=== PATIENT | male | born 1945 | race Caucasian/White ===

== ENCOUNTER 2022-06-22 11:44 | Emergency (ER) | payer OTHER ==
--- OUTSIDE RECORDS SUMMARY | 2022-06-22 11:48 | XMS REPORT | Continuity of Care Document ---
:1945 Author Organization [facility] t Address [facility] [place] [address] Care Team Providers Name Role Phone Arnav Tello Attending Clinician Unavailable Omer_Eliecer Attending Clinician Unavailable Omer_Eliecer Admitting Clinician Unavailable Payers Payer Name Policy Type Policy Number Effective Date Expiration Date S dorian MEDICARE [place]: [id number] 2012 [employer] 00:00:00 [facility] [id number] (MEDICARE SUPPLEMENT) Problems Condition Condition Condition Status Onset Resolution Last Treating Co mments Source Name Details Category Date Date Treatment Clinician Date Diabetes Diabetes Problem Active 2020-05 Dias ge mellitus Mellitus 2-15 Family 00:00: Practic 00 e Allergies, Adverse Reactions, Alerts Allergy Allergy Status Severity Reaction(s) Onset Inactive Treating Comm ents Source Name Type Date Date Clinician Flagyl Allergy Active [facility] Practic e e Social History Smoking Status Start Date Stop Date Source Former Smoker [facility] Medications Ordered Filled Start Stop Current Ordering Indication Dosage Frequency Signature Comments Components Source Medication Medication Date Date Medication? Clinician (SIG) Name Name allopurinol allopurinol No allopurino [place] 100 mg 100 mg l 100 mg Family tablet TAKE tablet TAKE tablet Practic 1 TABLET BY 1 TABLET BY TAKE 1 e MOUTH ONCE MOUTH ONCE TABLET BY DAILY FOR DAILY FOR MOUTH ONCE 30 DAYS 30 DAYS DAILY FOR 30 DAYS atorvastati atorvastati No atorvastat [place] n 40 mg n 40 mg in 40 mg Famil y tablet tablet tablet Practic e betamethaso betamethaso No betamethas [place] ne valerate ne valerate one F amily 0.1 % 0.1 % valerate Practic topical topical 0.1 % e cream cream topical cream clopidogrel clopidogrel No clopidogre [place] 75 mg 75 mg l 75 mg Family tablet TAKE tablet TAKE tablet Practic 1 TABLET BY 1 TABLET BY TAKE 1 e MOUTH ONCE MOUTH ONCE TABLET BY DAILY FOR DAILY FOR MOUTH ONCE 90 DAYS 90 DAYS DAILY FOR 90 DAYS dexamethaso dexamethaso No dexamethas [facility] ne sodium ne sodium one sodium Family phosphate 4 phosphate 4 phosphate Practic mg/mL mg/mL 4 mg/mL e injection injection injection solution 1 solution 1 solution 1 cc cc cc furosemide furosemide No furosemide [facility] 40 mg 40 mg 40 mg Family tablet tablet tablet Practic e glimepiride glimepiride No glimepirid [facility] 1 mg tablet 1 mg tablet e 1 mg Family tablet Practic e levothyroxi levothyroxi No levothyrox [facility] ne 25 mcg ne 25 mcg ine 25 mcg Family tablet tablet tablet Practic e tramadol 50 tramadol 50 No tramadol [place] mg tablet mg tablet 50 mg Fami ly Take 1 Take 1 tablet Practic tablet tablet Take 1 e every 12 every 12 tablet hours by hours by every 12 oral route oral route hours by as needed as needed oral route for 10 for 10 as needed days. days. for 10 days. Immunizations Ordered Immunization Filled Immunization Date Status Commen ts Source Name Name influenza, influenza, 2021-05-26 Completed [facility] high-dose, high-dose, 16:34:19 Practice quadrivalent quadrivalent COVID-19, mRNA, COVID-19, mRNA, 2021-04-06 Completed [facility] LNP-S, PF, 100 LNP-S, PF, 100 00:00:00 Practi ce mcg/0.5 mL dose mcg/0.5 mL dose (Moderna) (Moderna) COVID-19, mRNA, COVID-19, mRNA, 2020-06-27 Completed [facility] LNP-S, PF, 100 LNP-S, PF, 100 00:00:00 Practi ce mcg/0.5 mL dose mcg/0.5 mL dose (Moderna) (Moderna) COVID-19, mRNA, COVID-19, mRNA, 2020-05-29 Completed [facility] LNP-S, PF, 100 LNP-S, PF, 100 00:00:00 Practi ce mcg/0.5 mL dose mcg/0.5 mL dose (Moderna) (Moderna) Vital Signs Vital Name Observation Time Observation Value Comments Source BP Diastolic 2021-05-26 00:00:00 52 mm[Hg] [facility] Practice Height 2021-05-26 00:00:00 76 [in_i] [facility] BMI (Body Mass 2021-05-26 00:00:00 29.1 kg/m2 [facility] Family Index) Practice BP Systolic 2021-05-26 00:00:00 102 mm[Hg] [facility] Body Weight 2021-05-26 00:00:00 239 [lb_av] [facility] BP Diastolic 2021-04-29 00:00:00 65 mm[Hg] [facility] Height 2021-04-29 00:00:00 76 [in_i] [facility] BMI (Body Mass 2021-04-29 00:00:00 29.5 kg/m2 [facility] Family Index) Practice BP Systolic 2021-04-29 00:00:00 113 mm[Hg] [facility] Body Weight 2021-04-29 00:00:00 242.2 [lb_av] [facility] Procedures Procedure Date / Time Performed Performing Clinician Sour e X-RAY OF KNEE 3 VIEW 2021-04-29 00:00:00 [facility] Plan of Care Planned Activity Planned Date Details Comments Source Diagnostic Test 2021-05-26 HbA1c (hemoglobin [facility] Pending 00:00:00 A1c), blood [code Practice = HbA1c (hemoglobin A1c), blood] Diagnostic Test 2021-05-26 CBC w/ auto diff [facility] Pending 00:00:00 [code = CBC w/ Practice auto diff] Diagnostic Test 2021-05-26 iron + TIBC + [facility] Pending 00:00:00 ferritin, serum Practice [code = iron + TIBC + ferritin, serum] Diagnostic Test 2021-05-26 vitamin B12 + [facility] Pending 00:00:00 folate, serum or Practice blood [code = vitamin B12 + folate, serum or blood] Diagnostic Test 2021-05-26 lipid panel, serum [facility] Pending 00:00:00 [code = lipid Practice panel, serum] Diagnostic Test 2021-05-26 PSA, total + free, [facility] Pending 00:00:00 serum or plasma Practice [code = PSA, total + free, serum or plasma] Encounters Start End Encounter Admission Attending Care Care Encounter Source Date/Time Date/Time Type Type Clinicians Facility Department ID 2022-04-27 Outpatient Omer [facility] [id number] Common 08:13:03 [facility] [id number] [facility] 2022-02-11 2022-02-11 Outpatient Patel_J VFP VFP [id number] [facility] 00:00:00 00:00:00 [id number] Family Practic e 2021-08-25 2021-08-25 Outpatient Patel_J VFP VFP [id number] -[id number] [facility] 02:54:00 02:54:00 [id number] Family Practic e 2021-08-21 2021-08-21 Outpatient Patel_J VFP VFP [id number] -[id number] [facility] 09:15:00 09:15:00 [id number] Family Practic e 2021-08-04 2021-08-04 Outpatient Patel_J VFP VFP [id number] -[id number] [facility] 05:18:00 05:18:00 [id number] Family Practic e 2021-07-10 2021-07-10 Outpatient Patel_J VFP VFP [id number] -[address] [facility] 11:18:00 11:18:00 [id number] Family Practic e 2021-06-30 2021-06-30 Outpatient Patel_J VFP VFP [id number] -[address] [facility] 02:59:00 02:59:00 [id number] Family Practic e 2021-06-17 2021-06-17 Outpatient Patel_J VFP VFP [id number] -[id number] [facility] 03:12:00 03:12:00 [id number] Family Practic e 2021-06-13 2021-06-13 Outpatient Patel_J VFP VFP [id number] -[id number] [facility] 04:13:00 04:13:00 [id number] Family Practic e 2021-06-02 2021-06-02 Outpatient Patel_J VFP VFP [id number] -[id number] [facility] 08:39:00 08:39:00 [id number] Family Practic e 2021-06-01 2021-06-01 Outpatient Patel_J VFP VFP [id number] -[address] [facility] 06:35:00 06:35:00 [id number] Family Practic e 2021-05-31 2021-05-31 Outpatient Patel_J VFP VFP [id number] -[address] [facility] 10:55:00 10:55:00 [id number] Family Practic e 2021-05-26 2021-05-26 Outpatient Patel_J VFP VFP [id number] [facility] 12:10:00 12:10:00 [id number] Family Practic e 2021-05-26 2021-05-26 Adelia N VFP [place] - [id number] [facility] illage 00:00:00 00:00:00 ALYSA Tello: [place] [id number] Medical - Practi c Shadow VM_HOU_Shad e Ambler [facility], [facility] [address] [address] , Ph. 2021-05-20 2021-05-20 Outpatient Patel_J VFP VFP [id number] [facility] 07:01:00 07:01:00 [id number] Family Practic e 2021-05-20 2021-05-20 Outpatient Patel_J VFP VFP [id number] -[address] [facility] 07:01:00 07:01:00 [id number] Family Practic e 2021-05-04 2021-05-04 Outpatient Patel_J VFP VFP [id number] -[address] [facility] 11:13:00 11:13:00 [id number] Family Practic e 2021-04-30 2021-04-30 Outpatient Patel_J VFP VFP [id number] -[id number] [facility] 04:37:00 04:37:00 [id number] Family Practic e 2021-04-29 2021-04-29 Outpatient Patel_J VFP VFP [id number] [facility] 01:30:00 01:30:00 [id number] Family Practic e 2021-04-29 2021-04-29 Adelia N VFP [place] - [id number] [facility] 00:00:00 00:00:00 Omer [place]: [place] [facility] [id number] Medical - Practi c Shadow VM_HOU_Shad e Ambler [facility], [address], [place] [address] , Ph. 2021-04-28 2021-04-28 Outpatient Patel_J VFP VFP [id number] [facility] 05:29:00 05:29:00 [id number] Family Practic e Results Test Description Test Time Test Comments Results Result Comments Source Prostate specific Ag panel - Serum or Plasma 2021-06-03 00:0 0:00 Test Item Value Reference Range Interpretation Comme nts PSA, total (test code = 1.3 NG/mL See_Comment [Au tomated message] The system PSA, total) which generated this result transmitted ref erence range: < or = 4.0. The refe rence range was not used to interpr et this result as normal/abnormal . PSA, free (test code = 0.5 NG/mL PSA, free) PSA, % free (test code = 38 % (calc) >25 PSA, % free) [facility]Cyanocobalamin [Interpretation] in Serum or Blood 2021-06-03 00:00:00 Test Item Value Reference Range Interpretation Comments vitamin B12 (test code = vitamin 301 pg/mL 200-1100 B12) folate, serum (test code = folate, 8.8 NG/mL serum) [facility] + TIBC + ferritin, [id number] 00:00:00 Test Item Value Reference Range Interpretation Comments ferritin (test code = ferritin) 397.37 NG/mL 21.81-274.66 H iron, total (test code = iron, 114 mcg/dL 50-180 total) transferrin (test code = 220 mg/dL 163-344 transferrin) total iron binding capacity 315 mcg/dL 250-425 (calculated) (test code = total iron binding capacity (calculated)) % saturation (test code = % 36.2 % 15.0-60.0 saturation) [facility] Auto Differential panel - [id number] 00:00:00 Test Item Value Reference Range Interpretation Comments WBC (test code = WBC) 6.66 x10*3/?L 4.00-11.00 RBC (test code = RBC) 4.44 10*12/L 4.63-6.08 L hemoglobin (test code = 14.20 g/dL 13.70-17.50 hemoglobin) hematocrit (test code = 43.7 % 40.1-51.0 hematocrit) MCV (test code = MCV) 98.4 fL 80.0-100.0 MCH (test code = MCH) 32.0 pg 25.7-32.2 MCHC (test code = MCHC) 32.5 g/dL 32.3-36.5 RDW-SD (test code = RDW-SD) 44.4 fL 35.1-43.9 H platelet count (test code = 238.0 k/uL 150.0-400.0 platelet count) MPV (test code = MPV) 11.1 fL 7.5-11.5 neut% (test code = neut%) 51.4 % 34.0-67.9 lymph% (test code = lymph%) 32.7 % 21.8-53.1 mon% (test code = mon%) 9.5 % 5.3-12.2 eos% (test code = eos%) 5.3 % 0.8-7.0 baso% (test code = baso%) 0.8 % 0.2-1.2 neut# (test code = neut#) 3.4 x10*3/?L 1.8-5.4 lymph# (test code = lymph#) 2.2 x10*3/?L 1.3-3.6 mon# (test code = mon#) 0.6 x10*3/?L 0.3-0.8 eos# (test code = eos#) 0.35 x10*3/?L 0.04-0.54 baso# (test code = baso#) 0.05 x10*3/?L 0.01-0.08 [facility] 1996 panel - Serum or [id number] 00:00:00 Test Item Value Reference Range Interpretation Comments HDL (test code = HDL) 38 mg/dL L triglyceride (test code = 137 mg/dL <150 triglyceride) VLDL (calculated) (test code = VLDL 27 mg/dL (calculated)) cholesterol/HDL ratio (test code = 4.3 mg/dL cholesterol/HDL ratio) non-HDL cholesterol (calculated) 125 mg/dL <160 (test code = non-HDL cholesterol (calculated)) cholesterol (test code = 163 mg/dL <200 cholesterol) Cholesterol in LDL [Mass/volume] in 98 mg/dL <130 Serum or Plasma (test code = 2089-1) [facility] CenterHemoglobin A1c/Hemoglobin.total in [id number] 00:00:00 Test Item Value Reference Range Interpretation Comments Hemoglobin A1c/Hemoglobin.total in 6.4 % 1.0-5.7 H Blood (test code = 4548-4) average blood glucose (calculation) 137 mg/dL (test code = average blood glucose (calculation)) [facility] CenterNeuronal nuclear IgG Ab [Units/volume] in Serum by [id number] 00:00:00 Test Item Value Reference Range Interpretation Comments KAREN screen, ifa (test code = KAREN positive negative A screen, ifa) [facility] Ab [Titer] in Serum by Immunofluorescence 2021-05-04 00:00:00 Test Item Value Reference Range Interpretation Comments KAREN titer (test code = KAREN 1:160 H titer) KAREN pattern (test code = nuclear, speckled A KAREN pattern) [facility] 00:00:00 Test Item Value Reference Range Interpretation Comments DNA (ds) antibody 2 IU/mL (test code = DNA (ds) antibody) sm antibody (test code <1.0 neg See_Comment [Aut omated message] = sm antibody) The system wh ich generated this result transmitted ref erence range: <1.0 neg . The reference range was not used to interpr et this result as normal/abnormal . sm/director of optimization antibody (test <1.0 neg See_Comment [Auto mated message] code = sm/director of optimization The system whi ch antibody) generated this result transmitted ref erence range: <1.0 neg . The reference range was not used to interpr et this result as normal/abnormal . director of optimization antibody (test <1.0 neg See_Comment [Automat ed message] code = director of optimization antibody) The s tem which generated this result transmitted ref erence range: <1.0 neg . The reference range was not used to interpr et this result as normal/abnormal . chromatin <1.0 neg See_Comment [Automated mes milton] (nucleosomal) antibody The s ystem which (test code = chromatin gener ated this result (nucleosomal) transmitted re ference antibody) range: <1.0 neg . The reference range was not used to interpr et this result as normal/abnormal . [facility] Test Item Value Reference Range Interpretation Comments sjogren's antibody <1.0 neg See_Comment [Automat ed message] The (ss-A) (test code = system w hich generated sjogren's antibody this resu lt transmitted (ss-A)) reference range : <1.0 neg. The refere nce range was not used to interpret this result as normal/abnormal . sjogren's antibody <1.0 neg See_Comment [Automat ed message] The (ss-B) (test code = system w hich generated sjogren's antibody this resu lt transmitted (ss-B)) reference range : <1.0 neg. The refere nce range was not used to interpret this result as normal/abnormal . scl-70 antibody (test <1.0 neg See_Comment [Auto mated message] The code = scl-70 system which g enerated antibody) this result tra nsmitted reference range : <1.0 neg. The refere nce range was not used to interpret this result as normal/abnormal . kristen-1 antibody (test <1.0 neg See_Comment [Automa mir message] The code = kristen-1 antibody) system which generated this result tra nsmitted reference range : <1.0 neg. The refere nce range was not used to interpret this result as normal/abnormal . [facility] Test Item Value Reference Range Interpretation Comments centromere B antibody <1.0 neg See_Comment [Auto mated message] (test code = The system whic h centromere B antibody) gener ated this result transmitted ref erence range: <1.0 neg . The reference range was not used to interpr et this result as normal/abnormal . ribosomal P antibody <1.0 neg See_Comment [Autom ated message] (test code = ribosomal The s ystem which P antibody) generated this result transmitted ref erence range: <1.0 neg . The reference range was not used to interpr et this result as normal/abnormal . [facility] Cent[id number] 00:00:00InterpretationVillSpencer HospitalNeuronal nuclear IgG Ab [Units/volume] in Serum by [id number] 00:00:00 Test Item Value Reference Range Interpretation Comments KAREN screen, ifa (test code = KAREN positive negative A screen, ifa) [facility]Nuclear Ab [Titer] in Serum by Immunofluorescence 2021-05-04 00:00:00 Test Item Value Reference Range Interpretation Comments KAREN titer (test code = KAREN 1:160 H titer) KAREN pattern (test code = nuclear, speckled A KAREN pattern) [facility] [id number] 00:00:00 Test Item Value Reference Range Interpretation Comments DNA (ds) antibody 2 IU/mL (test code = DNA (ds) antibody) sm antibody (test code <1.0 neg See_Comment [Aut omated message] = sm antibody) The system wh ich generated this result transmitted ref erence range: <1.0 neg . The reference range was not used to interpr et this result as normal/abnormal . sm/director of optimization antibody (test <1.0 neg See_Comment [Auto mated message] code = sm/director of optimization The system whi ch antibody) generated this result transmitted ref erence range: <1.0 neg . The reference range was not used to interpr et this result as normal/abnormal . director of optimization antibody (test <1.0 neg See_Comment [Automat ed message] code = director of optimization antibody) The sys tem which generated this result transmitted ref erence range: <1.0 neg . The reference range was not used to interpr et this result as normal/abnormal . chromatin <1.0 neg See_Comment [Automated mes milton] (nucleosomal) antibody The s ystem which (test code = chromatin gener ated this result (nucleosomal) transmitted re ference antibody) range: <1.0 neg . The reference range was not used to interpr et this result as normal/abnormal . [facility] [id number] 00:00:00 Test Item Value Reference Range Interpretation Comments sjogren's antibody <1.0 neg See_Comment [Automat ed message] The (ss-A) (test code = system w hich generated sjogren's antibody this resu lt transmitted (ss-A)) reference range : <1.0 neg. The refere nce range was not used to interpret this result as normal/abnormal . sjogren's antibody <1.0 neg See_Comment [Automat ed message] The (ss-B) (test code = system w hich generated sjogren's antibody this resu lt transmitted (ss-B)) reference range : <1.0 neg. The refere nce range was not used to interpret this result as normal/abnormal . scl-70 antibody (test <1.0 neg See_Comment [Auto mated message] The code = scl-70 system which g enerated antibody) this result tra nsmitted reference range : <1.0 neg. The refere nce range was not used to interpret this result as normal/abnormal . kristen-1 antibody (test <1.0 neg See_Comment [Automa mir message] The code = kristen-1 antibody) system which generated this result tra nsmitted reference range : <1.0 neg. The refere nce range was not used to interpret this result as normal/abnormal . [facility] Test Item Value Reference Range Interpretation Comments centromere B antibody <1.0 neg See_Comment [Auto mated message] (test code = The system whic h centromere B antibody) gener ated this result transmitted ref erence range: <1.0 neg . The reference range was not used to interpr et this result as normal/abnormal . ribosomal P antibody <1.0 neg See_Comment [Autom ated message] (test code = ribosomal The s ystem which P antibody) generated this result transmitted ref erence range: <1.0 neg . The reference range was not used to interpr et this result as normal/abnormal . [facility] Cent[id number] 00:00:00InterpretationVillSpencer HospitalTriiodothyronine resin uptake (T3RU) in Serum or [id number] 00:00:00 Test Item Value Reference Range Interpretation Comments T3 uptake (test code = T3 uptake) 31 % 22-35 [facility]-reactive protein, [id number] 00:00:00 Test Item Value Reference Range Interpretation Comments C-reactive protein (test code = 6.1 mg/L <8.0 C-reactive protein) [facility] CenterRheumatoid factor [Units/volume] in Serum or Plasma 2021-04-30 00:00:00 Test Item Value Reference Range Interpretation Comments rheumatoid factor (test code = <14 <14 rheumatoid factor) [facility] CenterErythrocyte sedimentation rate by Westergren method 2021-04-30 00:00:00 Test Item Value Reference Range Interpretation Comments sed rate by modified 14 mm/h See_Comment [Autom ated message] westergren (test code = The system which sed rate by modified generat ed this result westergren) transmitted ref erence range: < or = 2 0. The reference range was not used to interpr et this result as normal/abnormal . [facility] Auto Differential panel - [id number] 00:00:00 Test Item Value Reference Range Interpretation Comments WBC (test code = WBC) 7.30 x10*3/?L 4.00-11.00 RBC (test code = RBC) 4.35 10*12/L 4.63-6.08 L hemoglobin (test code = 13.90 g/dL 13.70-17.50 hemoglobin) hematocrit (test code = 43.5 % 40.1-51.0 hematocrit) MCV (test code = MCV) 100.0 fL 80.0-100.0 MCH (test code = MCH) 32.0 pg 25.7-32.2 MCHC (test code = MCHC) 32.0 g/dL 32.3-36.5 L RDW-SD (test code = RDW-SD) 45.1 fL 35.1-43.9 H platelet count (test code = 213.0 k/uL 150.0-400.0 platelet count) MPV (test code = MPV) 12.0 fL 7.5-11.5 H neut% (test code = neut%) 60.2 % 34.0-67.9 lymph% (test code = lymph%) 26.8 % 21.8-53.1 mon% (test code = mon%) 8.1 % 5.3-12.2 eos% (test code = eos%) 3.8 % 0.8-7.0 baso% (test code = baso%) 0.8 % 0.2-1.2 neut# (test code = neut#) 4.4 x10*3/?L 1.8-5.4 lymph# (test code = lymph#) 2.0 x10*3/?L 1.3-3.6 mon# (test code = mon#) 0.6 x10*3/?L 0.3-0.8 eos# (test code = eos#) 0.28 x10*3/?L 0.04-0.54 baso# (test code = baso#) 0.06 x10*3/?L 0.01-0.08 [facility] CenterComprehensive metabolic 2000 panel - Serum or Plasma 2021-04-30 00:00:00 Test Item Value Reference Range Interpretation Comments ALT (test code = ALT) 21 U/L 0-55 AST (test code = AST) 14 U/L 5-34 BUN (test code = BUN) 24.1 mg/dL 8.4-25.0 alk phos (test code = alk 84 unit/L 40-150 phos) glucose (test code = 82 mg/dL 70-99 glucose) albumin (test code = 3.8 g/dL 3.4-5.1 albumin) creatinine (test code = 1.31 mg/dL 0.72-1.25 H creatinine) eGFR non- 54 mL/min/1.73m2 A (test code = eGFR non-) total bilirubin (test code = 0.6 mg/dL 0.2-1.2 total bilirubin) eGFR - >60 (test code = eGFR - ) sodium (test code = sodium) 142 mEq/L 135-145 potassium (test code = 4.5 mEq/L 3.5-5.3 potassium) chloride (test code = 106 mmol/L 98-110 chloride) total protein (test code = 6.7 g/dL 6.1-8.2 total protein) calcium (test code = 9.3 mg/dL 8.8-10.2 calcium) CO2 (test code = CO2) 25.6 mmol/L 20.0-32.0 anion gap (test code = anion 10 calc gap) [facility] CenterThyroxine (T4) free [Mass/volume] in Serum or Plasma 2021-04-30 00:00:00 Test Item Value Reference Range Interpretation Comments T4 free (test code = T4 free) 0.98 NG/dL 0.70-1.48 [facility] CenterThyrotropin [Units/volume] in Serum or [id number] 00:00:00 Test Item Value Reference Range Interpretation Comments TSH (test code = TSH) 1.501 uIU/mL 0.350-4.940 [facility] CenterUrate [Mass/volume] in Serum or [id number] 00:00:00 Test Item Value Reference Range Interpretation Comments uric acid (test code = uric acid) 8.4 mg/dL 3.5-7.2 H [facility] CenterTriiodothyronine resin uptake (T3RU) in Serum or Plasma 2021-04-30 00:00:00 Test Item Value Reference Range Interpretation Comments T3 uptake (test code = T3 uptake) 31 % 22-35 [facility] CenterTriiodothyronine resin uptake (T3RU) in Serum or Plasma 2021-04-30 00:00:00 Test Item Value Reference Range Interpretation Comments T3 uptake (test code = T3 uptake) 31 % 22-35 [facility] CenterC-reactive protein, [id number] 00:00:00 Test Item Value Reference Range Interpretation Comments C-reactive protein (test code = 6.1 mg/L <8.0 C-reactive protein) [facility] CenterRheumatoid factor [Units/volume] in Serum or Plasma 2021-04-30 00:00:00 Test Item Value Reference Range Interpretation Comments rheumatoid factor (test code = <14 <14 rheumatoid factor) [facility] CenterErythrocyte sedimentation rate by Westergren method 2021-04-30 00:00:00 Test Item Value Reference Range Interpretation Comments sed rate by modified 14 mm/h See_Comment [Autom ated message] sergo (test code = The system which sed rate by modified generat ed this result sergo) transmitted ref erence range: < or = 2 0. The reference range was not used to interpr et this result as normal/abnormal . [facility] Differential panel - [id number] 00:00:00 Test Item Value Reference Range Interpretation Comments WBC (test code = WBC) 7.30 x10*3/?L 4.00-11.00 RBC (test code = RBC) 4.35 10*12/L 4.63-6.08 L hemoglobin (test code = 13.90 g/dL 13.70-17.50 hemoglobin) hematocrit (test code = 43.5 % 40.1-51.0 hematocrit) MCV (test code = MCV) 100.0 fL 80.0-100.0 MCH (test code = MCH) 32.0 pg 25.7-32.2 MCHC (test code = MCHC) 32.0 g/dL 32.3-36.5 L RDW-SD (test code = RDW-SD) 45.1 fL 35.1-43.9 H platelet count (test code = 213.0 k/uL 150.0-400.0 platelet count) MPV (test code = MPV) 12.0 fL 7.5-11.5 H neut% (test code = neut%) 60.2 % 34.0-67.9 lymph% (test code = lymph%) 26.8 % 21.8-53.1 mon% (test code = mon%) 8.1 % 5.3-12.2 eos% (test code = eos%) 3.8 % 0.8-7.0 baso% (test code = baso%) 0.8 % 0.2-1.2 neut# (test code = neut#) 4.4 x10*3/?L 1.8-5.4 lymph# (test code = lymph#) 2.0 x10*3/?L 1.3-3.6 mon# (test code = mon#) 0.6 x10*3/?L 0.3-0.8 eos# (test code = eos#) 0.28 x10*3/?L 0.04-0.54 baso# (test code = baso#) 0.06 x10*3/?L 0.01-0.08 [facility] 2000 panel - Serum or Plasma 2021-04-30 00:00:00 Test Item Value Reference Range Interpretation Comments ALT (test code = ALT) 21 U/L 0-55 AST (test code = AST) 14 U/L 5-34 BUN (test code = BUN) 24.1 mg/dL 8.4-25.0 alk phos (test code = alk 84 unit/L 40-150 phos) glucose (test code = 82 mg/dL 70-99 glucose) albumin (test code = 3.8 g/dL 3.4-5.1 albumin) creatinine (test code = 1.31 mg/dL 0.72-1.25 H creatinine) eGFR non- 54 mL/min/1.73m2 A (test code = eGFR non-) total bilirubin (test code = 0.6 mg/dL 0.2-1.2 total bilirubin) eGFR - >60 (test code = eGFR - ) sodium (test code = sodium) 142 mEq/L 135-145 potassium (test code = 4.5 mEq/L 3.5-5.3 potassium) chloride (test code = 106 mmol/L 98-110 chloride) total protein (test code = 6.7 g/dL 6.1-8.2 total protein) calcium (test code = 9.3 mg/dL 8.8-10.2 calcium) CO2 (test code = CO2) 25.6 mmol/L 20.0-32.0 anion gap (test code = anion 10 calc gap) [facility]yroxine (T4) free [Mass/volume] in Serum or Plasma 2021-04-30 00:00:00 Test Item Value Reference Range Interpretation Comments T4 free (test code = T4 free) 0.98 NG/dL 0.70-1.48 [facility]Thyrotropin [Units/volume] in Serum or [id number] 00:00:00 Test Item Value Reference Range Interpretation Comments TSH (test code = TSH) 1.501 uIU/mL 0.350-4.940 [facility] CenterUrate [Mass/volume] in Serum or [id number] 00:00:00 Test Item Value Reference Range Interpretation Comments uric acid (test code = uric acid) 8.4 mg/dL 3.5-7.2 H [facility] CenterHemoglobin A1c measurement device [id number] 14:52:00 Test Item Value Reference Range Interpretation Comments Hemoglobin A1C Fingerstick: (test code 6.5 = Hemoglobin A1C Fingerstick:) [facility] CenterHemoglobin A1c measurement device [id number] 14:52:00 Test Item Value Reference Range Interpretation Comments Hemoglobin A1C Fingerstick: (test code 6.5 = Hemoglobin A1C Fingerstick:) [facility] CenterHemoglobin A1c measurement device [id number] 14:52:00 Test Item Value Reference Range Interpretation Comments Hemoglobin A1C Fingerstick: (test code 6.5 = Hemoglobin A1C Fingerstick:) [facility]
[2022-06-22 13:09] LABS: SARS-COV-2 RT PCR POSITIVE (NEGATIVE)
--- NOTE | 2022-06-22 13:32 | RAD REPORT ---
EXAM DESCRIPTION: RAD - Chest Single View - 06/22/2022 1:23 pm CLINICAL HISTORY: cough, weakness Chest pain. COMPARISON: No comparisons FINDINGS: Portable technique limits examination quality. The lungs are mildly emphysematous but grossly clear. The heart is normal in size. No displaced fract ures.Sternotomy wires present. IMPRESSION: No acute intrathoracic process suspected.
--- NOTE | 2022-06-22 13:53 | ER ---
Nurse's Notes [facility] Name: Remington Huff Age: 76 yrs Sex: Male : 1945 Arrival Date: 06/22/2022 Time: 11:48 Bed 24 Private MD: Diagnosis: Coronavirus infection, unspecified Presentation: 06/22 11:59 Chief complaint: Patient states: SOB, weakness, fever, headache X 2 days. Coronavirus ld1 screen: Client presents with at least one sign or symptom that may indicate coronavirus-19. Standard/surgical mask placed on the client. Ebola Screen: No symptoms or risks identified at this time. Initial Sepsis Screen: Does the patient meet any 2 criteria? No. Patient's initial sepsis screen is negative. Does the patient have a suspected source of infection? No. Patient's initial sepsis screen is negative. Risk Assessment: Do you want to hurt yourself or someone else? Patient reports no desire to harm self or others. Onset of symptoms was June 22, 2022. 11:59 Method Of Arrival: Ambulatory ld1 11:59 Acuity: JOHNY 3 ld1 Triage Assessment: 11:56 General: Appears in no apparent distress. comfortable, Behavior is calm, cooperative, ld1 appropriate for age. Pain: Complains of pain in face Pain does not radiate. Pain currently is 9 out of 10 on a pain scale. EENT: No signs and/or symptoms were reported regarding the EENT system. Neuro: Level of Consciousness is awake, alert, obeys commands, Oriented to person, place, time, situation. Cardiovascular: Capillary refill < 3 seconds Patient's skin is warm and dry. Respiratory: Reports shortness of breath cough that is Airway is patent Respiratory effort is even, unlabored, Onset: The symptoms/episode began/occurred suddenly, the patient has moderate shortness of breath. GI: Abdomen is round non-distended. : No signs and/or symptoms were reported regarding the genitourinary system. Derm: No signs and/or symptoms reported regarding the dermatologic system. Musculoskeletal: No signs and/or symptoms reported regarding the musculoskeletal system. Historical: - Allergies: 11:56 Flagyl; ld1 - PMHx: 11:56 Diabetes mellitus; ld1 - PSHx: 11:56 Heart bypass surgery; ld1 - Immunization history:: Adult Immunizations up to date, Client reports receiving the 2nd dose of the Covid vaccine. - Social history:: Smoking status: Patient denies any tobacco usage or history of. Patient uses alcohol, occasionally. Vital Signs: 11:56 BP 118 / 72; Pulse 84; Resp 20; Temp 99(O); Pulse Ox 95% on R/A; Weight 106.59 kg; ld1 Height 6 ft. 4 in. (193.04 cm); Pain 9/10; 13:10 BP 148 / 70; Pulse 70; Resp 18; Pulse Ox 96% on R/A; eh3 14:00 BP 115 / 61; Pulse 68; Resp 18; Pulse Ox 94% on R/A; eh3 11:56 Body Mass Index 28.60 (106.59 kg, 193.04 cm) ld1 ED Course: 11:48 Patient arrived in ED. rg4 11:54 Fernando Madden PA is PHCP. [facility] 11:54 Ta Vargas DO is Attending Physician. m 11:56 Arm band placed on right wrist. ld1 11:59 Triage completed. ld1 12:12 Janine Thorne, RN is Primary Nurse. 3 13:25 Chest Single View XRAY In Process Unspecified. EDMS Administered Medications: No medications were administered Outcome: 13:53 Discharge ordered by . [facility] 14:11 Patient left the ED. 3 Signatures: Dispatcher [employer] EDMS Fernando Madden PA PA jmm Garcia, Rubi rg4 Melody Colin RN RN ld1 Janine Thorne, RN RN 3 Corrections: (The following items were deleted from the chart) 11:57 11:56 Allergies: No Known Allergies; ld1 ld1
--- NOTE | 2022-06-22 13:53 | EDPHYS ---
Physician Documentation [facility] Name: Remington Hfuf Age: 76 yrs Sex: Male : 1945 Arrival Date: 06/22/2022 Time: 11:48 Bed 24 Private MD: ED Physician Ta Vargas HPI: 06/22 12:04 This 76 yrs old Male presents to ER via Ambulatory with complaints of Shortness Of m Breath, Weakness, Headache. 12:04 The patient has shortness of breath at rest. jmm 13:52 This is a 76-year-old male with history of diabetes mellitus the presents emerged from [facility] with complaints of cough, congestion, shortness of breath, headache beginning this past Tuesday. Denies vomiting or diarrhea. has similar symptoms.. Historical: - Allergies: 11:56 Flagyl; ld1 - PMHx: 11:56 Diabetes mellitus; ld1 - PSHx: 11:56 Heart bypass surgery; ld1 - Immunization history:: Adult Immunizations up to date, Client reports receiving the 2nd dose of the Covid vaccine. - Social history:: Smoking status: Patient denies any tobacco usage or history of. Patient uses alcohol, occasionally. ROS: 13:52 Constitutional: Positive for body aches. jmm 13:52 Respiratory: Positive for cough. 13:52 Neuro: Positive for headache. 13:52 All other systems are negative. Exam: 13:52 Constitutional: This is a well developed, well nourished patient who is awake, alert, [facility] and in no acute distress. Head/Face: atraumatic. Eyes: EOMI, no conjunctival erythema appreciated ENT: Moist Mucus Membranes Neck: Trachea midline, Supple Chest/axilla: Normal chest wall appearance and motion. Cardiovascular: Regular rate and rhythm. No edema appreciated Respiratory: Normal respirations, no respiratory distress appreciated Abdomen/GI: Non distended Back: Normal ROM Skin: General appearance color normal MS/ Extremity: Moves all extremities, no obvious deformities appreciated, no edema noted to the lower extremities Neuro: Awake and alert Psych: Behavior is normal, Mood is normal, Patient is cooperative and pleasant Vital Signs: 11:56 BP 118 / 72; Pulse 84; Resp 20; Temp 99(O); Pulse Ox 95% on R/A; Weight 106.59 kg; ld1 Height 6 ft. 4 in. (193.04 cm); Pain 9/10; 13:10 BP 148 / 70; Pulse 70; Resp 18; Pulse Ox 96% on R/A; eh3 14:00 BP 115 / 61; Pulse 68; Resp 18; Pulse Ox 94% on R/A; eh3 11:56 Body Mass Index 28.60 (106.59 kg, 193.04 cm) ld1 MDM: 12:04 Patient medically screened. [facility] 13:52 Data reviewed: vital signs, nurses notes, lab test result(s), radiologic studies. [facility] Historians other than the Patient: Spouse/Significant Other: . Counseling: I had a detailed discussion with the patient and/or guardian regarding: the historical points, exam findings, and any diagnostic results supporting the discharge/admit diagnosis, lab results, radiology results, the need for outpatient follow up, to return to the emergency department if symptoms worsen or persist or if there are any questions or concerns that arise at home. ED course: Patient is alert nontoxic in appearance in the ED. Given strict return precautions. Patient understood and agrees plan of care.. 06/22 12:05 Order name: COVID-19/FLU A+B/RSV; Complete Time: 13:22 [facility] 06/22 12:05 Order name: Chest Single View XRAY; Complete Time: 13:36 [facility] Administered Medications: No medications were administered Disposition: 18:14 Co-signature as Attending Physician, Ta GROVER was immediately available on-site ms3 in the Emergency Department for consultation in the care of the patient. Disposition Summary: 06/22/22 13:53 Discharge Ordered Location: Home [facility] Condition: Stable [facility] Diagnosis - Coronavirus infection, unspecified [facility] Followup: [facility] - With: Private Physician - When: 2 - 3 days - Reason: Recheck today's complaints, Continuance of care, Re-evaluation by your physician Discharge Instructions: - Discharge Summary Sheet [facility] - COVID-19 [facility] Forms: - Medication Reconciliation Form [facility] - Thank You Letter [facility] - Antibiotic Education [facility] - Prescription Opioid Use [facility] Prescriptions: - albuterol sulfate 90 mcg/actuation Inhalation HFA aerosol inhaler - inhale 2 puff by INHALATION route every 4 hours; 1 Pump; Refills: 0, Product [facility] Selection Permitted - Zithromax Z-Berny 250 mg Oral Tablet - take 1 tablet by ORAL route as directed for 5 days Day 1 - take two (2) tablets jm one time. Day 2, 3, 4 , 5 take one (1) tablet once daily.; 6 tablet; Refills: 0, Product Selection Permitted Signatures: Dispatcher [employer] EDFernando Avelar PA PA jmm Sims, Marcus, DO DO ms3 Melody Colin RN RN ld1 Corrections: (The following items were deleted from the chart) 11:57 11:56 Allergies: No Known Allergies; ld1 ld1
[2022-06-22 14:26] VITALS: TEMP 99
[2022-06-22 14:28] VITALS: BP 115/61; O2SAT 94
== END 2022-06-22 14:11 | disposition home or self-care (01) ==
LOC: ER 11:44
DX: U07.1 COVID-19 (principal); E11.9 Type 2 diabetes mellitus without complications; Z95.1 Presence of aortocoronary bypass graft; Z88.1 Allergy status to other antibiotic agents
CPT/HCPCS: 0241U; 71045

== ENCOUNTER 2022-11-23 12:34 | Emergency (ER) | payer OTHER ==
--- OUTSIDE RECORDS SUMMARY | 2022-11-23 12:39 | XMS REPORT | Continuity of Care Document ---
:1945 Author Organization [facility] t Address [address] [place] [address] Care Team Providers Name Role Phone Arnav Tello Attending Clinician Unavailable Omer_Eliecer Attending Clinician Unavailable Deyanira Admitting Clinician Unavailable Payers Payer Name Policy Type Policy Number Effective Date Expiration Date S dorian MEDICARE B-[place]: [id number] 2012 iCopyright 00:00:00 [facility] [id number] (MEDICARE SUPPLEMENT) Problems Condition Condition Condition Status Onset Resolution Last Treating Co mments Source Name Details Category Date Date Treatment Clinician Date Diabetes Diabetes Problem Active 2020-05 Idas ge mellitus Mellitus 2-15 Family 00:00: Practic [...] FOR 90 DAYS dexamethaso dexamethaso No dexamethas [facility] ne sodium ne sodium one sodium [facility] phosphate 4 phosphate 4 phosphate Practic mg/mL mg/mL 4 mg/mL e injection injection injection solution 1 solution 1 solution 1 cc cc cc furosemide furosemide No furosemide [facility] 40 mg 40 mg 40 mg Family tablet tablet tablet Practic e glimepiride glimepiride No glimepirid [facility] 1 mg tablet 1 mg tablet e 1 mg Family tablet Practic e levothyroxi levothyroxi No levothyrox [facility] ne 25 mcg ne 25 mcg ine [...] Source Name Name influenza, influenza, 2021-05-26 Completed [facility] high-dose, high-dose, 16:34:19 Practice quadrivalent quadrivalent COVID-19, [...] Source BP Diastolic 2021-05-26 00:00:00 52 mm[Hg] [facility] Practice Height 2021-05-26 00:00:00 76 [in_i] [facility] BMI (Body Mass 2021-05-26 00:00:00 29.1 kg/m2 [facility] Family Index) Practice BP Systolic 2021-05-26 00:00:00 102 mm[Hg] [facility] Body Weight 2021-05-26 00:00:00 239 [lb_av] [facility] BP Diastolic 2021-04-29 00:00:00 65 mm[Hg] [facility] Height 2021-04-29 00:00:00 76 [in_i] [facility] BMI (Body Mass 2021-04-29 00:00:00 29.5 kg/m2 [facility] e Family Index) Practice BP Systolic 2021-04-29 00:00:00 113 mm[Hg] [facility] Body Weight 2021-04-29 00:00:00 242.2 [lb_av] [facility] Procedures Procedure Date / Time Performed Performing Clinician Sour e X-RAY OF KNEE 3 VIEW 2021-04-29 00:00:00 [facility] Plan of Care Planned Activity Planned Date Details Comments Source Diagnostic Test 2021-05-26 HbA1c (hemoglobin [facility] Pending 00:00:00 A1c), blood [code Practice = HbA1c (hemoglobin A1c), blood] Diagnostic Test 2021-05-26 CBC w/ auto diff [facility] Pending 00:00:00 [code = CBC w/ Practice auto diff] Diagnostic Test 2021-05-26 iron + TIBC + [facility] Pending 00:00:00 ferritin, serum Practice [code = iron + TIBC + ferritin, serum] Diagnostic Test 2021-05-26 vitamin B12 + [facility] Pending 00:00:00 folate, serum or Practice blood [code = vitamin B12 + folate, serum or blood] Diagnostic Test 2021-05-26 lipid panel, serum [facility] Pending 00:00:00 [code = lipid Practice panel, serum] Diagnostic Test 2021-05-26 [facility], total + [facility], [facility] Pending 00:00:00 serum or plasma Practice [code = PSA, total + free, serum or plasma] Encounters Start End Encounter Admission Attending Care Care Encounter Source Date/Time Date/Time Type Type Clinicians Facility Department ID 2022-10-12 Outpatient Omer [facility] [id number] Common 14:03:00 Arnav [id number] [facility] 2022-09-02 [facility] [id number] Common 15:13:01 Arnav [id number] [facility] 2022-08-13 [facility] [id number] Common 15:56:00 Arnav [id number] [facility] 2022-08-06 [facility] [id number] Common 08:19:03 Arnav [id number] [facility] 2022-04-27 Outpatient Tello, [facility] [id number] Common 08:13:03 Arnav [id number] [facility] 2022-02-11 2022-02-11 Outpatient Patel_J VFP VFP [id number] [facility] 00:00:00 00:00:00 [id number] Family Practic e 2021-08-25 2021-08-25 Outpatient Patel_J VFP VFP [id number] [facility] 02:54:00 02:54:00 [id number] Family Practic e 2021-08-21 2021-08-21 Outpatient Patel_J VFP VFP [id number] [facility] 09:15:00 09:15:00 [id number] Family Practic e 2021-08-04 2021-08-04 Outpatient Patel_J VFP VFP [id number] [facility] 05:18:00 05:18:00 [id number] Family Practic e 2021-07-10 2021-07-10 Outpatient Patel_J VFP VFP [id number] [facility] 11:18:00 11:18:00 [id number] Family Practic e 2021-06-30 2021-06-30 Outpatient Patel_J VFP VFP [id number] -[id number] [facility] 02:59:00 02:59:00 [id number] Family Practic e 2021-06-17 2021-06-17 Outpatient Patel_J VFP VFP [id number] -[id number] [facility] 03:12:00 03:12:00 [id number] Family Practic e 2021-06-13 2021-06-13 Outpatient Patel_J VFP VFP [id number] [facility] 04:13:00 04:13:00 [id number] Family Practic e 2021-06-02 2021-06-02 Outpatient Patel_J VFP VFP [id number] [facility] 08:39:00 08:39:00 [id number] Family Practic e 2021-06-01 2021-06-01 Outpatient Patel_J VFP VFP [id number] [facility] 06:35:00 06:35:00 [id number] Family Practic e 2021-05-31 2021-05-31 Outpatient Patel_J VFP VFP [id number] [facility] 10:55:00 10:55:00 [id number] Family Practic e 2021-05-26 2021-05-26 Outpatient Patel_J VFP VFP [id number] [facility] 12:10:00 12:10:00 [id number] Family Practic e 2021-05-26 2021-05-26 Adelia N VFP [place] - [id number] V illage 00:00:00 00:00:00 ALYSA Tello: [place] [facility] [id number] Medical - Practi c Shadow VM_HOU_Shad [place] [address] [facility], [address], [place] [address] , Ph. 2021-05-20 2021-05-20 Outpatient Patel_J VFP VFP [id number] [facility] 07:01:00 07:01:00 [id number] Family Practic e 2021-05-20 2021-05-20 Outpatient Patel_J VFP VFP [id number] [facility] 07:01:00 07:01:00 [id number] Family Practic e 2021-05-04 2021-05-04 Outpatient Patel_J VFP VFP [id number] [facility] 11:13:00 11:13:00 [id number] Family Practic e 2021-04-30 2021-04-30 Outpatient Patel_J VFP VFP [id number] [facility] 04:37:00 04:37:00 [id number] Family Practic e 2021-04-29 2021-04-29 Outpatient Patel_J VFP VFP [id number] [facility] 01:30:00 01:30:00 [id number] Family Practic e 2021-04-29 2021-04-29 Adelia Rosales [facility] [place] - [id number] V illage 00:00:00 00:00:00 ALYSA Tello: [facility] [id number] Medical - Practi c Shadow VM[address]HOU_[address]enn[address], [place] [address] , Ph. 2021-04-28 2021-04-28 Outpatient Omer_Eliecer [facility] [id number] [facility] 05:29:00 05:29:00 [id number] Family Practic e Results Test Description Test [...] 38 % (calc) >25 PSA, % free) [facility]yan[facility]obal[facility] [Interpretation] in Serum or Blood 2021-06-03 00:00:00 Test Item Value Reference Range Interpretation Comments vitamin B12 (test code = vitamin 301 pg/mL 200-1100 B12) folate, serum (test code = folate, 8.8 NG/mL serum) [facility] TIBC + ferritin, [id number] 00:00:00 Test Item Value Reference Range Interpretation Comments ferritin (test code = ferritin) 397.37 NG/mL 21.81-274.66 H iron, total (test code = iron, 114 mcg/dL 50-180 total) transferrin (test code = 220 mg/dL 163-344 transferrin) total iron binding capacity 315 mcg/dL 250-425 (calculated) (test code = total iron binding capacity (calculated)) % saturation (test code = % 36.2 % 15.0-60.0 saturation) [facility] Auto Differential panel - [id number] 00:00:00 Test Item Value Reference Range Interpretation [...] (test code = baso#) 0.05 x10*3/?L 0.01-0.08 [facility] PracticeLipid 1996 panel - Serum or [id number] 00:00:00 Test Item Value Reference Range Interpretation [...] Serum or Plasma (test code = 2089-1) [facility] A1c/Hemoglobin.total in [id number] 00:00:00 Test Item Value Reference Range Interpretation Comments Hemoglobin A1c/Hemoglobin.total in 6.4 % 1.0-5.7 H Blood (test code = 4548-4) average blood glucose (calculation) 137 mg/dL (test code = average blood glucose (calculation)) [facility] HospitalNeuronal nuclear IgG Ab [Units/volume] in Serum by [id number] 00:00:00 Test Item Value Reference Range Interpretation Comments KAREN screen, ifa (test code = KAREN positive negative A screen, ifa) [facility] HospitalN[facility] Ab [Titer] in Serum by Immunofluorescence 2021-05-04 00:00:00 Test Item Value Reference Range Interpretation Comments KAREN titer (test code = KAREN 1:160 H titer) KAREN pattern (test code = nuclear, speckled A [facility]EN pattern) [facility] Test Item Value Reference Range Interpretation Comments DNA (ds) antibody 2 IU/mL (test code = DNA (ds) antibody) sm antibody (test code <1.0 neg See_Comment [Aut omated message] = sm antibody) The system wh ich generated this result transmitted ref erence range: <1.0 neg . The reference range was not used to interpr et this result as normal/abnormal . sm/csr antibody (test <1.0 neg See_Comment [Auto mated message] code = sm/csr The system whi ch antibody) generated this result transmitted ref erence range: <1.0 neg . The reference range was not used to interpr et this result as normal/abnormal . csr antibody (test <1.0 neg See_Comment [Automat ed message] code = csr antibody) The [facility] tem which generated this result transmitted ref [...] interpr et this result as normal/abnormal . [facility] [id number] 00:00:00 Test Item Value Reference Range Interpretation [...] to interpret this result as normal/abnormal . [facility] [id number] 00:00:00 Test Item Value Reference Range Interpretation [...] interpr et this result as normal/abnormal . [facility] Hospit[id number] 00:00:00[facility]pretationVillP[facility] CenterNeuronal nuclear IgG Ab [Units/volume] in Serum by [id number] 00:00:00 Test Item Value Reference Range Interpretation Comments KAREN screen, ifa (test code = KAREN positive negative A screen, ifa) [facility] Ab [Titer] in Serum by Immunofluorescence 2021-05-04 00:00:00 Test Item Value Reference Range Interpretation Comments KAREN titer (test code = KAREN 1:160 H titer) KAREN pattern (test code = nuclear, speckled A KAREN pattern) [facility] Test Item Value Reference Range Interpretation Comments DNA (ds) antibody 2 IU/mL (test code = DNA (ds) antibody) sm antibody (test code <1.0 neg See_Comment [Aut omated message] = sm antibody) The system wh ich generated this result transmitted ref erence range: <1.0 neg . The reference range was not used to interpr et this result as normal/abnormal . sm/csr antibody (test <1.0 neg See_Comment [Auto mated message] code = sm/csr The system whi ch antibody) generated this result transmitted ref erence range: <1.0 neg . The reference range was not used to interpr et this result as normal/abnormal . csr antibody (test <1.0 neg See_Comment [Automat ed message] code = csr antibody) The sys tem which generated this [...] interpr et this result as normal/abnormal . [facility] Test Item Value Reference Range Interpretation [...] to interpret this result as normal/abnormal . [facility] Practicestage 00:00:00 Test Item Value Reference Range Interpretation [...] interpr et this result as normal/abnormal . [facility] Hospit[id number] 00:00:00InterpretationVillUnityPoint [facility] PracticeComprehensive metabolic 2000 panel - Serum or [id number] 00:00:00 Test Item Value Reference Range Interpretation [...] (test code = anion 10 calc gap) [facility] HospitalThyroxine (T4) free [Mass/volume] in Serum or Plasma 2021-04-30 00:00:00 Test Item Value Reference Range Interpretation Comments T4 free (test code = T4 free) 0.98 NG/dL 0.70-1.48 [facility] HospitalThyrotropin [Units/volume] in Serum or [id number] 00:00:00 Test Item Value Reference Range Interpretation Comments TSH (test code = TSH) 1.501 uIU/mL 0.350-4.940 [facility] HospitalUrate [Mass/volume] in Serum or [id number] 00:00:00 Test Item Value Reference Range Interpretation Comments uric acid (test code = uric acid) 8.4 mg/dL 3.5-7.2 H [facility] HospitalTriiodothyronine resin uptake (T3RU) in Serum or Plasma 2021-04-30 00:00:00 Test Item Value Reference Range Interpretation Comments T3 uptake (test code = T3 uptake) 31 % 22-35 [facility] HospitalC-reactive protein, [id number] 00:00:00 Test Item Value Reference Range Interpretation Comments C-reactive protein (test code = 6.1 mg/L <8.0 C-reactive protein) [facility] HospitalRheumatoid factor [Units/volume] in Serum or Plasma 2021-04-30 00:00:00 Test Item Value Reference Range Interpretation Comments rheumatoid factor (test code = <14 <14 rheumatoid factor) [facility] HospitalErythrocyte sedimentation rate by Westergren method 2021-04-30 00:00:00 Test Item Value Reference Range Interpretation Comments sed rate by modified 14 mm/h See_Comment [Autom ated message] sergo (test code = The system which sed rate by modified generat ed this result westergren) transmitted ref erence range: < or = 2 0. The reference range was not used to interpr et this result as normal/abnormal . [facility] HospitalCBC W Auto Differential panel - [id number] 00:00:00 Test Item Value Reference Range Interpretation [...] (test code = baso#) 0.06 x10*3/?L 0.01-0.08 [facility] HospitalComprehensive metabolic 2000 panel - Serum or Plasma [...] (test code = anion 10 calc gap) [facility] HospitalThyroxine (T4) free [Mass/volume] in Serum or Plasma 2021-04-30 00:00:00 Test Item Value Reference Range Interpretation Comments T4 free (test code = T4 free) 0.98 NG/dL 0.70-1.48 [facility] HospitalThyrotropin [Units/volume] in Serum or [id number] 00:00:00 Test Item Value Reference Range Interpretation Comments TSH (test code = TSH) 1.501 uIU/mL 0.350-4.940 [facility] HospitalUrate [Mass/volume] in Serum or [id number] 00:00:00 Test Item Value Reference Range Interpretation Comments uric acid (test code = uric acid) 8.4 mg/dL 3.5-7.2 H [facility] HospitalTriiodothyronine resin uptake (T3RU) in Serum or Plasma 2021-04-30 00:00:00 Test Item Value Reference Range Interpretation Comments T3 uptake (test code = T3 uptake) 31 % 22-35 [facility] HospitalTriiodothyronine resin uptake (T3RU) in Serum or Plasma 2021-04-30 00:00:00 Test Item Value Reference Range Interpretation Comments T3 uptake (test code = T3 uptake) 31 % 22-35 [facility] HospitalC-reactive protein, [id number] 00:00:00 Test Item Value Reference Range Interpretation Comments C-reactive protein (test code = 6.1 mg/L <8.0 C-reactive protein) [facility] HospitalRheumatoid factor [Units/volume] in Serum or Plasma 2021-04-30 00:00:00 Test Item Value Reference Range Interpretation Comments rheumatoid factor (test code = <14 <14 rheumatoid factor) [facility] HospitalErythrocyte sedimentation rate by Westergren method 2021-04-30 00:00:00 Test Item Value Reference Range Interpretation Comments sed rate by modified 14 mm/h See_Comment [Autom ated message] sergo (test code = The system which sed rate by modified generat ed this result sergo) transmitted ref erence range: < or = 2 0. The reference range was not used to interpr et this result as normal/abnormal . [facility] HospitalCB W Auto Differential panel - [id number] 00:00:00 Test Item Value Reference Range Interpretation [...] (test code = baso#) 0.06 x10*3/?L 0.01-0.08 [facility] HospitalHemoglobin A1c measurement device [id number] 14:52:00 Test Item Value Reference Range Interpretation Comments Hemoglobin A1C Fingerstick: (test code 6.5 = Hemoglobin A1C Fingerstick:) [facility] HospitalHemoglobin A1c measurement device [id number] 14:52:00 Test Item Value Reference Range Interpretation Comments Hemoglobin A1C Fingerstick: (test code 6.5 = Hemoglobin A1C Fingerstick:) [facility] HospitalHemoglobin A1c measurement device [id number] 14:52:00 Test Item Value Reference Range Interpretation Comments Hemoglobin A1C Fingerstick: (test code 6.5 = Hemoglobin A1C Fingerstick:) [facility]
[2022-11-23] MEDS ORDERED: ACETAMINOPHEN 500 MG TAB ONE (13:45)
[2022-11-23] MEDS ORDERED: LIDOCAINE 4% PATCH ONE (13:45)
[2022-11-23] MEDS ORDERED: IBUPROFEN 400 MG TAB ONE (13:45)
--- NOTE | 2022-11-23 14:30 | RAD REPORT ---
EXAM DESCRIPTION: RAD - Ribs Left - 11/23/2022 1:56 pm CLINICAL HISTORY: fall COMPARISON: Chest Single View dated 06/22/2022 TECHNIQUE: Left ribs, 3 views. FINDINGS: No displaced rib fracture is evident. No aggressive rib lesion. No underlying pneumothorax, effusion, infiltrate or pulmonary contusion. 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 IMPRESSION: Negative left rib series. No acute findings in the included aspects of the chest.
--- NOTE | 2022-11-23 14:37 | ER ---
Nurse's Notes [facility] Name: Remington Huff Age: 77 yrs Sex: Male : 1945 Arrival Date: 11/23/2022 Time: 12:34 Bed Treatment Private MD: Diagnosis: left chest wall contusion ;fall Presentation: 11/23 13:08 Chief complaint: Patient states: he fell getting up from a sitting position on the ap3 ground, falling onto a pile of dirt. patient is complaining of left sided rib pain from that fall which occurred on 11/20/2022. Coronavirus screen: At this time, the client does not indicate any symptoms associated with coronavirus-19. Ebola Screen: No symptoms or risks identified at this time. Initial Sepsis Screen: Does the patient meet any 2 criteria? No. Patient's initial sepsis screen is negative. Does the patient have a suspected source of infection? No. Patient's initial sepsis screen is negative. Risk Assessment: Do you want to hurt yourself or someone else? Patient reports no desire to harm self or others. Onset of symptoms was November 20, 2022. 13:08 Method Of Arrival: Ambulatory ap3 13:08 Acuity: JOHNY 4 ap3 Triage Assessment: 13:11 General: Appears uncomfortable, Behavior is calm, cooperative. Pain: Complains of pain ap3 in left rib Pain began 2-3 days ago. Neuro: Level of Consciousness is awake, alert, obeys commands, Oriented to person, place. Cardiovascular: Patient's skin is warm and dry. Respiratory: Reports pain with respiration Airway is patent Respiratory effort is even, unlabored, Respiratory pattern is regular, symmetrical. Historical: - Allergies: 13:10 Flagyl; ap3 - PMHx: 13:10 diabetes mellitus; Chronic obstructive lung disease; ap3 - PSHx: 13:10 Heart bypass surgery; ap3 - Immunization history:: Client reports receiving the 2nd dose of the Covid vaccine. - Social history:: Smoking status: Patient denies any tobacco usage or history of. Screenin:11 [facility] ED Fall Risk Assessment (Adult) History of falling in the last 3 months, ap3 including since admission Yes- single mechanical fall (1 pt). Abuse screen: Denies threats or abuse. Nutritional screening: No deficits noted. Tuberculosis screening: No symptoms or risk factors identified. Assessment: 14:51 Reassessment: Patient is alert, oriented x 3, equal unlabored respirations, skin cm10 warm/dry/pink. Patient denies pain at this time. Patient states feeling better. Patient states symptoms have improved. Vital Signs: 13:08 BP 130 / 76; Pulse 66; Resp 19; Temp 98.6; Pulse Ox 98% ; Weight 103.87 kg; Pain 10/10; ap3 14:51 BP 120 / 70; Pulse 61; Resp 16 S; Pulse Ox 94% on R/A; Pain 0/10; cm10 13:08 Pain Scale: Adult ap3 14:51 Pain Scale: Adult cm10 ED Course: 12:38 Patient arrived in ED. mr 12:51 Damian Rosenberg MD is Attending Physician. jr11 13:10 Triage completed. ap3 13:12 Arm band placed on right wrist. ap3 13:23 Shaila Gutierrez, RN is Primary Nurse. cm10 13:46 Patient moved to radiology via wheelchair. cm10 13:57 Ribs Left XRAY In Process Unspecified. EDMS 14:34 ED physician to see patient. cm10 14:51 Patient has correct armband on for positive identification. Bed in low position. Call cm10 light in reach. Provided Education on: N/A. 14:52 No provider procedures requiring assistance completed. Patient did not have IV access cm10 during this emergency room visit. 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 ): Ibuprofen PO 400 cm10 mg PO once 13:46 Drug: Lidoderm Topical Patch 5 % (700 mg/patch) 1 patches Route: Topical; Site: cm10 affected area; 14:50 Follow up: Response: No adverse reaction; Pain is decreased cm10 13:46 Drug: Acetaminophen PO 1000 mg Route: PO; cm10 14:50 Follow up: Response: No adverse reaction; Pain is decreased cm10 Medication: 14:52 VIS not applicable for this client. cm10 Outcome: 14:36 Discharge ordered by . jr11 14:52 Discharged to home ambulatory, with family. cm10 14:52 Condition: good 14:52 Discharge instructions given to patient, significant other, Instructed on discharge instructions, follow up and referral plans. medication usage, Demonstrated understanding of instructions, follow-up care, medications, Prescriptions given X 1. 14:52 Patient left the ED. cm10 Signatures: Dispatcher [employer] KYLEIGH Timothy Radha Sho Garcia RN RN ap3 Damian Rosenberg MD MD [email or web address] Shaila Gutierrez RN RN cm10
--- NOTE | 2022-11-23 14:37 | EDPHYS ---
Physician Documentation [facility] Name: Remington Huff Age: 77 yrs Sex: Male : 1945 Arrival Date: 11/23/2022 Time: 12:34 Bed Treatment Private MD: ED Physician Damian Rosenberg HPI: 11/23 13:17 Patient is a 77-year-old male that fell onto his left side, complaining of left lateral jr11 rib pain, he said this was a mechanical fall, he tripped and hit amount of dirt over his left lateral chest wall. Patient with moderate pain, worse with inspiration. Denies any other injuries, no loss of consciousness not on any blood thinners. Denies exertional pain, no tearing pain, does not radiate to the back, does not cross the diaphragm. No diaphoresis, no vomiting. No syncope or near-syncope. . Historical: - Allergies: 13:10 Flagyl; ap3 - PMHx: 13:10 diabetes mellitus; Chronic obstructive lung disease; ap3 - PSHx: 13:10 Heart bypass surgery; ap3 - Immunization history:: Client reports receiving the 2nd dose of the Covid vaccine. - Social history:: Smoking status: Patient denies any tobacco usage or history of. ROS: 13:17 Constitutional: Negative for fever, chills Eyes: Negative for injury, pain, redness, jr11 and discharge. 13:17 All other systems are negative. Exam: 13:17 Constitutional: This is a well developed, well nourished patient who is awake, alert, jr11 and in no acute distress. Head/Face: Normocephalic, atraumatic. Eyes: Extra-ocular motions intact. Lids and lashes normal. Conjunctiva and sclera are non-icteric and not injected. Cornea within normal limits. Periorbital areas with no swelling, redness, or edema. ENT: Nares patent. No nasal discharge, no septal abnormalities noted. Oropharynx with no redness, swelling, or masses, exudates, or evidence of obstruction, uvula midline. Mucous membranes moist. Chest/axilla: Normal chest wall appearance and motion. Nontender with no deformity. No lesions are appreciated except tenderness to palpation lateral, distal portion of his left chest wall. Cardiovascular: Regular rate and rhythm with a normal S1 and S2. No gallops, murmurs, or rubs. Normal PMI, no JVD. No pulse deficits. Respiratory: Lungs have equal breath sounds bilaterally, clear to auscultation and percussion. No rales, rhonchi or wheezes noted. No increased work of breathing, no retractions or nasal flaring. Back: No spinal tenderness. No costovertebral tenderness. Full range of motion. Vital Signs: 13:08 BP 130 / 76; Pulse 66; Resp 19; Temp 98.6; Pulse Ox 98% ; Weight 103.87 kg; Pain 10/10; ap3 14:51 BP 120 / 70; Pulse 61; Resp 16 S; Pulse Ox 94% on R/A; Pain 0/10; cm10 13:08 Pain Scale: Adult ap3 14:51 Pain Scale: Adult cm10 MDM: 13:14 Patient medically screened. [facility] 13:17 Differential diagnosis: abrasion, closed head injury, contusion, fracture, sprain, jr11 strain. Data reviewed: vital signs, nurses notes. 14:35 ED course: Pain under control, x-ray image viewed by me, no fracture. Patient to [facility] follow-up as needed.. 11/23 13:11 Order name: Ribs Left XRAY; Complete Time: 14:31 [facility] Administered Medications: 13:45 Not Given (Pt states can't take due to having a quadruple bypass. ): Ibuprofen PO 400 cm10 mg PO once 13:46 Drug: Lidoderm Topical Patch 5 % (700 mg/patch) 1 patches Route: Topical; Site: cm10 affected area; 14:50 Follow up: Response: No adverse reaction; Pain is decreased cm10 13:46 Drug: Acetaminophen PO 1000 mg Route: PO; cm10 14:50 Follow up: Response: No adverse reaction; Pain is decreased cm10 Disposition Summary: 11/23/22 14:36 Discharge Ordered Location: Home [facility] Condition: Stable [facility] Diagnosis - left chest wall contusion jr11 - fall jr11 Discharge Instructions: - Discharge Summary Sheet [facility] Forms: - Medication Reconciliation Form jr11 - Thank You Letter jr11 - Antibiotic Education jr11 - Prescription Opioid Use jr11 - Patient Portal [email or web address] [facility] Prescriptions: - Lidoderm 5 % Topical adhesive patch, medicated - apply 1 patch by TOPICAL route daily leave on most painful area for up to 12 jr11 hrs; 20 patch; Refills: 0, Product Selection Permitted Signatures: Dispatcher [employer] Sho [place], RN RN ap3 Damian Rosenberg MD MD jr11 Shaila Gutierrez RN RN cm10
[2022-11-23 16:12] VITALS: TEMP 98.6
[2022-11-23 16:13] VITALS: BP 120/70; O2SAT 94
== END 2022-11-23 14:52 | disposition home or self-care (01) ==
LOC: ER 12:34
DX: S20.212A Contusion of left front wall of thorax, initial encounter (principal); W01.0XXA Fall on same level from slipping, tripping and stumbling without subsequent striking against object, initial encounter; Z95.1 Presence of aortocoronary bypass graft; Z88.1 Allergy status to other antibiotic agents
CPT/HCPCS: 71100; 99283; J2001

== ENCOUNTER 2023-09-05 11:32 | Emergency (ER) | payer BC ==
--- OUTSIDE RECORDS SUMMARY | 2023-09-05 11:36 | XMS REPORT | Continuity of Care Document ---
Author Name Unknown Address [address] [place] [address] [facility] thconnect Address [address] [place] [address] Care Team Providers Care Services Executive Name Role Phone Arnav Tello Attending Clinician Unavailable Edmond Attending Clinician Unavailable Edmond Admitting Clinician Unavailable Payers Payer Name Policy Type Policy Number Effective Date Expirati on Date Source [facility] [id number] [facility] [employer] [id number] [facility] MEDICARE [place]: Cream.[id number] 2012 00:00:00 [facility] (MEDICARE SUPPLEMENT) [id number] Problems Condition Name Condition Details Condition Category Status Onset Date Resolution Date Last Treatment Date Treating Clinician Comments Source Diabetes mellitus Diabetes Mellitus Problem Active 2020-05 00:00: 00 [facility] [id number] Mixed hyperlipid emia Problem [facility] [id number] RENEE (generaliz ed anxiety disorder) Problem [facility] [id number] Hypothyroi dism (acquired) Problem [facility] [id number] Essential (primary) hypertensi on Problem [facility] [id number] Hearing loss, unspecifie d hearing loss type, unspecifie d laterality Problem [facility] [id number] Coronary artery disease of bypass graft of [place] heart with stable angina pectoris Problem [facility] [id number] Type 2 diabetes mellitus with hyperglyce milagros, without long-term current use of insulin Problem [facility] [id number] Primary osteoarthr itis of left knee Problem [facility] [id number] Coronary artery disease of [place] artery of [place] heart with stable angina pectoris Problem [facility] [id number] Pseudophak ia Problem [facility] [id number] Psoriasis Problem [facility] [id number] Moderate major depression , single episode Problem [facility] [id number] Body mass index [BMI] 30.0-30.9, adult Problem [facility] [id number] Other obesity due to excess calories Problem [facility] [id number] Chronic obstructiv e pulmonary disease, unspecifie d COPD type Problem [facility] [id number] GERD without esophagiti s Problem [facility] [id number] Type 2 diabetes mellitus with other diabetic kidney complicati on Problem [facility] Allergies, Adverse Reactions, Alerts Allergy Name Allergy Type Status Severity Reaction(s) Onset Date Inactive Date Treating Clinician Comments Source metronid azole metronid azole Active Unknown [facility] Flagyl Allergy to substanc e Active [facility] Social History Social Habit Start Date Stop Date Quantity Comments Source Sex Assigned At [facility] History of Tobacco Use [facility] Smoking Status Start Date Stop Date Source Former Smoker 2023-08-12 00:00:00 2023-08-12 00:00:00 [facility] Medications Ordered Medication Name Filled Medication Name Start Date Stop Date Current Medication? Ordering Clinician Indication Dosage Frequency Signature (SIG) Comments Components Source PreserVisio n AREDS 2 - PreserVisio n AREDS 2 - 2023-0 08-11 00:00: 00 No PreserVisi on AREDS 2 - PreserVisio n AREDS 2 - PreserVisio n AREDS 2 - 2023-0 3-29 00:00: 00 No PreserVisi on AREDS 2 - Bupivicaine Fletcher Bupivicaine Fletcher 11-18 00:00: 00 No 4mL [facility] Kenalog (Triamcinol one) Kenalog (Triamcinol one) 11-18 00:00: 00 No 1mL [facility] Bupivicaine Fletcher Bupivicaine Fletcher 11-18 00:00: 00 No 4mL [facility] Kenalog (Triamcinol one) Kenalog (Triamcinol one) 11-18 00:00: 00 No 1mL [facility] Bupivicaine Fletcher Bupivicaine Fletcher 11-18 00:00: 00 No 4mL [facility] Kenalog (Triamcinol one) Kenalog (Triamcinol one) 11-18 00:00: 00 No 1mL [facility] Bupivicaine Fletcher Bupivicaine Fletcher 11-18 00:00: 00 No 4mL [facility] Kenalog (Triamcinol one) Kenalog (Triamcinol one) 11-18 00:00: 00 No 1mL [facility] Bupivicaine Fletcher Bupivicaine Fletcher 11-18 00:00: 00 No 4mL [facility] Kenalog (Triamcinol one) Kenalog (Triamcinol one) 11-18 00:00: 00 No 1mL [facility] Bupivicaine Fletcher Bupivicaine Fletcher 11-18 00:00: 00 No 4mL [facility] Kenalog (Triamcinol one) Kenalog (Triamcinol one) 11-18 00:00: 00 No 1mL [facility] Bupivicaine Fletcher Bupivicaine Fletcher 11-18 00:00: 00 No 4mL [facility] Kenalog (Triamcinol one) Kenalog (Triamcinol one) 0 - 00:00: 00 No 1mL [facility] Bupivicaine Fletcher Bupivicaine Fletcher 0 - 00:00: 00 No 4mL [facility] Kenalog (Triamcinol one) Kenalog (Triamcinol one) - 00:00: 00 No 1mL [facility] Bupivicaine Fletcher Bupivicaine Fletcher 0 11-18 00:00: 00 No 4mL [facility] Kenalog (Triamcinol one) Kenalog (Triamcinol one) 0 11-18 00:00: 00 No 1mL [facility] Bupivicaine Fletcher Bupivicaine Fletcher 0 - 00:00: 00 No 4mL [facility] Kenalog (Triamcinol one) Kenalog (Triamcinol one) 0 11-18 00:00: 00 No 1mL [facility] Bupivicaine Fletcher Bupivicaine Fletcher 0 11-18 00:00: 00 No 4mL [facility] Kenalog (Triamcinol one) Kenalog (Triamcinol one) 0 11-18 00:00: 00 No 1mL [facility] Farxiga 5 MG Farxiga 5 MG 2022-0 09-24 00:00: 00 No 1{table t} QD Farxiga 5 MG Farxiga 5 MG Farxiga 5 MG 2022-0 -12 00:00: 00 No 1{table t} QD Farxiga 5 MG Farxiga 5 MG Farxiga 5 MG 2022-0 -12 00:00: 00 No 1{table t} QD Farxiga 5 MG Farxiga 5 MG Farxiga 5 MG 2022-0 -12 00:00: 00 No 1{table t} QD Farxiga 5 MG Farxiga 5 MG Farxiga 5 MG 3-0 12 00:00: 00 No 1{table t} QD Farxiga 5 MG Farxiga 5 MG Farxiga 5 MG 3-0 12 00:00: 00 No 1{table t} QD Farxiga 5 MG Farxiga 5 MG Farxiga 5 MG 3-0 12 00:00: 00 No 1{table t} QD Farxiga 5 MG Farxiga 5 MG Farxiga 5 MG 3-0 12 00:00: 00 No 1{table t} QD Farxiga 5 MG Farxiga 5 MG Farxiga 5 MG 3-0 12 00:00: 00 No 1{table t} QD Farxiga 5 MG Bupivicaine Fletcher Bupivicaine Fletcher 0 08-12 00:00: 00 No 4mL [facility] Kenalog (Triamcinol one) Kenalog (Triamcinol one) 2022-0 3 00:00: 00 No 1mL [facility] Bupivicaine Fletcher Bupivicaine Fletcher 2022-0 08-12 00:00: 00 No 4mL [facility] Kenalog (Triamcinol one) Kenalog (Triamcinol one) 0 08-12 00:00: 00 No 1mL [facility] Bupivicaine Fletcher Bupivicaine Fletcher 2022-0 08-12 00:00: 00 No 4mL [facility] Kenalog (Triamcinol one) Kenalog (Triamcinol one) 2022-0 08-12 00:00: 00 No 1mL [facility] Bupivicaine Fletcher Bupivicaine Fletcher 2022-0 08-12 00:00: 00 No 4mL [facility] Kenalog (Triamcinol one) Kenalog (Triamcinol one) 2022-0 08-12 00:00: 00 No 1mL [facility] Bupivicaine Fletcher Bupivicaine Fletcher 2022-0 3 00:00: 00 No 4mL [facility] Kenalog (Triamcinol one) Kenalog (Triamcinol one) 0 3 00:00: 00 No 1mL [facility] Bupivicaine Fletcher Bupivicaine Fletcher 0 3 00:00: 00 No 4mL [facility] Kenalog (Triamcinol one) Kenalog (Triamcinol one) 0 3 00:00: 00 No 1mL [facility] Bupivicaine Fletcher Bupivicaine Fletcher 0 3 00:00: 00 No 4mL [facility] Kenalog (Triamcinol one) Kenalog (Triamcinol one) 0 3 00:00: 00 No 1mL [facility] Bupivicaine Fletcher Bupivicaine Fletcher 0 3 00:00: 00 No 4mL [facility] Kenalog (Triamcinol one) Kenalog (Triamcinol one) 0 3 00:00: 00 No 1mL [facility] Bupivicaine Fletcher Bupivicaine Fletcher 0 08-12 00:00: 00 No 4mL [facility] Kenalog (Triamcinol one) Kenalog (Triamcinol one) 0 3 00:00: 00 No 1mL [facility] Bupivicaine Fletcher Bupivicaine Fletcher 0 3 00:00: 00 No 4mL [facility] Kenalog (Triamcinol one) Kenalog (Triamcinol one) 0 3 00:00: 00 No 1mL [facility] Bupivicaine Fletcher Bupivicaine Fletcher 2022-0 3 00:00: 00 No 4mL [facility] Kenalog (Triamcinol one) Kenalog (Triamcinol one) 0 3 00:00: 00 No 1mL [facility] allopurinol 100 mg tablet TAKE 1 TABLET BY MOUTH ONCE DAILY FOR 30 DAYS allopurinol 100 mg tablet TAKE 1 TABLET BY MOUTH ONCE DAILY FOR 30 DAYS No allopurino l 100 mg tablet TAKE 1 TABLET BY MOUTH ONCE DAILY FOR 30 DAYS [facility] atorvastati n 40 mg tablet atorvastati n 40 mg tablet No atorvastat in 40 mg tablet [facility] betamethaso ne valerate 0.1 % topical cream betamethaso ne valerate 0.1 % topical cream No betamethas one valerate 0.1 % topical cream [facility] clopidogrel 75 mg tablet TAKE 1 TABLET BY MOUTH ONCE DAILY FOR 90 DAYS clopidogrel 75 mg tablet TAKE 1 TABLET BY MOUTH ONCE DAILY FOR 90 DAYS No clopidogre l 75 mg tablet TAKE 1 TABLET BY MOUTH ONCE DAILY FOR 90 DAYS [facility] dexamethaso ne sodium phosphate 4 mg/mL injection solution 1 cc dexamethaso ne sodium phosphate 4 mg/mL injection solution 1 cc No dexamethas one sodium phosphate 4 mg/mL injection solution 1 cc [facility] furosemide 40 mg tablet furosemide 40 mg tablet No furosemide 40 mg tablet [facility] glimepiride 1 mg tablet glimepiride 1 mg tablet No glimepirid e 1 mg tablet [facility] levothyroxi ne 25 mcg tablet levothyroxi ne 25 mcg tablet No levothyrox ine 25 mcg tablet [facility] tramadol 50 mg tablet Take 1 tablet every 12 hours by oral route as needed for 10 days. tramadol 50 mg tablet Take 1 tablet every 12 hours by oral route as needed for 10 days. No tramadol 50 mg tablet Take 1 tablet every 12 hours by oral route as needed for 10 days. [facility] Atorvastati n Calcium 40 MG Atorvastati n Calcium 40 MG No 1{table t} QD Atorvastat in Calcium 40 MG Levothyroxi ne Sodium 50 MCG Levothyroxi ne Sodium 50 MCG No QD Levothyrox ine Sodium 50 MCG Benzonatate 200 MG Benzonatate 200 MG No 1{capsu le} TID Benzonatat e 200 MG Escitalopra m Oxalate 10 MG Escitalopra m Oxalate 10 MG No 1{table t} QD Escitalopr am Oxalate 10 MG Clopidogrel Bisulfate 75 MG Clopidogrel Bisulfate 75 MG No 1{table t} QD Clopidogre l Bisulfate 75 MG Calcium + D3 Calcium + D3 No Calcium + D3 Furosemide 40 MG Furosemide 40 MG No 1{table t} QD Furosemide 40 MG Atorvastati n Calcium 40 MG Atorvastati n Calcium 40 MG No 1{table t} QD Atorvastat in Calcium 40 MG Levothyroxi ne Sodium 50 MCG Levothyroxi ne Sodium 50 MCG No QD Levothyrox ine Sodium 50 MCG Benzonatate 200 MG Benzonatate 200 MG No 1{capsu le} TID Benzonatat e 200 MG Escitalopra m Oxalate 10 MG Escitalopra m Oxalate 10 MG No 1{table t} QD Escitalopr am Oxalate 10 MG Clopidogrel Bisulfate 75 MG Clopidogrel Bisulfate 75 MG No 1{table t} QD Clopidogre l Bisulfate 75 MG Calcium + D3 Calcium + D3 No Calcium + D3 Furosemide 40 MG Furosemide 40 MG No 1{table t} QD Furosemide 40 MG Atorvastati n Calcium 40 MG Atorvastati n Calcium 40 MG No 1{table t} QD Atorvastat in Calcium 40 MG Levothyroxi ne Sodium 50 MCG Levothyroxi ne Sodium 50 MCG No QD Levothyrox ine Sodium 50 MCG Benzonatate 200 MG Benzonatate 200 MG No 1{capsu le} TID Benzonatat e 200 MG Escitalopra m Oxalate 10 MG Escitalopra m Oxalate 10 MG No 1{table t} QD Escitalopr am Oxalate 10 MG Clopidogrel Bisulfate 75 MG Clopidogrel Bisulfate 75 MG No 1{table t} QD Clopidogre l Bisulfate 75 MG Calcium + D3 Calcium + D3 No Calcium + D3 Furosemide 40 MG Furosemide 40 MG No 1{table t} QD Furosemide 40 MG Atorvastati n Calcium 40 MG Atorvastati n Calcium 40 MG No 1{table t} QD Atorvastat in Calcium 40 MG Levothyroxi ne Sodium 50 MCG Levothyroxi ne Sodium 50 MCG No QD Levothyrox ine Sodium 50 MCG Benzonatate 200 MG Benzonatate 200 MG No 1{capsu le} TID Benzonatat e 200 MG Escitalopra m Oxalate 10 MG Escitalopra m Oxalate 10 MG No 1{table t} QD Escitalopr am Oxalate 10 MG Clopidogrel Bisulfate 75 MG Clopidogrel Bisulfate 75 MG No 1{table t} QD Clopidogre l Bisulfate 75 MG Calcium + D3 Calcium + D3 No Calcium + D3 Furosemide 40 MG Furosemide 40 MG No 1{table t} QD Furosemide 40 MG Atorvastati n Calcium 40 MG Atorvastati n Calcium 40 MG No 1{table t} QD Atorvastat in Calcium 40 MG Levothyroxi ne Sodium 50 MCG Levothyroxi ne Sodium 50 MCG No QD Levothyrox ine Sodium 50 MCG Benzonatate 200 MG Benzonatate 200 MG No 1{capsu le} TID Benzonatat e 200 MG Escitalopra m Oxalate 10 MG Escitalopra m Oxalate 10 MG No 1{table t} QD Escitalopr am Oxalate 10 MG Clopidogrel Bisulfate 75 MG Clopidogrel Bisulfate 75 MG No 1{table t} QD Clopidogre l Bisulfate 75 MG Calcium + D3 Calcium + D3 No Calcium + D3 Furosemide 40 MG Furosemide 40 MG No 1{table t} QD Furosemide 40 MG Atorvastati n Calcium 40 MG Atorvastati n Calcium 40 MG No 1{table t} QD Atorvastat in Calcium 40 MG Levothyroxi ne Sodium 50 MCG Levothyroxi ne Sodium 50 MCG No QD Levothyrox ine Sodium 50 MCG Benzonatate 200 MG Benzonatate 200 MG No 1{capsu le} TID Benzonatat e 200 MG Escitalopra m Oxalate 10 MG Escitalopra m Oxalate 10 MG No 1{table t} QD Escitalopr am Oxalate 10 MG Clopidogrel Bisulfate 75 MG Clopidogrel Bisulfate 75 MG No 1{table t} QD Clopidogre l Bisulfate 75 MG Calcium + D3 Calcium + D3 No Calcium + D3 Furosemide 40 MG Furosemide 40 MG No 1{table t} QD Furosemide 40 MG Levothyroxi ne Sodium 50 MCG Levothyroxi ne Sodium 50 MCG No QD Levothyrox ine Sodium 50 MCG Furosemide 40 MG Furosemide 40 MG No 1{table t} QD Furosemide 40 MG Atorvastati n Calcium 40 MG Atorvastati n Calcium 40 MG No 1{table t} QD Atorvastat in Calcium 40 MG Escitalopra m Oxalate 20 MG Escitalopra m Oxalate 20 MG No 1{table t} QD Escitalopr am Oxalate 20 MG Protonix 20 MG Protonix 20 MG No 1{table t} QD Protonix 20 MG Benzonatate 200 MG Benzonatate 200 MG No 1{capsu le} TID Benzonatat e 200 MG Vitamin D 25 MCG (1000 UT) Vitamin D 25 MCG (1000 UT) No 1{table t} QD Vitamin D 25 MCG (1000 UT) Multivitami n & Mineral Multivitami n & Mineral No Multivitam in & Mineral Glimepiride 2 MG Glimepiride 2 MG No 1{table t_with_ breakfa st_or_t he_firs t_main_ meal_of _the_da y} QD Glimepirid e 2 MG Clopidogrel Bisulfate 75 MG Clopidogrel Bisulfate 75 MG No 1{table t} QD Clopidogre l Bisulfate 75 MG Calcium 500 MG Calcium 500 MG No 1{table t_with_ meals} BID Calcium 500 MG Levothyroxi ne Sodium 50 MCG Levothyroxi ne Sodium 50 MCG No QD Levothyrox ine Sodium 50 MCG Furosemide 40 MG Furosemide 40 MG No 1{table t} QD Furosemide 40 MG Atorvastati n Calcium 40 MG Atorvastati n Calcium 40 MG No 1{table t} QD Atorvastat in Calcium 40 MG Escitalopra m Oxalate 20 MG Escitalopra m Oxalate 20 MG No 1{table t} QD Escitalopr am Oxalate 20 MG Protonix 20 MG Protonix 20 MG No 1{table t} QD Protonix 20 MG Benzonatate 200 MG Benzonatate 200 MG No 1{capsu le} TID Benzonatat e 200 MG Vitamin D 25 MCG (1000 UT) Vitamin D 25 MCG (1000 UT) No 1{table t} QD Vitamin D 25 MCG (1000 UT) Multivitami n & Mineral Multivitami n & Mineral No Multivitam in & Mineral Glimepiride 2 MG Glimepiride 2 MG No 1{table t_with_ breakfa st_or_t he_firs t_main_ meal_of _the_da y} QD Glimepirid e 2 MG Clopidogrel Bisulfate 75 MG Clopidogrel Bisulfate 75 MG No 1{table t} QD Clopidogre l Bisulfate 75 MG Calcium 500 MG Calcium 500 MG No 1{table t_with_ meals} BID Calcium 500 MG Atorvastati n Calcium 40 MG Atorvastati n Calcium 40 MG No 1{table t} QD Atorvastat in Calcium 40 MG Levothyroxi ne Sodium 50 MCG Levothyroxi ne Sodium 50 MCG No QD Levothyrox ine Sodium 50 MCG Benzonatate 200 MG Benzonatate 200 MG No 1{capsu le} TID Benzonatat e 200 MG Escitalopra m Oxalate 10 MG Escitalopra m Oxalate 10 MG No 1{table t} QD Escitalopr am Oxalate 10 MG Clopidogrel Bisulfate 75 MG Clopidogrel Bisulfate 75 MG No 1{table t} QD Clopidogre l Bisulfate 75 MG Calcium + D3 Calcium + D3 No Calcium + D3 Furosemide 40 MG Furosemide 40 MG No 1{table t} QD Furosemide 40 MG Atorvastati n Calcium 40 MG Atorvastati n Calcium 40 MG No 1{table t} QD Atorvastat in Calcium 40 MG Levothyroxi ne Sodium 50 MCG Levothyroxi ne Sodium 50 MCG No QD Levothyrox ine Sodium 50 MCG Benzonatate 200 MG Benzonatate 200 MG No 1{capsu le} TID Benzonatat e 200 MG Escitalopra m Oxalate 10 MG Escitalopra m Oxalate 10 MG No 1{table t} QD Escitalopr am Oxalate 10 MG Clopidogrel Bisulfate 75 MG Clopidogrel Bisulfate 75 MG No 1{table t} QD Clopidogre l Bisulfate 75 MG Calcium + D3 Calcium + D3 No Calcium + D3 Furosemide 40 MG Furosemide 40 MG No 1{table t} QD Furosemide 40 MG Atorvastati n Calcium 40 MG Atorvastati n Calcium 40 MG No 1{table t} QD Atorvastat in Calcium 40 MG Levothyroxi ne Sodium 50 MCG Levothyroxi ne Sodium 50 MCG No QD Levothyrox ine Sodium 50 MCG Benzonatate 200 MG Benzonatate 200 MG No 1{capsu le} TID Benzonatat e 200 MG Escitalopra m Oxalate 10 MG Escitalopra m Oxalate 10 MG No 1{table t} QD Escitalopr am Oxalate 10 MG Clopidogrel Bisulfate 75 MG Clopidogrel Bisulfate 75 MG No 1{table t} QD Clopidogre l Bisulfate 75 MG Calcium + D3 Calcium + D3 No Calcium + D3 Furosemide 40 MG Furosemide 40 MG No 1{table t} QD Furosemide 40 MG Vital Signs Vital Name Observation Time Observation Value Comments S dorian height 2023-08-12 09:50:00 75 [in_i] Commo n [facility] weight 2023-08-12 09:50:00 240.8 [lb_av] Co mmon [facility] temperature 2023-08-12 09:50:00 97.8 [degF] Com mon [facility] bmi 2023-08-12 09:50:00 30.09 kg/m2 Comm on [facility] oximetry 2023-08-12 09:50:00 95 % Commo n [facility] blood pressure systolic 2023-08-12 09:50:00 112 mm[Hg] [facility] blood pressure diastolic 2023-08-12 09:50:00 64 mm[Hg] [facility] height 2022-11-18 08:00:00 75 [in_i] Commo n [facility] weight 2022-11-18 08:00:00 229.2 [lb_av] Co mmon [facility] bmi 2022-11-18 08:00:00 28.64 kg/m2 Comm on [facility] blood pressure systolic 2022-11-18 08:00:00 132 mm[Hg] [facility] blood pressure diastolic 2022-11-18 08:00:00 74 mm[Hg] [facility] height 2022-10-12 10:00:00 75 [in_i] Commo n [facility] weight 2022-10-12 10:00:00 231 [lb_av] Comm on [facility] temperature 2022-10-12 10:00:00 98.5 [degF] Com mon [facility] bmi 2022-10-12 10:00:00 28.87 kg/m2 Comm on [facility] blood pressure systolic 2022-10-12 10:00:00 134 mm[Hg] [facility] blood pressure diastolic 2022-10-12 10:00:00 78 mm[Hg] [facility] height 2022-09-24 08:40:00 75 [in_i] Commo n [facility] weight 2022-09-24 08:40:00 226 [lb_av] Comm on [facility] temperature 2022-09-24 08:40:00 96.3 [degF] Com mon [facility] bmi 2022-09-24 08:40:00 28.24 kg/m2 Comm on [facility] oximetry 2022-09-24 08:40:00 92 % Commo n [facility] respiratory rate 2022-09-24 08:40:00 16 /min Common [facility] blood pressure systolic 2022-09-24 08:40:00 125 mm[Hg] [facility] blood pressure diastolic 2022-09-24 08:40:00 67 mm[Hg] Common [facility] height 2022-08-12 14:30:00 75 [in_i] Commo n [facility] weight 2022-08-12 14:30:00 231.4 [lb_av] Co mmon [facility] temperature 2022-08-12 14:30:00 97.6 [degF] Com mon [facility] bmi 2022-08-12 14:30:00 28.92 kg/m2 Comm on [facility] blood pressure systolic 2022-08-12 14:30:00 126 mm[Hg] [facility] blood pressure diastolic 2022-08-12 14:30:00 72 mm[Hg] Common [facility] height 2022-06-28 15:30:00 75 [in_i] Commo n [facility] weight 2022-06-28 15:30:00 225 [lb_av] Comm on [facility] temperature 2022-06-28 15:30:00 98 [degF] Comm on [facility] bmi 2022-06-28 15:30:00 28.12 kg/m2 Comm on [facility] blood pressure systolic 2022-06-28 15:30:00 125 mm[Hg] [facility] blood pressure diastolic 2022-06-28 15:30:00 72 mm[Hg] Common [facility] BP Diastolic 2021-05-26 00:00:00 52 mm[Hg] [facility] Height 2021-05-26 00:00:00 76 [in_i] [facility] BMI (Body Mass Index) 2021-05-26 00:00:00 29.1 kg/m2 [facility] BP Systolic 2021-05-26 00:00:00 102 mm[Hg] [facility] Body Weight 2021-05-26 00:00:00 239 [lb_av] [facility] BP Diastolic 2021-04-29 00:00:00 65 mm[Hg] [facility] Height 2021-04-29 00:00:00 76 [in_i] [facility] BMI (Body Mass Index) 2021-04-29 00:00:00 29.5 kg/m2 [facility] BP Systolic 2021-04-29 00:00:00 113 mm[Hg] [facility] Body Weight 2021-04-29 00:00:00 242.2 [lb_av] [facility] Procedures Procedure Date / Time Performed Performing Clinicia n Source X-RAY OF KNEE 3 VIEW 2021-04-29 00:00:00 [facility] Plan of Care Planned Activity Planned Date Details Comments Source Diagnostic Test Pending 2021-05-26 00:00:00 HbA1c (hemoglobin A1c), blood [code = HbA1c (hemoglobin A1c), blood] [facility] Diagnostic Test Pending 2021-05-26 00:00:00 CBC w/ auto diff [code = CBC w/ auto diff] [facility] Diagnostic Test Pending 2021-05-26 00:00:00 iron + TIBC + ferritin, serum [code = iron + TIBC + ferritin, serum] [facility] Diagnostic Test Pending 2021-05-26 00:00:00 vitamin B12 + folate, serum or blood [code = vitamin B12 + folate, serum or blood] [facility] Diagnostic Test Pending 2021-05-26 00:00:00 lipid panel, serum [code = lipid panel, serum] [facility] Diagnostic Test Pending 2021-05-26 00:00:00 PSA, total + free, serum or plasma [code = PSA, total + free, serum or plasma] [facility] Encounters Start Date/Time End Date/Time Encounter Type Admission Type Attending Clinicians Care Facility Care Department Encounter ID Source 2023-08-05 08:45:00 [facility] [address] [facility] [id number] [facility] 2022-10-12 14:03:00 [facility] [address] [facility] [id number] [facility] 2022-09-02 15:13:01 [facility] [address] [facility] [id number] [facility] 2022-08-13 15:56:00 [facility] [id number] [facility] 2022-08-06 08:19:03 [facility] [address] [facility] [id number] [facility] 2022-04-27 08:13:03 [facility] [address] [facility] [id number] [facility] 2023-08-12 00:00:00 2023-08-12 00:00:00 OFFICE VISIT ESTAB PT LEVEL 4 [facility] STLC [id number] [facility] 2023-08-12 00:00:00 2023-08-12 00:00:00 (TEL) STLC STLC [id number] [facility] 2023-07-12 00:00:00 2023-07-12 00:00:00 (TEL) STLC STLC [id number] [facility] 2023-02-07 00:00:00 2023-02-07 00:00:00 (TEL) STLC STLC [id number] [facility] 2022-11-18 00:00:00 2022-11-18 00:00:00 (IN/ASP) INJ ASP STLC STLC [id number] [facility] 2022-10-12 00:00:00 2022-10-12 00:00:00 OFFICE VISIT ESTAB PT LEVEL 4 STLMLC STLMLC [id number] [facility] 2022-09-24 00:00:00 2022-09-24 00:00:00 OFFICE VISIT ESTAB PT LEVEL 4 STLMLC STLMLC [id number] [facility] 2022-08-12 00:00:00 2022-08-12 00:00:00 OFFICE VISIT NEW PT LEVEL 4 STLMLC STLMLC [id number] [facility] 2022-07-15 00:00:00 2022-07-15 00:00:00 (TEL) STLMLC STLMLC [id number] [facility] 2022-07-13 00:00:00 2022-07-13 00:00:00 (TEL) STLMLC STLMLC [id number] [facility] 2022-06-28 00:00:00 2022-06-28 00:00:00 OFFICE VISIT ESTAB PT LEVEL 4 STLMLC STLMLC [id number] [facility] 2022-05-11 00:00:00 2022-05-11 00:00:00 Outpatient Patel_J_HOU _PA VFP VFP [id number] [facility] e 2022-02-11 00:00:00 2022-02-11 00:00:00 Outpatient Patel_J VFP VFP [id number] [facility] 2021-08-25 02:54:00 2021-08-25 02:54:00 Outpatient Patel_J VFP VFP [id number] [facility] 2021-08-21 09:15:00 2021-08-21 09:15:00 Outpatient Patel_J VFP VFP [id number] [facility] 2021-08-04 05:18:00 2021-08-04 05:18:00 Outpatient Patel_J VFP VFP [id number] [facility] 2021-07-10 11:18:00 2021-07-10 11:18:00 Outpatient Patel_J VFP VFP [id number] [facility] 2021-06-30 02:59:00 2021-06-30 02:59:00 Outpatient Patel_J VFP VFP [id number] [facility] 2021-06-17 03:12:00 2021-06-17 03:12:00 Outpatient Patel_J VFP VFP [id number] [facility] 2021-06-13 04:13:00 2021-06-13 04:13:00 Outpatient Patel_J VFP VFP [id number] [facility] 2021-06-02 08:39:00 2021-06-02 08:39:00 Outpatient Patel_J VFP VFP [id number] [facility] 2021-06-01 06:35:00 2021-06-01 06:35:00 Outpatient Patel_J VFP VFP [id number] [facility] 2021-05-31 10:55:00 2021-05-31 10:55:00 Outpatient Patel_J VFP VFP [id number] [facility] 2021-05-26 12:10:00 2021-05-26 12:10:00 Outpatient Patel_J VFP VFP [id number] [facility] 2021-05-26 00:00:00 2021-05-26 00:00:00 ALYSA Patricia: [id number], [address], [place] [address] , Ph. VFP [place] - [facility] - VM_HOU_Shageovany [place] [id number] [facility] 2021-05-20 07:01:00 2021-05-20 07:01:00 Outpatient Patel_J VFP VFP [id number] [facility] 2021-05-20 07:01:00 2021-05-20 07:01:00 Outpatient Patel_J VFP VFP [id number] [facility] 2021-05-04 11:13:00 2021-05-04 11:13:00 Outpatient Patel_J VFP VFP [id number] [facility] 2021-04-30 04:37:00 2021-04-30 04:37:00 Outpatient Patel_J VFP VFP [id number] [facility] 2021-04-29 01:30:00 2021-04-29 01:30:00 Outpatient Patel_J VFP VFP [id number] [facility] 2021-04-29 00:00:00 2021-04-29 00:00:00 [place]: [id number] [facility], [address], [place] [address] , Ph. [facility] [place] [facility] - _HOU_Shad [place] [id number] [facility] e 2021-04-28 05:29:00 2021-04-28 05:29:00 Outpatient Patel_J VFP VFP [id number] [facility] Results Test Description Test Time Test Comments Results Result Co mments Source TSH REFLEX TO FREE [id number] 00:00:00* Test Item Value Reference Range Interpretation Comme nts TSH REFLEX TO FREE T4 (test code = 30367-7) 1.060 UIU/ML See_Comment [Automated messa ge] The system which generated this result transmitted reference range: 0.400-4.100 UIU/ML. The reference range was not used to interpret this result as normal/abnormal. LIPID PANEL WITH REFLEX DIRECT [id number] 00:00:00* Test Item Value Reference Range Interpretation Comme nts CALC LDL CHOL (test code = 55697-1) 82 MG/DL See_Comment [Automated messa ge] The system which generated this result transmitted reference range: <100 MG/DL. The reference range was not used to interpret this result as normal/abnormal. CHOLESTEROL (test code = 2093-3) 143 MG/DL See_Comment [Automated messa ge] The system which generated this result transmitted reference range: <200 MG/DL. The reference range was not used to interpret this result as normal/abnormal. HDL CHOLESTEROL (test code = 2085-9) 43 MG/DL See_Comment [Automated [employer] ge] The system which generated this result transmitted reference range: >39 MG/DL. The reference range was not used to interpret this result as normal/abnormal. RISK RATIO LDL/HDL (test code = 56963-5) 1.91 RATIO See_Comment [Automated message] The system which generated this result transmitted reference range: <3.55 RATIO. The reference range was not used to interpret this result as normal/abnormal. TRIGLYCERIDES (test code = 2571-8) 90 MG/DL See_Comment [Automated [employer] Superfeedr] The system which generated this result transmitted reference range: <150 MG/DL. The reference range was not used to interpret this result as normal/abnormal. ALBUMIN/CREATININE RATIO, RANDOM [id number] 00:00:00* Test Item Value Reference Range Interpretation Comme nts ALBUMIN, URINE, RANDOM (test code = 99203-0) 0.9 MG/DL NOT ESTAB MG/DL CALC ALBUMIN/CREAT, RND (test code = 82277-0) 7 MG/G See_Comment [Automated [employer]] The system which generated this result transmitted reference range: <30 MG/G. The reference range was not used to interpret this result as normal/abnormal. CREATININE, URINE, CONC. (test code = 2161-8) 123.3 MG/DL NOT ESTAB MG/DL COMPREHENSIVE METABOLIC [id number] 00:00:00* Test Item Value Reference Range Interpretation Comme nts ALBUMIN (test code = 1751-7) 4.3 G/DL See_Comment [Automated [employer] ge] The system which generated this result transmitted reference range: 3.5-5.2 G/DL. The reference range was not used to interpret this result as normal/abnormal. ALKALINE PHOSPHATASE (test code = 6768-6) 78 U/L See_Comment [Automated message] The system which generated this result transmitted reference range: 40-125 U/L. The reference range was not used to interpret this result as normal/abnormal. BILIRUBIN, TOTAL (test code = 1975-2) 0.5 MG/DL See_Comment [Automated message] The system which generated this result transmitted reference range: <=1.2 MG/DL. The reference range was not used to interpret this result as normal/abnormal. BUN (test code = 3094-0) 15 MG/DL See_Comment [Automated messa ge] The system which generated this result transmitted reference range: 8-23 MG/DL. The reference range was not used to interpret this result as normal/abnormal. CALCIUM (test code = 41084-2) 9.6 MG/DL See_Comment [Automated messa ge] The system which generated this result transmitted reference range: 8.5-10.5 MG/DL. The reference range was not used to interpret this result as normal/abnormal. CALC A/G RATIO (test code = 1759-0) 1.8 RATIO See_Comment [Automated messa ge] The system which generated this result transmitted reference range: 1.0-2.6 RATIO. The reference range was not used to interpret this result as normal/abnormal. CALC BUN/CREAT (test code = 3097-3) 14 RATIO See_Comment [Automated messa ge] The system which generated this result transmitted reference range: 6-28 RATIO. The reference range was not used to interpret this result as normal/abnormal. CALC GLOBULIN (test code = 20611-5) 2.4 G/DL See_Comment [Automated messa ge] The system which generated this result transmitted reference range: 1.9-3.7 G/DL. The reference range was not used to interpret this result as normal/abnormal. CARBON DIOXIDE (test code = 1963-8) 24 MEQ/L See_Comment [Automated messa ge] The system which generated this result transmitted reference range: 19-31 MEQ/L. The reference range was not used to interpret this result as normal/abnormal. CHLORIDE (test code = 2075-0) 105 MEQ/L See_Comment [Automated messa ge] The system which generated this result transmitted reference range: 95-107 MEQ/L. The reference range was not used to interpret this result as normal/abnormal. CREATININE (test code = 2160-0) 1.06 MG/DL See_Comment [Automated messa ge] The system which generated this result transmitted reference range: 0.80-1.40 MG/DL. The reference range was not used to interpret this result as normal/abnormal. eGFR (2020 CKD-EPI) (test code = 43260-3) 73 ML/MIN/1.73 See_Comment [Automated messa ge] The system which generated this result transmitted reference range: >60 ML/MIN/1.73. The reference range was not used to interpret this result as normal/abnormal. GLUCOSE (test code = 1558-6) 110 MG/DL See_Comment H [Automated messa ge] The system which generated this result transmitted reference range: 70-99 MG/DL. The reference range was not used to interpret this result as normal/abnormal. POTASSIUM (test code = 2823-3) 4.9 MEQ/L See_Comment [Automated Passboxa ge] The system which generated this result transmitted reference range: 3.5-5.4 MEQ/L. The reference range was not used to interpret this result as normal/abnormal. PROTEIN, TOTAL (test code = 2885-2) 6.7 G/DL See_Comment [Automated [employer]box[employer] ge] The system which generated this result transmitted reference range: 6.1-8.3 G/DL. The reference range was not used to interpret this result as normal/abnormal. AST (test code = 1920-8) 14 U/L See_Comment [Automated Passbox[employer] ge] The system which generated this result transmitted reference range: 9-50 U/L. The reference range was not used to interpret this result as normal/abnormal. ALT (test code = 1742-6) 21 U/L See_Comment [Automated [employer]box[employer] ge] The system which generated this result transmitted reference range: 5-50 U/L. The reference range was not used to interpret this result as normal/abnormal. SODIUM (test code = 2951-2) 141 MEQ/L See_Comment [Automated Passboxa ge] The system which generated this result transmitted reference range: 133-146 MEQ/L. The reference range was not used to interpret this result as normal/abnormal. Prostate specific Ag panel - Serum or [id number] 00:00:00* Test Item Value Reference Range Interpretation Comme nts PSA, total (test code = PSA, total) 1.3 NG/mL See_Comment [Automated [employer] ssage] The system which generated this result transmitted reference range: < or = 4.0. The reference range was not used to interpret this result as normal/abnormal. PSA, free (test code = PSA, free) 0.5 NG/mL PSA, % free (test code = PSA, % free) 38 % (calc) >25 [facility]yan[facility]obal[facility] [Interpretation] in Serum or Blood 2021-06-03 00:00:00* Test Item Value Reference Range Interpretation Comme [facility] vitamin B12 (test code = vit ornelas B12) 301 pg/mL 200-1100 folate, serum (test code = f olate, serum) 8.8 NG/mL [facility] + TIBC + ferritin, [id number] 00:00:00* Test Item Value Reference Range Interpretation Comme nts ferritin (test code = ferritin) 397.37 NG/mL 21.81-274.66 H iron, total (test code = iro n, total) 114 mcg/dL 50-180 transferrin (test code = transferrin) 220 mg/dL 163-344 total iron binding capacity (calculated) (test code = total iron binding capacity (calculated)) 315 mcg/dL 250-425 % saturation (test code = % saturation) 36.2 % 15.0-60.0 [facility] W Auto Differential panel - [id number] 00:00:00 * Test Item Value Reference Range Interpretation Comme [facility] WBC (test code = WBC) 6.66 x10*3/?L 4.00-11.00 RBC (test code = RBC) 4.44 10*12/L 4.63-6.08 L hemoglobin (test code = hemoglobin) 14.20 g/dL 13.70-17.50 hematocrit (test code = hematocrit) 43.7 % 40.1-51.0 MCV (test code = MCV) 98.4 fL 80.0-100.0 MCH (test code = MCH) 32.0 pg 25.7-32.2 MCHC (test code = MCHC) 32.5 g/dL 32.3-36.5 RDW-SD (test code = RDW-SD) 44.4 fL 35.1-43.9 H platelet count (test code = platelet count) 238.0 k/uL 150.0-400.0 MPV (test code = MPV) 11.1 fL [...] (test code = baso#) 0.05 x10*3/?L 0.01-0.08 [facility] 1996 panel - Serum or [id number] 00:00:00* Test Item Value Reference Range Interpretation Comme nts HDL (test code = HDL) 38 mg/dL L triglyceride (test code = triglyceride) 137 mg/dL <150 VLDL (calculated) (test code = VLDL (calculated)) 27 mg/dL cholesterol/HDL ratio (test code = cholesterol/HDL ratio) 4.3 mg/dL non-HDL cholesterol (calcula mir) (test code = non-HDL cholesterol (calculated)) 125 mg/dL <160 cholesterol (test code = cholesterol) 163 mg/dL <200 Cholesterol in LDL [Mass/vol ume] in Serum or Plasma (test code = 2089-1) 98 mg/dL <130 [facility]Hemoglobin A1c/Hemoglobin.total in [id number] 00:00:00* Test Item Value Reference Range Interpretation Comme nts Hemoglobin A1c/Hemoglobin.to dann in Blood (test code = 4548-4) 6.4 % 1.0-5.7 H average blood glucose (calcu lation) (test code = average blood glucose (calculation)) 137 mg/dL [facility]Neuronal nuclear IgG Ab [Units/volume] in Serum by [id number] 00:00:00* Test Item Value Reference Range Interpretation Comme nts KAREN screen, ifa (test code = KAREN screen, ifa) positive negative A [facility]Nuclear Ab [Titer] in Serum by Immunofluorescence 2021-05-04 00:00:00* Test Item Value Reference Range Interpretation Comme nts KAREN titer (test code = KAREN titer) 1:160 H KAREN pattern (test code = KAREN pattern) nuclear, speckled [facility] Test Item Value Reference Range Interpretation Comme nts DNA (ds) antibody (test code = DNA (ds) antibody) 2 IU/mL sm antibody (test code = sm antibody) <1.0 neg See_Comment [Automated messa ge] The system which generated this result transmitted reference range: <1.0 neg. The reference range was not used to interpret this result as normal/abnormal. sm/rivet flunky antibody (test code = sm/rivet flunky antibody) <1.0 neg See_Comment [Automated Passbox[employer] ge] The system which generated this result transmitted reference range: <1.0 neg. The reference range was not used to interpret this result as normal/abnormal. rivet flunky antibody (test code = rivet flunky antibody) <1.0 neg See_Comment [Automated message] The system which generated this result transmitted reference range: <1.0 neg. The reference range was not used to interpret this result as normal/abnormal. chromatin (nucleosomal) antibody (test code = chromatin (nucleosomal) antibody) <1.0 neg See_Comment [Automated Passboxa ge] The system which generated this result transmitted reference range: <1.0 neg. The reference range was not used to interpret this result as normal/abnormal. [facility] 00:00:00* Test Item Value Reference Range Interpretation Comme nts sjogren's antibody (ss-A) (test code = sjogren's antibody (ss-A)) <1.0 neg See_Comment [Automated Passboxa ge] The system which generated this result transmitted reference range: <1.0 neg. The reference range was not used to interpret this result as normal/abnormal. sjogren's antibody (ss-B) (test code = sjogren's antibody (ss-B)) <1.0 neg See_Comment [Automated Passboxa ge] The system which generated this result transmitted reference range: <1.0 neg. The reference range was not used to interpret this result as normal/abnormal. scl-70 antibody (test code = scl-70 antibody) <1.0 neg See_Comment [Automated messa ge] The system which generated this result transmitted reference range: <1.0 neg. The reference range was not used to interpret this result as normal/abnormal. kristen-1 antibody (test code = kristen-1 antibody) <1.0 neg See_Comment [Automated message] The system which generated this result transmitted reference range: <1.0 neg. The reference range was not used to interpret this result as normal/abnormal. [facility] 00:00:00* Test Item Value Reference Range Interpretation Comme [facility] centromere B antibody (test code = centromere B antibody) <1.0 neg See_Comment [Automate d message] The system which generated this result transmitted reference range: <1.0 neg. The reference range was not used to interpret this result as normal/abnormal. ribosomal P antibody (test code = ribosomal P antibody) <1.0 neg See_Comment [Automated Passboxa ge] The system which generated this result transmitted reference range: <1.0 neg. The reference range was not used to interpret this result as normal/abnormal. [facility] SouthwestTcm[id number] 00:00:00InterpretationVillMercyOne [facility]ouxland Medical CenterNeuronal nuclear IgG Ab [Units/volume] in Serum by [id number] 00:00:00* Test Item Value Reference Range Interpretation Comme nts KAREN screen, ifa (test code = KAREN screen, ifa) positive negative A [facility] Ab [Titer] in Serum by Immunofluorescence 2021-05-04 00:00:00* Test Item Value Reference Range Interpretation Comme nts KAREN titer (test code = KAREN titer) 1:160 H KAREN pattern (test code = KAREN pattern) nuclear, speckled A [facility] 00:00:00* Test Item Value Reference Range Interpretation Comme nts DNA (ds) antibody (test code = DNA (ds) antibody) 2 IU/mL sm antibody (test code = sm antibody) <1.0 neg See_Comment [Automated messa ge] The system which generated this result transmitted reference range: <1.0 neg. The reference range was not used to interpret this result as normal/abnormal. sm/rivet flunky antibody (test code = sm/rivet flunky antibody) <1.0 neg See_Comment [Automated messa ge] The system which generated this result transmitted reference range: <1.0 neg. The reference range was not used to interpret this result as normal/abnormal. rivet flunky antibody (test code = rivet flunky antibody) <1.0 neg See_Comment [Automated message] The system which generated this result transmitted reference range: <1.0 neg. The reference range was not used to interpret this result as normal/abnormal. chromatin (nucleosomal) antibody (test code = chromatin (nucleosomal) antibody) <1.0 neg See_Comment [Automated messa ge] The system which generated this result transmitted reference range: <1.0 neg. The reference range was not used to interpret this result as normal/abnormal. [facility] [id number] 00:00:00* Test Item Value Reference Range Interpretation Comme nts sjogren's antibody (ss-A) (test code = sjogren's antibody (ss-A)) <1.0 neg See_Comment [Automated messa ge] The system which generated this result transmitted reference range: <1.0 neg. The reference range was not used to interpret this result as normal/abnormal. sjogren's antibody (ss-B) (test code = sjogren's antibody (ss-B)) <1.0 neg See_Comment [Automated messa ge] The system which generated this result transmitted reference range: <1.0 neg. The reference range was not used to interpret this result as normal/abnormal. scl-70 antibody (test code = scl-70 antibody) <1.0 neg See_Comment [Automated messa ge] The system which generated this result transmitted reference range: <1.0 neg. The reference range was not used to interpret this result as normal/abnormal. kristen-1 antibody (test code = kristen-1 antibody) <1.0 neg See_Comment [Automated message] The system which generated this result transmitted reference range: <1.0 neg. The reference range was not used to interpret this result as normal/abnormal. [facility] [id number] 00:00:00* Test Item Value Reference Range Interpretation Comme nts centromere B antibody (test code = centromere B antibody) <1.0 neg See_Comment [Automate d message] The system which generated this result transmitted reference range: <1.0 neg. The reference range was not used to interpret this result as normal/abnormal. ribosomal P antibody (test code = ribosomal P antibody) <1.0 neg See_Comment [Automated [employer]] The system which generated this result transmitted reference range: <1.0 neg. The reference range was not used to interpret this result as normal/abnormal. [facility] Southwe[id number] 00:00:00InterpretationVillMercyOne Siouxland Medical CenterUrate [Mass/volume] in Serum or [id number] 00:00:00* Test Item Value Reference Range Interpretation Comme nts uric acid (test code = uric acid) 8.4 mg/dL 3.5-7.2 H [facility] SouthwestTriiodothyronine resin uptake (T3RU) in Serum or Plasma 2021-04-30 00:00:00* Test Item Value Reference Range Interpretation Comme nts T3 uptake (test code = T3 uptake) 31 % 22-35 [facility]-reactive protein, [id number] 00:00:00* Test Item Value Reference Range Interpretation Comme nts C-reactive protein (test cod e = C-reactive protein) 6.1 mg/L <8.0 [facility]Rheumatoid factor [Units/volume] in Serum or Plasma 2021-04-30 00:00:00* Test Item Value Reference Range Interpretation Comme nts rheumatoid factor (test code = rheumatoid factor) <14 <14 [facility] SouthwestErythrocyte sedimentation rate by Westergren method 2021-04-30 00:00:00* Test Item Value Reference Range Interpretation Comme nts sed rate by modified westergren (test code = sed rate by modified westergren) 14 mm/h See_Comment [Automated [employer]] The system which generated this result transmitted reference range: < or = 20. The reference range was not used to interpret this result as normal/abnormal. [facility]CBC W Auto Differential panel - [id number] 00:00:00 * Test Item Value Reference Range Interpretation Comme nts WBC (test code = WBC) 7.30 x10*3/?L 4.00-11.00 RBC (test code = RBC) 4.35 10*12/L 4.63-6.08 L hemoglobin (test code = hemoglobin) 13.90 g/dL 13.70-17.50 hematocrit (test code = hematocrit) 43.5 % 40.1-51.0 MCV (test code = MCV) 100.0 fL 80.0-100.0 MCH (test code = MCH) 32.0 pg 25.7-32.2 MCHC (test code = MCHC) 32.0 g/dL 32.3-36.5 L RDW-SD (test code = RDW-SD) 45.1 fL 35.1-43.9 H platelet count (test code = platelet count) 213.0 k/uL 150.0-400.0 MPV (test code = MPV) 12.0 fL [...] (test code = baso#) 0.06 x10*3/?L 0.01-0.08 [facility] 2000 [facility] - Serum or Plasma 2021-04-30 00:00:00* Test Item Value Reference Range Interpretation Comme nts ALT (test code = ALT) 21 U/L 0-55 AST (test code = AST) 14 U/L 5-34 BUN (test code = BUN) 24.1 mg/dL 8.4-25.0 alk phos (test code = alk phos) 84 unit/L 40-150 glucose (test code = glucose) 82 mg/dL 70-99 albumin (test code = albumin) 3.8 g/dL 3.4-5.1 creatinine (test code = creatinine) 1.31 mg/dL 0.72-1.25 H eGFR non- (test code = eGFR non-) 54 mL/min/1.73m2 A total bilirubin (test code = total bilirubin) 0.6 mg/dL 0.2-1.2 eGFR - (test code = eGFR - ) >60 sodium (test code = sodium) 142 mEq/L 135-145 potassium (test code = potassium) 4.5 mEq/L 3.5-5.3 chloride (test code = chloride) 106 mmol/L 98-110 total protein (test code = total protein) 6.7 g/dL 6.1-8.2 calcium (test code = calcium) 9.3 mg/dL 8.8-10.2 CO2 (test code = CO2) 25.6 mmol/L 20.0-32.0 anion gap (test code = anion gap) 10 calc [facility] [Mass/volume] in Serum or Plasma 2021-04-30 00:00:00* Test Item Value Reference Range Interpretation Comme [facility] T4 free (test code = T4 free) 0.98 NG/dL 0.70-1.48 [facility]yrotropin [Units/volume] in Serum or [id number] 00:00:00* Test Item Value Reference Range Interpretation Comme nts TSH (test code = TSH) 1.501 uIU/mL 0.350-4.940 [facility]rate [Mass/volume] in Serum or [id number] 00:00:00 * Test Item Value Reference Range Interpretation Comme nts uric acid (test code = uric acid) 8.4 mg/dL 3.5-7.2 H [facility]Triiodothyronine resin uptake (T3RU) in Serum or Plasma 2021-04-30 00:00:00* Test Item Value Reference Range Interpretation Comme nts T3 uptake (test code = T3 uptake) 31 % 22-35 [facility]iodothyronine resin uptake (T3RU) in Serum or Plasma 2021-04-30 00:00:00* Test Item Value Reference Range Interpretation Comme nts T3 uptake (test code = T3 uptake) 31 % 22-35 [facility]-reactive protein, [id number] 00:00:00* Test Item Value Reference Range Interpretation Comme nts C-reactive protein (test cod e = C-reactive protein) 6.1 mg/L <8.0 [facility]Rheumatoid factor [Units/volume] in Serum or Plasma 2021-04-30 00:00:00* Test Item Value Reference Range Interpretation Comme nts rheumatoid factor (test code = rheumatoid factor) <14 <14 [facility]Erythrocyte sedimentation rate by Westergren method 2021-04-30 00:00:00* Test Item Value Reference Range Interpretation Comme nts sed rate by modified westergren (test code = sed rate by modified westergren) 14 mm/h See_Comment [Automated messa ge] The system which generated this result transmitted reference range: < or = 20. The reference range was not used to interpret this result as normal/abnormal. [facility] W Auto Differential panel - [id number] 00:00:00 * Test Item Value Reference Range Interpretation Comme [facility] WBC (test code = WBC) 7.30 x10*3/?L 4.00-11.00 RBC (test code = RBC) 4.35 10*12/L 4.63-6.08 L hemoglobin (test code = hemoglobin) 13.90 g/dL 13.70-17.50 hematocrit (test code = hematocrit) 43.5 % 40.1-51.0 MCV (test code = MCV) 100.0 fL 80.0-100.0 MCH (test code = MCH) 32.0 pg 25.7-32.2 MCHC (test code = MCHC) 32.0 g/dL 32.3-36.5 L RDW-SD (test code = RDW-SD) 45.1 fL 35.1-43.9 H platelet count (test code = platelet count) 213.0 k/uL 150.0-400.0 MPV (test code = MPV) 12.0 fL [...] (test code = baso#) 0.06 x10*3/?L 0.01-0.08 [facility] 2000 panel - Serum or Plasma 2021-04-30 00:00:00* Test Item Value Reference Range Interpretation Comme nts ALT (test code = ALT) 21 U/L 0-55 AST (test code = AST) 14 U/L 5-34 BUN (test code = BUN) 24.1 mg/dL 8.4-25.0 alk phos (test code = alk phos) 84 unit/L 40-150 glucose (test code = glucose) 82 mg/dL 70-99 albumin (test code = albumin) 3.8 g/dL 3.4-5.1 creatinine (test code = creatinine) 1.31 mg/dL 0.72-1.25 H eGFR non- (test code = eGFR non-) 54 mL/min/1.73m2 A total bilirubin (test code = total bilirubin) 0.6 mg/dL 0.2-1.2 eGFR - (test code = eGFR - ) >60 sodium (test code = sodium) 142 mEq/L 135-145 potassium (test code = potassium) 4.5 mEq/L 3.5-5.3 chloride (test code = chloride) 106 mmol/L 98-110 total protein (test code = total protein) 6.7 g/dL 6.1-8.2 calcium (test code = calcium) 9.3 mg/dL 8.8-10.2 CO2 (test code = CO2) 25.6 mmol/L 20.0-32.0 anion gap (test code = anion gap) 10 calc [facility]yroxine (T4) free [Mass/volume] in Serum or Plasma 2021-04-30 00:00:00* Test Item Value Reference Range Interpretation Comme nts T4 free (test code = T4 free) 0.98 NG/dL 0.70-1.48 [facility]yrotropin [Units/volume] in Serum or [id number] 00:00:00* Test Item Value Reference Range Interpretation Comme [facility] TSH (test code = TSH) 1.501 uIU/mL 0.350-4.940 [facility] SouthwestHemoglobin A1c measurement device [id number] 14:52:00* Test Item Value Reference Range Interpretation Comme [facility] Hemoglobin A1C Fingerstick: (test code = Hemoglobin A1C Fingerstick:) 6.5 [facility]oglobin A1c measurement device [id number] 14:52:00* Test Item Value Reference Range Interpretation Comme [facility] Hemoglobin A1C Fingerstick: (test code = Hemoglobin A1C Fingerstick:) 6.5 [facility]oglobin A1c measurement device [id number] 14:52:00* Test Item Value Reference Range Interpretation Comme [facility] Hemoglobin A1C Fingerstick: (test code = Hemoglobin A1C Fingerstick:) [address] [place] [address]
--- NOTE | 2023-09-05 12:52 | RAD REPORT ---
EXAM DESCRIPTION: CT - C Spine Wo Con - 09/05/2023 12:13 pm CLINICAL HISTORY: Fall. Pain COMPARISON: None. TECHNIQUE: Axial noncontrast thin cut CT images of the cervical spine were obtained with sagittal an d coronal reconstruction images generated and reviewed. All CT scans are performed using dose optimization technique as appropriate and may include automated exposure control or mA/KV adjustment according to patient size. FINDINGS: Cervical body height and alignment are normal. Mild multilevel degenerative changes with endplate and uncovertebral joint spurring and mild facet re modeling. Findings contribute to up to moderate right neural foraminal narrowing at C3-4. Suspected c entral zone disc extrusion at that level as well. No disk space narrowing. No fracture or acute bony abnormality. No paraspinal mass or hematoma. IMPRESSION: No acute cervical spine fracture or subluxation. Mild multilevel degenerative changes as above.
--- NOTE | 2023-09-05 12:56 | RAD REPORT ---
EXAM DESCRIPTION: CT - Thorax Wo Con - 09/05/2023 12:16 pm CLINICAL HISTORY: posterior pain;Blunt chest trauma COMPARISON: C Spine Wo Con dated 09/05/2023 TECHNIQUE: Axial thin cut images of the chest were obtained without IV contrast. Multiplanar reforma ts were generated and reviewed. Images were placed under the CT neck study of the same day at the [facility] e of dictation. All CT scans are performed using dose optimization technique as appropriate and may include automated exposure control or mA/KV adjustment according to patient size. FINDINGS: No mass or infiltrate in the lung parenchyma. Mild left basilar fibrotic changes. No pleur al thickening or pleural effusion. No pneumothorax. No abnormal mediastinal or hilar masses or lymphadenopathy seen. No significant aortic or pulmonary a rtery findings. Assessment is limited in the absence of IV contrast. No chest wall mass or abnormal axillary lymphadenopathy. Evaluation of the solid abdominal structures reveals no suspicious findings. IMPRESSION: No acute process within the chest.
[2023-09-05] MEDS ORDERED: HYDROCODONE/APAP 10/325 TAB ONE (14:16)
--- NOTE | 2023-09-05 14:28 | ER ---
Nurse's Notes [facility] Name: Remington Huff Age: 78 yrs Sex: Male : 1945 Arrival Date: 09/05/2023 Time: 11:32 Bed Treatment Private MD: Diagnosis: Contusion of back wall of thorax Presentation: 09/04 11:37 Chief complaint: Patient states: fell off a trailer onto concrete, about 3 feet, on ko1 Tuesday morning, went to urgent care, got 7 stitches to left inner ankle and back xrays, now the back pain is worse. Coronavirus screen: At this time, the client does not indicate any symptoms associated with coronavirus-19. Ebola Screen: No symptoms or risks identified at this time. Initial Sepsis Screen: Does the patient meet any 2 criteria? No. Patient's initial sepsis screen is negative. Does the patient have a suspected source of infection? No. Patient's initial sepsis screen is negative. Risk Assessment: Do you want to hurt yourself or someone else? Patient reports no desire to harm self or others. Onset of symptoms was September 05, 2023. 11:37 Method Of Arrival: Wheelchair ko1 11:37 Acuity: JOHNY 3 ko1 Triage Assessment: 11:41 General: Appears in no apparent distress. uncomfortable, Behavior is calm, cooperative, ko1 appropriate for age. Pain: Complains of pain in back. Musculoskeletal: Circulation, motion, and sensation intact. Capillary refill < 3 seconds. Historical: - Allergies: 11:41 Flagyl; ko1 - PMHx: 11:41 Chronic obstructive lung disease; diabetes mellitus; ko1 - PSHx: 11:41 Heart bypass surgery; ko1 - Immunization history:: Adult Immunizations up to date. - Infectious Disease History:: Denies. - Social history:: Smoking status: Patient/guardian denies using tobacco, the patient reports quitting approximately 7 years ago. - Family history:: not pertinent. - Hospitalizations: : No recent hospitalization is reported. Screenin:29 [facility] ED Fall Risk Assessment (Adult) History of falling in the last 3 months, ld1 including since admission Yes- single mechanical fall (1 pt) Confusion or Disorientation No (0 pts) Intoxicated or Sedated No (0 pts) Impaired Gait No (0 pts) Mobility Assist Device Used No (0 pt) Altered Elimination No (0 pt) Score/Fall Risk Level 0 - 2 = Low Risk Maintained a safe environment, Provided non-skid footwear, Hourly rounding (assess needs \T\ fall precautionary measures) done. Abuse screen: Denies threats or abuse. Nutritional screening: No deficits noted. Tuberculosis screening: No symptoms or risk factors identified. Assessment: 14:29 General: Appears uncomfortable, well groomed, well developed, well nourished, Behavior ld1 is calm, cooperative, appropriate for age, Reports fell off a trailer onto concrete, about 3 feet, on Tuesday morning, went to urgent care, got 7 stitches to left inner ankle and back xrays, now the back pain is worse. Pain: Complains of pain in thoracic area and back Pain does not radiate. Pain currently is 5 out of 10 on a pain scale. at worst was 10 out of 10 on a pain scale. Quality of pain is described as sharp, Pain began suddenly, 2-3 days ago. Is continuous. Neuro: Level of Consciousness is awake, alert, obeys commands, Oriented to person, place, time, situation, Appropriate for age. Cardiovascular: Capillary refill < 3 seconds Patient's skin is warm and dry. Respiratory: Airway is patent Respiratory effort is even, unlabored, Respiratory pattern is regular, symmetrical. GI: No signs and/or symptoms were reported involving the gastrointestinal system. : No signs and/or symptoms were reported regarding the genitourinary system. EENT: No signs and/or symptoms were reported regarding the EENT system. Derm: Skin is pink, warm \T\ dry. Musculoskeletal: Reports pain in thoracic area and back. Injury Description: fell off a trailer onto concrete, about 3 feet, on Tuesday morning, went to urgent care, got 7 stitches to left inner ankle and back xrays, now the back pain is worse. Vital Signs: 11:37 BP 125 / 72; Pulse 66; Resp 18; Temp 97.6; Pulse Ox 95% on R/A; ko1 14:43 BP 128 / 68; Pulse 57; Resp 16; Temp 98.3; Pulse Ox 95% on R/A; Pain 4/10; ld1 14:43 Pain Scale: Adult ld1 ED Course: 11:35 Patient arrived in ED. im 11:36 Nick Vila MD is Attending Physician. rn 11:41 Triage completed. ko1 11:41 Arm band placed on right wrist. Patient placed in waiting room, Patient notified of ko1 wait time. 12:13 CT C Spine In Process Unspecified. EDMS 12:13 CT Chest Wo Con In Process Unspecified. EDMS 13:46 Anaid Turner, RN is Primary Nurse. me1 14:29 Patient has correct armband on for positive identification. Call light in reach. ld1 sitting in wheelchair, brakes locked. Provided Education on: POC. Verbalized understanding. . 14:29 No provider procedures requiring assistance completed. Patient did not have IV access ld1 during this emergency room visit. Administered Medications: 14:29 Drug: HYDROcodone-acetaminophen PO 10 mg-325 mg 1 tabs PO once Route: PO; ld1 14:43 Follow up: BP 128 / 68; Pulse 57 bpm; Resp 16 bpm; Temp 98.3; Pulse Ox 95% RA; Pain ld1 08/23 Adult; Response: No adverse reaction; Pain is decreased Medication: 14:29 VIS not applicable for this client. ld1 Outcome: 14:28 Discharge ordered by . rn 14:50 Discharged to home via wheelchair, with family, ld1 14:50 Condition: stable 14:50 Discharge instructions given to patient, family, Instructed on discharge instructions, follow up and referral plans. medication usage, Demonstrated understanding of instructions, follow-up care, medications, Prescriptions given X 2, 14:50 Patient left the ED. ld1 Signatures: Dispatcher [employer] EDNM Nick Vila MD MD rn Sims, Lauren RN RN ld1 Amber Garcia RN RN ko1 Brigette England Anaid Tunrer, CHARLOTTE RN me1 Corrections: (The following items were deleted from the chart) 14: 11:37 Chief complaint: Patient states: fell off a trailer onto concrete, about 3 feet, ld1 on Tuesday morning, went to urgent care, got 7 stitches to left inner ankle and back xrays, now the back pain is worse. ko1
--- NOTE | 2023-09-05 14:28 | EDPHYS ---
Physician Documentation [facility] Name: Remington Huff Age: 78 yrs Sex: Male : 1945 Arrival Date: 09/05/2023 Time: 11:32 Bed Treatment Private MD: ED Physician Nick Vila HPI: 09/04 14:24 This 78 yrs old Male presents to ER via Wheelchair with complaints of Back Pain - rn middle, Shoulder Pain, Flank Pain. 14:24 The patient presents with pain that is acute. The symptoms are located in the thoracic rn area. Onset: The symptoms/episode began/occurred 3 day(s) ago. The pain does not radiate. Associated signs and symptoms: Pertinent negatives: abdominal pain, hematuria, incontinence, nausea, numbness, urinary retention. Modifying factors: The patient symptoms are alleviated by remaining still, the patient symptoms are aggravated by any movement. Severity of symptoms: At their worst the symptoms were moderate, in the emergency department the symptoms are unchanged. The patient has not experienced similar symptoms in the past. Patient reports fall 3 feet off of a trailer while carrying heavy object, injured right shoulder and back wall of thorax. No LOC. No other extremity injury. Seen at urgent care and had sutures placed on ankle and x-rays of chest and shoulder. Patient states no break in shoulder but did not hear anything about the chest x-ray results. Patient reports still having mid scapular pain that is worse with range of motion. Worse with movement as well. No shortness of breath. No chest pain.. Historical: - Allergies: 11:41 Flagyl; ko1 - PMHx: 11:41 Chronic obstructive lung disease; diabetes mellitus; ko1 - PSHx: 11:41 Heart bypass surgery; ko1 - Immunization history:: Adult Immunizations up to date. - Infectious Disease History:: Denies. - Social history:: Smoking status: Patient/guardian denies using tobacco, the patient reports quitting approximately 7 years ago. - Family history:: not pertinent. - Hospitalizations: : No recent hospitalization is reported. ROS: 14:24 Constitutional: Negative for fever, chills, and weight loss, Cardiovascular: Negative rn for chest pain, palpitations, and edema, Respiratory: Negative for shortness of breath, cough, wheezing, and pleuritic chest pain, Abdomen/GI: Negative for abdominal pain, nausea, vomiting, diarrhea, and constipation, Back: Positive for upper back pain MS/Extremity: Negative for injury and deformity, Neuro: Negative for headache, weakness, numbness, tingling, and seizure, Exam: 14:24 Constitutional: This is a well developed, well nourished patient who is awake, alert, rn and in no acute distress. Head/Face: Normocephalic, atraumatic. Neck: No midline cervical tenderness Chest/axilla: Normal chest wall appearance and motion. Nontender with no deformity. Respiratory: No increased work of breathing, no retractions or nasal flaring. Abdomen/GI: Soft, nontender Back: Mid scapular pain. Perispinal thoracic tenderness without crepitus. No mobile segments Vital Signs: 11:37 BP 125 / 72; Pulse 66; Resp 18; Temp 97.6; Pulse Ox 95% on R/A; ko1 14:43 BP 128 / 68; Pulse 57; Resp 16; Temp 98.3; Pulse Ox 95% on R/A; Pain 4/10; ld1 14:43 Pain Scale: Adult ld1 MDM: 11:36 Patient medically screened. rn 14:24 Differential diagnosis: Fracture Osteoarthritis ruptured disc, sprain, vertebral rn fracture. Data reviewed: vital signs, nurses notes, radiologic studies, CT scan, and as a result, I will discharge patient. Counseling: I had a detailed discussion with the patient and/or guardian regarding the historical points, exam findings, and any diagnostic results supporting the discharge/admit diagnosis, the need for outpatient follow up, to return to the emergency department if symptoms worsen or persist or if there are any questions or concerns that arise at home. Special discussion: I discussed with the patient/guardian in detail that at this point there is no indication for admission to the hospital. It is understood, however, that if the symptoms persist or worsen the patient needs to return immediately for re-evaluation. ED course: No acute traumatic findings on CT chest. Will DC home with return precautions. States tramadol and Tylenol with codeine do not do anything so we will try gabapentin and muscle relaxer. I have personally reviewed all of the results, including but not limited to imaging deemed necessary to safely discharge this patient at this time. All results given to and printed out for patient. I personally went over all the results with the patient and answered all questions. Patient will follow-up with PCP and or specialist as discussed. Return precautions given and understood.. 09/04 11:50 Order name: CT C Spine; Complete Time: 14:03 rn 09/04 11:50 Order name: CT Chest Wo Con; Complete Time: 14:03 rn Administered Medications: 14:29 Drug: HYDROcodone-acetaminophen PO 10 mg-325 mg 1 tabs PO once Route: PO; ld1 14:43 Follow up: BP 128 / 68; Pulse 57 bpm; Resp 16 bpm; Temp 98.3; Pulse Ox 95% RA; Pain ld1 08/23 Adult; Response: No adverse reaction; Pain is decreased Disposition Summary: 09/05/23 14:28 Discharge Ordered Notes: Location: Home rn Problem: new rn Symptoms: have improved rn Condition: Stable rn Diagnosis - Contusion of back wall of thorax rn Followup: rn - With: Private Physician - When: As needed - Reason: Recheck today's complaints, Re-evaluation by your physician Discharge Instructions: - Discharge Summary Sheet rn - Contusion rn Forms: - Medication Reconciliation Form rn - Thank You Letter rn - Antibiotic rnp - Prescription Opioid Use rn - Patient Portal Instructions rn - Leadership Thank You Letter rn Prescriptions: - gabapentin 100 mg Oral capsule - take 2 capsule ORAL route every 12 hours As needed; 20 capsule; Refills: 0, rn Product Selection Permitted - Cyclobenzaprine 10 mg Oral tablet - take 1 tablet ORAL route every 8-12 hours As needed; 14 tablet; Refills: 0, rn Product Selection Permitted Signatures: Dispatcher [employer] EDMS Nick Vila MD MD rn Sims, Lauren RN RN ld1 Amber Garcia RN RN ko1 Corrections: (The following items were deleted from the chart) 11:52 11:52 Thorax Wo Con+CT.RAD.BRZ ordered. EDMS EDMS
[2023-09-05 15:07] VITALS: BP 128/68; TEMP 98.3; O2SAT 95
== END 2023-09-05 14:50 | disposition home or self-care (01) ==
LOC: ER 11:32
DX: S20.221A Contusion of right back wall of thorax, initial encounter (principal); Z88.1 Allergy status to other antibiotic agents
CPT/HCPCS: 71250; 72125; 99283

== ENCOUNTER 2023-10-29 11:48 | Inpatient (IN) | payer BC ==
--- OUTSIDE RECORDS SUMMARY | 2023-10-29 11:52 | XMS REPORT | Continuity of Care Document ---
Author Name Unknown Address [address] [facility] [address] [place], [place] [id number] [place] [address] [facility] Address [address] [facility] [address] [place] [address] Care Team Providers Care Deli/Bakery Associate Name Role Phone Arnav Tello Attending Clinician Unavailable [place] Attending Clinician Unavailable [place] Admitting Clinician Unavailable Payers Payer Name Policy Type Policy Number Effective Date Expirati on Date Source [facility] [id number] [facility] LIFE INS [employer] [id number] [facility] [place]ICARE [place]: [place] [id number] 2012 00:00:00 [facility] (MEDICARE SUPPLEMENT) [id number] Problems Condition Name Condition Details Condition Category Status Onset Date Resolution Date Last Treatment Date Treating Clinician Comments Source Diabetes mellitus Diabetes Mellitus Problem Active 2020-05 00:00: 00 [facility] [id number] Mixed hyperlipid emia Problem [facility] [id number] RENEE (generaliz ed anxiety disorder) Problem [facility] [id number] Hypothyroi dism (acquired) Problem [facility] [id number] Essential (primary) hypertensi on Problem [facility] [id number] Hearing loss, unspecifie d hearing loss type, unspecifie d laterality Problem [facility] [id number] Coronary artery disease of bypass graft of [place] heart with stable angina pectoris Problem [facility] [id number] Type 2 diabetes mellitus with hyperglyce milagros, without long-term current use of insulin Problem [facility] [id number] Primary osteoarthr itis of left knee Problem [facility] [id number] Coronary artery disease of [place] artery of [place] heart with stable angina pectoris Problem [facility] [id number] Pseudophak ia Problem [facility] [id number] Psoriasis Problem [facility] [id number] Moderate major depression , single episode Problem [facility] [id number] Body mass index [BMI] 30.0-30.9, adult Problem [facility] [id number] Other obesity due to excess calories Problem [facility] [id number] Chronic obstructiv e pulmonary disease, unspecifie d COPD type Problem [facility] [id number] GERD without esophagiti s Problem [facility] [id number] Type 2 diabetes mellitus with other diabetic kidney complicati on Problem [facility] Allergies, Adverse Reactions, Alerts Allergy Name Allergy Type Status Severity Reaction(s) Onset Date Inactive Date Treating Clinician Comments Source metronid azole metronid azole Active Unknown [facility] Flagyl Allergy to substanc e Active [facility] Social History Social Habit Start Date Stop Date Quantity Comments Source Sex Assigned At [facility] History of Tobacco Use [facility] Smoking Status Start Date Stop Date Source Former Smoker 2023-08-12 00:00:00 2023-08-12 00:00:00 [facility] Medications Ordered Medication Name Filled Medication Name Start Date Stop Date Current Medication? Ordering Clinician Indication Dosage Frequency Signature (SIG) Comments Components Source PreserVisio n AREDS 2 - PreserVisio n AREDS 2 - 2023-0 08-11 00:00: 00 No PreserVisi on AREDS 2 - Bupivicaine [place] Bupivicaine [place] 06 00:00: 00 No 4mL [facility] Kenalog (Triamcinol one) Kenalog (Triamcinol one) 08-12 00:00: 00 No 1mL [facility] allopurinol 100 mg tablet TAKE [...] betamethas one valerate 0.1 % topical cream [facility] clopidogrel 75 mg tablet TAKE 1 TABLET BY MOUTH ONCE DAILY FOR 90 DAYS clopidogrel 75 mg tablet TAKE 1 TABLET BY MOUTH ONCE DAILY FOR 90 DAYS No clopidogre l 75 mg tablet TAKE 1 TABLET BY MOUTH ONCE DAILY FOR 90 DAYS [facility] dexamethaso ne sodium phosphate 4 mg/mL injection solution 1 cc dexamethaso ne sodium phosphate 4 mg/mL injection solution 1 cc No dexamethas one sodium phosphate 4 mg/mL injection solution 1 cc [facility] furosemide 40 mg tablet furosemide 40 mg tablet No furosemide 40 mg tablet [facility] glimepiride 1 mg tablet glimepiride 1 mg tablet No glimepirid e 1 mg tablet [facility] levothyroxi ne 25 mcg tablet levothyroxi ne 25 mcg tablet No levothyrox ine 25 mcg tablet [facility] tramadol 50 mg tablet Take 1 tablet every 12 hours by oral route as needed for 10 days. tramadol 50 mg tablet Take 1 tablet every 12 hours by oral route as needed for 10 days. No tramadol 50 mg tablet Take 1 tablet every 12 hours by oral route as needed for 10 days. [facility] Atorvastati n Calcium 40 MG Atorvastati n Calcium 40 MG No 1{table t} QD Atorvastat in Calcium 40 MG Levothyroxi ne Sodium 50 MCG Levothyroxi ne Sodium 50 MCG No QD Levothyrox ine Sodium 50 MCG Benzonatate 200 MG Benzonatate 200 MG No 1{capsu le} TID Benzonatat e 200 MG Clopidogrel Bisulfate 75 MG Clopidogrel Bisulfate 75 MG No 1{table t} QD Clopidogre l Bisulfate 75 MG Multivitami n & Mineral Multivitami n & Mineral No Multivitam in & Mineral Furosemide 40 MG Furosemide 40 MG No 1{table t} QD Furosemide 40 MG Escitalopra m Oxalate 20 MG Escitalopra m Oxalate 20 MG No 1{table t} QD Escitalopr am Oxalate 20 MG Protonix 20 MG Protonix 20 MG No 1{table t} QD Protonix 20 MG Vitamin D 25 MCG (1000 UT) Vitamin D 25 MCG (1000 UT) No 1{table t} QD Vitamin D 25 MCG (1000 UT) Glimepiride 2 MG Glimepiride 2 MG No 1{table t_with_ breakfa st_or_t he_firs t_main_ meal_of _the_da y} QD Glimepirid e 2 MG Calcium 500 MG Calcium 500 MG No 1{table t_with_ meals} BID Calcium 500 MG Vital Signs Vital Name Observation Time Observation Value Comments S ource height 2023-08-12 09:50:00 75 [in_i] Commo n [facility] weight 2023-08-12 09:50:00 240.8 [lb_av] Co [facility] temperature 2023-08-12 09:50:00 97.8 [degF] Com mon [facility] bmi 2023-08-12 09:50:00 30.09 kg/m2 Comm on [facility] oximetry 2023-08-12 09:50:00 95 % Commo n [facility] blood pressure systolic 2023-08-12 09:50:00 112 mm[Hg] [facility] blood pressure diastolic 2023-08-12 09:50:00 64 mm[Hg] [facility] height 2022-11-18 08:00:00 75 [in_i] Commo n [facility] weight 2022-11-18 08:00:00 229.2 [lb_av] Co mmon [facility] bmi 2022-11-18 08:00:00 28.64 kg/m2 Comm on [facility] blood pressure systolic 2022-11-18 08:00:00 132 mm[Hg] [facility] blood pressure diastolic 2022-11-18 08:00:00 74 mm[Hg] [facility] height 2022-10-12 10:00:00 75 [in_i] Commo n [facility] weight 2022-10-12 10:00:00 231 [lb_av] Comm on [facility] temperature 2022-10-12 10:00:00 98.5 [degF] Com mon [facility] bmi 2022-10-12 10:00:00 28.87 kg/m2 Comm on [facility] blood pressure systolic 2022-10-12 10:00:00 134 mm[Hg] [facility] blood pressure diastolic 2022-10-12 10:00:00 78 mm[Hg] Common [facility] height 2022-09-24 08:40:00 75 [in_i] Commo n [facility] weight 2022-09-24 08:40:00 226 [lb_av] Comm on [facility] temperature 2022-09-24 08:40:00 96.3 [degF] Com mon [facility] bmi 2022-09-24 08:40:00 28.24 kg/m2 Comm on [facility] oximetry 2022-09-24 08:40:00 92 % Commo n [facility] respiratory rate 2022-09-24 08:40:00 16 /min Common [facility] blood pressure systolic 2022-09-24 08:40:00 125 mm[Hg] [facility] blood pressure diastolic 2022-09-24 08:40:00 67 mm[Hg] [facility] height 2022-08-12 14:30:00 75 [in_i] Commo n [facility] weight 2022-08-12 14:30:00 231.4 [lb_av] Co mmon [facility] temperature 2022-08-12 14:30:00 97.6 [degF] Com mon [facility] bmi 2022-08-12 14:30:00 28.92 kg/m2 Comm on [facility] blood pressure systolic 2022-08-12 14:30:00 126 mm[Hg] Common [facility] blood pressure diastolic 2022-08-12 14:30:00 72 mm[Hg] Common [facility] height 2022-06-28 15:30:00 75 [in_i] Commo n [facility] weight 2022-06-28 15:30:00 225 [lb_av] Comm on [facility] temperature 2022-06-28 15:30:00 98 [degF] Comm on [facility] bmi 2022-06-28 15:30:00 28.12 kg/m2 Comm on [facility] blood pressure systolic 2022-06-28 15:30:00 125 mm[Hg] [facility] blood pressure diastolic 2022-06-28 15:30:00 72 mm[Hg] Common [facility] BP Diastolic 2021-05-26 00:00:00 52 mm[Hg] [facility] Height 2021-05-26 00:00:00 76 [in_i] [facility] BMI (Body Mass Index) 2021-05-26 00:00:00 29.1 kg/m2 [facility] BP Systolic 2021-05-26 00:00:00 102 mm[Hg] [facility] Body Weight 2021-05-26 00:00:00 239 [lb_av] [facility] BP Diastolic 2021-04-29 00:00:00 65 mm[Hg] [facility] Height 2021-04-29 00:00:00 76 [in_i] [facility] BMI (Body Mass Index) 2021-04-29 00:00:00 29.5 kg/m2 [facility] BP Systolic 2021-04-29 00:00:00 113 mm[Hg] [facility] Body Weight 2021-04-29 00:00:00 242.2 [lb_av] [facility] Procedures Procedure Date / Time Performed Performing Clinicia n Source X-RAY OF KNEE 3 VIEW 2021-04-29 00:00:00 [facility] Plan of Care Planned Activity Planned Date Details Comments Source Diagnostic Test Pending 2021-05-26 00:00:00 HbA1c (hemoglobin A1c), blood [code = HbA1c (hemoglobin A1c), blood] [facility] Diagnostic Test Pending 2021-05-26 00:00:00 CBC w/ auto diff [code = CBC w/ auto diff] [facility] Diagnostic Test Pending 2021-05-26 00:00:00 iron + TIBC + ferritin, serum [code = iron + TIBC + ferritin, serum] [facility] Diagnostic Test Pending 2021-05-26 00:00:00 vitamin B12 + folate, serum or blood [code = vitamin B12 + folate, serum or blood] [facility] Diagnostic Test Pending 2021-05-26 00:00:00 lipid panel, serum [code = lipid panel, serum] [facility] Diagnostic Test Pending 2021-05-26 00:00:00 PSA, total + free, serum or plasma [code = PSA, total + free, serum or plasma] [facility] Encounters Start Date/Time End Date/Time Encounter Type Admission Type Attending Clinicians Care Facility Care Department Encounter ID Source 2023-08-05 08:45:00 Outpatient Tello, [facility] [id number] [facility] 2022-10-12 14:03:00 Outpatient Tello, [facility] [id number] [facility] 2022-09-02 15:13:01 Outpatient Tello, [facility] [id number] [facility] 2022-08-13 15:56:00 Outpatient Omer [facility] [id number] [facility] 2022-08-06 08:19:03 Outpatient TelloOmairah [facility] [id number] [facility] 2022-04-27 08:13:03 Outpatient TelloOmairah [facility] [id number] [facility] 2023-10-28 00:00:00 2023-10-28 00:00:00 (TEL) [facility] [id number] [facility] 2023-08-12 00:00:00 2023-08-12 00:00:00 OFFICE VISIT ESTAB PT LEVEL 4 [facility] [id number] [facility] 2023-08-12 00:00:00 2023-08-12 00:00:00 (TEL) [facility]LMLC [facility] [id number] [facility] 2023-07-12 00:00:00 2023-07-12 00:00:00 (TEL) STLMLC [facility] [id number] [facility] 2023-02-07 00:00:00 2023-02-07 00:00:00 (TEL) STLMLC [facility] [id number] [facility] 2022-11-18 00:00:00 2022-11-18 00:00:00 (IN/ASP) INJ ASP [facility] [id number] [facility] 2022-10-12 00:00:00 2022-10-12 00:00:00 OFFICE VISIT ESTAB PT LEVEL 4 [facility] [id number] [facility] 2022-09-24 00:00:00 2022-09-24 00:00:00 OFFICE VISIT ESTAB PT LEVEL 4 [facility] [id number] [facility] 2022-08-12 00:00:00 2022-08-12 00:00:00 OFFICE VISIT NEW PT LEVEL 4 [facility] [id number] [facility] 2022-07-15 00:00:00 2022-07-15 00:00:00 (TEL) [facility] [id number] [facility] 2022-07-13 00:00:00 2022-07-13 00:00:00 (TEL) [facility] [id number] [facility] 2022-06-28 00:00:00 2022-06-28 00:00:00 [facility] [id number] [facility] 2022-05-11 00:00:00 2022-05-11 00:00:00 Outpatient Patel_J_HOU _PA VFP VFP [id number] [facility] 2022-02-11 00:00:00 2022-02-11 00:00:00 Outpatient Patel_J VFP VFP [id number] [facility] 2021-08-25 02:54:00 2021-08-25 02:54:00 Outpatient Patel_J VFP VFP [id number] [facility] 2021-08-21 09:15:00 2021-08-21 09:15:00 Outpatient Patel_J VFP VFP [id number] [facility] 2021-08-04 05:18:00 2021-08-04 05:18:00 Outpatient Patel_J VFP VFP [id number] [facility] 2021-07-10 11:18:00 2021-07-10 11:18:00 Outpatient Patel_J VFP VFP [id number] [facility] 2021-06-30 02:59:00 2021-06-30 02:59:00 Outpatient Patel_J VFP VFP [id number] [facility] 2021-06-17 03:12:00 2021-06-17 03:12:00 Outpatient Patel_J VFP VFP [id number] [facility] 2021-06-13 04:13:00 2021-06-13 04:13:00 Outpatient Patel_J VFP VFP [id number] [facility] 2021-06-02 08:39:00 2021-06-02 08:39:00 Outpatient Patel_J VFP VFP [id number] [facility] 2021-06-01 06:35:00 2021-06-01 06:35:00 Outpatient Patel_J VFP VFP [id number] [facility] 2021-05-31 10:55:00 2021-05-31 10:55:00 Outpatient Patel_J VFP VFP [id number] [facility] 2021-05-26 12:10:00 2021-05-26 12:10:00 Outpatient Patel_J VFP VFP [id number] [facility] 2021-05-26 00:00:00 2021-05-26 00:00:00 [place]: [id number] [facility] [place] [facility], [address], [place] [address] , Ph. VFP [place] - [facility] - VM_HOU_Shad ow Morongo [id number] [facility] 2021-05-20 07:01:00 2021-05-20 07:01:00 Outpatient Patel_J VFP VFP [id number] [facility] 2021-05-20 07:01:00 2021-05-20 07:01:00 Outpatient Patel_J VFP VFP [id number] [facility] 2021-05-04 11:13:00 2021-05-04 11:13:00 Outpatient Patel_J VFP VFP [id number] [facility] 2021-04-30 04:37:00 2021-04-30 04:37:00 Outpatient Patel_J VFP VFP [id number] [facility] 2021-04-29 01:30:00 2021-04-29 01:30:00 Outpatient Patel_J VFP VFP [id number] [facility] 2021-04-29 00:00:00 2021-04-29 00:00:00 ALYSA Patricia: [address], [address], [place] [address] , Ph. [facility] [place] [facility] - MURPHY_NOREEN_Leobardo ow Morongo [id number] [facility] 2021-04-28 05:29:00 2021-04-28 05:29:00 Outpatient Omer_Eliecer [facility] [id number] [facility] Results Test Description Test Time Test Comments Results Result Co mments Source TSH REFLEX TO FREE [id number] 00:00:00* Test Item Value Reference Range Interpretation Comme nts TSH REFLEX TO FREE T4 (test code = 82205-8) 1.060 UIU/ML See_Comment [Automated messa ge] The system which generated this result transmitted reference range: 0.400-4.100 UIU/ML. The reference range was not used to interpret this result as normal/abnormal. LIPID PANEL WITH REFLEX DIRECT [id number] 00:00:00* Test Item Value Reference Range Interpretation Comme nts CALC LDL CHOL (test code = 83272-1) 82 MG/DL See_Comment [Automated messa ge] The [...] code = 2085-9) 43 MG/DL See_Comment [Automated messa ge] The system which generated this result transmitted reference range: >39 MG/DL. The reference range was not used to interpret this result as normal/abnormal. RISK RATIO LDL/HDL (test code = 92104-9) 1.91 RATIO See_Comment [Automated message] The system which generated this result transmitted reference range: <3.55 RATIO. The reference range was not used to interpret this result as normal/abnormal. TRIGLYCERIDES (test code = 2571-8) 90 MG/DL See_Comment [Automated messa ge] The system which generated this result transmitted reference range: <150 MG/DL. The reference range was not used to interpret this result as normal/abnormal. ALBUMIN/CREATININE RATIO, RANDOM [id number] 00:00:00* Test Item Value Reference Range Interpretation Comme nts ALBUMIN, URINE, RANDOM (test code = 17566-2) 0.9 MG/DL NOT ESTAB MG/DL CALC ALBUMIN/CREAT, RND (test code = 55439-2) 7 MG/G See_Comment [Automated messa ge] The system which generated this result transmitted reference range: <30 MG/G. The reference range was not used to interpret this result as normal/abnormal. CREATININE, URINE, CONC. (test code = 2161-8) 123.3 MG/DL NOT ESTAB MG/DL COMPREHENSIVE METABOLIC [id number] 00:00:00* Test Item Value Reference Range Interpretation Comme nts ALBUMIN (test code = 1751-7) 4.3 G/DL See_Comment [Automated messa ge] The system [...] result as normal/abnormal. CALCIUM (test code = 20867-2) 9.6 MG/DL See_Comment [Automated messa ge] The [...] as normal/abnormal. CALC GLOBULIN (test code = 60859-9) 2.4 G/DL See_Comment [Automated messa ge] The [...] normal/abnormal. eGFR (2020 CKD-EPI) (test code = 45854-7) 73 ML/MIN/1.73 See_Comment [Automated messa ge] The [...] code = 2823-3) 4.9 MEQ/L See_Comment [Automated messa ge] The system which generated this result transmitted reference range: 3.5-5.4 MEQ/L. The reference range was not used to interpret this result as normal/abnormal. PROTEIN, TOTAL (test code = 2885-2) 6.7 G/DL See_Comment [Automated messa ge] The system which generated this result transmitted reference range: 6.1-8.3 G/DL. The reference range was not used to interpret this result as normal/abnormal. AST (test code = 1920-8) 14 U/L See_Comment [Automated messa ge] The system which generated this result transmitted reference range: 9-50 U/L. The reference range was not used to interpret this result as normal/abnormal. ALT (test code = 1742-6) 21 U/L See_Comment [Automated messa ge] The system which generated this result transmitted reference range: 5-50 U/L. The reference range was not used to interpret this result as normal/abnormal. SODIUM (test code = 2951-2) 141 MEQ/L See_Comment [Automated messa ge] The system which generated this result transmitted reference range: 133-146 MEQ/L. The reference range was not used to interpret this result as normal/abnormal. Prostate specific Ag panel - Serum or [id number] 00:00:00* Test Item Value Reference Range Interpretation Comme nts PSA, total (test code = PSA, total) 1.3 NG/mL See_Comment [Automated Solasta ssage] The system which generated this result transmitted reference range: < or = 4.0. The reference range was not used to interpret this result as normal/abnormal. PSA, free (test code = PSA, free) 0.5 NG/mL PSA, % free (test code = PSA, % free) 38 % (calc) >25 [facility]Interpretation] in Serum or Blood 2021-06-03 00:00:00* Test Item Value Reference Range Interpretation Comme [facility] vitamin B12 (test code = vit ornelas B12) 301 pg/mL 200-1100 folate, serum (test code = f olate, serum) 8.8 NG/mL [facility] + TIBC + ferritin, [id number] 00:00:00* Test Item Value Reference Range Interpretation Comme nts ferritin (test code = ferritin) 397.37 NG/mL 21.81-274.66 H iron, total (test code = iro n, total) 114 mcg/dL 50-180 transferrin (test code = transferrin) 220 mg/dL 163-344 total iron binding capacity (calculated) (test code = total iron binding capacity (calculated)) 315 mcg/dL 250-425 % saturation (test code = % saturation) 36.2 % 15.0-60.0 [facility] W Auto Differential panel - [id number] 00:00:00 * Test Item Value Reference Range Interpretation Comme nts WBC (test code = WBC) 6.66 x10*3/?L [...] (test code = baso#) 0.05 x10*3/?L 0.01-0.08 [facility] panel - Serum or [id number] 00:00:00* Test Item Value Reference Range Interpretation [...] (test code = 2089-1) 98 mg/dL <130 [facility]/Hemoglobin.total in [id number] 00:00:00* Test Item Value Reference Range Interpretation Comme nts Hemoglobin A1c/Hemoglobin.to dann in Blood (test code = 4548-4) 6.4 % 1.0-5.7 H average blood glucose (calcu lation) (test code = average blood glucose (calculation)) 137 mg/dL [facility] IgG Ab [Units/volume] in Serum by [id number] 00:00:00* Test Item Value Reference Range Interpretation Comme nts KAREN screen, ifa (test code = KAREN screen, ifa) positive negative A [facility] [Titer] in Serum by Immunofluorescence 2021-05-04 00:00:00* Test Item Value Reference Range Interpretation Comme nts KAREN titer (test code = KAREN titer) 1:160 H KAREN pattern (test code = KAREN pattern) nuclear, [facility]led [facility] Test Item Value Reference Range Interpretation Comme nts DNA (ds) antibody (test code = DNA (ds) antibody) 2 IU/mL sm antibody (test code = sm antibody) <1.0 neg See_Comment [Automated [employer] ge] The system which generated this result transmitted reference range: <1.0 neg. The reference range was not used to interpret this result as normal/abnormal. sm/metrology engineer antibody (test code = sm/metrology engineer antibody) <1.0 neg See_Comment [Automated messa ge] The system which generated this result transmitted reference range: <1.0 neg. The reference range was not used to interpret this result as normal/abnormal. metrology engineer antibody (test code = metrology engineer antibody) <1.0 neg See_Comment [Automated message] The [...] used to interpret this result as normal/abnormal. [facility] [id number] 00:00:00* Test Item Value Reference Range Interpretation [...] used to interpret this result as normal/abnormal. [facility] [id number] 00:00:00* Test Item Value Reference Range Interpretation Comme nts centromere B antibody (test code = centromere B antibody) <1.0 neg See_Comment [Automate d message] The system which generated this result transmitted reference range: <1.0 neg. The reference range was not used to interpret this result as normal/abnormal. ribosomal P antibody (test code = ribosomal P antibody) <1.0 neg See_Comment [Automated [employer] ge] The system which generated this result transmitted reference range: <1.0 neg. The reference range was not used to interpret this result as normal/abnormal. [facility]a[id number] 00:00:00InterpretationVillFloyd Valley HealthcareNeuronal nuclear IgG Ab [Units/volume] in Serum by [id number] 00:00:00* Test Item Value Reference Range Interpretation Comme nts KAREN screen, ifa (test code = KAREN screen, ifa) positive negative A [facility] [Titer] in Serum by Immunofluorescence 2021-05-04 00:00:00* Test Item Value Reference Range Interpretation Comme nts KAREN titer (test code = KAREN titer) 1:160 H KAREN pattern (test code = KAREN pattern) nuclear, speckled [facility] Test Item Value Reference Range Interpretation Comme nts DNA (ds) antibody (test code = DNA (ds) antibody) 2 IU/mL sm antibody (test code = sm antibody) <1.0 neg See_Comment [Automated [employer]] The system which generated this result transmitted reference range: <1.0 neg. The reference range was not used to interpret this result as normal/abnormal. sm/metrology engineer antibody (test code = sm/metrology engineer antibody) <1.0 neg See_Comment [Automated [employer]] The system which generated this result transmitted reference range: <1.0 neg. The reference range was not used to interpret this result as normal/abnormal. metrology engineer antibody (test code = metrology engineer antibody) <1.0 neg See_Comment [Automated message] The [...] used to interpret this result as normal/abnormal. [facility] 00:00:00* Test Item Value Reference Range Interpretation [...] used to interpret this result as normal/abnormal. [facility] 00:00:00* Test Item Value Reference Range Interpretation Comme nts centromere B antibody (test code = centromere B antibody) <1.0 neg See_Comment [Automate d message] The system which generated this result transmitted reference range: <1.0 neg. The reference range was not used to interpret this result as normal/abnormal. ribosomal P antibody (test code = ribosomal P antibody) <1.0 neg See_Comment [Automated messa ge] The system which generated this result transmitted reference range: <1.0 neg. The reference range was not used to interpret this result as normal/abnormal. [id number] [facility]:00:00InterpretationVillFloyd [facility] HealthcareComprehensive metabolic 2000 panel - Serum or [id number] 00:00:00* Test Item Value Reference Range Interpretation [...] (test code = anion gap) 10 calc [facility] [Mass/volume] in Serum or Plasma 2021-04-30 00:00:00* Test Item Value Reference Range Interpretation Comme [facility] T4 free (test code = T4 free) 0.98 NG/dL 0.70-1.48 [facility]ropin [Units/volume] in Serum or [id number] 00:00:00* Test Item Value Reference Range Interpretation Comme nts TSH (test code = TSH) 1.501 uIU/mL 0.350-4.940 [facility]rate [Mass/volume] in Serum or [id number] 00:00:00 * Test Item Value Reference Range Interpretation Comme nts uric acid (test code = uric acid) 8.4 mg/dL 3.5-7.2 H [facility]aryTriiodothyronine resin uptake (T3RU) in Serum or Plasma 2021-04-30 00:00:00* Test Item Value Reference Range Interpretation Comme nts T3 uptake (test code = T3 uptake) 31 % 22-35 [facility]-reactive protein, [id number] 00:00:00* Test Item Value Reference Range Interpretation Comme nts C-reactive protein (test cod e = C-reactive protein) 6.1 mg/L <8.0 [facility]aryRheumatoid factor [Units/volume] in Serum or Plasma 2021-04-30 00:00:00* Test Item Value Reference Range Interpretation Comme nts rheumatoid factor (test code = rheumatoid factor) <14 <14 [facility]aryErythrocyte sedimentation rate by Westergren method 2021-04-30 00:00:00* Test Item Value Reference Range Interpretation Comme nts sed rate by modified westergren (test code = sed rate by modified westergren) 14 mm/h See_Comment [Automated [employer]] The system which generated this result transmitted reference range: < or = 20. The reference range was not used to interpret this result as normal/abnormal. [facility]aryCBC W Auto Differential panel - [id number] 00:00:00 * Test Item Value Reference Range [...] (test code = baso#) 0.06 x10*3/?L 0.01-0.08 [facility]aryCom[facility] 2000 panel - Serum or Plasma [...] (test code = anion gap) 10 calc [facility]aryThyroxine (T4) free [Mass/volume] in Serum or Plasma 2021-04-30 00:00:00* Test Item Value Reference Range Interpretation Comme nts T4 free (test code = T4 free) 0.98 NG/dL 0.70-1.48 [facility]aryThyrotropin [Units/volume] in Serum or [id number] 00:00:00* Test Item Value Reference Range Interpretation Comme nts TSH (test code = TSH) 1.501 uIU/mL 0.350-4.940 [facility]aryUrate [Mass/volume] in Serum or [id number] 00:00:00 * Test Item Value Reference Range Interpretation Comme nts uric acid (test code = uric acid) 8.4 mg/dL 3.5-7.2 H [facility]aryTriiodothyronine resin uptake (T3RU) in Serum or Plasma 2021-04-30 00:00:00* Test Item Value Reference Range Interpretation Comme nts T3 uptake (test code = T3 uptake) 31 % 22-35 [facility]aryTriiodothyronine resin uptake (T3RU) in Serum or Plasma 2021-04-30 00:00:00* Test Item Value Reference Range Interpretation Comme nts T3 uptake (test code = T3 uptake) 31 % 22-35 [facility]-reactive protein, [id number] 00:00:00* Test Item Value Reference Range Interpretation Comme nts C-reactive protein (test cod e = C-reactive protein) 6.1 mg/L <8.0 [facility]aryRheumatoid factor [Units/volume] in Serum or Plasma 2021-04-30 00:00:00* Test Item Value Reference Range Interpretation Comme nts rheumatoid factor (test code = rheumatoid factor) <14 <14 [facility]aryErythrocyte sedimentation rate by Westergren method 2021-04-30 00:00:00* Test Item Value Reference Range Interpretation Comme nts sed rate by modified westergren (test code = sed rate by modified westergren) 14 mm/h See_Comment [Automated messa ge] The system which generated this result transmitted reference range: < or = 20. The reference range was not used to interpret this result as normal/abnormal. [facility] W Auto Differential panel - [id number] 00:00:00 * Test Item Value Reference Range [...] (test code = baso#) 0.06 x10*3/?L 0.01-0.08 [facility]aryHemoglobin A1c measurement device [id number] 14:52:00* Test Item Value Reference Range Interpretation Comme nts Hemoglobin A1C Fingerstick: (test code = Hemoglobin A1C Fingerstick:) 6.5 [facility]aryH[facility] A1c measurement device [id number] 14:52:00* Test Item Value Reference Range Interpretation Comme nts Hemoglobin A1C Fingerstick: (test code = Hemoglobin A1C Fingerstick:) 6.5 [facility]aryH[facility]oglobin A1c measurement device [id number] 14:52:00* Test Item Value Reference Range Interpretation Comme nts Hemoglobin A1C Fingerstick: (test code = Hemoglobin A1C Fingerstick:) 6.5 [facility]
[2023-10-29 12:23] LABS: Absolute Basophils 0.1 K/uL (0-0.5); Absolute Eosinophils 0.5 K/uL (0-0.5); Absolute Lymphocytes (CBC) 2.5 K/uL (0.7-4.9); Absolute Monocytes 0.7 K/uL (0.1-1.3); Eosinophils % 6.4 % (0-4.4); Hemoglobin 13.7 g/dL (13.6-17.9); Lymphocytes % 31.8 % (15.3-44.8); MCHC 33.4 g/dL (32.0-36.0); MCV 95.8 fL (80-100); MPV 8.7 fL (7.6-11.3); Monocytes % 9.5 % (3.3-12.3); Neutrophils % 51.3 % (41.7-73.7); Platelets 213 thou/uL (152-406); RBC Red Blood Cell Count 4.28 M/uL (4.33-5.43); Red Cell Distribution Width 13.1 % (12.1-15.2)
--- NOTE | 2023-10-29 12:32 | RAD REPORT ---
EXAM DESCRIPTION: CT - Ct Stroke Brain Wo Cont - 10/29/2023 12:19 pm CLINICAL HISTORY: ataxia COMPARISON: none TECHNIQUE: Computed axial tomography of the head was obtained. All CT scans are performed using dose optimization technique as appropriate and may include automated exposure control or mA/KV adjustment according to patient size. FINDINGS: An intracranial bleed is not seen . The ventricles are normal in caliber. No extra-axial fluid collection is noted. No significant hyperdensity within the brain seen. Asymmetric cerebral atrophy more prominent right cerebrum. Fluid within the maxillary and ethmoid sinuses may indicate acute sinusitis IMPRESSION: No acute intracranial abnormality is seen. If patient's symptoms persist MRI of the bra in would be recommended Dr Cuevas of the emergency room was notified at 12:27 p.m. on October 29, 2023
[2023-10-29 12:33] LABS: PT Prothrombin Time 11.3 SECONDS (9.5-12.5); PTT, Activated Partial Thromb 29.9 SECONDS (24.3-36.9); Protime INR 1.03
[2023-10-29] MEDS ORDERED: TENECTEPLASE 50 MG/10 ML VIAL IV ONE (12:40)
[2023-10-29 12:44] LABS: Albumin 3.7 g/dL (3.4-5.0); Anion Gap 8.4 mEq/L (5.0-15.0); Bilirubin Direct 0.2 mg/dL (0-0.2); Bilirubin Indirect, Calculated 0.5 mg/dL (0.2-0.8); Bilirubin Total 0.7 mg/dL (0.2-1.0); Globulin 3.8 g/dL (2.3-3.5); Potassium 4.4 mEq/L (3.5-5.1); Protein, Total 7.5 g/dL (6.4-8.2); Troponin High Sensitivity 8.8 pg/mL (<58.9)
--- NOTE | 2023-10-29 13:00 | RAD REPORT ---
EXAM DESCRIPTION: Opal Angio10/29/2023 12:23 pm CLINICAL HISTORY: ataxia COMPARISON: None TECHNIQUE: 100 cc Isovue [address] angiogram of the neck was obtained. 3D MIPS reconstruction performed. All CT scans are performed using dose optimization technique as appropriate and may include automated exposure control or mA/KV adjustment according to patient size. FINDINGS: Visualized aortic arch and great vessels demonstrate no significant abnormality Mild plaque is present within common carotid, internal carotid, external carotid vertebral arteries. Hypoplastic left vertebral artery terminates into the PICA No dissection is seen. No high-grade stenosis [place] crieria Mild stenosis 0 to 49 % Moderate stenosis 50-69% Severe stenosis 70-99% IMPRESSION: No significant flow abnormality is displayed
--- NOTE | 2023-10-29 13:00 | RAD REPORT ---
EXAM DESCRIPTION: CTHead angio10/29/2023 12:23 pm CLINICAL HISTORY: numbness COMPARISON: none TECHNIQUE: 100 cc Isovue [address] angiogram of the head was obtained. 3D MIPS reconstruction performed. All CT scans are performed using dose optimization technique as appropriate and may include automated exposure control or mA/KV adjustment according to patient size. FINDINGS: The basilar, anterior cerebral, middle cerebral and posterior cerebral arteries do not dem onstrate a significant stenosis Mild calcified plaque distal internal carotid arteries An aneurysm is not seen No large vessel occlusion IMPRESSION: No significant flow abnormality is displayed
--- NOTE | 2023-10-29 13:31 | RAD REPORT ---
EXAM DESCRIPTION: Seth Single View10/29/2023 12:31 pm CLINICAL HISTORY: Ataxia COMPARISON: 2022 FINDINGS: The lungs appear clear of acute infiltrate. The heart is mildly enlarged Post surgical changes involve chest IMPRESSION: No acute abnormalities displayed
--- NOTE | 2023-10-29 14:02 | EDPHYS ---
Physician Documentation [facility] Name: Remington Huff Age: 78 yrs Sex: Male : 1945 Arrival Date: 10/29/2023 Time: 11:48 Bed 17 Private MD: Omer [facility] ED Physician Ryan Cuevas HPI: 10/28 12:08 This 78 yrs old Male presents to ER via Wheelchair with complaints of Trouble ec2 Walking, Dizziness, Weakness. 12:08 Patient arrives today for evaluation of dizziness. Patient reports symptom onset ec2 approximately 11:30 AM. Reports that he felt sudden onset dizziness, instability on his feet. Patient reports no history of strokes, is on Plavix.. Historical: - Allergies: 12:08 Flagyl; ph - Home Meds: 12:21 atorvastatin 40 mg oral tablet 1 tab every day at bedtime [Active]; Calcium Carbonate me1 Oral [Active]; calcium carbonate 500 mg calcium (1,250 mg) Oral tablet,chewable [Active]; clopidogrel 75 mg oral tablet [Active]; docusate sodium 100 mg Oral capsule [Active]; escitalopram oxalate 20 mg oral tablet [Active]; furosemide 40 mg Oral tablet [Active]; glimepiride 2 mg Oral tablet [Active]; levothyroxine 50 mcg tablet [Active]; PreserVision AREDS 2,148 mcg-113 mg-45 mg-17.4mg oral tablet [Active]; Vitamin D Oral 1,000 unit [Active]; - PMHx: 12:08 Chronic obstructive lung disease; diabetes mellitus; ph - PSHx: 12:08 Heart bypass surgery; ph - Immunization history:: Adult Immunizations up to date. - Infectious Disease History:: Denies. - Social history:: Smoking status: Patient/guardian denies using tobacco, but has a distant history of tobacco abuse. ROS: 12:16 Constitutional: as per hpi ec2 Exam: 12:16 Constitutional: GEN: NAD Head: atraumatic Eyes: EOMI Ears: External ears are ec2 normal. CV: regular rate LUNGS: no respiratory distress ABD: non-distended SKIN: no evidence of rashes MSK: no evidence of trauma NEURO: moves all extremities equally, cranial nerves II through XII intact, pronator drift noted in the bilateral upper extremities, drift noted in the right lower extremity. No strength deficit appreciated. Vital Signs: 12:05 BP 151 / 89; Pulse 59; Resp 18; Pulse Ox 97% on R/A; Weight 108.86 kg; Height 6 ft. 4 ph in. ; 12:30 BP 149 / 67; Pulse 53; Resp 15; Pulse Ox 96% on R/A; me1 12:45 BP 145 / 78; Pulse 49; Resp 13; Pulse Ox 96% on R/A; me1 12:46 Weight 107.05 kg; me1 13:00 BP 142 / 66; Pulse 50; Resp 11; Pulse Ox 92% on R/A; me1 13:15 BP 149 / 65; Pulse 50; Resp 10; Pulse Ox 96% on R/A; me1 13:30 BP 134 / 60; Pulse 49; Resp 13; Pulse Ox 93% ; me1 13:45 BP 141 / 54; Pulse 49; Resp 12; Pulse Ox 92% on R/A; me1 14:00 BP 130 / 64; Pulse 48; Resp 13; Pulse Ox 94% on R/A; me1 14:30 BP 137 / 75; Pulse 49; Resp 12; Pulse Ox 95% on R/A; me1 15:00 BP 147 / 63; Pulse 52; Resp 16; Pulse Ox 96% on R/A; me1 12:05 Body Mass Index 29.21 (107.05 kg, 193.04 cm) ph NIH Stroke Scale Scores: 12:08 NIHSS Score: 3 me1 MDM: 11:53 Patient medically screened. ec2 12:45 ED course: EKG independently reviewed and interpreted by me, shows normal sinus rhythm, ec2 rate 53, no acute ST segment elevations, normal nonconcerning.. 12:45 Data reviewed: vital signs. ED course: Patient arrives today for dizziness, instability ec2 on his feet. NIH of 3, drift noted on the bilateral upper extremities as well as the right lower extremity. I discussed case with radiology, CT scan of the head negative. I discussed with patient and family member at the bedside regarding TNK administration and they are agreeable. They expressed understanding of the risk and benefits and wanted to proceed. Patient is on Plavix however has not absolute contraindication. 12:46 ED course: Metabolic profile shows renal dysfunction with a creatinine of 1.33 and GFR ec2 55. CBC is reassuring. LFTs are unremarkable. Blood sugar within appropriate ranges, troponin within normal ranges . 13:07 ED course: CT angio of the head and neck showed no acute intracranial or neck ec2 abnormality.. 14:01 ED course: On reassessment patient with NIH of 1, still has some drift on the right ec2 lower extremity. Will admit for continued neuro care. Discussed case with hospitalist who agreed to except patient for admission. 14:23 ED course: MDM: Differential diagnosis as documented above in ED course; All lab tests ec2 ordered and reviewed as documented above; Independent interpretation of tests: EKG as above; History gathered from independent historian: Yes, ; Discuss inpatient hospitalization: Yes; I discussed the case with: Hospitalist . 10/28 12:05 Order name: Basic Metabolic Panel; Complete Time: 12:46 ec2 10/28 12:05 Order name: CBC with Diff; Complete Time: 12:46 ec2 10/28 12:05 Order name: Hepatic Function; Complete Time: 12:46 ec2 10/28 12:05 Order name: High Sensitivity Troponin; Complete Time: 12:46 ec2 10/28 12:05 Order name: Protime (+inr); Complete Time: 12:46 ec2 10/28 12:05 Order name: Ptt, Activated; Complete Time: 12:46 ec2 10/28 12:29 Order name: Glucose, Ancillary Testing; Complete Time: 12:46 EDMS 10/28 14:33 Order name: Basic Metabolic Panel EDMS 10/28 14:33 Order name: Basic Metabolic Panel EDMS 10/28 14:33 Order name: Basic Metabolic Panel EDMS 10/28 14:33 Order name: Basic Metabolic Panel EDMS 10/28 14:33 Order name: CBC with Automated Diff EDMS 10/28 14:33 Order name: CBC with Automated Diff EDMS 10/28 14:33 Order name: CBC with Automated Diff EDMS 10/28 14:33 Order name: CBC with Automated Diff EDMS 10/28 14:33 Order name: Lipid Profile EDMS 10/28 14:33 Order name: Lipid Profile EDMS 10/28 14:33 Order name: Magnesium EDMS 10/28 14:33 Order name: Magnesium EDMS 10/28 14:33 Order name: Magnesium EDMS 10/28 14:33 Order name: Magnesium EDMS 10/28 12:05 Order name: CT Head Angio; Complete Time: 13:07 ec2 10/28 12:05 Order name: CT Neck Angio; Complete Time: 13:07 ec2 10/28 12:05 Order name: CT Stroke Brain w/o Contrast; Complete Time: 12:46 ec2 10/28 12:05 Order name: Stroke CXR 1 View; Complete Time: 13:49 ec2 10/28 14:33 Order name: Echo with Doppler [facility] 10/28 12:05 Order name: EKG; Complete Time: 12:06 ec2 10/28 14:26 Order name: CONS Physician Consult EDFL 10/28 14:33 Order name: IRF Screen [facility]FL 10/28 14:33 Order name: Physical Therapy Consult [facility] 10/28 14:33 Order name: Speech Therapy Consult [facility] 10/28 12:05 Order name: Accucheck; Complete Time: 12:18 ec2 10/28 12:05 Order name: Cardiac monitoring; Complete Time: 12:27 ec2 10/28 12:05 Order name: EKG - Nurse/Tech; Complete Time: 12:27 ec2 10/28 12:05 Order name: IV Saline Lock; Complete Time: 12:18 ec2 10/28 12:05 Order name: Labs collected and sent; Complete Time: 12:19 ec2 10/28 12:05 Order name: NPO; Complete Time: 12:19 ec2 10/28 12:05 Order name: O2 Per Protocol; Complete Time: 12:19 ec2 10/28 12:05 Order name: O2 Sat Monitoring; Complete Time: 12:19 ec2 10/28 12:05 Order name: Stroke Swallow Screen; Complete Time: 14:14 ec2 Administered Medications: 12:45 Drug: TNK FOR STROKE - Tenecteplase IV (Administer 10 ml NS flush BEFORE and me1 AFTER tenecteplase) 0.25 mg/kg IV at per protocol once; MAX DOSE 25 mg, IVP over 5 seconds {Co-Signature: kennedy (Iona Gregg RN).} Route: IV; Rate: per protocol; Site: left antecubital; 12:46 Follow up: Response: No adverse reaction; IV Status: Completed infusion me1 Point of Care Testing: Blood Glucose: 12:03 Blood Glucose: 122 mg/dL; ph Ranges: Critical Glucose Levels:Adult <50 mg/dl or >400 mg/dl <40 mg/dl or >180 mg/dl Disposition Summary: 10/29/23 14:02 Hospitalization Ordered Notes: Hospitalization Status: Inpatient Admission ec2 Provider: Miguel Brooke ec2 Location: Intensive Care Unit ec2 Condition: Stable ec2 Problem: new ec2 Symptoms: have improved ec2 Bed/Room Type: Standard ec2 Room Assignment: 3-(10/29/23 14:48) 6 Diagnosis - Dizziness and giddiness ec2 Forms: - Medication Reconciliation Form ec2 - SBAR form ec2 - Leadership Thank You Letter ec2 Critical care time excluding procedures: 12:46 Critical care time: Bedside Care: 30 minutes, Family Intervention: 10 minutes. Total ec2 time: 40 minutes NIH Stroke Scale - NIH Stroke Score Date: 10/29/2023 Time: 12:08 Total Score = 3 10. Dysarthria (speech clarity - read or repeat words) - 0(Normal) 11. Extinction and Inattention (visual/tactile/auditory/spatial/personal) - 0(No abnormality) 1a. Level of Consciousness (LOC) - 0(Alert) 1b. Level of Consciousness (LOC) (Month \T\ Age) - 0(Both) 1c. LOC Commands (Open \T\ Closes Eyes/School Athletic Director) - 0(Both) 2. Best Gaze (Lateral Gaze Paresis) - 0(Normal) 3. Visual Field Loss - 0(No visual loss) 4. Facial Palsy - 0(Normal) 5a. Left Arm: Motor (10-second hold) - 1(Drift) 5b. Right Arm: Motor (10-second hold) - 1(Drift) 6a. Left Leg: Motor (5-second hold - always test supine) - 0(No drift) 6b. Right Leg: Motor (5-second hold - always test supine) - 1(Drift) 7. Limb Ataxia (finger/nose \T\ heel/arenas - test with eyes open) - 0(Absent) 8. Sensory Loss (pinprick arms/legs/face) - 0(Normal) 9. Best Language: Aphasia (description/naming/reading) - 0(No aphasia) Initials: me1 Signatures: Dispatcher [employer] Stephanie Whitley RN RN ph Lucy Collado6 Anaid Turner RN RN me1 Ryan Cuevas MD MD ec2 Iona Gregg RN Corrections: (The following items were deleted from the chart) 12: 12:06 BASIC METABOLIC PANEL+C.LAB.BRZ ordered. EDMS EDMS 12: 12:06 CBC+H.LAB.BRZ ordered. EDMS EDMS 12: 12:06 HEPATIC FUNCTION+C.LAB.BRZ ordered. EDMS EDMS : 12:06 Troponin High Sensitivity+C.LAB.BRZ ordered. EDMS EDMS 12: 12:06 PROTIME (+INR)+COAG.LAB.BRZ ordered. EDMS EDMS : 12:06 PTT, ACTIVATED+COAG.LAB.BRZ ordered. EDMS EDMS 14:48 14:02 ec2 bc6
--- NOTE | 2023-10-29 14:02 | ER ---
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 Coronavirus screen: Vaccine status: Patient reports receiving the 2nd dose of the covid vaccine. Ebola Screen: No symptoms or risks identified at this time. No acute neurological deficit is noted. Pre-hospital glucose is not applicable to this patient. Initial Sepsis Screen: Does the patient meet any 2 criteria? No. Patient's initial sepsis screen is negative. Does the patient have a suspected source of infection? No. Patient's initial sepsis screen is negative. Risk Assessment: Do you want to hurt yourself or someone else? Patient reports no desire to harm self or others. Onset of symptoms. 12:05 Method Of Arrival: Wheelchair ph 12:05 Acuity: JOHNY 2 ph Triage Assessment: 13:14 The onset of the patients symptoms was October 29, 2023 at 11:30. me1 Stroke Activation: Symptom onset < 3 hours Physician: ED Attending; Name: Mason; Notified At: 12:03; Arrived At: 12:03 Physician: Mid-Level Provider; Name: ; Notified At: 12:03; Arrived At: Physician: [not used]; Name: ; Notified At: ; Arrived At: Physician: [not used]; Name: ; Notified At: ; Arrived At: Physician: [not used]; Name: ; Notified At: ; Arrived At: Historical: - Allergies: 12:08 Flagyl; ph - Home Meds: 12:21 atorvastatin 40 mg oral tablet 1 tab every day at bedtime [Active]; Calcium Carbonate me1 Oral [Active]; calcium carbonate 500 mg calcium (1,250 mg) Oral tablet,chewable [Active]; clopidogrel 75 mg oral tablet [Active]; docusate sodium 100 mg Oral capsule [Active]; escitalopram oxalate 20 mg oral tablet [Active]; furosemide 40 mg Oral tablet [Active]; glimepiride 2 mg Oral tablet [Active]; levothyroxine 50 mcg tablet [Active]; PreserVision AREDS 2,148 mcg-113 mg-45 mg-17.4mg oral tablet [Active]; Vitamin D Oral 1,000 unit [Active]; - PMHx: 12:08 Chronic obstructive lung disease; diabetes mellitus; ph - PSHx: 12:08 Heart bypass surgery; ph - Immunization history:: Adult Immunizations up to date. - Infectious Disease History:: Denies. - Social history:: Smoking status: Patient/guardian denies using tobacco, but has a distant history of tobacco abuse. Screenin:[address] [facility] ED Fall Risk Assessment (Adult) History of falling in the last 3 months, me1 including since admission No falls in past 3 months (0 pts) Confusion or Disorientation No (0 pts) Intoxicated or Sedated No (0 pts) Impaired Gait Yes (1 pt) Mobility Assist Device Used No (0 pt) Altered Elimination No (0 pt) Score/Fall Risk Level 3 or more points = High Risk Maintained a safe environment, Used ambulatory aids as needed (educated on \\T\\ assisted with), Used gait belt as appropriate. Abuse screen: Denies threats or abuse. Nutritional screening: No deficits noted. Tuberculosis screening: No symptoms or risk factors identified. Assessment: 12:03 Reassessment: Dr cuevas at bedside to assess pt, code stroke called overhead. ph 12:04 Reassessment: Pt taken to CT via stretcher by charge nurse Iona Oden RN. ph 12:08 VAN Scoring: Arm Drift: Minor drift Visual Disturbance: No visual disturbance noted. me1 Aphasia: No aphasia noted. Neglect: No neglect noted. TNKase (Tenecteplase) Screening:. General: Appears comfortable, well groomed, well developed, well nourished, Behavior is calm, cooperative, appropriate for age, Reports unsteady gait, sudden onset of dizziness and n/v that started at 11:30 am. 12:12 Pain: Denies pain. Neuro: Level of Consciousness is awake, alert, obeys commands, me1 Oriented to person, place, time, situation, Appropriate for age Statue Maker are equal bilaterally Moves all extremities. Gait is unsteady, Speech is normal, Facial symmetry appears normal, Pupils are PERRLA, Intact arm drift bilaterally and right leg drift. NIH 3. Reports dizziness, since 11:30. Cardiovascular: Patient's skin is warm and dry. Respiratory: Airway is patent Respiratory effort is even, unlabored, Respiratory pattern is regular, symmetrical. GI: Reports nausea, vomiting, since 11:30. : No signs and/or symptoms were reported regarding the genitourinary system. EENT: No signs and/or symptoms were reported regarding the EENT system. Derm: Skin is intact, is healthy with good turgor, Skin is pink, warm \\T\\ dry. Musculoskeletal: Reports unsteady gait. 12:45 Reassessment: TNK administered to 18g LAC, see paper chart for reassessments/obs/vitals.hb 13:06 [place] Swallow Protocol Exclusion Criteria:. TNKase (Tenecteplase) Screening: me1 Indications: Definite evidence of stroke, ischemic, embolic, or hypertensive: Yes. Treatment will start within 4.5 hours onset of symptoms: Yes. No evidence of intracranial hemorrhage or CT of head and no evidence of peripheral hemorrhage or recent CVA: Yes. Consent for thrombolytic therapy: Yes. Contraindications: Is the patient on a "statin" medication: Yes. 13:08 [place] Swallow Protocol Brief Cognitive Screen What is your name? Normal, Where are you me1 right now? Normal, What year is it? Normal. Oral Mechanism Examination Facial Symmetry: Normal, Motion: Normal, Lip Closure: Normal, Oral Mechanism Result: Normal. 3 oz Water Swallow Challenge: Pt able to drink all water without stopping, coughing, choking or throat clearing: Yes Result: PASS MD Notified: Ryan Cuevas MD. Vital Signs: 12:05 BP 151 / 89; Pulse 59; Resp 18; Pulse Ox 97% on R/A; Weight 108.86 kg; Height 6 ft. 4 ph in. ; 12:30 BP 149 / 67; Pulse 53; Resp 15; Pulse Ox 96% on R/A; me1 12:45 BP 145 / 78; Pulse 49; Resp 13; Pulse Ox 96% on R/A; me1 12:46 Weight 107.05 kg; me1 13:00 BP 142 / 66; Pulse 50; Resp 11; Pulse Ox 92% on R/A; me1 13:15 BP 149 / 65; Pulse 50; Resp 10; Pulse Ox 96% on R/A; me1 13:30 BP 134 / 60; Pulse 49; Resp 13; Pulse Ox 93% ; me1 13:45 BP 141 / 54; Pulse 49; Resp 12; Pulse Ox 92% on R/A; me1 14:00 BP 130 / 64; Pulse 48; Resp 13; Pulse Ox 94% on R/A; me1 14:30 BP 137 / 75; Pulse 49; Resp 12; Pulse Ox 95% on R/A; me1 15:00 BP 147 / 63; Pulse 52; Resp 16; Pulse Ox 96% on R/A; me1 12:05 Body Mass Index 29.21 (107.05 kg, 193.04 cm) ph NIH Stroke Scale Scores: 12:08 NIHSS Score: 3 md1 ED Course: 11:50 Patient arrived in ED. rg4 11:50 Arnav Tello DO is Private Physician. rg4 11:52 Ryan Cuevas MD is Attending Physician. ec2 12:[address] via stretcher. hb 12:06 Anaid Turner, [place]TE is Primary Nurse. me1 12:07 Triage completed. ph 12:09 Arm band placed on Patient placed in an exam room. ph 12:17 Patient has correct armband on for positive identification. Bed in low position. Call md1 light in reach. Side rails up X2. Provided Education on: POC. Verbalized understanding. . 12:17 Initial lab(s) drawn, by ED staff, sent to lab. Inserted saline lock: 18 gauge in left md1 antecubital area, using aseptic technique. 12:17 No provider procedures requiring assistance completed. me1 12:19 Basic Metabolic Panel Sent. me1 12:19 CBC with Diff Sent. me1 12:19 Hepatic Function Sent. me1 12:19 High Sensitivity Troponin Sent. me1 12:19 Protime (+inr) Sent. me1 12:19 Ptt, Activated Sent. me1 12:21 CT Stroke Brain w/o Contrast In Process Unspecified. EDMS 12:25 CT Head Angio In Process Unspecified. EDMS 12:25 CT Neck Angio In Process Unspecified. EDMS 12:30 Client placed on continuous cardiac and pulse oximetry monitoring. NIBP monitoring hb applied. correctional probation officer on. Pulse ox on. NIBP on. 12:33 Stroke CXR 1 View In Process Unspecified. EDMS 12:33 EKG done, by ED staff. aw1 12:43 Inserted saline lock: 20 gauge in left forearm, using aseptic technique. hb 14:02 Miguel Brooke MD is Hospitalizing Provider. ec2 15:23 Patient admitted, IV remains in place. me1 Administered Medications: 12:45 Drug: TNK FOR STROKE - Tenecteplase IV (Administer 10 ml NS flush BEFORE and me1 AFTER tenecteplase) 0.25 mg/kg IV at per protocol once; MAX DOSE 25 mg, IVP over 5 seconds {Co-Signature: kennedy (Iona Gregg RN).} Route: IV; Rate: per protocol; Site: left antecubital; 12:46 Follow up: Response: No adverse reaction; IV Status: Completed infusion me1 Medication: 12:17 VIS not applicable for this client. me1 Point of Care Testing: Blood Glucose: 12:03 Blood Glucose: 122 mg/dL; ph Ranges: Outcome: 14:02 Decision to Hospitalize by Provider. ec2 15:23 Admitted to ICU accompanied by nurse, via stretcher, room -3, on monitor, with chart, me1 Report called to CHARLOTTE Owusu 15:23 Condition: stable 15:23 Instructed on the need for admit, 15:35 Patient left the ED. mb9 NIH Stroke Scale - NIH Stroke Score Date: 10/29/2023 Time: 12:08 Total Score = 3 10. Dysarthria (speech clarity - read or repeat words) - 0(Normal) 11. Extinction and Inattention (visual/tactile/auditory/spatial/personal) - 0(No abnormality) 1a. Level of Consciousness (LOC) - 0(Alert) 1b. Level of Consciousness (LOC) (Month \\T\\ Age) - 0(Both) 1c. LOC Commands (Open \\T\\ Closes Eyes/Commutator Undercutter) - 0(Both) 2. Best Gaze (Lateral Gaze Paresis) - 0(Normal) 3. Visual Field Loss - 0(No visual loss) 4. Facial Palsy - 0(Normal) 5a. Left Arm: Motor (10-second hold) - 1(Drift) 5b. Right Arm: Motor (10-second hold) - 1(Drift) 6a. Left Leg: Motor (5-second hold - always test supine) - 0(No drift) 6b. Right Leg: Motor (5-second hold - always test supine) - 1(Drift) 7. Limb Ataxia (finger/nose \\T\\ heel/arenas - test with eyes open) - 0(Absent) 8. Sensory Loss (pinprick arms/legs/face) - 0(Normal) 9. 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 me1 13:18 12:18 Patient moved to [place] via stretcher. hb hb
--- NOTE | 2023-10-29 14:34 | P.HP ---
Certification for Inpatient Patient admitted to: Inpatient With expected LOS: <2 Midnights <Maryellen Chau - Last Filed: 10/29/23 15:34> Patient History Date of Service: 10/29/23 Reason for admission: CVA History of Present Illness: 78-year-old male with a past medical history of hypothyroidism, GERD, CAD, COPD, diabetes, hyperlipidemia, presents to the emergency room with dizziness, weakness. He reported right upper extremity, right lower extremity weakness, left upper extremity weakness, is now resolved. Reports symptoms started prior to arrival, patient was treated with TNK in the emergency room, with resolution of symptoms, he denies chest pain, shortness of breath, dizziness has resolved, no edema, NIH stroke scale 0. Plan to admit to ICU post TNK for acute CVA with right hemiparesis, weakness, dizziness. Neurology to consult. TNK received around 1240, repeat CT of the head of the brain ordered for 24 hours post TNK. - Past Medical/Surgical History -: Diabetes p.o. regimen -: CAD on Plavix -: Hypothyroidism -: GERD -: CABG -: Wrist surgery -: Ankle surgery -: Hip surgery Psychosocial/ Personal History: Retired, lives with spouse, independent prior - Social History Smoking Status: Unknown if ever smoked Alcohol use: Yes CD- Drugs: Yes Place of Residence: Home <KandiMaryellen - Last Filed: 10/29/23 15:34> Date of Service: 10/29/23 <Miguel Brooke - Last Filed: 10/31/23 05:26> Allergies metronidazole [From Flagyl] Allergy (Verified 10/29/23 15:23) Itching Review of Systems Per HPI <Maryellen Chau - Last Filed: 10/29/23 15:34> Physical Examination - Physical Exam General: Alert, In no apparent distress, Oriented x3 HEENT: Atraumatic, Normocephalic Neck: 2+ carotid pulse no bruit, JVD not distended Respiratory: Clear to auscultation bilaterally, Normal air movement Cardiovascular: Normal pulses, Regular rate/rhythm Capillary refill: >2 Seconds Gastrointestinal: Normal bowel sounds, Soft and benign Musculoskeletal: No clubbing, No swelling Integumentary: No breakdown, No significant lesion Neurological: Normal speech, Normal strength at 5/5 x4 extr, Cranial nerves 3-12 intact - Studies Laboratory Data (last 24 hrs) 10/29/23 10/29/23 10/29/23 12:16 12:16 12:16 WBC 7.80 Hgb 13.7 Hct 41.0 Plt Count 213 PT 11.3 INR 1.03 APTT 29.9 Sodium 139 Potassium 4.4 BUN 21 H Creatinine 1.33 H Glucose 122 H Total Bilirubin 0.7 AST 16 ALT 30 Alkaline Phosphatase 92 <Maryellen Chau - Last Filed: 10/29/23 15:34> Assessment and Plan - Plan Assessment plan CVA with right hemiparesis acute Weakness acute Dizziness acute Admit to ICU, neurology, Stroke alert called, patient was treated at [facility] at 1240, hold anticoagulation for 24 hours, Repeat CT of the head ordered for 24 hours. PT, speech eval bedside, fall, Patient was independent prior- presents to the emergency room with dizziness, weakness. He reported right upper extremity, right lower extremity weakness, left upper extremity weakness, is now resolved post TNK NIH stroke scale 0 posting Antilipid, hypothyroidism chronic hyperlipidemia GERD CAD post CABG on (Plavix hold until 24-hour post TNK) COPD controlled Resume appropriate home meds Hold anticoagulants 24 hours post TNK As needed nebs, O2 2 L keep sats greater than 92% diabetes unknown control Accu-Cheks, sliding scale Full code DVT SCD Diet cardiac Disposition pending hospital course Discharge Plan: Home - Advance Directives Does patient have a Living Will: No Does patient have a Durable POA for Healthcare: No - Code Status/Comfort Care Code Status: Full Code Critical Care: No Time Spent Managing Pts Care (In Minutes): 55 <Maryellen Chau - Last Filed: 10/29/23 15:34> Date of Service: 10/29/23 Patient was seen and examined. Events of the last 24 hours have been noted. Spoke with with STACEY regarding patient's clinical picture after evaluating and examining the patient independently. I performed a substantial part of the MDM during this patient's care today. I personally made or approved the documented management plan and acknowledge its risk of complications. I agree with the findings and documentation provided in the STACEY's notes. Patient has suffered some weakness and found to have possible CVA. CT of the head and CT angiogram were negative. Patient was given TNK. Repeat imaging in 24 hours. Further evaluation with MRI. Patient admitted for inpatient hospitalization for CVA. <Miguel Brooke - Last Filed: 10/31/23 05:26>
[2023-10-29 16:06] VITALS: O2SAT 94
[2023-10-29] MEDS: NA CHLORIDE 0.9% 1,000 ML IV SCH (17:59)
[2023-10-29 19:01] LABS: Specific Gravity > 1.030 (1.005-1.030); Sqamous Epithelial None Seen /HPF (None Seen); Urine Bacteria None Seen /HPF (<20); Urine Bilirubin NEGATIVE (Negative); Urine Blood Negative (Negative); Urine Clarity Clear (Clear); Urine Color Light-Yellow (Yellow); Urine Culture Reflex Order NOT NEEDED; Urine Glucose NEGATIVE (Negative); Urine Ketones NEGATIVE (Negative); Urine Micro Reflex YN NO BILL MICROSCOPIC; Urine Nitrite NEGATIVE (Negative); Urine Protein NEGATIVE (Negative); Urine RBC <5 /HPF (None Seen); Urine Urobilinogen Normal (Normal); Urine WBC None Seen /HPF (<5); Urine pH 6.5 (5.0-7.0)
[2023-10-29] MEDS: ACETAMINOPHEN 500 MG TAB PO PRN (19:49)
[2023-10-29] MEDS: ATORVASTATIN 40 MG TAB PO SCH (20:58)
[2023-10-30 04:54] LABS: Absolute Eosinophils 0.6 K/uL (0-0.5); Absolute Lymphocytes (CBC) 2.3 K/uL (0.7-4.9); Absolute Monocytes 0.7 K/uL (0.1-1.3); Absolute Neutrophil 3.9 K/uL (1.8-8.0); Basophils % 0.2 % (0-1.3); Eosinophils % 7.4 % (0-4.4); Hematocrit 37.3 % (39.6-49.0); Hemoglobin 12.4 g/dL (13.6-17.9); Lymphocytes % 30.9 % (15.3-44.8); MCH 32.1 pg (27.0-35.0); MCHC 33.3 g/dL (32.0-36.0); MCV 96.2 fL (80-100); MPV 8.7 fL (7.6-11.3); Monocytes % 9.7 % (3.3-12.3); Neutrophils % 51.8 % (41.7-73.7); Nucleated Red Blood Cells % 0.2 % (0-0); Platelets 192 thou/uL (152-406); RBC Red Blood Cell Count 3.88 M/uL (4.33-5.43); Red Cell Distribution Width 13.3 % (12.1-15.2)
[2023-10-30 05:12] LABS: Anion Gap 4.2 mEq/L (5.0-15.0); Magnesium 2.3 mg/dL (1.6-2.4); Potassium 4.2 mEq/L (3.5-5.1)
[2023-10-30 05:57] VITALS: BMI 28.5
--- NOTE | 2023-10-30 11:51 | P.PN ---
Subjective Date of Service: 10/30/23 Chief Complaint: CVA Admitted for CVA, weakness, received TNK, symptoms resolved NIH stroke scale 0 <KandiMaryellen - Last Filed: 10/30/23 16:25> Date of Service: 10/30/23 <Miguel Brooke - Last Filed: 10/31/23 05:27> Review of Systems Per HPI <Maryellen Chau - Last Filed: 10/30/23 16:25> Physical Examination - Vital Signs Temperature: 97.4 F Blood Pressure: 133/63 Pulse: 51 Respirations: 17 Pulse Ox (%): 97 - Physical Exam General: Alert, In no apparent distress, Oriented x3 Neck: Supple, 2+ carotid pulse no bruit Respiratory: Clear to auscultation bilaterally, Normal air movement Cardiovascular: Normal pulses, Regular rate/rhythm Gastrointestinal: Normal bowel sounds, Soft and benign Musculoskeletal: No swelling, No contractures Integumentary: No breakdown, No significant lesion Neurological: Normal speech, Normal strength at 5/5 x4 extr - Studies Laboratory Data (last 24 hrs) 10/29/23 10/29/23 10/29/23 12:16 12:16 12:16 WBC 7.80 Hgb 13.7 Hct 41.0 Plt Count 213 PT 11.3 INR 1.03 APTT 29.9 Sodium 139 Potassium 4.4 BUN 21 H Creatinine 1.33 H Glucose 122 H Total Bilirubin 0.7 AST 16 ALT 30 Alkaline Phosphatase 92 <Maryellen Chau - Last Filed: 10/30/23 16:25> Assessment And Plan - Plan Assessment plan CVA with right hemiparesis acute Weakness acute Dizziness acute Admit to ICU, neurology, Stroke alert called, patient was treated at [facility] at 1240, hold anticoagulation for 24 hours, Repeat CT of the head ordered for 24 hours. PT, speech eval bedside, fall, Patient was independent prior- presents to the emergency room with dizziness, weakness. He reported right upper extremity, right lower extremity weakness, left upper extremity weakness, is now resolved post TNK NIH stroke scale 0 posting Antilipid,, lipid panel normal hypothyroidism chronic hyperlipidemia GERD CAD post CABG on (Plavix hold until 24-hour post TNK) COPD controlled Resume appropriate home meds Hold anticoagulants 24 hours post TNK As needed nebs, O2 2 L keep sats greater than 92% diabetes unknown control Accu-Cheks, sliding scale Full code DVT SCD Diet cardiac Disposition pending hospital course Discharge Plan: Home - Code Status/Comfort Care Code Status: Full Code Critical Care: Yes Time Spent Managing PTS Care (In Minutes): 55 <Maryellen Chau - Last Filed: 10/30/23 16:25> Date of Service: 10/30/23 Patient was seen and examined. Events of the last 24 hours have been noted. Spoke with with STACEY regarding patient's clinical picture after evaluating and examining the patient independently. I performed a substantial part of the MDM during this patient's care today. I personally made or approved the documented management plan and acknowledge its risk of complications. I agree with the findings and documentation provided in the STACEY's notes. Patient doing well clinically. Patient ambulated around the nurses station without difficulty. Patient is eating and tolerating diet. Will go ahead and cancel physical therapy and speech therapy consultation at this time. MRI of the brain pending. Repeat echocardiogram pending. Anticipate discharge home as long as studies do not reveal any significant abnormalities. <Miguel Brooke - Last Filed: 10/31/23 05:27>
--- NOTE | 2023-10-30 12:15 | RAD REPORT ---
EXAM DESCRIPTION: CT - Head Brain Wo Cont - 10/30/2023 12:03 pm CLINICAL HISTORY: post tnk Headache, drowsiness COMPARISON: Head angio dated 10/29/2023; Ct Stroke Brain Wo Cont dated 10/29/2023 TECHNIQUE: All CT scans are performed using dose optimization technique as appropriate and may inclu de automated exposure control or mA/KV adjustment according to patient size. FINDINGS: No intracranial hemorrhage, hydrocephalus or extra-axial fluid collection.Moderate brain a trophy.No areas of brain edema or evidence of midline shift. Right vertebral atherosclerosis. Moderate fluid is seen in both maxillary antra, ethmoid air cells. The calvarium is intact. IMPRESSION: No acute intracranial abnormality.
[2023-10-31 04:00] LABS: Absolute Basophils 0.1 K/uL (0-0.5); Absolute Eosinophils 0.6 K/uL (0-0.5); Absolute Lymphocytes (CBC) 2.3 K/uL (0.7-4.9); Absolute Monocytes 0.7 K/uL (0.1-1.3); Basophils % 0.9 % (0-1.3); Hemoglobin 12.5 g/dL (13.6-17.9); Lymphocytes % 29.9 % (15.3-44.8); MCH 32.7 pg (27.0-35.0); MCHC 33.9 g/dL (32.0-36.0); MCV 96.4 fL (80-100); MPV 8.7 fL (7.6-11.3); Neutrophils % 52.2 % (41.7-73.7); Nucleated Red Blood Cells % 0.1 % (0-0); Platelets 176 thou/uL (152-406); RBC Red Blood Cell Count 3.84 M/uL (4.33-5.43); Red Cell Distribution Width 12.9 % (12.1-15.2)
[2023-10-31 04:22] LABS: Anion Gap 6.3 mEq/L (5.0-15.0); Magnesium 2.3 mg/dL (1.6-2.4); Potassium 4.3 mEq/L (3.5-5.1)
[2023-10-31] MEDS ORDERED: GLIMEPIRIDE 2 MG TABLET PO SCH (09:00)
--- NOTE | 2023-10-31 09:04 | RAD REPORT ---
EXAM DESCRIPTION: MRI - Brain W/Wo Cont - 10/31/2023 8:51 am CLINICAL HISTORY: CVA post tnk Headache, drowsiness, CVA symptomology COMPARISON: Head Brain Wo Cont dated 10/30/2023 TECHNIQUE: Multi-sequence, multiplanar MR imaging of the brain was performed with contrast. FINDINGS: No intracranial hemorrhage, hydrocephalus, or extra-axial fluid collection.Mild generalize d brain atrophy. No edema or shift of midline structures. No intracranial mass. DWI is negative for a cute CVA. The midline structures are normally formed. Moderate paranasal sinus opacification seen. Post-contrast images show no abnormal enhancement to suggest tumor or infection. IMPRESSION: Negative for acute CVA or other acute intracranial process. No pathologic post-contrast enhancement suspected.
[2023-10-31] MEDS: ASPIRIN EC 81 MG TAB PO SCH (09:18)
[2023-10-31] MEDS: LEVOTHYROXINE SOD 0.05 MG TABLET PO SCH (09:18)
[2023-10-31] MEDS: AMLODIPINE 5 MG TAB PO SCH (09:18)
[2023-10-31] MEDS: OCUVITE (VIT A,C & E/LUTEIN/MINERAL) TABLET PO SCH (09:19)
[2023-10-31] MEDS: CLOPIDOGREL 75 MG TABLET PO SCH (09:19)
[2023-10-31] MEDS: FUROSEMIDE 40 MG TABLET PO SCH (09:19)
[2023-10-31] MEDS: ESCITALOPRAM 20 MG TAB PO SCH (09:19)
[2023-10-31] MEDS: ENOXAPARIN 40 MG/0.4 ML SQ SCH (09:20)
--- NOTE | 2023-10-31 10:34 | P.DS ---
Discharge Date: 10/31/23 Disposition: ROUTINE DISCHARGE Discharge Condition: GOOD Reason for Admission: CVA Brief History of Present Illness: Patient is a 78-year-old gentleman came to the hospital with weakness and left- sided paresthesias. Patient was felt to have a CVA and was given tPA in the ER. Patient was admitted to the hospital for further evaluation. Hospital Course: Patient had CT angio and CT of the head that was unremarkable. [address] of the head was also negative. Patient's MRI of the brain did not reveal any ischemic stroke. Clinically, patient is doing well and patient is stable for discharge. Continue with anti-platelet therapy and statin therapy. Vital Signs/Physical Exam: Temp Pulse Resp BP Pulse Ox 97.8 F 52 14 146/76 H 95 10/31/23 08:00 10/31/23 09:19 10/31/23 08:00 10/31/23 09:19 10/31/23 08:00 General: Alert, In no apparent distress, Oriented x3 Laboratory Data at Discharge: WBC 7.60 thou/uL (4.3-10.9) 10/31/23 03:23 Hgb 12.5 g/dL (13.6-17.9) L 10/31/23 03:23 Hct 37.0 % (39.6-49.0) L 10/31/23 03:23 Plt Count 176 thou/uL (152-406) 10/31/23 03:23 PT 11.3 SECONDS (9.5-12.5) 10/29/23 12:16 INR 1.03 10/29/23 12:16 APTT 29.9 SECONDS (24.3-36.9) 10/29/23 12:16 Sodium 139 mEq/L (136-145) 10/31/23 03:23 Potassium 4.3 mEq/L (3.5-5.1) 10/31/23 03:23 BUN 15 mg/dL (7-18) 10/31/23 03:23 Creatinine 0.90 mg/dL (0.70-1.30) 10/31/23 03:23 Glucose 92 mg/dL (74-106) 10/31/23 03:23 Magnesium 2.3 mg/dL (1.6-2.4) 10/31/23 03:23 Total Bilirubin 0.7 mg/dL (0.2-1.0) 10/29/23 12:16 AST 16 U/L (15-37) 10/29/23 12:16 ALT 30 U/L (16-61) 10/29/23 12:16 Alkaline Phosphatase 92 U/L (45-117) 10/29/23 12:16 Triglycerides 110 mg/dL (<150) 10/30/23 04:34 Cholesterol 120 mg/dL (<200) 10/30/23 04:34 HDL Cholesterol 40 mg/dL (40-60) 10/30/23 04:34 Cholesterol/HDL Ratio 3.00 10/30/23 04:34 Home Medications: Calcium Carbonate [Calcium] 500 mg PO BEDTIME 10/29/23 Cholecalciferol (Vitamin D3) [Vitamin D 1000 Iu Tab*] 1 tab PO BEDTIME 10/29/23 Clopidogrel Bisulfate [Plavix] 75 mg PO DAILY 10/29/23 Docusate [Colace Cap*] 100 mg PO BEDTIME 10/29/23 Escitalopram Oxalate 20 mg PO DAILY 10/29/23 Furosemide [Lasix] 40 mg PO DAILY 10/29/23 Levothyroxine [Synthroid*] 50 mcg PO DAILY 10/29/23 Multivitamin with Minerals [Multivitamins with Minerals] 1 tab PO BEDTIME 10/29/23 Vit C/E/Zn/Coppr/Lutein/Zeaxan [Preservision Areds 2 Chew Tab] 1 tab PO BID 10/29/23 Aspirin [Aspirin EC 81 MG] 162 mg PO DAILY #60 tab 10/31/23 Atorvastatin Calcium [Lipitor] 80 mg PO BEDTIME #30 tab 10/31/23 New Medications: Aspirin [Aspirin EC 81 MG] 162 mg PO DAILY #60 tab Atorvastatin Calcium [Lipitor] 80 mg PO BEDTIME #30 tab Physician Discharge Instructions: OK TO DC IV AND DC HOME AFTER MRI IS COMPLETED. FOLLOW-UP WITH PRIMARY CARE PROVIDER IN 1-2 WEEKS FOLLOW-UP WITH NEUROLOGY IN 1-2 WEEKS RETURN TO THE ER IF SYMPTOMS WORSEN CALL DR. REEDER AT [phone] IF ANY QUESTIONS REGARDING HOSPITAL STAY. PLEASE CALL THE FLOOR AT [phone] IF ANY MEDICATION OR NURSING QUESTIONS. Diet: AHA Activity: Fall precautions Followup: Arnav Tello DO [Primary Care Provider] - 1-2 Weeks Time spent managing pt's care (in minutes): 35
--- NOTE | 2023-10-31 14:57 | EKG ---
Test Date: 2023-10-29 Test Time: 12:29:54 Hand Outside Cutter: MB MEASUREMENT RESULTS: Intervals: Rate: 53 [place]: 226 QRSD: 114 QT: 494 QTc: 463 [place]: P: 23 NJ: 226 QRS: -7 T: 38 INTERPRETIVE STATEMENTS: Sinus bradycardia with 1st degree AV block Otherwise normal ECG No previous ECG available for comparison Electronically Signed On 10-31-23 14:52:11 CDT by Celso Warner
[2023-10-31 18:43] VITALS: BP 126/69; TEMP 97.2
[2023-10-31] MEDS ORDERED: MULTIVITAMIN TAB PO SCH (21:00)
[2023-10-31] MEDS ORDERED: VITAMIN D 1000 UNIT TAB PO SCH (21:00)
[2023-10-31] MEDS ORDERED: DOCUSATE NA 100 MG CAP PO SCH (21:00)
[2023-10-31] MEDS ORDERED: CALCIUM CARBONATE CHEW 500MG TAB PO SCH (21:00)
[2023-10-31] MEDS ORDERED: ATORVASTATIN 40 MG TAB PO SCH (21:00)
--- NOTE | 2023-11-01 06:46 | ECHO ---
HEIGHT: 6 ft 4 in WEIGHT: 234 lb 11.2 oz DATE OF STUDY: 10/31/[address]: Maryellen Chau WELLNESS NURSE RN-Wilder 2-DIMENSIONAL: YES M.MODE: YES DOPPLER: YES COLOR FLOW: YES TDS: YES PORTABLE: YES DEFINITY: BUBBLE STUDY: DIAGNOSIS: STROKE CARDIAC HISTORY: CATHERIZATION: YES SURGERY: YES PROSTHETIC VALVE: NO PACEMAKER: NO MEASUREMENTS (cm) DIASTOLIC (NORMALS) SYSTOLIC (NORMALS) IVSd 1.2 (0.6-1.2) LA Diam 3.5 (1.9-4.0) LVEF 60-65% LVIDd 5.5 (3.5-5.7) LVIDs 3.3 (2.0-3.5) %FS 34% LVPWd 1.2 (0.6-1.2) Ao Diam 2.4 (2.0-3.7) 2 DIMENSIONAL ASSESSMENT: RIGHT ATRIUM: NORMAL LEFT ATRIUM: NORMAL RIGHT VENTRICLE: NORMAL LEFT VENTRICLE: NORMAL TRICUSPID VALVE: NORMAL MITRAL VALVE: MILD MITRAL REGURGITATION PULMONIC VALVE: NORMAL AORTIC VALVE: NORMAL PERICARDIAL EFFUSION: NONE AORTIC ROOT: NORMAL LEFT VENTRICULAR WALL MOTION: NORMAL DOPPLER/COLOR FLOW: SEE BELOW COMMENTS: 1. NORMAL LEFT VENTRICULAR EJECTION FRACTION 60-65% 2. NORMAL DIASTOLIC FUNCTION 3. MILD MITRAL REGURGITATION TECHNOLOGIST: JOSE ANTONIO WELCH
== END 2023-10-31 17:37 | disposition home or self-care (01) | DRG 62 ==
LOC: ER 11:48 → ERHOLD 14:23 → 3RD-ICU 15:14 → 2ND 10-30 17:53
PROVIDERS: ADMIT Hospitalist; ATTEND Hospitalist
DX: I63.9 Cerebral infarction, unspecified (principal); G81.91 Hemiplegia, unspecified affecting right dominant side; E11.9 Type 2 diabetes mellitus without complications; E03.9 Hypothyroidism, unspecified; K21.9 Gastro-esophageal reflux disease without esophagitis; E78.5 Hyperlipidemia, unspecified; J44.9 Chronic obstructive pulmonary disease, unspecified; I25.10 Atherosclerotic heart disease of native coronary artery without angina pectoris; R29.703 NIHSS score 3; R42 Dizziness and giddiness; Z88.8 Allergy status to other drugs, medicaments and biological substances; Z79.82 Long term (current) use of aspirin; Z79.02 Long term (current) use of antithrombotics/antiplatelets; Z79.84 Long term (current) use of oral hypoglycemic drugs; Z79.890 Hormone replacement therapy; Z79.899 Other long term (current) drug therapy; Z87.891 Personal history of nicotine dependence
CPT/HCPCS: 36415; 70450; 70496; 70498; 70553; 71045; 80048; 80061; 80076; 81001; 82947; 83735; 84484; 85025; 85610; 85730; 92523; 92977; 93005; 93306; 96374; 99291; A9577; J1650; J3101; J7030; Q9967

== ENCOUNTER 2023-12-28 11:24 | Observation (INO) | payer BC ==
[2023-12-28] MEDS ORDERED: MORPHINE 2 MG/ML SYR ONE ×2 (11:37→12:43)
[2023-12-28] MEDS ORDERED: ONDANSETRON 4 MG/2 ML VIAL ONE (11:37)
[2023-12-28] MEDS ORDERED: NA CHLORIDE 0.9% 1,000 ML ONE (11:37)
[2023-12-28 11:59] LABS: Absolute Basophils 0.1 K/uL (0-0.5); Absolute Eosinophils 0.9 K/uL (0-0.5); Absolute Lymphocytes (CBC) 2.4 K/uL (0.7-4.9); Absolute Monocytes 0.6 K/uL (0.1-1.3); Absolute Neutrophil 3.7 K/uL (1.8-8.0); Basophils % 1.1 % (0-1.3); Eosinophils % 11.2 % (0-4.4); Hematocrit 42.9 % (39.6-49.0); Hemoglobin 14.2 g/dL (13.6-17.9); Lymphocytes % 31.4 % (15.3-44.8); MCH 31.8 pg (27.0-35.0); MCHC 33.1 g/dL (32.0-36.0); MCV 95.9 fL (80-100); MPV 8.3 fL (7.6-11.3); Monocytes % 7.6 % (3.3-12.3); Neutrophils % 48.7 % (41.7-73.7); Nucleated Red Blood Cells % 0.1 % (0-0); Platelets 217 thou/uL (152-406); RBC Red Blood Cell Count 4.47 M/uL (4.33-5.43); Red Cell Distribution Width 12.8 % (12.1-15.2)
[2023-12-28 12:07] LABS: D-Dimer 0.22 FEUug/mL (0-0.500); PT Prothrombin Time 13.8 SECONDS (9.4-12.5); Protime INR 1.24
[2023-12-28 12:18] LABS: Albumin 3.3 g/dL (3.4-5.0); Albumin/Globulin Ratio 0.9 (1.1-1.8); Anion Gap 11.1 mEq/L (5.0-15.0); Bilirubin Direct 0.2 mg/dL (0-0.2); Bilirubin Indirect, Calculated 0.5 mg/dL (0.2-0.8); Bilirubin Total 0.7 mg/dL (0.2-1.0); Globulin 3.7 g/dL (2.3-3.5); Magnesium 2.1 mg/dL (1.6-2.4); Potassium 4.1 mEq/L (3.5-5.1); Troponin High Sensitivity 12.4 pg/mL (<58.9)
--- NOTE | 2023-12-28 12:36 | RAD REPORT ---
EXAM DESCRIPTION: RADChest Single View12/28/2023 12:19 pm CLINICAL HISTORY: CHEST PAIN COMPARISON: Chest Single View dated 10/29/2023; Chest Single View dated 06/22/2022 TECHNIQUE: Portable AP view of the chest. FINDINGS: Stable blunting of the left costophrenic angle, which may reflect atelectasis/ scarring or a small effusion. No pneumothorax or right effusion. The cardiomediastinal contours are unchanged w ith sequelae of CABG. IMPRESSION: Stable left costophrenic angle blunting as above. No other acute cardiopulmonary process .
--- NOTE | 2023-12-28 12:42 | EDPHYS ---
Physician Documentation [facility] Name: Remington Huff Age: 78 yrs Sex: Male : 1945 Arrival Date: 12/28/2023 Time: 11:24 Bed 7 Private MD: ED Physician Lele Andre HPI: 12/27 12:09 This 78 yrs old Male presents to ER via Ambulatory with complaints of Chest rodger Pain. 12:09 The patient or guardian reports chest pain that is located primarily in the substernal rodger area, anterior chest wall, left. Onset: this morning. The pain radiates to left jaw. Associated signs and symptoms: The patient has no apparent associated signs or symptoms. The chest pain is described as a pressure. Modifying factors: The symptoms are alleviated by nothing. the symptoms are aggravated by nothing. Severity of pain: At its worst the pain was mild moderate in the emergency department the pain is unchanged. Historical: - Allergies: 11:30 Flagyl; dd2 - Home Meds: 11:56 atorvastatin 40 mg Oral tablet 1 tab every day at bedtime [Active]; calcium carbonate mb9 500 mg calcium (1 Oral tablet [Active]; Calcium Carbonate Oral [Active]; clopidogrel 75 mg Oral tablet [Active]; glimepiride 2 mg Oral tablet [Active]; PreserVision AREDS 2 Oral tablet [Active]; escitalopram oxalate 20 mg Oral tablet [Active]; levothyroxine 50 mcg tablet [Active]; docusate sodium 100 mg Oral capsule [Active]; furosemide 40 mg Oral tablet [Active]; Vitamin D Oral 1000 unit [Active]; - PMHx: 11:30 Chronic obstructive lung disease; diabetes mellitus; dd2 11:56 Hypothyroidism; mb9 - PSHx: 11:30 Heart bypass surgery; dd2 - Immunization history:: Adult Immunizations unknown. - Infectious Disease History:: Denies. - Social history:: Smoking status: Patient denies any tobacco usage or history of. - Family history:: not pertinent. ROS: 12:09 Constitutional: Negative for fever, chills, and weight loss, Eyes: Negative for injury, rodger pain, redness, and discharge, ENT: Negative for injury, pain, and discharge, Neck: Negative for injury, pain, and swelling, Respiratory: Negative for shortness of breath, cough, wheezing, and pleuritic chest pain, Abdomen/GI: Negative for abdominal pain, nausea, vomiting, diarrhea, and constipation, Back: Negative for injury and pain, : Negative for injury, bleeding, discharge, and swelling, MS/Extremity: Negative for injury and deformity, Skin: Negative for injury, rash, and discoloration, Neuro: Negative for headache, weakness, numbness, tingling, and seizure, Psych: Negative for depression, anxiety, suicide ideation, homicidal ideation, and hallucinations, Allergy/Immunology: Negative for hives, rash, and allergies, Endocrine: Negative for neck swelling, polydipsia, polyuria, polyphagia, and marked weight changes, Hematologic/Lymphatic: Negative for swollen nodes, abnormal bleeding, and unusual bruising, 12:09 Cardiovascular: Positive for chest pain, of the chest, Exam: 12:09 Constitutional: This is a well developed, well nourished patient who is awake, alert, rodger and in no acute distress. Head/Face: Normocephalic, atraumatic. Eyes: Pupils equal round and reactive to light, extra-ocular motions intact. Lids and lashes normal. Conjunctiva and sclera are non-icteric and not injected. Cornea within normal limits. Periorbital areas with no swelling, redness, or edema. ENT: Nares patent. No nasal discharge, no septal abnormalities noted. Tympanic membranes are normal and external auditory canals are clear. Oropharynx with no redness, swelling, or masses, exudates, or evidence of obstruction, uvula midline. Mucous membranes moist. Neck: Trachea midline, no thyromegaly or masses palpated, and no cervical lymphadenopathy. Supple, full range of motion without nuchal rigidity, or vertebral point tenderness. No Meningismus. Chest/axilla: Normal chest wall appearance and motion. Nontender with no deformity. No lesions are appreciated. Cardiovascular: Regular rate and rhythm with a normal S1 and S2. No gallops, murmurs, or rubs. Normal PMI, no JVD. No pulse deficits. Respiratory: Lungs have equal breath sounds bilaterally, clear to auscultation and percussion. No rales, rhonchi or wheezes noted. No increased work of breathing, no retractions or nasal flaring. Abdomen/GI: Soft, non-tender, with normal bowel sounds. No distension or tympany. No guarding or rebound. No evidence of tenderness throughout. Back: No spinal tenderness. No costovertebral tenderness. Full range of motion. Male : Normal genitalia with no discharge or lesions. Skin: Warm, dry with normal turgor. Normal color with no rashes, no lesions, and no evidence of cellulitis. MS/ Extremity: Pulses equal, no cyanosis. Neurovascular intact. Full, normal range of motion. Neuro: Awake and alert, GCS 15, oriented to person, place, time, and situation. Cranial nerves II-XII grossly intact. Motor strength 5/5 in all extremities. Sensory grossly intact. Cerebellar exam normal. Normal gait. Psych: Awake, alert, with orientation to person, place and time. Behavior, mood, and affect are within normal limits. 12:09 ECG was reviewed by the Attending Physician. Vital Signs: 11:28 BP 136 / 63; Pulse 75; Resp 17; Temp 98.1; Pulse Ox 96% ; Weight 106.59 kg; Height 6 dd2 ft. 4 in. ; 11:58 BP 116 / 63; Pulse 68; Resp 18; Pulse Ox 95% on R/A; mb9 12:47 BP 114 / 64; Pulse 62; Resp 18; Pulse Ox 95% on R/A; mb9 14:00 BP 143 / 67; Pulse 55; Resp 16; Pulse Ox 100% on R/A; mb9 11:28 Body Mass Index 28.60 (106.59 kg, 193.04 cm) dd2 MDM: 11:25 Patient medically screened. rodger 12:16 Differential diagnosis: abnormal EKG, acute myocardial infarction, acute pericarditis, rodger anxiety, chest wall pain, cholecystitis, gastroesophageal reflux disease (GERD), herpes zoster, pericarditis, pleurisy, pneumonia, pulmonary embolus, stable angina, thoracic aortic disection, unstable angina. HEART Score: History: Moderately Suspicious (1), ECG: Non specific repolarization disturbance / LBTB / PM (1), Age: > or = 65 years (2), Risk Factors: > or = 3 Risk factors for atherosclerotic disease (2), [Hypercholesterolemia] [Hypertension] [DM] [+ Family HX] Troponin: < or = 1 x Normal Limit (0). The patient was not given aspirin in the Emergency Department. Not indicated due to patient's past medical history. Data reviewed: vital signs, nurses notes, lab test result(s), EKG, radiologic studies, plain films. Consideration of Admission/Observation Escalation of care including admission/observation considered. I considered the following discharge prescriptions or medication management in the emergency department Medications were administered in the Emergency Department. See MAR. Counseling: I had a detailed discussion with the patient and/or guardian regarding the historical points, exam findings, and any diagnostic results supporting the discharge/admit diagnosis, the presence of at least one elevated blood pressure reading (>120/80) during this emergency department visit, lab results, radiology results. 12/27 11:28 Order name: Basic Metabolic Panel; Complete Time: 12:34 rodger 12/27 11:28 Order name: CBC with Diff; Complete Time: 12:34 rodger 12/27 11:28 Order name: LFT's; Complete Time: 12:34 rodger 12/27 11:28 Order name: Magnesium; Complete Time: 12:34 rodger 12/27 11:28 Order name: NT PRO-BNP; Complete Time: 12:34 rodger 12/27 11:28 Order name: PT-INR; Complete Time: 12:34 rodger 12/27 11:28 Order name: Troponin HS; Complete Time: 12:34 rodger 12/27 11:28 Order name: Lipase; Complete Time: 12:34 rodger 12/27 11:28 Order name: D-Dimer; Complete Time: 12:34 rodger 12/27 13:14 Order name: Thyroid Stimulating Hormone EDWV 12/27 13:14 Order name: Basic Metabolic Panel [facility] 12/27 13:14 Order name: Basic Metabolic Panel [facility] 12/27 13:14 Order name: Basic Metabolic Panel [facility] 12/27 13:14 Order name: CBC with Automated Diff EDMS 12/27 13:14 Order name: CBC with Automated Diff EDMS 12/27 13:14 Order name: CBC with Automated Diff EDMS 12/27 13:14 Order name: Troponin High Sensitivity EDMS 12/27 13:14 Order name: Troponin High Sensitivity EDMS 12/27 13:14 Order name: Troponin High Sensitivity EDMS 12/27 13:14 Order name: Hemoglobin A1c [facility] 12/27 11:28 Order name: XRAY Chest (1 view); Complete Time: 13:20 rodger 12/27 11:28 Order name: EKG; Complete Time: 11:28 rodger 12/27 13:14 Order name: CONS Physician Consult EDMS 12/27 13:14 Order name: EKG Electrocardiogram [facility] 12/27 13:14 Order name: EKG Electrocardiogram [facility] 12/27 13:14 Order name: EKG Electrocardiogram [facility] 12/27 13:14 Order name: EKG Electrocardiogram [facility] 12/27 11:28 Order name: Cardiac monitoring; Complete Time: 11:36 [facility] 12/27 11:28 Order name: EKG - Nurse/Tech; Complete Time: 11:36 [facility] 12/27 11:28 Order name: IV Saline Lock; Complete Time: 11:55 [facility] 12/27 11:28 Order name: Labs collected and sent; Complete Time: 11:55 [facility] 12/27 11:28 Order name: O2 Per Protocol; Complete Time: 11:37 [facility] 12/27 11:28 Order name: O2 Sat Monitoring; Complete Time: 11:37 [facility] EC:09 Rate is 68 beats/min. Rhythm is regular. QRS [place] is Normal. FL interval is normal. QRS rodger interval is normal. QT interval is normal. No Q waves. T waves are Normal. No ST changes noted. Clinical impression: NSR w/ Non-specific ST/T Changes and No evidence of ischemia. Interpreted by me. Reviewed by me. Administered Medications: 11:50 Drug: Ondansetron IVP 4 mg IVP once; over 2 minutes Route: IVP; Site: right forearm; mb9 12:46 Follow up: Response: No adverse reaction mb9 11:55 Drug: NS 0.9% IV 1000 ml IV at 125 ml/hr continuous Route: IV; Rate: 125 ml/hr; Site: mb9 right forearm; 12:47 Follow up: Response: No adverse reaction; IV Status: Infusion continued upon admission mb9 11:55 Drug: morphine IVP or IV 2 mg IVP once over 4 mins Route: IVP; Infused Over: 4 mins; mb9 Site: right forearm; 12:45 Drug: morphine IVP or IV 2 mg IVP once over 4 mins Route: IVP; Infused Over: 4 mins; mb9 Site: right forearm; 12:46 Follow up: Response: No adverse reaction mb9 Disposition Summary: 12/28/23 12:42 Hospitalization Ordered Notes: Hospitalization Status: Observation rodger Provider: Shila Alvarez cha Location: Telemetry/MedSurg (observation) rodger Condition: Stable rodger Problem: new rodger Symptoms: have improved rodger Bed/Room Type: Standard rodger Room Assignment: 224(12/28/23 14:37) bd Diagnosis - Chest pain, unspecified rodger - Angina pectoris, unspecified rodger Forms: - Medication Reconciliation Form rodger - SBAR form rodger - Leadership Thank You Letter rodger Signatures: Dispatcher [employer] EDMS NarayanValarie Lele Salguero MD MD cha Wilkerson, Radha Pascual RN RN mb9 SHON ANGUIANO RN RN dd2 Corrections: (The following items were deleted from the chart) 11: 11:28 BASIC METABOLIC PANEL+C.LAB.BRZ ordered. EDMS EDMS 11:28 11:28 CBC+H.LAB.BRZ ordered. EDMS EDMS 11:28 11:28 HEPATIC FUNCTION+C.LAB.BRZ ordered. EDMS EDMS 11:28 11:28 MAGNESIUM+C.LAB.BRZ ordered. EDMS EDMS 11:28 11:28 PROBNP+C.LAB.BRZ ordered. EDMS EDMS 11:28 11:28 PROTIME (+INR)+COAG.LAB.BRZ ordered. EDMS EDMS 11:28 11:28 Troponin High Sensitivity+C.LAB.BRZ ordered. EDMS EDMS 11:28 11:28 LIPASE+C.LAB.BRZ ordered. EDMS EDMS 11:28 11:28 D-DIMER+COAG.LAB.BRZ ordered. EDMS EDMS 14:37 12:42 rodger bd
--- NOTE | 2023-12-28 12:42 | ER ---
Nurse's Notes [facility] Name: Remington Huff Age: 78 yrs Sex: Male : 1945 Arrival Date: 12/28/2023 Time: 11:24 Bed 7 Private MD: Diagnosis: Chest pain, unspecified;Angina pectoris, unspecified Presentation: 12/27 11:28 Chief complaint: Patient states: Pt c/o chest pain beginning at approx 0800 that dd2 radiates to lt arm and jaw. Coronavirus screen: At this time, the client does not indicate any symptoms associated with coronavirus-19. Ebola Screen: No symptoms or risks identified at this time. Initial Sepsis Screen: Does the patient meet any 2 criteria? No. Patient's initial sepsis screen is negative. Does the patient have a suspected source of infection? No. Patient's initial sepsis screen is negative. Risk Assessment: Do you want to hurt yourself or someone else?. Onset of symptoms was December 28, 2023 at 08:30. 11:28 Method Of Arrival: Ambulatory dd2 11:28 Acuity: JOHNY 3 dd2 11:43 Acuity: JOHNY 2 mb9 Triage Assessment: 11:30 General: Appears uncomfortable, Behavior is calm, cooperative. Pain: Complains of pain dd2 in left clavicle, anterior aspect of left upper chest and mid-sternal area Pain radiates to left axilla and left bicep and jaw. Cardiovascular: Reports chest pain. Historical: - Allergies: 11:30 Flagyl; dd2 - Home Meds: 11:56 atorvastatin 40 mg Oral tablet 1 tab every day at bedtime [Active]; calcium carbonate mb9 500 mg calcium (1 Oral tablet [Active]; Calcium Carbonate Oral [Active]; clopidogrel 75 mg Oral tablet [Active]; glimepiride 2 mg Oral tablet [Active]; PreserVision AREDS 2 Oral tablet [Active]; escitalopram oxalate 20 mg Oral tablet [Active]; levothyroxine 50 mcg tablet [Active]; docusate sodium 100 mg Oral capsule [Active]; furosemide 40 mg Oral tablet [Active]; Vitamin D Oral 1000 unit [Active]; - PMHx: 11:30 Chronic obstructive lung disease; diabetes mellitus; dd2 11:56 Hypothyroidism; mb9 - PSHx: 11:30 Heart bypass surgery; dd2 - Immunization history:: Adult Immunizations unknown. - Infectious Disease History:: Denies. - Social history:: Smoking status: Patient denies any tobacco usage or history of. - Family history:: not pertinent. Screenin:[facility] ED Fall Risk Assessment (Adult) History of falling in the last 3 months, mb9 including since admission No falls in past 3 months (0 pts) Confusion or Disorientation No (0 pts) Intoxicated or Sedated No (0 pts) Impaired Gait No (0 pts) Mobility Assist Device Used No (0 pt) Altered Elimination No (0 pt) Score/Fall Risk Level 0 - 2 = Low Risk Oriented to surroundings, Maintained a safe environment, Educated pt \T\ family on fall prevention, incl call for assistance when getting out of bed. Abuse screen: Denies threats or abuse. Nutritional screening: No deficits noted. Tuberculosis screening: No symptoms or risk factors identified. Assessment: 11:42 General: Appears in no apparent distress. Behavior is calm, cooperative. Pain: mb9 Complains of pain in chest Pain radiates to left arm and neck Pain currently is 8 out of 10 on a pain scale. Quality of pain is described as crampy, Pain began suddenly, Is continuous. Neuro: Parker Agitation-Sedation Scale (RASS): 0 - Alert and Calm Level of Consciousness is awake, alert, obeys commands, Oriented to person, place, time, situation, Appropriate for age. Cardiovascular: Reports chest pain, Heart tones S1 S2 present Patient's skin is warm and dry. Respiratory: Airway is patent Respiratory effort is even, unlabored, Respiratory pattern is regular, symmetrical, Breath sounds are clear bilaterally. GI: Abdomen is round non-distended, Bowel sounds present X 4 quads. Abd is soft and non tender X 4 quads. : No signs and/or symptoms were reported regarding the genitourinary system. EENT: No signs and/or symptoms were reported regarding the EENT system. Derm: Skin is pink, warm \T\ dry. Musculoskeletal: Range of motion: intact in all extremities. 12:41 Reassessment: No changes from previously documented assessment. Patient and/or family mb9 updated on plan of care and expected duration. Pain level reassessed. Patient is alert, oriented x 3, equal unlabored respirations, skin warm/dry/pink. 14:00 Reassessment: No changes from previously documented assessment. Patient and/or family mb9 updated on plan of care and expected duration. Pain level reassessed. Patient is alert, oriented x 3, equal unlabored respirations, skin warm/dry/pink. Vital Signs: 11:28 BP 136 / 63; Pulse 75; Resp 17; Temp 98.1; Pulse Ox 96% ; Weight 106.59 kg; Height 6 dd2 ft. 4 in. ; 11:58 BP 116 / 63; Pulse 68; Resp 18; Pulse Ox 95% on R/A; mb9 12:47 BP 114 / 64; Pulse 62; Resp 18; Pulse Ox 95% on R/A; mb9 14:00 BP 143 / 67; Pulse 55; Resp 16; Pulse Ox 100% on R/A; mb9 11:28 Body Mass Index 28.60 (106.59 kg, 193.04 cm) dd2 ED Course: 11:24 Patient arrived in ED. ra3 11:25 Lele Andre MD is Attending Physician. rodger 11:30 Triage completed. dd2 11:30 Arm band placed on right wrist. Patient placed in an exam room, on a stretcher, on dd2 monitoring specialist, on pulse oximetry. 11:36 Radha Rodriguez RN is Primary Nurse. mb9 11:36 EKG done, by ED staff, reviewed by Lele Andre MD. mb9 11:37 Missed attempt(s): 20 gauge in right hand. oh1 11:42 Placed in gown. Bed in low position. Call light in reach. Side rails up X 1. Provided mb9 Education on: press call light if needing anything. Client placed on continuous cardiac and pulse oximetry monitoring. NIBP monitoring applied. athletic monitor on. Door closed. Noise minimized. Warm blanket given. Pillow given. 11:43 No provider procedures requiring assistance completed. mb9 11:55 Initial lab(s) drawn, by me, sent to lab. Inserted saline lock: 22 gauge in right mb9 forearm, using aseptic technique. Blood collected. Flushed with 10 mL NS. 12:21 XRAY Chest (1 view) In Process Unspecified. EDMS 12:41 Shila Alvarez MD is Hospitalizing Provider. rodger 12:47 Patient admitted, IV remains in place. mb9 Administered Medications: 11:50 Drug: Ondansetron IVP 4 mg IVP once; over 2 minutes Route: IVP; Site: right forearm; mb9 12:46 Follow up: Response: No adverse reaction mb9 11:55 Drug: NS 0.9% IV 1000 ml IV at 125 ml/hr continuous Route: IV; Rate: 125 ml/hr; Site: mb9 right forearm; 12:47 Follow up: Response: No adverse reaction; IV Status: Infusion continued upon admission mb9 11:55 Drug: morphine IVP or IV 2 mg IVP once over 4 mins Route: IVP; Infused Over: 4 mins; mb9 Site: right forearm; 12:45 Drug: morphine IVP or IV 2 mg IVP once over 4 mins Route: IVP; Infused Over: 4 mins; mb9 Site: right forearm; 12:46 Follow up: Response: No adverse reaction mb9 Medication: 11:42 VIS not applicable for this client. mb9 Outcome: 12:42 Decision to Hospitalize by Provider. rodger 15:00 Admitted to Med/surg accompanied by tech, via wheelchair, room 224, mb9 15:00 Condition: stable 15:00 Instructed on the need for admit, 15:04 Patient left the ED. mb9 Signatures: Dispatcher [employer] EDMS Lele Andre MD MD cha Wilkerson, Radha Pascual RN RN mb9 Radha Hanson ra3 SHON ANGUIANO RN RN dd2 Kristal Iverson oh1 Corrections: (The following items were deleted from the chart) 12:01 11:58 BP 116 / 3; Pulse 68bpm; Resp 18bpm; Pulse Ox 95% RA; mb9 mb9
--- NOTE | 2023-12-28 12:55 | P.HP ---
Certification for Inpatient Patient admitted to: Observation With expected LOS: <2 Midnights Patient will require the following post-hospital care: None Practitioner: I am a practitioner with admitting privileges, knowledge of patient current condition, hospital course, and medical plan of care. Services: Services provided to patient in accordance with Admission requirements found in Title 42 Section 412.3 of the Code of Federal Regulations <Maria Isabel Mazalen - Last Filed: 12/28/23 15:37> Patient History Date of Service: 12/28/23 Reason for admission: angina History of Present Illness: Mr. Ponce is a 78-year-old male with a past medical history of coronary artery disease status post CABG, COPD, diabetes, skin cancer, and hypothyroidism. He recently had a skin cancer removal from his right forearm and took doxycycline 100 mg p.o. twice daily x 7 days. He is also getting red light therapy on his left arm and hand. He saw his reading professor Dr. Carvajal, in [place], 8 days ago with a report of a normal stress test, carotid artery ultrasound, and echocardiogram. The emergency physician spoke with Dr. Carvajal who recommended observation overnight, no medication changes, and follow-up. We will admit him for serial enzymes and telemetry overnight. Home medications list reviewed: Yes - Past Medical/Surgical History Has patient received pneumonia vaccine in the past: No Diabetic: Yes -: Diabetes p.o. regimen -: CAD on Plavix -: Hypothyroidism -: GERD -: COPD -: Skin cancer -: CABG -: Wrist surgery -: Ankle surgery -: Hip surgery -: Right forearm skin cancer resection -: Red light therapy to left arm for skin cancer Psychosocial/ Personal History: Retired, lives with spouse, independent prior - Family History Father -: Other (see notes) Notes: Alzheimer's Mother -: Cancer Brother -: Diabetes - Social History Smoking Status: Former smoker Alcohol use: Yes CD- Drugs: No Caffeine use: Yes Place of Residence: Home <Maria Isabel Maza Guerrero - Last Filed: 12/28/23 15:37> Date of Service: 12/28/23 <Shila Alvarez - Last Filed: 12/28/23 17:45> Allergies metronidazole [From Flagyl] Allergy (Verified 10/29/23 15:23) Itching Home Medications: Calcium Carbonate [Calcium] 500 mg PO BEDTIME 10/29/23 Cholecalciferol (Vitamin D3) [Vitamin D 1000 Iu Tab*] 1 tab PO BEDTIME 10/29/23 Clopidogrel Bisulfate [Plavix] 75 mg PO DAILY 10/29/23 Docusate [Colace Cap*] 100 mg PO BEDTIME 10/29/23 Escitalopram Oxalate 20 mg PO DAILY 10/29/23 Furosemide [Lasix] 40 mg PO DAILY 10/29/23 Levothyroxine [Synthroid*] 50 mcg PO DAILY 10/29/23 Multivitamin with Minerals [Multivitamins with Minerals] 1 tab PO BEDTIME 10/29/23 Vit C/E/Zn/Coppr/Lutein/Zeaxan [Preservision Areds 2 Chew Tab] 1 tab PO BID 10/29/23 Aspirin [Aspirin EC 81 MG] 162 mg PO DAILY #60 tab 10/31/23 Atorvastatin Calcium [Lipitor] 80 mg PO BEDTIME #30 tab 10/31/23 Apixaban [Eliquis] 5 mg PO 12/28/23 Glimepiride 12/28/23 Review of Systems 10-point ROS is otherwise unremarkable Cardiovascular: Chest Pain (12/23 prior to arrival. 0 on assessment) Integumentary: Other (Mild diaphoresis) <Maria Isabel Maza - Last Filed: 12/28/23 15:37> Physical Examination - Physical Exam General: Alert, In no apparent distress, Oriented x3 HEENT: Atraumatic, Normocephalic, PERRLA Neck: Supple Respiratory: Normal air movement Cardiovascular: Normal pulses, Regular rate/rhythm (Mild bradycardia), Normal S1 S2 Capillary refill: <2 Seconds Gastrointestinal: Soft and benign Musculoskeletal: No clubbing, No swelling Integumentary: Other (Sutured incision site on the right forearm, glove to the left hand) Neurological: Normal speech, Normal tone, Normal affect Lymphatics: No axilla or inguinal lymphadenopathy External genitalia: Deferred Rectal: Deferred - Studies Laboratory Data (last 24 hrs) 12/28/23 12/28/23 12/28/23 11:52 11:52 11:52 WBC 7.60 Hgb 14.2 Hct 42.9 Plt Count 217 PT 13.8 H INR 1.24 Sodium 138 Potassium 4.1 BUN 23 H Creatinine 1.31 H Glucose 184 H Magnesium 2.1 Total Bilirubin 0.7 AST 16 ALT 35 Alkaline Phosphatase 99 Lipase 92 H <Maria Isabel Maza Guerrero - Last Filed: 12/28/23 15:37> - Studies Laboratory Data (last 24 hrs) 12/28/23 12/28/23 12/28/23 11:52 11:52 11:52 WBC 7.60 Hgb 14.2 Hct 42.9 Plt Count 217 PT 13.8 H INR 1.24 Sodium 138 Potassium 4.1 BUN 23 H Creatinine 1.31 H Glucose 184 H Magnesium 2.1 Total Bilirubin 0.7 AST 16 ALT 35 Alkaline Phosphatase 99 Lipase 92 H <Shila Alvarez - Last Filed: 12/28/23 17:45> Assessment and Plan - Plan angina s/p CABG Plan: Serial troponins and EKG/telemetry Consultation with primary reading professor, Dr. Carvajal, antiplatelet therapy (ASA), anticoagulation (Plavix, lovenox), statin, and O2 as needed IV morphine for pain control COPD Former smoker Pulmonary toilet Diabetes Hemoglobin A1c Monitor and trend Sliding scale insulin coverage Hyperlipidemia Atorvastatin 80 p.o. nightly Hypothyroidism TSH Monitor and trend Continue home medication CHAKA Recent antibiotic use Just finished doxycycline Gastritis? Mild dehydration Protonix 40 mg IV twice daily VTE/GI lovenox/protonix Plan to DC in a.m. Discharge Plan: Home Plan to discharge in: 24 Hours - Advance Directives Does patient have a Living Will: No Does patient have a Durable POA for Healthcare: Yes <MazaStephaniarenato Masters - Last Filed: 12/28/23 15:37> - Plan Pt seen and examined. I agree with the note by the STARCH FACTORY LABORER. Pt is a 78 yo male with past medical history of COPD, DM, HLD, and hypothyroidism who presents with chest pain. The chest pain is located in the substernal and anterior chest wall, intermittent, and radiates to the left jaw and shoulder with mild severity. He recently had normal Echo, carotid ultrasound and NM stress test last week, per his Resource Conservation Specialist. On admission, lab studies show wbc 7.6, Hgb 14.2, K 4.1, Cr 1.31, lipase 92, and troponin 12.4. At bedside, pt is in NAD. A/P: Chest pain: Will r/o ACS. Will trend troponin Q6h. troponin is 12.4. Will continue LATRELL. He recently had normal Echo, carotid ultrasound and NM stress test last week, per his Resource Conservation Specialist. Will observe pt overnight. Hx of COPD: Stable. Continue prn duoneb and oxygen. DM II: Continue accuchek, SSI and ADA diet Hypothyroidism: synthroid DVT ppx: SCD Code: full <Shila Alvarez - Last Filed: 12/28/23 17:45>
[2023-12-28] MEDS ORDERED: ACETAMINOPHEN 500 MG TAB PO PRN (13:02)
[2023-12-28] MEDS ORDERED: SODIUM CHLORIDE 0.9% 10ML INJ IV PRN (13:12)
[2023-12-28 16:16] VITALS: BMI 28.8
[2023-12-28] MEDS: INSULIN REGULAR (HUMAN) 100 UNIT/ML SQ SCH (16:30)
[2023-12-28] MEDS: ENOXAPARIN 40 MG/0.4 ML SQ SCH (17:00)
[2023-12-28] MEDS: PNEUMOCOCCAL VACCINE 0.5 ML IMVAC ONE (17:00)
[2023-12-28] MEDS: ATORVASTATIN 80 MG TAB PO SCH (21:00)
[2023-12-28] MEDS: PANTOPRAZOLE 40 MG INJ IVP SCH (21:01)
[2023-12-28] MEDS: MORPHINE 4 MG/ML SYR IV PRN (21:02)
[2023-12-28] MEDS: APIXABAN 5 MG TABLET PO SCH (22:54)
[2023-12-29 05:19] LABS: Absolute Basophils 0.1 K/uL (0-0.5); Absolute Eosinophils 0.9 K/uL (0-0.5); Absolute Lymphocytes (CBC) 2.3 K/uL (0.7-4.9); Absolute Monocytes 0.7 K/uL (0.1-1.3); Absolute Neutrophil 4.2 K/uL (1.8-8.0); Basophils % 0.8 % (0-1.3); Hematocrit 37.2 % (39.6-49.0); Hemoglobin 12.4 g/dL (13.6-17.9); Lymphocytes % 27.6 % (15.3-44.8); MCH 32.1 pg (27.0-35.0); MCHC 33.4 g/dL (32.0-36.0); MCV 96.3 fL (80-100); MPV 8.7 fL (7.6-11.3); Monocytes % 9.1 % (3.3-12.3); Neutrophils % 51.5 % (41.7-73.7); Nucleated Red Blood Cells % 0.1 % (0-0); Platelets 175 thou/uL (152-406); RBC Red Blood Cell Count 3.86 M/uL (4.33-5.43); Red Cell Distribution Width 12.6 % (12.1-15.2)
[2023-12-29 05:32] LABS: Anion Gap 4.9 mEq/L (5.0-15.0); Potassium 3.9 mEq/L (3.5-5.1); Troponin High Sensitivity 10.6 pg/mL (<58.9)
[2023-12-29] MEDS: LEVOTHYROXINE SOD 0.05 MG TABLET PO SCH (05:42)
[2023-12-29 08:25] VITALS: O2SAT 97
[2023-12-29] MEDS: ASPIRIN EC 81 MG TAB PO SCH (08:50)
[2023-12-29] MEDS: GLIMEPIRIDE 2 MG TABLET PO SCH (08:50)
[2023-12-29] MEDS: FUROSEMIDE 20 MG TABLET PO SCH (08:50)
[2023-12-29] MEDS: CLOPIDOGREL 75 MG TABLET PO SCH (08:51)
[2023-12-29] MEDS: ESCITALOPRAM 20 MG TAB PO SCH (08:51)
[2023-12-29 08:54] VITALS: BP 119/58; TEMP 97
--- NOTE | 2023-12-29 10:35 | P.DS ---
Admission Date: 12/28/23 Discharge Date: 12/29/23 Reason for Admission: angina Procedures: none Brief History of Present Illness: Mr. Ponce is a 78-year-old male with a past medical history of coronary artery disease status post CABG, COPD, diabetes, skin cancer, and hypothyroidism. He recently had a skin cancer removal from his right forearm and took doxycycline 100 mg p.o. twice daily x 7 days. He is also getting red light therapy on his left arm and hand. He saw his contracting analyst Dr. Carvajal, in [place], 8 days ago with a report of a normal stress test, carotid artery ultrasound, and echocardiogram. The emergency physician spoke with Dr. Carvajal who recommended observation overnight, no medication changes, and follow-up. We will admit him for serial enzymes and telemetry overnight. Hospital Course: Mr. Huff did require an additional 2 doses overnight of morphine for complaint of chest pain. However, his telemetry showed no changes overnight, laboratory evaluation is normal, vital signs are maintained. Troponin 12.4>10.9 2>10.6. With recent history of negative stress test, normal echo, normal carotid ultrasound, all of these findings are reassuring and the patient is stable for discharge to follow-up with his contracting analyst, Dr. Carvajal. I called his office and he said the patient can be discharged home and he with call tomorrow for consult/update/plan. <Maria Isabel Maza - Last Filed: 12/29/23 10:28> Admission Date: 12/28/23 Discharge Date: 12/29/23 Hospital Course: Pt seen and examined. I agree with the note by the RECREATIONAL SPORTS DIRECTOR. Pt was observed overnight. Troponin is negative x3. Recent NM stress test was normal. He was advised to follow up with his contracting analyst within a couple of day. <Shila Alvarez - Last Filed: 12/29/23 12:53> Disposition: ROUTINE DISCHARGE Discharge Condition: GOOD Vital Signs/Physical Exam: Temp Pulse Resp BP Pulse Ox 97.0 F 51 16 119/58 L 95 12/29/23 08:00 12/29/23 08:00 12/29/23 08:00 12/29/23 08:00 12/29/23 08:00 General: Alert, In no apparent distress, Oriented x3 HEENT: Atraumatic, Normocephalic Neck: Supple Respiratory: Clear to auscultation bilaterally, Normal air movement Cardiovascular: No edema, Regular rate/rhythm, Normal S1 S2 Capillary refill: <2 Seconds Gastrointestinal: Soft and benign Musculoskeletal: No clubbing, No swelling Integumentary: No rashes, No breakdown Neurological: Normal speech, Normal tone, Normal affect Lymphatics: No axilla or inguinal lymphadenopathy External genitalia: Deferred Rectal: Deferred Laboratory Data at Discharge: WBC 8.20 thou/uL (4.3-10.9) 12/29/23 04:50 Hgb 12.4 g/dL (13.6-17.9) L D 12/29/23 04:50 Hct 37.2 % (39.6-49.0) L 12/29/23 04:50 Plt Count 175 thou/uL (152-406) 12/29/23 04:50 PT 13.8 SECONDS (9.4-12.5) H 12/28/23 11:52 INR 1.24 12/28/23 11:52 Sodium 138 mEq/L (136-145) 12/29/23 04:50 Potassium 3.9 mEq/L (3.5-5.1) 12/29/23 04:50 BUN 24 mg/dL (7-18) H 12/29/23 04:50 Creatinine 1.15 mg/dL (0.70-1.30) 12/29/23 04:50 Glucose 162 mg/dL (74-106) H 12/29/23 04:50 Magnesium 2.1 mg/dL (1.6-2.4) 12/28/23 11:52 Total Bilirubin 0.7 mg/dL (0.2-1.0) 12/28/23 11:52 AST 16 U/L (15-37) 12/28/23 11:52 ALT 35 U/L (16-61) 12/28/23 11:52 Alkaline Phosphatase 99 U/L (45-117) 12/28/23 11:52 Lipase 92 U/L (13-75) H 12/28/23 11:52 <Maza,Maria Isabel Guerrero - Last Filed: 12/29/23 10:28> Vital Signs/Physical Exam: Temp Pulse Resp BP Pulse Ox 97.0 F 51 16 119/58 L 95 08/15/24 08:00 12/29/23 08:00 12/29/23 08:00 12/29/23 08:00 12/29/23 08:00 Laboratory Data at Discharge: WBC 8.20 thou/uL (4.3-10.9) 12/29/23 04:50 Hgb 12.4 g/dL (13.6-17.9) L D 12/29/23 04:50 Hct 37.2 % (39.6-49.0) L 12/29/23 04:50 Plt Count 175 thou/uL (152-406) 12/29/23 04:50 PT 13.8 SECONDS (9.4-12.5) H 12/28/23 11:52 INR 1.24 12/28/23 11:52 Sodium 138 mEq/L (136-145) 12/29/23 04:50 Potassium 3.9 mEq/L (3.5-5.1) 12/29/23 04:50 BUN 24 mg/dL (7-18) H 12/29/23 04:50 Creatinine 1.15 mg/dL (0.70-1.30) 12/29/23 04:50 Glucose 162 mg/dL (74-106) H 12/29/23 04:50 Magnesium 2.1 mg/dL (1.6-2.4) 12/28/23 11:52 Total Bilirubin 0.7 mg/dL (0.2-1.0) 12/28/23 11:52 AST 16 U/L (15-37) 12/28/23 11:52 ALT 35 U/L (16-61) 12/28/23 11:52 Alkaline Phosphatase 99 U/L (45-117) 12/28/23 11:52 Lipase 92 U/L (13-75) H 12/28/23 11:52 <Shila Alvarez - Last Filed: 12/29/23 12:53> Diet: AHA Activity: Ad mirtha <Maza,Maria Isabel Guerrero - Last Filed: 12/29/23 10:28> <Shila Alvarez - Last Filed: 12/29/23 12:53> Home Medications: Calcium Carbonate [Calcium] 500 mg PO BEDTIME 10/29/23 Cholecalciferol (Vitamin D3) [Vitamin D 1000 Iu Tab*] 1 tab PO BEDTIME 10/29/23 Clopidogrel Bisulfate [Plavix] 75 mg PO DAILY 10/29/23 Docusate [Colace Cap*] 100 mg PO BEDTIME 10/29/23 Escitalopram Oxalate 20 mg PO DAILY 10/29/23 Furosemide [Lasix] 40 mg PO DAILY 10/29/23 Levothyroxine [Synthroid*] 50 mcg PO DAILY 10/29/23 Vit C/E/Zn/Coppr/Lutein/Zeaxan [Preservision Areds 2 Chew Tab] 1 tab PO BID 10/29/23 Apixaban [Eliquis] 5 mg PO BID 12/28/23 Atorvastatin Calcium [Lipitor] 80 mg PO BEDTIME 12/28/23 Glimepiride 1 tab PO DAILY 12/28/23 Physician Discharge Instructions: Hospital course: Mr. Huff did require an additional 2 doses overnight of morphine for complaint of chest pain. However, his telemetry showed no changes overnight, laboratory evaluation is normal, vital signs are maintained. Troponin 12.4>10.9 2>10.6. With recent history of negative stress test, normal echo, normal carotid ultrasound, all of these findings are reassuring and the patient is stable for discharge to follow-up with his contracting analyst, Dr. Carvajal. I called his office and he said the patient can be discharged home and he with call tomorrow for consult/update/plan. PMH: CAD with CABG Diabetes Hypothyroidism New prescriptions: None Continue home medicines as previously prescribed GOAL: Clear understanding of disease process Diet: AHA, low sodium Activity: Ad mirtha. INSTRUCTIONS: Physician Discharge Instructions: Okay to DC IV and DC home Follow-up with primary care provider in 1 to 2 weeks Follow-up with cardiology in 1 to 2 days Please call the inpatient unit for any questions or concerns regarding hospital stay Return to the ER for worsening symptoms Followup: Arnav Tello DO [Primary Care Provider] -
--- NOTE | 2023-12-29 16:24 | EKG ---
Test Date: 2023-12-28 Test Time: 21:22:48 Sheep Boner: SAURABH MEASUREMENT RESULTS: Intervals: Rate: 55 GA: 226 QRSD: 102 QT: 458 QTc: 438 [place]: P: 22 GA: 226 QRS: -2 T: 80 INTERPRETIVE STATEMENTS: Sinus bradycardia with 1st degree AV block with frequent premature ventricular complexes Incomplete right bundle branch block ST & T wave abnormality, consider lateral ischemia Abnormal ECG Compared to ECG 12/28/2023 11:31:14 Ventricular premature complex(es) now present First degree AV block now present Incomplete right bundle-branch block now present ST (T wave) deviation now present Possible ischemia now present Sinus rhythm no longer present Left-axis deviation no longer present Electronically Signed On 12-29-23 16:23:48 CDT by Simon Helm
--- NOTE | 2023-12-29 16:24 | EKG ---
Test Date: 2023-12-28 Test Time: 11:31:14 Chief Telephone Operator: MB MEASUREMENT RESULTS: Intervals: Rate: 68 NV: 196 QRSD: 98 QT: 424 QTc: 450 [place]: P: 17 NV: 196 QRS: -43 T: 70 INTERPRETIVE STATEMENTS: Normal sinus rhythm Left axis deviation Abnormal ECG Compared to ECG 10/29/2023 12:29:54 Left-axis deviation now present Sinus bradycardia no longer present First degree AV block no longer present Electronically Signed On 12-29-23 16:23:59 CDT by Simon Heml
== END 2023-12-29 12:11 | disposition home or self-care (01) ==
LOC: ER 11:24 → ERHOLD 13:02 → 2ND 14:26
PROVIDERS: ADMIT Hospitalist; ATTEND Hospitalist
DX: I25.119 Atherosclerotic heart disease of native coronary artery with unspecified angina pectoris (principal); J44.9 Chronic obstructive pulmonary disease, unspecified; E11.9 Type 2 diabetes mellitus without complications; E78.5 Hyperlipidemia, unspecified; N17.9 Acute kidney failure, unspecified; E03.9 Hypothyroidism, unspecified; Z95.1 Presence of aortocoronary bypass graft; Z85.828 Personal history of other malignant neoplasm of skin; Z87.891 Personal history of nicotine dependence
CPT/HCPCS: 36415; 71045; 80048; 80076; 82947; 83036; 83690; 83735; 83880; 84443; 84484; 85025; 85379; 85610; 93005; 94660; 96361; 96374; 96375; 99285; J2270; J2405; J2470; J7030

== ENCOUNTER 2024-05-03 13:25 | Emergency (ER) | payer BC, OTHER ==
--- OUTSIDE RECORDS SUMMARY | 2024-05-03 13:28 | XMS REPORT | Continuity of Care Document ---
Author Name Unknown Address [address] [facility] [address] [place] [address] [facility] thconnect Address [address] [facility] [address] [place] [address] Care Team Providers Care Mechanic/Welder Name Role Phone [facility] + Arnav Tello Attending Clinician Unavailable Princess Oneal MD Attending Clinician [phone] PRINCESS ONEAL Attending Clinician Unavail able [place] Attending Clinician Unavailable [place] Admitting Clinician Unavailable Payers Payer Name Policy Type Policy Number Effective Date Expirati on Date Source [facility] Advantage [facility] [place] 6 [id number] 2023 00:00:00 [facility] MEDICARE ADVANTAGE O Medicare [id number] 2023 00:00:00 [facility] [employer]ATIONAL [employer] INS CO [id number] [facility] [place]: [employer] [id number] 2012 00:00:00 [facility] (MEDICARE SUPPLEMENT) [id number] Problems Condition Name Condition Details Condition Category Status Onset Date Resolution Date Last Treatment Date Treating Clinician Comments Source Hypertensi ve heart disease Hypertensi ve heart disease Disease Active 2023-05 00:00: 00 Dara Dupree Claudicati on Claudicati on Disease Active 2023-05 00:00: 00 Dara Dupree Arrhythmia Arrhythmia Disease Active 2023-05 2 00:00: 00 Dara Dupree Other headache syndrome Other headache syndrome Disease Active 8 00:00: 00 Dara Dupree 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 Disease Active 11-30 00:00: 00 Dara Dupree Atheroscle rosis Atheroscle rosis Disease Active 11-30 00:00: 00 Dara Dupree Hyperlipid emia Hyperlipid emia Disease Active 11-30 00:00: 00 Dara Dupree Memory loss Memory loss Disease Active 11-30 00:00: 00 Dara Dupree Carotid artery disease Carotid artery disease Disease Active 6 00:00: 00 Dara Dupree Essential hypertensi on Essential hypertensi on Disease Active 425 00:00: 00 Dara Dupree Diabetes mellitus Diabetes Mellitus Problem Active 2020-05 00:00: 00 [facility] Diabetes mellitus without complicati on (CMS/HCC) Diabetes mellitus without complicati on (CMS/HCC) Disease Active 2020-05 00:00: 00 Dara Dupree Diabetes mellitus Diabetes mellitus Disease Active 2020-05 00:00: 00 Dara Dupree [id number] Mixed hyperlipid emia Problem [facility] [id number] RENEE (generaliz ed anxiety disorder) Problem [facility] [id number] Hypothyroi dism (acquired) Problem [facility] [id number] Hearing loss, unspecifie d hearing loss type, unspecifie d laterality Problem [facility] [id number] Coronary artery disease of bypass graft of [place] heart with stable angina pectoris Problem [facility] [id number] Type 2 diabetes mellitus with hyperglyce milagros, without long-term current use of insulin Problem [facility] [id number] Primary osteoarthr itis of left knee Problem [facility] [id number] Pseudophak ia Problem [facility] 2801096 Psoriasis Problem [facility] [id number] Moderate major depression , single episode Problem [facility] [id number] Body mass index [BMI] 30.0-30.9, adult Problem [facility] [id number] Other obesity due to excess calories Problem [facility] [id number] Chronic obstructiv e pulmonary disease, unspecifie d COPD type Problem [facility] [id number] GERD without esophagiti s Problem [facility] [id number] Type 2 diabetes mellitus with other diabetic kidney complicati on Problem [facility] [id number] Ischemic stroke Problem [facility] [id number] Cerebrovas cular accident (CVA), unspecifie d mechanism Problem [facility] Abdominal aortic aneurysm without rupture (disorder) Abdominal aortic aneurysm (AAA) without rupture, unspecifie d part Problem [facility] Allergies, Adverse Reactions, Alerts Allergy Name Allergy Type Status Severity Reaction(s) Onset Date Inactive Date Treating Clinician Comments Source METRONID AZOLE DRUG INGREDI Active 11-09 00:00: 00 [facility] Metronid azole Propensi ty to adverse reaction s Active 11-09 00:00: 00 Dara Dupree ALLERGIE S NOT ON FILE SYSTEMIC Active [facility] metronid azole metronid azole Active Unknown [facility] Flagyl Allergy to substanc e Active [facility] Social History Social Habit Start Date Stop Date Quantity Comments Source Gender identity Stevo Dupree Sexual orientation Gricelda Dupree Sex Assigned At [facility] History of Social function 2024-04-19 00:00:00 2024-04-19 00:00:00 [facility] Alcoholic beverage intake 2024-04-19 00:00:00 2024-04-19 00:00:00 .29 /d [facility] Cigarettes smoked current (pack per day) - Reported 2023-11-10 00:00:00 2023-11-10 00:00:00 [facility] Cigarette pack-years 2023-11-10 00:00:00 2023-11-10 00:00:00 [facility] Tobacco use and exposure 2023-11-10 00:00:00 2023-11-10 00:00:00 Smokeless tobacco non-user [facility] History of tobacco use 1964-05-16 00:00:00 2016-06-24 00:00:00 Passive smoker [facility] Smoking Status Start Date Stop Date Source Ex-smoker 2023-11-10 00:00:00 2023-11[facility]10 [facility] Medications Ordered Medication Name Filled Medication Name Start Date Stop Date Current Medication? Ordering Clinician Indication Dosage Frequency Signature (SIG) Comments Components Source donepezil (Aricept) 10 MG tablet donepezil (Aricept) 10 MG tablet 2023-05 00:00: 00 04-19 23:59 :00 No 10mg Take 1 tablet by mouth at bedtime. [facility] donepezil (Aricept) 5 MG tablet donepezil (Aricept) 5 MG tablet 2023-05 0-07 00:00: 00 04-19 00:00 :00 No 5mg Take 1 tablet by mouth at bedtime. [facility] Eliquis 5 MG tablet Eliquis 5 MG tablet 12-11 00:00: 00 Yes 5mg Q.5D Take 5 mg by mouth in the morning and 5 mg in the evening. [facility] levothyroxi ne (Synthroid, Levoxyl) 50 MCG tablet levothyroxi ne (Synthroid, Levoxyl) 50 MCG tablet 11-09 16:23: 09 Yes 50ug Take 50 mcg by mouth in the morning. Take before meals. Dara Dupree clopidogrel (Plavix) 75 MG tablet clopidogrel (Plavix) 75 MG tablet 11-09 16:23: 09 Yes 75mg QD Take 75 mg by mouth 1 time each day. Dara Dupree glimepiride (Amaryl) 1 MG tablet glimepiride (Amaryl) 1 MG tablet 11-09 16:23: 09 Yes 1{tbl} Take 1 tablet by mouth every morning. Dara Dupree Multiple Vitamins-Mi nerals (PRESERVISI ON AREDS PO) Multiple Vitamins-Mi nerals (PRESERVISI ON AREDS PO) 11-09 16:23: 09 Yes Take by mouth. Dara Dupree atorvastati n (Lipitor) 80 MG tablet atorvastati n (Lipitor) 80 MG tablet 11-09 16:23: 09 Yes 80mg Take 80 mg by mouth at bedtime. Dara Dupree docusate sodium (Colace) 100 MG capsule docusate sodium (Colace) 100 MG capsule 11-09 16:23: 09 Yes 100mg Q.5D Take 100 mg by mouth in the morning and 100 mg in the evening. Dara Santillan [facility] cholecalcif brett (Vitamin D-3) 125 MCG (5000 UT) capsule cholecalcif brett (Vitamin D-3) 125 MCG (5000 UT) capsule 11-09 16:23: 09 Yes 12.5ug QD Take 12.5 mcg by mouth 1 time each day. Dara Santillan [facility] aspirin EC 81 MG EC tablet aspirin EC 81 MG EC tablet 11-09 16:23: 09 12-25 00:00 :00 No 81mg QD Take 81 mg by mouth 1 time each day. Dara Santillan [facility] escitalopra m (Lexapro) 20 MG tablet escitalopra m (Lexapro) 20 MG tablet 10-28 00:00: 00 Yes 20mg QD Take 20 mg by mouth 1 time each day. Dara Santillan [facility] furosemide (Lasix) 40 MG tablet furosemide (Lasix) 40 MG tablet 10-28 00:00: 00 Yes 40mg QD Take 40 mg by mouth 1 time each day. Dara Dupree calcium carbonate (Os-Ralph) 1250 (500 Ca) MG chewable tablet calcium carbonate (Os-Ralph) 1250 (500 Ca) MG chewable tablet 10-28 00:00: 00 Yes 600mg QD Chew 600 mg 1 time each day. Dara Dupree PreserVisio n AREDS 2 - PreserVisio n AREDS 2 - 3 00:00: 00 No PreserVisi on AREDS 2 - Bupivicaine [place] Bupivicaine [place] 11-18 00:00: 00 No 4mL [facility] Kenalog (Triamcinol one) Kenalog (Triamcinol one) 3 00:00: 00 No 1mL [facility] allopurinol 100 mg tablet TAKE 1 TABLET BY MOUTH ONCE DAILY FOR 30 DAYS allopurinol 100 mg tablet TAKE 1 TABLET BY MOUTH ONCE DAILY FOR 30 DAYS No allopurino l 100 mg tablet TAKE 1 TABLET BY MOUTH ONCE DAILY FOR 30 DAYS [facility] atorvastati n 40 mg tablet atorvastati n 40 mg tablet No atorvastat in 40 mg tablet [facility] betamethaso ne valerate 0.1 % topical cream betamethaso ne valerate 0.1 % topical cream No betamethas one valerate 0.1 % topical cream [facility] dexamethaso ne sodium phosphate 4 mg/mL injection solution 1 cc dexamethaso ne sodium phosphate 4 mg/mL injection solution 1 cc No dexamethas one sodium phosphate 4 mg/mL injection solution 1 cc [facility] levothyroxi ne 25 mcg tablet levothyroxi ne 25 mcg tablet No levothyrox ine 25 mcg tablet [facility] tramadol 50 mg tablet Take 1 tablet every 12 hours by oral route as needed for 10 days. tramadol 50 mg tablet Take 1 tablet every 12 hours by oral route as needed for 10 days. No tramadol 50 mg tablet Take 1 tablet every 12 hours by oral route as needed for 10 days. [facility] Benzonatate 200 MG Benzonatate 200 MG No 1{capsu le} TID Benzonatat e 200 MG Clopidogrel Bisulfate 75 MG Clopidogrel Bisulfate 75 MG No 1{table t} QD Clopidogre l Bisulfate 75 MG Furosemide 40 MG Furosemide 40 MG No 1{table t} QD Furosemide 40 MG Escitalopra m Oxalate 20 MG Escitalopra m Oxalate 20 MG No 1{table t} QD Escitalopr am Oxalate 20 MG Vitamin D 25 MCG (1000 UT) Vitamin D 25 MCG (1000 UT) No 1{table t} QD Vitamin D 25 MCG (1000 UT) Glimepiride 2 MG Glimepiride 2 MG No 1{table t_with_ breakfa st_or_t he_firs t_main_ meal_of _the_da y} QD Glimepirid e 2 MG Calcium 500 MG Calcium 500 MG No 1{table t_with_ meals} QD Calcium 500 MG Atorvastati n Calcium 80 MG Atorvastati n Calcium 80 MG No 1{table t} QD Atorvastat in Calcium 80 MG Albuterol Sulfate HFA 108 (90 Base) MCG/ACT Albuterol Sulfate HFA 108 (90 Base) MCG/ACT No Albuterol Sulfate HFA 108 (90 Base) MCG/ACT Eliquis 5 MG Eliquis 5 MG No 1{table t} QD Eliquis 5 MG Latanoprost 0.005 % Latanoprost 0.005 % No 1{drop_ into_af fected_ eye_in_ the_eve cristian} QD Latanopros t 0.005 % Donepezil HCl 5 MG Donepezil HCl 5 MG No 1{table t_at_be dtime} QD Donepezil HCl 5 MG Immunizations Ordered Immunization Name Filled Immunization Name Date Status Comments Source influenza, high-dose, quadrivalent influenza, high-dose, quadrivalent 2021-05-26 16:34:[address] [facility] Influenza, High-dose Seasonal, Quadrivalent, Preservative Free Influenza, High-dose Seasonal, Quadrivalent, Preservative Free 2021-05-26 00:00:00 Completed [facility] Moderna SARS-CoV-2 Moderna SARS-CoV-2 2021-04-06 00:00:00 Completed [facility] COVID-19, mRNA, LNP-S, PF, 100 mcg/0.5 mL dose (Moderna) COVID-19, mRNA, LNP-S, PF, 100 mcg/0.5 mL dose (Moderna) 2021-04-06 00:00:[address] [facility] Moderna SARS-CoV-2 Moderna SARS-CoV-2 2020-06-27 00:00:00 Completed [facility] COVID-19, mRNA, LNP-S, PF, 100 mcg/0.5 mL dose (Moderna) COVID-19, mRNA, LNP-S, PF, 100 mcg/0.5 mL dose (Moderna) 2020-06-27 00:00:[address] [facility] Moderna SARS-CoV-2 Moderna SARS-CoV-2 2020-05-29 00:00:00 Completed [facility] COVID-19, mRNA, LNP-S, PF, 100 mcg/0.5 mL dose (Moderna) COVID-19, mRNA, LNP-S, PF, 100 mcg/0.5 mL dose (Moderna) 2020-05-29 00:00:[address] [facility] Vital Signs Vital Name Observation Time Observation Value Comments S ource height 2024-04-25 10:00:00 75 [in_i] [facility] weight 2024-04-25 10:00:00 232.0 [lb_av] [facility] temperature 2024-04-25 10:00:00 98.0 [degF] [facility] bmi 2024-04-25 10:00:00 28.99 kg/m2 [facility] oximetry 2024-04-25 10:00:00 94 % [facility] respiratory rate 2024-04-25 10:00:00 16 /min [facility] blood pressure systolic 2024-04-25 10:00:00 124 mm[Hg] [facility] blood pressure diastolic 2024-04-25 10:00:00 66 mm[Hg] [facility] Heart rate 2024-04-19 09:30:00 63 /min Jose [facility] Body temperature 2024-04-19 09:30:00 36.78 [facility] Res[facility] 2024-04-19 09:30:00 16 /min [facility] Body height 2024-04-19 09:30:00 190.5 cm Stevo patty [facility] Body weight 2024-04-19 09:30:00 106.414 kg Stevo patty [facility] BMI 2024-04-19 09:30:00 29.32 kg/m2 Stevo rial [facility] Oxygen saturation in Arterial blood by Pulse oximetry 2024-04-19 09:30:00 95 /min Chrissie Escalante [facility] Systolic blood pressure 2024-04-19 09:30:00 138 mm[Hg] [facility] Diastolic blood pressure 2024-04-19 09:30:00 75 mm[Hg] [facility] Heart rate 2024-04-19 09:30:00 63 /min Memor ial [facility] Body temperature 2024-04-19 09:30:00 36.78 Shakira [facility] Epic Respiratory rate 2024-04-19 09:30:00 16 /min [facility] Body height 2024-04-19 09:30:00 190.5 cm Stevo patty Tyrell [facility] Body weight 2024-04-19 09:30:00 106.414 kg Stevo patty [facility] BMI 2024-04-19 09:30:00 29.32 kg/m2 Stevo rial [facility] Oxygen saturation in Arterial blood by Pulse oximetry 2024-04-19 09:30:00 95 /min Chrissie Escalante chery Epic Systolic blood pressure 2024-04-19 09:30:00 138 mm[Hg] [facility] Diastolic blood pressure 2024-04-19 09:30:00 75 mm[Hg] [facility] Systolic blood pressure 2024-02-20 09:30:00 141 mm[Hg] [facility] Diastolic blood pressure 2024-02-20 09:30:00 68 mm[Hg] [facility] Heart rate 2024-02-20 09:30:00 53 /min Memor ial [facility] Body temperature 2024-02-20 09:30:00 36.61 Shakira [facility] Epic Respiratory rate 2024-02-20 09:30:00 16 /min [facility] Body height 2024-02-20 09:30:00 190.5 cm Stevo brambila [facility] Body weight 2024-02-20 09:30:00 107.049 kg Stevo gaylel Tyrell [facility] BMI 2024-02-20 09:30:00 29.50 kg/m2 Stevo rial [facility] Oxygen saturation in Arterial blood by Pulse oximetry 2024-02-20 09:30:00 95 /min [facility] Systolic blood pressure 2024-02-20 09:30:00 141 mm[Hg] [facility] Diastolic blood pressure 2024-02-20 09:30:00 68 mm[Hg] [facility] Heart rate 2024-02-20 09:30:00 53 /min Memor ial [facility] Body temperature 2024-02-20 09:30:00 36.61 Shakira [facility] Respiratory rate 2024-02-20 09:30:00 16 /min [facility] Body height 2024-02-20 09:30:00 190.5 cm Stevo araujol [facility] Body weight 2024-02-20 09:30:00 107.049 kg Stevo patty [facility] BMI 2024-02-20 09:30:00 29.50 kg/m2 Stevo rial [facility] Oxygen saturation in Arterial blood by Pulse oximetry 2024-02-20 09:30:00 95 /min [facility] Systolic blood pressure 2024-01-06 09:49:00 121 mm[Hg] [facility] Diastolic blood pressure 2024-01-06 09:49:00 64 mm[Hg] [facility] Heart rate 2024-01-06 09:49:00 63 /min Memor ial [facility] Body temperature 2024-01-06 09:49:00 37.5 Shakira [facility] Respiratory rate 2024-01-06 09:49:00 16 /min [facility] Body height 2024-01-06 09:49:00 188 cm Stevo rial [facility] Body weight 2024-01-06 09:49:00 107.956 kg Stevo rial Tyrell [facility] BMI 2024-01-06 09:49:00 30.56 kg/m2 Stevo rial [facility] Oxygen saturation in Arterial blood by Pulse oximetry 2024-01-06 09:49:00 94 /min [facility] Systolic blood pressure 2024-01-06 09:49:00 121 mm[Hg] [facility] Her chery [facility] Diastolic blood pressure 2024-01-06 09:49:00 64 mm[Hg] [facility] Heart rate 2024-01-06 09:49:00 63 /[facility] 2024-01-06 09:49:00 37.5 Shakira [facility] Respiratory rate 2024-01-06 09:49:00 16 /min [facility] Body height 2024-01-06 09:49:00 188 [facility] weight 2024-01-06 09:49:00 107.956 kg [facility] BMI 2024-01-06 09:49:00 30.56 kg/m2 [facility] Oxygen saturation in Arterial blood by Pulse oximetry 2024-01-06 09:49:00 94 /min [facility] height 2023-12-15 10:00:00 75 [in_i] [facility] weight 2023-12-15 10:00:00 238.6 [lb_av] [facility] temperature 2023-12-15 10:00:00 97.6 [degF] [facility] bmi 2023-12-15 10:00:00 29.82 kg/m2 [facility] oximetry 2023-12-15 10:00:00 95 % [facility] blood pressure systolic 2023-12-15 10:00:00 138 mm[Hg] [facility] blood pressure diastolic 2023-12-15 10:00:00 70 mm[Hg] [facility] height 2023-12-15 10:00:00 75 [in_i] [facility] weight 2023-12-15 10:00:00 238.6 [lb_av] [facility] temperature 2023-12-15 10:00:00 97.6 [degF] Com [facility] bmi 2023-12-15 10:00:00 29.82 kg/m2 [facility] oximetry 2023-12-15 10:00:00 95 % [facility] blood pressure systolic 2023-12-15 10:00:00 138 mm[Hg] Common [facility] blood pressure diastolic 2023-12-15 10:00:00 70 mm[Hg] Common [facility] height 2023-12-15 10:10:00 75 [in_i] [facility] weight 2023-12-15 10:10:00 238.6 [lb_av] [facility] temperature 2023-12-15 10:10:00 97.6 [degF] Com [facility] bmi 2023-12-15 10:10:00 29.82 kg/m2 [facility] oximetry 2023-12-15 10:10:00 95 % [facility] blood pressure systolic 2023-12-15 10:10:00 138 mm[Hg] Common [facility] blood pressure diastolic 2023-12-15 10:10:00 70 mm[Hg] [facility] Systolic blood pressure 2023-12-01 09:49:00 113 mm[Hg] [facility] Diastolic blood pressure 2023-12-01 09:49:00 60 mm[Hg] [facility] Heart rate 2023-12-01 09:49:00 67 /min [facility] temperature 2023-12-01 09:49:00 36.89 Shakira [facility] Respiratory rate 2023-12-01 09:49:00 16 /min [facility] Body height 2023-12-01 09:49:00 188 cm [facility] Body weight 2023-12-01 09:49:00 106.595 kg [facility] BMI 2023-12-01 09:49:00 30.17 kg/m2 Stevo rial [facility] Oxygen saturation in Arterial blood by Pulse oximetry 2023-12-01 09:49:00 94 /min [facility] Her chery Epic Systolic blood pressure 2023-12-01 09:49:00 113 mm[Hg] [facility] Diastolic blood pressure 2023-12-01 09:49:00 60 mm[Hg] [facility] Heart rate 2023-12-01 09:49:00 67 /min Memor ial [facility] Body temperature 2023-12-01 09:49:00 36.89 Shakira [facility] Epic Respiratory rate 2023-12-01 09:49:00 16 /min [facility] Body height 2023-12-01 09:49:00 188 cm Stevo rial [facility] Body weight 2023-12-01 09:49:00 106.595 kg Stevo rial [facility] BMI 2023-12-01 09:49:00 30.17 kg/m2 Stevo rial [facility] Oxygen saturation in Arterial blood by Pulse oximetry 2023-12-01 09:49:00 94 /min [facility] Her chery Epic Systolic blood pressure 2023-11-10 16:24:00 128 mm[Hg] [facility] Her chery [facility] Diastolic blood pressure 2023-11-10 16:24:00 67 mm[Hg] [facility] Heart rate 2023-11-10 16:24:00 61 /min Memor ial [facility] Body temperature 2023-11-10 16:24:00 37.5 Shakira [facility] Epic Respiratory rate 2023-11-10 16:24:00 16 /min [facility] Epic Body height 2023-11-10 16:24:00 188 cm Stevo riazahraa [facility] Body weight 2023-11-10 16:24:00 107.956 kg Stevo rial [facility] BMI 2023-11-10 16:24:00 30.56 kg/m2 Stevo rial [facility] Oxygen saturation in Arterial blood by Pulse oximetry 2023-11-10 16:24:00 94 /min [facility] chery Epic Systolic blood pressure 2023-11-10 16:24:00 128 mm[Hg] [facility] Diastolic blood pressure 2023-11-10 16:24:00 67 mm[Hg] [facility] Heart rate 2023-11-10 16:24:00 61 /min Roddyor iazahraa [facility] Body temperature 2023-11-10 16:24:00 37.5 Shakira [facility] Respiratory rate 2023-11-10 16:24:00 16 /min [facility] Body height 2023-11-10 16:24:00 188 cm Stevo brambila [facility] Body weight 2023-11-10 16:24:00 107.956 kg [facility] BMI 2023-11-10 16:24:00 30.56 kg/m2 [facility] Oxygen saturation in Arterial blood by Pulse oximetry 2023-11-10 16:24:00 94 /min [facility] height 2023-11-10 11:40:00 75 [in_i] [facility] weight 2023-11-10 11:40:00 236.4 [lb_av] Co [facility] temperature 2023-11-10 11:40:00 97.7 [degF] Com [facility] bmi 2023-11-10 11:40:00 29.54 kg/m2 [facility] oximetry 2023-11-10 11:40:00 96 % [facility] blood pressure systolic 2023-11-10 11:40:00 126 mm[Hg] [facility] blood pressure diastolic 2023-11-10 11:40:00 66 mm[Hg] Common [facility] height 2023-08-12 09:50:00 75 [in_i] [facility] weight 2023-08-12 09:50:00 240.8 [lb_av] Co [facility] temperature 2023-08-12 09:50:00 97.8 [degF] Com [facility] bmi 2023-08-12 09:50:00 30.09 kg/m2 [facility] oximetry 2023-08-12 09:50:00 95 % [facility] blood pressure systolic 2023-08-12 09:50:00 112 mm[Hg] [facility] blood pressure diastolic 2023-08-12 09:50:00 64 mm[facility]Hg[facility] height 2022-11-18 08:00:00 75 [in_i] [facility] weight 2022-11-18 08:00:00 229.2 [lb_av] Co mmon [facility] bmi 2022-11-18 08:00:00 28.64 kg/m2 [facility] blood pressure systolic 2022-11-18 08:00:00 132 mm[Hg] [facility] blood pressure diastolic 2022-11-18 08:00:00 74 mm[Hg] [facility] height 2022-10-12 10:00:00 75 [in_i] [facility] weight 2022-10-12 10:00:00 231 [lb_av] [facility] temperature 2022-10-12 10:00:00 98.5 [degF] Com [facility] bmi 2022-10-12 10:00:00 28.87 kg/m2 [facility] blood pressure systolic 2022-10-12 10:00:00 134 mm[Hg] [facility] blood pressure diastolic 2022-10-12 10:00:00 78 mm[Hg] [facility] height 2022-09-24 08:40:00 75 [in_i] [facility] weight 2022-09-24 08:40:00 226 [lb_av] [facility] temperature 2022-09-24 08:40:00 96.3 [degF] Com [facility] bmi 2022-09-24 08:40:00 28.24 kg/m2 [facility] oximetry 2022-09-24 08:40:00 92 % [facility] respiratory rate 2022-09-24 08:40:00 16 /min Common [facility] blood pressure systolic 2022-09-24 08:40:00 125 mm[Hg] [facility] blood pressure diastolic 2022-09-24 08:40:00 67 mm[Hg] [facility] height 2022-08-12 14:30:00 75 [in_i] [facility] weight 2022-08-12 14:30:00 231.4 [lb_av] Co mmon [facility] temperature 2022-08-12 14:30:00 97.6 [degF] Com mon [facility] bmi 2022-08-12 14:30:00 28.92 kg/m2 [facility] blood pressure systolic 2022-08-12 14:30:00 126 mm[Hg] [facility] blood pressure diastolic 2022-08-12 14:30:00 72 mm[Hg] [facility] height 2022-06-28 15:30:00 75 [in_i] [facility] weight 2022-06-28 15:30:00 225 [lb_av] [facility] temperature 2022-06-28 15:30:00 98 [degF] [facility] bmi 2022-06-28 15:30:00 28.12 kg/m2 [facility] blood pressure systolic 2022-06-28 15:30:00 125 mm[Hg] [facility] blood pressure diastolic 2022-06-28 15:30:00 72 mm[Hg] [facility] BP Diastolic 2021-05-26 00:00:00 52 mm[Hg] [facility] Height 2021-05-26 00:00:00 76 [in_i] [facility] BMI (Body Mass Index) 2021-05-26 00:00:00 29.1 kg/m2 [facility] BP Systolic 2021-05-26 00:00:00 102 mm[Hg] [facility] Body Weight 2021-05-26 00:00:00 239 [lb_av] [facility] BP Diastolic 2021-04-29 00:00:00 65 mm[Hg] [facility] Height 2021-04-29 00:00:00 76 [in_i] [facility] BMI (Body Mass Index) 2021-04-29 00:00:00 29.5 kg/m2 [facility] BP Systolic 2021-04-29 00:00:00 113 mm[Hg] [facility] Body Weight 2021-04-29 00:00:00 242.2 [lb_av] [facility] Procedures Procedure Date / Time Performed Performing Clinicia n Source EEG AWAKE AND SLEEP 2023-12-26 18:43:57 Princess Oneal [facility] EEG awake and sleep 2023-12-01 00:00:00 M [facility] MRI brain wo IV contrast 2023-12-01 00:00:00 [facility] X-RAY OF KNEE 3 VIEW 2021-04-29 00:00:00 [facility] Plan of Care Planned Activity Planned Date Details Comments Source Diagnostic Test Pending 2021-05-26 00:00:00 HbA1c (hemoglobin A1c), blood [code = HbA1c (hemoglobin A1c), blood] [facility] Diagnostic Test Pending 2021-05-26 00:00:00 CBC w/ auto diff [code = CBC w/ auto diff] [facility] Diagnostic Test Pending 2021-05-26 00:00:00 iron + TIBC + ferritin, serum [code = iron + TIBC + ferritin, serum] [facility] Diagnostic Test Pending 2021-05-26 00:00:00 vitamin B12 + folate, serum or blood [code = vitamin B12 + folate, serum or blood] [facility] Diagnostic Test Pending 2021-05-26 00:00:00 lipid panel, serum [code = lipid panel, serum] [facility] Diagnostic Test Pending 2021-05-26 00:00:00 PSA, total + free, serum or plasma [code = PSA, total + free, serum or plasma] [facility] Encounters Start Date/Time End Date/Time Encounter Type Admission Type Attending [facility] Care Facility Care Department Encounter ID Source 2024-04-24 14:06:00 Outpatient Tello, Arnav [facility] [id number] [facility] 2023-12-15 08:32:00 Outpatient Tello, Arnav [facility] [id number] [facility] 2023-11-08 10:25:01 Outpatient Tello, Arnav [facility] [id number] [facility] 2023-11-04 13:30:00 Outpatient Tello, Arnav [facility] [id number] [facility] 2023-08-05 08:45:00 Outpatient [facility] [id number] [facility] 2022-10-12 14:03:00 Outpatient Tello, Arnav [facility] [id number] [facility] 2022-09-02 15:13:01 Outpatient T[facility], [facility] [id number] [facility] 2022-08-13 15:56:00 Outpatient Tello, Arnav [facility] [id number] [facility] 2022-08-06 08:19:03 Outpatient Tello, Arnav [facility] [id number] [facility] 2022-04-27 08:13:03 Outpatient Tello, Arnav [facility] [id number] [facility] 2024-04-25 00:00:00 2024-04-25 00:00:00 OFFICE VISIT ESTAB PT LEVEL 4 [facility] [id number] [facility] 2024-04-19 09:30:00 2024-04-19 10:15:35 Office Visit Princess Oneal [id number] [facility] 2024-04-19 09:18:22 2024-04-19 10:15:35 Outpatient PRINCESS ONEAL [facility] M[facility] [id number] [facility] 2024-02-20 09:21:25 2024-02-20 10:07:55 Outpatient PRINCESS ONEAL [facility]OUT M[facility]OUT [id number] [facility] 2024-02-20 09:45:00 2024-02-20 10:00:00 Office Visit Princess Oneal [id number] [id number] Dara vital [facility] 2024-01-06 09:45:00 2024-01-06 10:19:03 Office Visit Princess Oneal [id number] [id number] Dara vital [facility] 2024-01-06 09:44:21 2024-01-06 10:19:03 Outpatient PRINCESS ONEAL MHEOUT MHEOUT [id number] [facility] 2023-12-29 00:00:00 2023-12-29 00:00:00 (TEL) [facility] [id number] [facility] 2023-12-26 10:00:00 2023-12-26 11:02:48 Office Visit Princess Oneal [id number] [id number] Dara vital [facility] 2023-12-26 09:45:37 2023-12-26 11:02:48 Outpatient MHEOUT MHEOUT [id number] [facility] 2023-12-15 00:00:00 2023-12-15 00:00:00 OFFICE VISIT ESTAB PT LEVEL 4 [facility] [id number] [facility] 2023-12-15 00:00:00 2023-12-15 00:00:00 SUB ANNUAL [facility] VIS[facility] [id number] [facility] 2023-12-01 09:45:00 2023-12-01 10:34:47 Office Visit Princess Oneal [id number] [id number] [id number] [id number] Dara vital [facility] 2023-12-01 09:28:05 2023-12-01 10:34:47 Outpatient PRINCESS ONEAL MHEOUT MHEOUT [id number] EOUT 2023-11-28 00:00:00 2023-11-28 00:00:00 (TEL) [facility] [id number] [facility] 2023-11-10 16:05:03 2023-11-10 17:04:42 Outpatient PRINCESS ONEAL MHDustinOUT MHEOUT [id number] EOUT 2023-11-10 15:30:00 2023-11-10 17:04:42 Consult Princess Oneal [id number] [id number] [facility] 2023-11-10 00:00:00 2023-11-10 00:00:00 OFFICE VISIT ESTAB PT LEVEL 5 [facility] [id number] [facility] 2023-11-04 00:00:00 2023-11-04 00:00:00 (TEL) [facility] [id number] [facility] 2023-11-03 00:00:00 2023-11-03 00:00:00 (TEL) [facility] [id number] [facility] 2023-10-28 00:00:00 2023-10-28 00:00:00 (TEL) [facility]C [facility] [id number] [facility] 2023-08-12 00:00:00 2023-08-12 00:00:00 OFFICE VISIT ESTAB PT LEVEL 4 [facility] [id number] [facility] 2023-08-12 00:00:00 2023-08-12 00:00:00 (TEL) [facility]C [facility] [id number] [facility] 2023-07-12 00:00:00 2023-07-12 00:00:00 (TEL) [facility]C STL[facility] [id number] [facility] 2023-02-07 00:00:00 2023-02-07 00:00:00 (TEL) STLMLC STL[facility]C [id number] [facility] 2022-11-18 00:00:00 2022-11-18 00:00:00 (IN/ASP) INJ ASP STLMLC STLMLC [id number] [facility] 2022-10-12 00:00:00 2022-10-12 00:00:00 OFFICE VISIT ESTAB PT LEVEL 4 [facility] [id number] [facility] 2022-09-24 00:00:00 2022-09-24 00:00:00 OFFICE VISIT ESTAB PT LEVEL 4 [facility] [id number] [facility] 2022-08-12 00:00:00 2022-08-12 00:00:00 OFFICE VISIT NEW PT LEVEL 4 [facility] STL[facility]C [id number] [facility] 2022-07-15 00:00:00 2022-07-15 00:00:00 (TEL) STLMLC STL[facility]C [id number] [facility] 2022-07-13 00:00:00 2022-07-13 00:00:00 (TEL) STLMLC STL[facility]C [id number] [facility] 2022-06-28 00:00:00 2022-06-28 00:00:00 OFFICE VISIT ESTAB PT LEVEL 4 [facility] [id number] [facility] 2022-05-11 00:00:00 2022-05-11 00:00:00 Outpatient Patel_J_HOU _PA VFP VFP [id number] [facility] 2022-02-11 00:00:00 2022-02-11 00:00:00 Outpatient Patel_J VFP VFP [id number] [facility] 2021-08-25 02:54:00 2021-08-25 02:54:00 Outpatient Patel_J VFP VFP [id number] [facility] 2021-08-21 09:15:00 2021-08-21 09:15:00 Outpatient Patel_J VFP VFP [id number] [facility] 2021-08-04 05:18:00 2021-08-04 05:18:00 Outpatient Patel_J VFP VFP [id number] [facility] 2021-07-10 11:18:00 2021-07-10 11:18:00 Outpatient Patel_J VFP VFP [id number] [facility] 2021-06-30 02:59:00 2021-06-30 02:59:00 Outpatient Patel_J VFP VFP [id number] [facility] 2021-06-17 03:12:00 2021-06-17 03:12:00 Outpatient Patel_J VFP VFP [id number] [facility] 2021-06-13 04:13:00 2021-06-13 04:13:00 Outpatient Patel_J VFP VFP [id number] [facility] 2021-06-02 08:39:00 2021-06-02 08:39:00 Outpatient Patel_J VFP VFP [id number] [facility] 2021-06-01 06:35:00 2021-06-01 06:35:00 Outpatient Patel_J VFP VFP [id number] [facility] 2021-05-31 10:55:00 2021-05-31 10:55:00 Outpatient Patel_J VFP VFP [id number] [facility] 2021-05-26 12:10:00 2021-05-26 12:10:00 Outpatient Patel_J VFP VFP [id number] [facility] 2021-05-26 00:00:00 2021-05-26 00:00:00 ALYSA Patricia: [id number], [address] [address] , Ph. VFP [place] - [facility] - VM_HOU_Shad ow Unga [id number] [facility] 2021-05-20 07:01:00 2021-05-20 07:01:00 Outpatient Patel_J VFP VFP [id number] [facility] 2021-05-20 07:01:00 2021-05-20 07:01:00 Outpatient Patel_J VFP VFP [id number] [facility] 2021-05-04 11:13:00 2021-05-04 11:13:00 Outpatient Patel_J VFP VFP [id number] [facility] 2021-04-30 04:37:00 2021-04-30 04:37:00 Outpatient Patel_J VFP VFP [id number] [facility] 2021-04-29 01:30:00 2021-04-29 01:30:00 Outpatient Patel_J VFP VFP [id number] [facility] 2021-04-29 00:00:00 2021-04-29 00:00:00 ALYSA Patricia: [id number], [address], [place] [address] , Ph. VFP [place] - [facility] - VM_HOU_Shad ow Unga [id number] [facility] 2021-04-28 05:29:00 2021-04-28 05:29:00 Outpatient Patel_J VFP VFP [id number] [facility] e Results Test Description Test Time Test Comments Results Result Co mments Source HEMOGLOBIN [id number] 00:00:00* Test Item Value Reference Range Interpretation Comme nts HEMOGLOBIN A1c (test code = 4548-4) 6.1 % See_Comment H [Automated [employer] ge] The system which generated this result transmitted reference range: 4.2-5.6 %. The reference range was not used to interpret this result as normal/abnormal. Prostate specific Ag panel - Serum or [id number] 00:00:00* Test Item Value Reference Range Interpretation Comme nts PSA, total (test code = PSA, total) 1.3 NG/mL See_Comment [Automated [employer] ssage] The system which generated this result transmitted reference range: < or = 4.0. The reference range was not used to interpret this result as normal/abnormal. PSA, free (test code = PSA, free) 0.5 NG/mL PSA, % free (test code = PSA, % free) 38 % (calc) >25 [facility]yan[facility] [Interpretation] in Serum or Blood 2021-06-03 00:00:00* Test Item Value Reference Range Interpretation Comme nts vitamin B12 (test code = vit ornelas B12) 301 pg/mL 200-1100 folate, serum (test code = f olate, serum) 8.8 NG/mL [facility] + TIBC + ferritin, [id number] 00:00:00* Test Item Value Reference Range Interpretation Comme nts ferritin (test code = ferritin) 397.37 NG/mL 21.81-274.66 H iron, total (test code = iro n, total) 114 mcg/dL 50-180 transferrin (test code = transferrin) 220 mg/dL 163-344 total iron binding capacity (calculated) (test code = total iron binding capacity (calculated)) 315 mcg/dL 250-425 % saturation (test code = % saturation) 36.2 % 15.0-60.0 [facility] Auto Differential panel - [id number] 00:00:00 * Test Item Value Reference Range [...] (test code = baso#) 0.05 x10*3/?L 0.01-0.08 [facility] 1996 panel - Serum or [id number] 00:00:00* Test Item Value Reference Range Interpretation [...] (test code = 2089-1) 98 mg/dL <130 [facility]Hem[facility] A[facility]c/Hemoglobin.total in [id number] 00:00:00* Test Item Value Reference Range Interpretation Comme nts Hemoglobin A1c/Hemoglobin.to dann in Blood (test code = 4548-4) 6.4 % 1.0-5.7 H average blood glucose (calcu lation) (test code = average blood glucose (calculation)) 137 mg/dL [facility] HospitalHtprmnvownnjbrnfcfyiyx0657-87-89 00:00:00InterpretationVillRegional Health Services of Howard CountyNeuronal nuclear IgG Ab [Units/volume] in Serum by [id number] 00:00:00* Test Item Value Reference Range Interpretation Comme nts KAREN screen, ifa (test code = KAREN screen, ifa) positive negative A [facility] [Titer] in Serum by Immunofluorescence 2021-05-04 00:00:00* Test Item Value Reference Range Interpretation Comme nts KAREN titer (test code = KAREN titer) 1:160 H KAREN pattern (test code = KAREN pattern) nuclear, speckled A [facility]* Test Item Value Reference Range Interpretation Comme [facility] DNA (ds) antibody (test code = DNA (ds) antibody) 2 IU/mL sm antibody (test code = sm antibody) <1.0 neg See_Comment [Automated [employer]] The system which generated this result transmitted reference range: <1.0 neg. The reference range was not used to interpret this result as normal/abnormal. sm/metal turner antibody (test code = sm/metal turner antibody) <1.0 neg See_Comment [Automated [employer]] The system which generated this result transmitted reference range: <1.0 neg. The reference range was not used to interpret this result as normal/abnormal. metal turner antibody (test code = metal turner antibody) <1.0 neg See_Comment [Automated message] The [...] used to interpret this result as normal/abnormal. [facility] [id number] 00:00:00* Test Item Value Reference Range Interpretation [...] used to interpret this result as normal/abnormal. [facility] [id number] 00:00:00* Test Item Value Reference Range Interpretation [...] this result as normal/abnormal. [facility] HospitalTriiodothyronine resin uptake (T3RU) in Serum or Plasma 2021-04-30 00:00:00* Test Item Value Reference Range Interpretation Comme nts T3 uptake (test code = T3 uptake) 31 % 22-35 [facility]-reactive protein, [id number] 00:00:00* Test Item Value Reference Range Interpretation Comme [facility] C-reactive protein (test cod e = C-reactive protein) 6.1 mg/L <8.0 [facility] HospitalRheumatoid factor [Units/volume] in Serum or Plasma 2021-04-30 00:00:00* Test Item Value Reference Range Interpretation Comme nts rheumatoid factor (test code = rheumatoid factor) <14 <14 [facility] HospitalErythrocyte sedimentation rate by Westergren method 2021-04-30 00:00:00* Test Item Value Reference Range Interpretation Comme nts sed rate by modified westergren (test code = sed rate by modified westergren) 14 mm/h See_Comment [Automated [employer] ge] The system which generated this result transmitted reference range: < or = 20. The reference range was not used to interpret this result as normal/abnormal. [facility] W Auto Differential panel - [id number] 00:00:00 * Test Item Value Reference Range [...] (test code = baso#) 0.06 x10*3/?L 0.01-0.08 [facility] HospitalComprehensive metabolic 2000 panel - Serum or [...] (test code = anion gap) [address] [facility] HospitalThyroxine (T4) free [Mass/volume] in Serum or Plasma 2021-04-30 00:00:00* Test Item Value Reference Range Interpretation Comme [facility] T4 free (test code = T4 free) 0.98 NG/dL 0.70-1.48 [facility] HospitalThyrotropin [Units/volume] in Serum or [id number] 00:00:00* Test Item Value Reference Range Interpretation Comme [facility] TSH (test code = TSH) 1.501 uIU/mL 0.350-4.940 [facility] HospitalUrate [Mass/volume] in Serum or [id number] 00:00:00 * Test Item Value Reference Range Interpretation Comme [facility] uric acid (test code = uric acid) 8.4 mg/dL 3.5-7.[address] [facility] HospitalHemoglobin A1c measurement device [id number] 14:52:00* Test Item Value Reference Range Interpretation Comme [facility] Hemoglobin A1C Fingerstick: (test code = Hemoglobin A1C Fingerstick:) 6.5 [facility]
[2024-05-03 14:25] LABS: Absolute Basophils 0.1 K/uL (0-0.5); Absolute Eosinophils 0.6 K/uL (0-0.5); Absolute Lymphocytes (CBC) 2.4 K/uL (0.7-4.9); Absolute Monocytes 0.7 K/uL (0.1-1.3); Absolute Neutrophil 4.4 K/uL (1.8-8.0); Basophils % 0.9 % (0-1.3); Hematocrit 41.5 % (39.6-49.0); Hemoglobin 13.3 g/dL (13.6-17.9); MCH 31.1 pg (27.0-35.0); MCHC 32.1 g/dL (32.0-36.0); MCV 96.7 fL (80-100); MPV 8.2 fL (7.6-11.3); Monocytes % 8.3 % (3.3-12.3); Neutrophils % 53.8 % (41.7-73.7); Platelets 190 thou/uL (152-406); Red Cell Distribution Width 13.3 % (12.1-15.2)
[2024-05-03 14:29] LABS: PT Prothrombin Time 13.5 SECONDS (9.4-12.5); Protime INR 1.21
[2024-05-03] MEDS ORDERED: IPRATROPIUM BROM 0.5MG/2.5ML ONE (14:33)
[2024-05-03] MEDS ORDERED: ALBUTEROL 2.5 MG/3 ML NEB SOL ONE (14:33)
[2024-05-03 14:47] LABS: ALT/SGPT 21 U/L (16-61); AST/SGOT 12 U/L (15-37); Albumin 3.2 g/dL (3.4-5.0); Albumin/Globulin Ratio 0.8 (1.1-1.8); Alkaline Phosphatase 103 U/L (45-117); Anion Gap 9.1 mEq/L (5.0-15.0); BUN Blood Urea Nitrogen 19 mg/dL (7-18); Bicarbonate 29 mEq/L (21-32); Bilirubin Total 0.3 mg/dL (0.2-1.0); Globulin 3.8 g/dL (2.3-3.5); Glomerular Filtration Rate 72 ml/min (=/>90); Glucose Level 114 mg/dL (74-106); Magnesium 2.2 mg/dL (1.6-2.4); NT PRO-BNP 906 pg/mL (<450); Potassium 4.1 mEq/L (3.5-5.1); Sodium Level 137 mEq/L (136-145); Troponin High Sensitivity 9.6 pg/mL (<58.9)
--- NOTE | 2024-05-03 14:48 | RAD REPORT ---
EXAMINATION: CTA CHEST PE CLINICAL INDICATION: Chest pain TECHNIQUE: 100 cc 370 Isovue administered intravenously. This examination was performed according to an angiographic protocol with 3D post-processing. This involves 3D reconstructions, MIPs, volume rendered images and/or shaded surface rendering. One or more of the following dose reduction techniqu es were used: Automated exposure control, adjustment of the mA and/or kV according to patient size, and/or iterative reconstruction. Unless otherwise specified, incidental findings do not require dedic ated imaging follow-up. [id number]. COMPARISON: August 2023 FINDINGS: A pulmonary embolus is not seen. An aortic aneurysm not noted. No pleural effusion. No pericardial effusion. Lungs are clear. IMPRESSION: No evidence of a pulmonary embolism
[2024-05-03 14:49] LABS: SARS-CoV-2 Antigen CONTROL BLUE LINE VIS/BG OK; SARS-CoV-2 Antigen Rapid Res Negative (Negative)
[2024-05-03 14:49] LABS: Bilirubin Direct < 0.2 mg/dL (0-0.2); Bilirubin Indirect, Calculated 0.1 mg/dL (0.2-0.8)
--- NOTE | 2024-05-03 14:49 | RAD REPORT ---
Procedure: Chest Single View HISTORY: Shortness of breath COMPARISON: October 2023 FINDINGS: The lungs appear clear of acute infiltrate. Lungs are hyperaerated No significant pleural effusion noted. The heart is borderline enlarged.. IMPRESSION: No acute abnormality is displayed.
--- NOTE | 2024-05-03 15:02 | ER ---
Nurse's Notes [facility] Name: Remington Huff Age: 78 yrs Sex: Male : 1945 Arrival Date: 05/03/2024 Time: 13:25 Bed 5 Private MD: Diagnosis: COPD exacerbation, dyspnea Presentation: 05/03 13:45 Chief complaint: Patient states: SOB, DIZZINESS, COUGH AND WHEEZING. X 5 WEEKS WORSE X db 3 DAYS. Coronavirus screen: Client denies travel out of the [place] in the last 14 days. At this time, the client does not indicate any symptoms associated with coronavirus-19. Ebola Screen: Patient negative for fever greater than or equal to 101.5 degrees Fahrenheit, and additional compatible Ebola Virus Disease symptoms Patient denies exposure to infectious person. Patient denies travel to an Ebola-affected area in the 21 days before illness onset. No symptoms or risks identified at this time. Initial Sepsis Screen: Does the patient meet any 2 criteria? No. Patient's initial sepsis screen is negative. Does the patient have a suspected source of infection? No. Patient's initial sepsis screen is negative. Risk Assessment: Do you want to hurt yourself or someone else? Patient reports no desire to harm self or others. Onset of symptoms was May 01, 2024. 13:45 Method Of Arrival: Ambulatory db 13:45 Acuity: JOHNY 2 db Triage Assessment: 13:45 General: Appears in no apparent distress. uncomfortable, Behavior is calm, cooperative. db Pain: Denies pain. Neuro: Level of Consciousness is awake, alert, obeys commands, Oriented to person, place, time, situation. Respiratory: Reports shortness of breath at rest on exertion Airway is patent Respiratory effort is even, unlabored, Respiratory pattern is regular, symmetrical, Onset: The symptoms/episode began/occurred gradually, the patient has moderate shortness of breath. Historical: - Allergies: 13:45 Flagyl; db - PMHx: 13:45 Chronic obstructive lung disease; diabetes mellitus; Hypothyroidism; STROKE db (Hypothyroidism); APHASIA (Hypothyroidism); - PSHx: 13:45 Heart bypass surgery; QUADRUPLE HEART BYPASS (Heart bypass surgery); db - Immunization history:: Adult Immunizations unknown. - Infectious Disease History:: Denies. - Social history:: Smoking status: Patient denies any tobacco usage or history of. Screenin:26 [facility] ED Fall Risk Assessment (Adult) History of falling in the last 3 months, ll1 including since admission No falls in past 3 months (0 pts) Confusion or Disorientation No (0 pts) Intoxicated or Sedated No (0 pts) Impaired Gait Yes (1 pt) Mobility Assist Device Used Yes (1 pt) Altered Elimination No (0 pt) Score/Fall Risk Level 0 - 2 = Low Risk Maintained a safe environment, Hourly rounding (assess needs \T\ fall precautionary measures) done. Abuse screen: Denies threats or abuse. Nutritional screening: No deficits noted. Tuberculosis screening: No symptoms or risk factors identified. Assessment: 14:42 Reassessment: No changes from previously documented assessment. Patient and/or family ll1 updated on plan of care and expected duration. Pain level reassessed. Patient is alert, oriented x 3, equal unlabored respirations, skin warm/dry/pink. 15:25 Reassessment: No changes from previously documented assessment. Patient and/or family ll1 updated on plan of care and expected duration. Pain level reassessed. Patient is alert, oriented x 3, equal unlabored respirations, skin warm/dry/pink. 15:26 Respiratory: Airway is patent Trachea midline Respiratory effort is even, labored, ll1 Respiratory pattern is regular, symmetrical, Breath sounds with wheezes bilaterally. 15:26 Cardiovascular: Rhythm is regular. ll1 Vital Signs: 13:45 BP 150 / 73; Pulse 61; Resp 20; Temp 98.5(O); Pulse Ox 95% ; db 15:25 BP 160 / 81; Pulse 55; Resp 18; Pulse Ox 94% on R/A; ll1 ED Course: 13:28 Patient arrived in ED. im 13:33 Devi Tello MD is Attending Physician. sp3 13:45 Arm band placed on Patient placed in an exam room. db 14:04 Triage completed. db 14:10 Se Johnson, RN is Primary Nurse. ll1 14:23 Missed attempt(s): 22 gauge in right antecubital area. Bleeding controlled, band aid ll1 applied, catheter tip intact. 14:25 Inserted saline lock: 20 gauge in right wrist, using aseptic technique. Blood ll1 collected. Flushed with 10 mL NS. 14:29 RSV Sent. tm6 14:29 SARS RAPID Sent. tm6 14:29 Flu Sent. tm6 14:36 XRAY Chest (1 view) In Process Unspecified. EDMS 14:36 CT Chest For PE Angio In Process Unspecified. EDMS 15:25 No provider procedures requiring assistance completed. IV discontinued, intact, ll1 bleeding controlled, No redness/swelling at site. Pressure dressing applied. 15:27 Patient has correct armband on for positive identification. Bed in low position. ll1 Provided Education on: return to ED for worsening symptoms. Administered Medications: 14:41 Drug: DuoNeb Nebulize (3:1) (2.5 mg - 0.5 mg) 3 ml Nebulizer once Route: Nebulizer; 1 15:23 Follow up: Response: No adverse reaction 1 15:10 Drug: MethylPrednisoLONE IVP 125 mg IVP once Route: IVP; Site: right hand; 1 15:25 Follow up: Response: No adverse reaction 1 Medication: 15:28 VIS not applicable for this client. 1 Outcome: 15:01 Discharge ordered by . sp3 15:27 Discharged to home via wheelchair, ll1 15:27 Condition: stable 15:27 Discharge instructions given to patient, family, Instructed on discharge instructions, follow up and referral plans. medication usage, Demonstrated understanding of instructions, follow-up care, medications, Prescriptions given X 3, 15:28 Patient left the ED. 1 Signatures: Dispatcher [employer] Se Morales, RN RN ll1 Devi Tello MD MD sp3 Laura Shaw RN RN db Mendoza, Itzel im Masterson, Tawney RN RN tm6
--- NOTE | 2024-05-03 15:02 | EDPHYS ---
Physician Documentation [facility] Name: Remington Huff Age: 78 yrs Sex: Male : 1945 Arrival Date: 05/03/2024 Time: 13:25 Bed 5 Private MD: ED Physician Devi Tello HPI: 05/03 14:20 This 78 yrs old Male presents to ER via Ambulatory with complaints of Shortness Of sp3 Breath, Cough, Dizziness, Wheezing < 1 Year. 14:20 78-year-old male with history of COPD, diabetes, hypothyroidism, prior CVA presents to 3 the ED with chief complaint of 1 week of worsening shortness of breath, dyspnea on exertion and cough/wheeze. Patient denies chest pain, back pain, volume overload, history of CHF, peripheral edema, headache, fever, abdominal pain, vomiting, diarrhea, syncope, rash, known sick contacts or any other signs or symptoms on ROS at this time.. Historical: - Allergies: 13:45 Flagyl; db - PMHx: 13:45 Chronic obstructive lung disease; diabetes mellitus; Hypothyroidism; STROKE db (Hypothyroidism); APHASIA (Hypothyroidism); - PSHx: 13:45 Heart bypass surgery; QUADRUPLE HEART BYPASS (Heart bypass surgery); db - Immunization history:: Adult Immunizations unknown. - Infectious Disease History:: Denies. - Social history:: Smoking status: Patient denies any tobacco usage or history of. ROS: 14:21 Constitutional: Negative for fever, chills, and weight loss, Eyes: Negative for injury, sp3 pain, redness, and discharge, Neck: Negative for injury, pain, and swelling, Cardiovascular: Negative for chest pain, palpitations, and edema, Abdomen/GI: Negative for abdominal pain, nausea, vomiting, diarrhea, and constipation, Back: Negative for injury and pain, MS/Extremity: Negative for injury and deformity, Skin: Negative for injury, rash, and discoloration, Neuro: Negative for headache, weakness, numbness, tingling, and seizure, Psych: Negative for depression, anxiety, suicide ideation, homicidal ideation, and hallucinations, Allergy/Immunology: Negative for hives, rash, and allergies, Endocrine: Negative for neck swelling, polydipsia, polyuria, polyphagia, and marked weight changes, Hematologic/Lymphatic: Negative for swollen nodes, abnormal bleeding, and unusual bruising, 14:21 All other systems are negative, Exam: 14:21 Constitutional: This is a well developed, well nourished patient who is awake, alert, sp3 and in no acute distress. Head/Face: Normocephalic, atraumatic. Eyes: Pupils equal round and reactive to light, extra-ocular motions intact. Lids and lashes normal. Conjunctiva and sclera are non-icteric and not injected. Cornea within normal limits. Periorbital areas with no swelling, redness, or edema. Neck: Trachea midline, no thyromegaly or masses palpated, and no cervical lymphadenopathy. Supple, full range of motion without nuchal rigidity, or vertebral point tenderness. No Meningismus. Chest/axilla: Normal chest wall appearance and motion. Nontender with no deformity. No lesions are appreciated. Cardiovascular: Regular rate and rhythm with a normal S1 and S2. No gallops, murmurs, or rubs. Normal PMI, no JVD. No pulse deficits. Abdomen/GI: Soft, non-tender, with normal bowel sounds. No distension or tympany. No guarding or rebound. No evidence of tenderness throughout. Back: No spinal tenderness. No costovertebral tenderness. Full range of motion. Skin: Warm, dry with normal turgor. Normal color with no rashes, no lesions, and no evidence of cellulitis. MS/ Extremity: Pulses equal, no cyanosis. Neurovascular intact. Full, normal range of motion. Neuro: Awake and alert, GCS 15, oriented to person, place, time, and situation. Cranial nerves II-XII grossly intact. Motor strength 5/5 in all extremities. Sensory grossly intact. Cerebellar exam normal. Normal gait. Psych: Awake, alert, with orientation to person, place and time. Behavior, mood, and affect are within normal limits. 14:21 Respiratory: Diffuse wheezing noted without significant respiratory distress. 95% on room air pulse oxygenation., 14:31 ECG was reviewed by the Attending Physician. EKG demonstrates normal sinus rhythm at 60 sp3 bpm with a first-degree AV block with MT interval 210, right bundle branch block and nonspecific diffuse ST/T changes without evidence of acute ischemia. Vital Signs: 13:45 BP 150 / 73; Pulse 61; Resp 20; Temp 98.5(O); Pulse Ox 95% ; db 15:25 BP 160 / 81; Pulse 55; Resp 18; Pulse Ox 94% on R/A; ll1 MDM: 13:41 Medical Screening Exam initiated sp3 14:22 Data reviewed: vital signs, nurses notes, old medical records, lab test result(s), EKG, sp3 radiologic studies. ED course: 78-year-old male with dyspnea/shortness of breath. Differential diagnosis include COPD exacerbation, pneumonia, viral illness, COVID-19, influenza, new onset CHF, electrolyte abnormality, acute coronary syndrome, among others. Workup will include chest x-ray, CT chest PE protocol, swabs, labs, EKG and general supportive care. Disposition pending workup and patient course.. 15:00 ED course: patient much improved after nebulizer. Given negative workup on his CT and sp3 labs (mild bump in BNP) I believe this is all caused by COPD. Patient has been out of his nebulizer meds at home. I will refill these, put him on prednisone p.o. and oral antibiotic as well. Follow-up with PCP as needed.. 05/03 14:02 Order name: Basic Metabolic Panel; Complete Time: 14:54 sp3 05/03 14:02 Order name: CBC with Diff; Complete Time: 14:54 sp3 05/03 14:02 Order name: LFT's; Complete Time: 14:54 sp3 05/03 14:02 Order name: Magnesium; Complete Time: 14:54 sp3 05/03 14:02 Order name: NT PRO-BNP; Complete Time: 14:54 3 05/03 14:02 Order name: PT-INR; Complete Time: 14:54 sp3 05/03 14:02 Order name: Troponin HS; Complete Time: 14:54 sp3 05/03 14:21 Order name: Flu; Complete Time: 14:54 sp3 05/03 14:21 Order name: SARS RAPID; Complete Time: 14:54 sp3 05/03 14:21 Order name: RSV; Complete Time: 14:54 sp3 05/03 14:02 Order name: XRAY Chest (1 view); Complete Time: 14:54 3 05/03 14:11 Order name: CT Chest For PE Angio; Complete Time: 14:54 3 05/03 14:02 Order name: Cardiac monitoring; Complete Time: 14:29 sp3 05/03 14:02 Order name: EKG - Nurse/Tech; Complete Time: 14:29 sp3 05/03 14:02 Order name: IV Saline Lock; Complete Time: 14:21 sp3 05/03 14:02 Order name: Labs collected and sent; Complete Time: 14:21 sp3 05/03 14:02 Order name: O2 Per Protocol; Complete Time: 14:21 sp3 05/03 14:02 Order name: O2 Sat Monitoring; Complete Time: 14:21 sp3 Administered Medications: 14:41 Drug: DuoNeb Nebulize (3:1) (2.5 mg - 0.5 mg) 3 ml Nebulizer once Route: Nebulizer; ll1 15:23 Follow up: Response: No adverse reaction ll1 15:10 Drug: MethylPrednisoLONE IVP 125 mg IVP once Route: IVP; Site: right hand; ll1 15:25 Follow up: Response: No adverse reaction ll1 Disposition Summary: 05/03/24 15:01 Discharge Ordered Notes: Location: Home sp3 Condition: Stable sp3 Diagnosis - COPD exacerbation, dyspnea sp3 Followup: sp3 - With: Private Physician - When: Upon discharge from the Emergency Department - Reason: Continuance of care Discharge Instructions: - Discharge Summary Sheet sp3 - COPD and Physical Activity sp3 Forms: - Medication Reconciliation Form sp3 - Antibiotic Education sp3 - Prescription Opioid Use sp3 - Patient Portal Instructions sp3 - Leadership Thank You Letter sp3 Prescriptions: - Albuterol Sulfate 2.5 mg /3 mL (0.083 %) Inhalation Solution for Nebulization - inhale 1 unit NEBULIZATION route every 8 hours As needed; 1 Each; Refills: 0, sp3 Product Selection Permitted - Zithromax Z-Berny 250 mg Oral Tablet - take 1 tablet ORAL route as directed for 5 days Day 1 - take two (2) tablets sp3 one time. Day 2, 3, 4 , 5 take one (1) tablet once daily.; 6 tablet; Refills: 0, Product Selection Permitted - Prednisone 20 mg Oral Tablet - take 2 tablets ORAL route once daily for 5 days; 10 tablet; Refills: 0, Product sp3 Selection Permitted Signatures: Dispatcher [employer] Se Morales RN RN ll1 Devi Tello MD MD sp3 Shaw, Laura, RN RN db Corrections: (The following items were deleted from the chart) 14:02 14:02 BASIC METABOLIC PANEL+C.LAB.BRZ ordered. EDMS EDMS 14:02 14:02 CBC+H.LAB.BRZ ordered. EDMS EDMS 14:02 14:02 HEPATIC FUNCTION+C.LAB.BRZ ordered. EDMS EDMS 14:02 14:02 MAGNESIUM+C.LAB.BRZ ordered. EDMS EDMS 14:02 14:02 PROBNP+C.LAB.BRZ ordered. EDMS EDMS 14:02 14:02 PROTIME (+INR)+COAG.LAB.BRZ ordered. EDMS EDMS 14:02 14:02 Troponin High Sensitivity+C.LAB.BRZ ordered. EDMS EDMS 14:02 14:02 Chest Single View+RAD.RAD.BRZ ordered. EDMS EDMS 14:22 14:21 Influenza Screen (A \T\ B)+BA.LAB.BRZ ordered. EDMS EDMS 14:22 14:21 SARS-COV-2 Antigen Rapid+I.LAB.BRZ ordered. EDMS EDMS 14:22 14:21 Respiratory Syncytial Virus Ag+BA.LAB.BRZ ordered. EDMS EDMS
[2024-05-03] MEDS ORDERED: METHYLPREDNISOLONE 125 MG INJ ONE (15:10)
[2024-05-03 15:46] VITALS: TEMP 98.5
[2024-05-03 15:47] VITALS: BP 160/81; O2SAT 94
--- NOTE | 2024-05-04 15:41 | EKG ---
Test Date: 2024-05-03 Test Time: 14:27:49 Sewing Machine Assembler: FROYLAN MEASUREMENT RESULTS: Intervals: Rate: 57 [place]: 210 QRSD: 130 QT: 452 QTc: 439 [place]: P: -10 OH: 210 QRS: -21 T: -55 INTERPRETIVE STATEMENTS: Sinus bradycardia with 1st degree AV block Right bundle branch block Abnormal ECG Compared to ECG 12/29/2023 06:46:09 First degree AV block now present Right bundle-branch block now present Incomplete right bundle-branch block no longer present ST (T wave) deviation no longer present Possible ischemia no longer present Electronically Signed On 05-04-24 15:39:59 AGRICULTURAL EDUCATION PROFESSOR by Simon Helm
== END 2024-05-03 15:28 | disposition home or self-care (01) ==
LOC: ER 13:25
DX: J44.1 Chronic obstructive pulmonary disease with (acute) exacerbation (principal); R06.00 Dyspnea, unspecified; E11.9 Type 2 diabetes mellitus without complications; E03.9 Hypothyroidism, unspecified; Z11.52 Encounter for screening for COVID-19; Z86.73 Personal history of transient ischemic attack (TIA), and cerebral infarction without residual deficits
CPT/HCPCS: 36415; 71045; 71275; 80048; 80076; 83735; 83880; 84484; 85025; 85610; 87804; 87807; 87811; 93005; 96374; 99285; J2919; J7613; J7644; Q9967

== ENCOUNTER 2024-06-09 05:41 | Inpatient (IN) | payer BC ==
--- OUTSIDE RECORDS SUMMARY | 2024-06-09 05:44 | XMS REPORT | Continuity of Care Document ---
Author Name Unknown Address [address] [facility] [address] [place] [address] [facility] Address [address] [facility] [address] [place] [address] Care Team Providers Care Information Services Consultant Name Role Phone Omer LEWIS [facility] Primary Care Physician + Arnav Tello Attending Clinician Unavailable Princess Oneal MD Attending Clinician [phone] PRINCESS ONEAL Attending Clinician Unavail able [place] Attending Clinician Unavailable [place] Admitting Clinician Unavailable Payers Payer Name Policy Type Policy Number Effective Date Expirati on Date Source [facility] Advantage [facility] (prefix ZGJ) 6 [id number] 2023 00:00:00 [facility] MEDICARE ADVANTAGE O Medicare [id number] 2023 00:00:00 [facility] [employer] [employer] [id number] [facility] [place]ICARE [place]: [employer] [id number] 2012 00:00:00 [employer] (MEDICARE SUPPLEMENT) [id number] Problems Condition Name Condition Details Condition Category Status Onset Date Resolution Date Last Treatment Date Treating Clinician Comments Source Hypertensi ve heart disease Hypertensi ve heart disease Disease Active 2023-05 00:00: 00 Dara Dupree Claudicati on Claudicati on Disease Active 2023-05 2 00:00: 00 Dara Dupree Arrhythmia Arrhythmia Disease Active 2023-05 2 00:00: 00 Dara Dupree Other headache syndrome Other headache syndrome Disease Active 8 00:00: 00 Dara Dupree 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 Disease Active 11-30 00:00: 00 Dara Dupree Atheroscle rosis Atheroscle rosis Disease Active 11-30 00:00: 00 Dara Dupree Hyperlipid emia Hyperlipid emia Disease Active 11-30 00:00: 00 Dara Dupree Memory loss Memory loss Disease Active 11-30 00:00: 00 Dara Dupree Carotid artery disease Carotid artery disease Disease Active 627 00:00: 00 Dara Dupree Essential hypertensi on Essential hypertensi on Disease Active 4-25 00:00: 00 Dara Dupree Diabetes mellitus Diabetes Mellitus Problem Active 2020-0515 00:00: 00 [facility] Diabetes mellitus without complicati on (CMS/HCC) Diabetes mellitus without complicati on (CMS/HCC) Disease Active 2020-05 00:00: 00 Dara Dupree Diabetes mellitus Diabetes mellitus Disease Active 2020-05 00:00: 00 Dara Dupree [id number] Mixed hyperlipid emia Problem [facility] [id number] RENEE (generaliz ed anxiety disorder) Problem [facility] [id number] Hypothyroi dism (acquired) Problem [facility] [id number] Hearing loss, unspecifie d hearing loss type, unspecifie d laterality Problem Common [facility] [id number] Coronary artery disease of bypass graft of [place] heart with stable angina pectoris Problem [facility] [id number] Type 2 diabetes mellitus with hyperglyce milagros, without long-term current use of insulin Problem [facility] [id number] Primary osteoarthr itis of left knee Problem [facility] [id number] Pseudophak ia Problem [facility] [id number] Psoriasis Problem [facility] [id number] Moderate major depression , single episode Problem [facility] [id number] Body mass index [BMI] 30.0-30.9, adult Problem [facility] [id number] Other obesity due to excess calories Problem [facility] [id number] Chronic obstructiv e pulmonary disease, unspecifie d COPD type Problem [facility] [id number] GERD without esophagiti s Problem [facility] [id number] Type 2 diabetes mellitus with other diabetic kidney complicati on Problem [facility] [id number] Ischemic stroke Problem [facility] [id number] Cerebrovas cular accident (CVA), unspecifie d mechanism Problem [facility] Abdominal aortic aneurysm without rupture (disorder) Abdominal aortic aneurysm (AAA) without rupture, unspecifie d part Problem [facility] Allergies, Adverse Reactions, Alerts Allergy Name Allergy Type Status Severity Reaction(s) Onset Date Inactive Date Treating Clinician Comments Source METRONID AZOLE DRUG INGREDI Active 11-09 00:00: 00 MHEOUT Metronid azole Propensi ty to adverse reaction s Active 11-09 00:00: 00 Dara Dupree metronid azole metronid azole Active Unknown [facility] Flagyl Allergy to substanc e Active [facility] ALLERGIE S NOT ON FILE SYSTEMIC Active MHEOUT Social History Social Habit Start Date Stop Date Quantity Comments Source Gender identity Stevo Dupree Sexual orientation Gricelda Dupree Sex Assigned At [facility] History of Social function 2024-04-19 00:00:00 2024-04-19 00:00:00 [facility] Alcoholic beverage intake 2024-04-19 00:00:00 2024-04-19 00:00:00 .29 /d [facility] Cigarettes smoked current (pack per day) - Reported 2023-11-10 00:00:00 2023-11-10 00:00:00 [facility] Cigarette pack-years 2023-11-10 00:00:00 2023-11-10 00:00:00 [facility] Tobacco use and exposure 2023-11-10 00:00:00 2023-11-10 00:00:00 Smokeless tobacco non-user [facility] History of tobacco use 1966-05-16 00:00:00 2016-06-24 00:00:00 Passive smoker [facility] Smoking Status Start Date Stop Date Source Ex-smoker 2023-11-10 00:00:00 2023-11-10 [facility] Medications Ordered Medication Name Filled Medication Name Start Date Stop Date Current Medication? Ordering Clinician Indication Dosage Frequency Signature (SIG) Comments Components Source Albuterol Sulfate (2.5 MG/3ML) 0.083% Albuterol Sulfate (2.5 MG/3ML) 0.083% 1- 00:00: 00 No TID Albuterol Sulfate (2.5 MG/3ML) 0.083% donepezil (Aricept) 10 MG tablet donepezil (Aricept) 10 MG tablet 2023-05 00:00: 00 04-19 23:59 :00 No 10mg Take 1 tablet by mouth at bedtime. [facility] donepezil (Aricept) 5 MG tablet donepezil (Aricept) 5 MG tablet 2023-05 0-07 00:00: 00 04-19 00:00 :00 No 5mg Take 1 tablet by mouth at bedtime. [facility] Eliquis 5 MG tablet Eliquis 5 MG tablet 12-11 00:00: 00 Yes 5mg Q.5D Take 5 mg by mouth in the morning and 5 mg in the evening. Dara Dupree levothyroxi ne (Synthroid, Levoxyl) 50 MCG tablet [...] and 100 mg in the evening. Dara Dupere cholecalcif brett (Vitamin D-3) 125 MCG (5000 UT) capsule cholecalcif brett (Vitamin D-3) 125 MCG (5000 UT) capsule 11-09 16:23: 09 Yes 12.5ug QD Take 12.5 mcg by mouth 1 time each day. Dara Dupree aspirin EC 81 MG EC tablet aspirin EC 81 MG EC tablet 11-09 16:23: 09 12-25 00:00 :00 No 81mg QD Take 81 mg by mouth 1 time each day. Dara Dupree escitalopra m (Lexapro) 20 MG tablet escitalopra m (Lexapro) 20 MG tablet 10-28 00:00: 00 Yes 20mg QD Take 20 mg by mouth 1 time each day. Dara Dupree furosemide (Lasix) 40 MG tablet furosemide (Lasix) [...] 2 - PreserVisio n AREDS 2 - 3- 00:00: 00 No PreserVisi on AREDS 2 - Bupivicaine [place] Bupivicaine [place] 7-06 00:00: 00 No 4mL [facility] Kenalog (Triamcinol one) Kenalog (Triamcinol one) 3-30 00:00: 00 No 1mL Common [facility] allopurinol 100 mg tablet TAKE 1 TABLET BY MOUTH ONCE DAILY FOR 30 DAYS allopurinol 100 mg tablet TAKE 1 TABLET BY MOUTH ONCE DAILY FOR 30 DAYS No allopurino l 100 mg tablet TAKE 1 TABLET BY MOUTH ONCE DAILY FOR 30 DAYS [facility] atorvastati n 40 mg tablet atorvastati n 40 mg tablet No atorvastat in 40 mg tablet [facility] betamethaso ne valerate 0.1 % topical cream betamethaso ne valerate 0.1 % topical cream No betamethas one valerate 0.1 % topical cream [facility] dexamethaso ne sodium phosphate 4 mg/mL injection solution 1 cc dexamethaso ne sodium phosphate 4 mg/mL injection solution 1 cc No dexamethas one sodium phosphate 4 mg/mL injection solution 1 cc [facility] levothyroxi ne 25 mcg tablet levothyroxi ne 25 mcg tablet No levothyrox ine 25 mcg tablet [facility] tramadol 50 mg tablet Take 1 tablet every 12 hours by oral route as needed for 10 days. tramadol 50 mg tablet Take 1 tablet every 12 hours by oral route as needed for 10 days. No tramadol 50 mg tablet Take 1 tablet every 12 hours by oral route as needed for 10 days. [facility] Benzonatate 200 MG [...] quadrivalent influenza, high-dose, quadrivalent 2021-05-26 16:34:19 Completed [facility] Influenza, High-dose Seasonal, Quadrivalent, Preservative Free Influenza, High-dose Seasonal, Quadrivalent, Preservative Free 2021-05-26 00:00:00 Completed [facility] COVID-19, mRNA, LNP-S, PF, 100 mcg/0.5 mL dose (Moderna) COVID-19, mRNA, LNP-S, PF, 100 mcg/0.5 mL dose (Moderna) 2021-04-06 00:00:00 Completed [facility] Moderna SARS-CoV-2 Moderna SARS-CoV-2 2021-04-06 00:00:00 Completed [facility] COVID-19, mRNA, LNP-S, PF, 100 mcg/0.5 mL dose (Moderna) COVID-19, mRNA, LNP-S, PF, 100 mcg/0.5 mL dose (Moderna) 2020-06-27 00:00:00 Completed [facility] Moderna SARS-CoV-2 Moderna SARS-CoV-2 2020-06-27 00:00:00 Completed [facility] COVID-19, mRNA, LNP-S, PF, 100 mcg/0.5 mL dose (Moderna) COVID-19, mRNA, LNP-S, PF, 100 mcg/0.5 mL dose (Moderna) 2020-05-29 00:00:00 Completed [facility] Moderna SARS-CoV-2 Moderna SARS-CoV-2 2020-05-29 00:00:00 Completed [facility] Vital Signs Vital Name Observation Time Observation Value Comments S ource height 2024-04-25 10:00:00 75 [in_i] Commo n [facility] weight 2024-04-25 10:00:00 232.0 [lb_av] Co mmon [facility] temperature 2024-04-25 10:00:00 98.0 [degF] Com mon [facility] bmi 2024-04-25 10:00:00 28.99 kg/m2 Comm on [facility] oximetry 2024-04-25 10:00:00 94 % Commo n [facility] respiratory rate 2024-04-25 10:00:00 16 /min [facility] blood pressure systolic 2024-04-25 10:00:00 124 mm[Hg] Common [facility] blood pressure diastolic 2024-04-25 10:00:00 66 mm[Hg] Common [facility] Systolic blood pressure 2024-04-19 09:30:00 138 mm[Hg] [facility] Diastolic blood pressure 2024-04-19 09:30:00 75 mm[Hg] [facility] Heart rate 2024-04-19 09:30:00 63 /min Memor [facility] Body temperature 2024-04-19 09:30:00 36.78 Shakira [facility] Epic Respiratory rate 2024-04-19 09:30:00 16 /min [facility] Body height 2024-04-19 09:30:00 190.5 cm Stevo rial [facility] Body weight 2024-04-19 09:30:00 106.414 kg Stevo rial [facility] BMI 2024-04-19 09:30:00 29.32 kg/m2 Stevo rial [facility] Oxygen saturation in Arterial blood by Pulse oximetry 2024-04-19 09:30:00 95 /min [facility] Systolic blood pressure 2024-04-19 09:30:00 138 mm[Hg] [facility] Diastolic blood pressure 2024-04-19 09:30:00 75 mm[Hg] [facility] Heart rate 2024-04-19 09:30:00 63 /min [facility] Body temperature 2024-04-19 09:30:00 36.78 Shakira [facility] Epic Respiratory rate 2024-04-19 09:30:00 16 /min [facility] Epic Body height 2024-04-19 09:30:00 190.5 cm Stevo rial [facility] Body weight 2024-04-19 09:30:00 106.414 kg Stevo rial [facility] BMI 2024-04-19 09:30:00 29.32 kg/m2 Stevo rial [facility] Oxygen saturation in Arterial blood by Pulse oximetry 2024-04-19 09:30:00 95 /min [facility] Systolic blood pressure 2024-02-20 09:30:00 141 mm[Hg] [facility] Diastolic blood pressure 2024-02-20 09:30:00 68 mm[Hg] [facility] Heart rate 2024-02-20 09:30:00 53 /min [facility] Body temperature 2024-02-20 09:30:00 36.61 Shakira [facility] Respiratory rate 2024-02-20 09:30:00 16 /min [facility] Body height 2024-02-20 09:30:00 190.5 cm Stevo riazahraa [facility] Body weight 2024-02-20 09:30:00 107.049 kg Stevo rial [facility] BMI 2024-02-20 09:30:00 29.50 kg/m2 Stevo rial [facility] Oxygen saturation in Arterial blood by Pulse oximetry 2024-02-20 09:30:00 95 /min Chrissie Escalante [facility] Systolic blood pressure 2024-02-20 09:30:00 141 mm[Hg] [facility] Diastolic blood pressure 2024-02-20 09:30:00 68 mm[Hg] [facility] Heart rate 2024-02-20 09:30:00 53 /min Memor ial [facility] Body temperature 2024-02-20 09:30:00 36.61 Shakira [facility] Respiratory rate 2024-02-20 09:30:00 16 /min [facility] Body height 2024-02-20 09:30:00 190.5 cm Stevo patty [facility] Body weight 2024-02-20 09:30:00 107.049 kg Stevo patty [facility] BMI 2024-02-20 09:30:00 29.50 kg/m2 Stevo rial [facility] Oxygen saturation in Arterial blood by Pulse oximetry 2024-02-20 09:30:00 95 /min [facility] Systolic blood pressure 2024-01-06 09:49:00 121 mm[Hg] [facility] Diastolic blood pressure 2024-01-06 09:49:00 64 mm[Hg] [facility] Heart rate 2024-01-06 09:49:00 63 /min Memor ial [facility] Body temperature 2024-01-06 09:49:00 37.5 Shakira [facility] Respiratory rate 2024-01-06 09:49:00 16 /min [facility] Body height 2024-01-06 09:49:00 188 [facility] 2024-01-06 09:49:00 107.956 [facility] BMI 2024-01-06 09:49:00 30.56 kg/m2 [facility] Oxygen saturation in Arterial blood by Pulse oximetry 2024-01-06 09:49:00 94 /min [facility] Systolic blood pressure 2024-01-06 09:49:00 121 mm[Hg] [facility] Diastolic blood pressure 2024-01-06 09:49:00 64 mm[Hg] [facility] Heart rate 2024-01-06 09:49:00 63 /min [facility] Body temperature 2024-01-06 09:49:00 37.5 Shakira [facility] Respiratory rate 2024-01-06 09:49:00 16 /min [facility] Body height 2024-01-06 09:49:00 188 cm Stevo brambila [facility] Body weight 2024-01-06 09:49:00 107.956 kg Stevoalbaro brambila [facility] BMI 2024-01-06 09:49:00 30.56 kg/m2 [facility] Oxygen saturation in Arterial blood by Pulse oximetry 2024-01-06 09:49:00 94 /min [facility] height 2023-12-15 10:00:00 75 [in_i] Commo n [facility] weight 2023-12-15 10:00:00 238.6 [lb_av] Co mmon [facility] temperature 2023-12-15 10:00:00 97.6 [degF] Com mon [facility] bmi 2023-12-15 10:00:00 29.82 kg/m2 Comm on [facility] oximetry 2023-12-15 10:00:00 95 % Commo n [facility] blood pressure systolic 2023-12-15 10:00:00 138 mm[Hg] Common [facility] blood pressure diastolic 2023-12-15 10:00:00 70 mm[Hg] Common [facility] height 2023-12-15 10:00:00 75 [in_i] Commo n [facility] weight 2023-12-15 10:00:00 238.6 [lb_av] Co mmon [facility] temperature 2023-12-15 10:00:00 97.6 [degF] Com [facility] bmi 2023-12-15 10:00:00 29.82 kg/m2 Comm on [facility] oximetry 2023-12-15 10:00:00 95 % Commo n [facility] blood pressure systolic 2023-12-15 10:00:00 138 mm[Hg] [facility] blood pressure diastolic 2023-12-15 10:00:00 70 mm[Hg] Common [facility] height 2023-12-15 10:10:00 75 [in_i] Commo n [facility] weight 2023-12-15 10:10:00 238.6 [lb_av] Co on [facility] temperature 2023-12-15 10:10:00 97.6 [degF] Com [facility] bmi 2023-12-15 10:10:00 29.82 kg/m2 Comm on [facility] oximetry 2023-12-15 10:10:00 95 % Commo n [facility] blood pressure systolic 2023-12-15 10:10:00 138 mm[Hg] [facility] blood pressure diastolic 2023-12-15 10:10:00 70 mm[Hg] [facility] Systolic blood pressure 2023-12-01 09:49:00 113 mm[Hg] [facility] Diastolic blood pressure 2023-12-01 09:49:00 60 mm[Hg] [facility] Heart rate 2023-12-01 09:49:00 67 /min [facility] temperature 2023-12-01 09:49:00 36.89 Shakira [facility] Respiratory rate 2023-12-01 09:49:00 16 /min [facility] Body height 2023-12-01 09:49:00 188 [facility] 2023-12-01 09:49:00 106.595 kg [facility]ty [facility] BMI 2023-12-01 09:49:00 30.17 kg/m2 Stevo rial [facility] Oxygen saturation in Arterial blood by Pulse oximetry 2023-12-01 09:49:00 94 /min [facility] Systolic blood pressure 2023-12-01 09:49:00 113 mm[Hg] [facility] Diastolic blood pressure 2023-12-01 09:49:00 60 mm[Hg] [facility] Heart rate 2023-12-01 09:49:00 67 /min Memor ial [facility] Body temperature 2023-12-01 09:49:00 36.89 Shakira [facility] Respiratory rate 2023-12-01 09:49:00 16 /min [facility] Body height 2023-12-01 09:49:00 188 cm Stevo brambila [facility] Body weight 2023-12-01 09:49:00 106.595 kg Stevo patty [facility] BMI 2023-12-01 09:49:00 30.17 kg/m2 Stevo rial [facility] Oxygen saturation in Arterial blood by Pulse oximetry 2023-12-01 09:49:00 94 /min [facility] Systolic blood pressure 2023-11-10 16:24:00 128 mm[Hg] [facility] Diastolic blood pressure 2023-11-10 16:24:00 67 mm[Hg] [facility] Heart rate 2023-11-10 16:24:00 61 /min Memor ial [facility] Body temperature 2023-11-10 16:24:00 37.5 Shakira [facility] Respiratory rate 2023-11-10 16:24:00 16 /min [facility] Body height 2023-11-10 16:24:00 188 cm [facility] 2023-11-10 16:24:00 107.956 [facility] BMI 2023-11-10 16:24:00 30.56 kg/m2 Stevo rial [facility] Oxygen saturation in Arterial blood by Pulse oximetry 2023-11-10 16:24:00 94 /min [facility] Systolic blood pressure 2023-11-10 16:24:00 128 mm[Hg] [facility] Diastolic blood pressure 2023-11-10 16:24:00 67 mm[Hg] [facility] Heart rate 2023-11-10 16:24:00 61 /min Memjoshua mcallister [facility] Body temperature 2023-11-10 16:24:00 37.5 Shakira [facility] Respiratory rate 2023-11-10 16:24:00 16 /min [facility] Body height 2023-11-10 16:24:00 188 cm [facility] Body weight 2023-11-10 16:24:00 107.956 kg [facility]o [facility] BMI 2023-11-10 16:24:00 30.56 kg/m2 Stevoalbaro brambila [facility] Oxygen saturation in Arterial blood by Pulse oximetry 2023-11-10 16:24:00 94 /min [facility] height 2023-11-10 11:40:00 75 [in_i] Commo n [facility] weight 2023-11-10 11:40:00 236.4 [lb_av] Co mmon [facility] temperature 2023-11-10 11:40:00 97.7 [degF] Com mon [facility] bmi 2023-11-10 11:40:00 29.54 kg/m2 Comm on [facility] oximetry 2023-11-10 11:40:00 96 % Commo n [facility] blood pressure systolic 2023-11-10 11:40:00 126 mm[Hg] Common [facility] blood pressure diastolic 2023-11-10 11:40:00 66 mm[Hg] [facility] height 2023-08-12 09:50:00 75 [in_i] Commo n [facility] weight 2023-08-12 09:50:00 240.8 [lb_av] Co mmon [facility] temperature 2023-08-12 09:50:00 97.8 [degF] Com mon [facility] bmi 2023-08-12 09:50:00 30.09 kg/m2 Comm on [facility] oximetry 2023-08-12 09:50:00 95 % Commo n [facility] blood pressure systolic 2023-08-12 09:50:00 112 mm[Hg] [facility] blood pressure diastolic 2023-08-12 09:50:00 64 mm[Hg] [facility] height 2022-11-18 08:00:00 75 [in_i] Commo n [facility] weight 2022-11-18 08:00:00 229.2 [lb_av] Co mmon [facility] bmi 2022-11-18 08:00:00 28.64 kg/m2 Comm on [facility] blood pressure systolic 2022-11-18 08:00:00 132 mm[Hg] [facility] blood pressure diastolic 2022-11-18 08:00:00 74 mm[Hg] [facility] height 2022-10-12 10:00:00 75 [in_i] Commo n [facility] weight 2022-10-12 10:00:00 231 [lb_av] Comm on [facility] temperature 2022-10-12 10:00:00 98.5 [degF] Com mon [facility] bmi 2022-10-12 10:00:00 28.87 kg/m2 Comm on [facility] blood pressure systolic 2022-10-12 10:00:00 134 mm[Hg] [facility] blood pressure diastolic 2022-10-12 10:00:00 78 mm[Hg] [facility] height 2022-09-24 08:40:00 75 [in_i] Commo n [facility] weight 2022-09-24 08:40:00 226 [lb_av] Comm on [facility] temperature 2022-09-24 08:40:00 96.3 [degF] Com mon [facility] bmi 2022-09-24 08:40:00 28.24 kg/m2 Comm on [facility] oximetry 2022-09-24 08:40:00 92 % Commo n [facility] respiratory rate 2022-09-24 08:40:00 16 /min Common [facility] blood pressure systolic 2022-09-24 08:40:00 125 mm[Hg] Common [facility] blood pressure diastolic 2022-09-24 08:40:00 67 mm[Hg] Common [facility] height 2022-08-12 14:30:00 75 [in_i] Commo n [facility] weight 2022-08-12 14:30:00 231.4 [lb_av] Co mmon [facility] temperature 2022-08-12 14:30:00 97.6 [degF] Com [facility] [facility] bmi 2022-08-12 14:30:00 28.92 kg/m2 Comm on [facility] blood pressure systolic 2022-08-12 14:30:00 126 mm[Hg] [facility] blood pressure diastolic 2022-08-12 14:30:00 72 mm[Hg] [facility] height 2022-06-28 15:30:00 75 [in_i] Commo n [facility] weight 2022-06-28 15:30:00 225 [lb_av] Comm on [facility] temperature 2022-06-28 15:30:00 98 [degF] Comm on [facility] bmi 2022-06-28 15:30:00 28.12 kg/m2 Comm on [facility] blood pressure systolic 2022-06-28 15:30:00 125 mm[Hg] [facility] blood pressure diastolic 2022-06-28 15:30:00 72 mm[Hg] [facility] BP Diastolic 2021-05-26 00:00:00 52 mm[Hg] [facility] Height 2021-05-26 00:00:00 76 [in_i] [facility] BMI (Body Mass Index) 2021-05-26 00:00:00 29.1 kg/m2 [facility] BP Systolic 2021-05-26 00:00:00 102 mm[Hg] [facility] Body Weight 2021-05-26 00:00:00 239 [lb_av] [facility] BP Diastolic 2021-04-29 00:00:00 65 mm[Hg] [facility] Height 2021-04-29 00:00:00 76 [in_i] [facility] BMI (Body Mass Index) 2021-04-29 00:00:00 29.5 kg/m2 [facility] BP Systolic 2021-04-29 00:00:00 113 mm[Hg] [facility] Body Weight 2021-04-29 00:00:00 242.2 [lb_av] V [facility] Procedures Procedure Date / Time Performed Performing Clinicia n Source EEG AWAKE AND SLEEP 2023-12-26 18:43:[facility] 2023-12-01 00:00:[address] [facility] MRI brain wo IV contrast 2023-12-01 00:00:00 [facility] X-RAY OF KNEE 3 VIEW 2021-04-29 00:00:00 [facility] Plan of Care Planned Activity Planned Date Details Comments Source Diagnostic Test Pending 2021-05-26 00:00:00 HbA1c (hemoglobin A1c), blood [code = HbA1c (hemoglobin A1c), blood] [facility] Diagnostic Test Pending 2021-05-26 00:00:00 CBC w/ auto diff [code = CBC w/ auto diff] [facility] Diagnostic Test Pending 2021-05-26 00:00:00 iron + TIBC + ferritin, serum [code = iron + TIBC + ferritin, serum] [facility] Diagnostic Test Pending 2021-05-26 00:00:00 vitamin B12 + folate, serum or blood [code = vitamin B12 + folate, serum or blood] [facility] Diagnostic Test Pending 2021-05-26 00:00:00 lipid panel, serum [code = lipid panel, serum] [facility] Diagnostic Test Pending 2021-05-26 00:00:00 PSA, total + free, serum or plasma [code = PSA, total + free, serum or plasma] [facility] Encounters Start Date/Time End Date/Time Encounter Type Admission Type Attending [facility] Facility Care Department Encounter ID Source 2024-04-24 14:06:00 Outpatient Tello, [facility] [id number] [facility] 2023-12-15 08:32:00 Outpatient Tello, [facility] [id number] [facility] 2023-11-08 10:25:01 Outpatient Tello, [facility] [id number] [facility] 2023-11-04 13:30:00 [facility]patient [facility], [facility] [id number] [facility] 2023-08-05 08:45:00 Outpatient Tello, [facility] [id number] [facility] 2022-10-12 14:03:00 Outpatient T[facility], [facility] [id number] [facility] 2022-09-02 15:13:01 Outpatient Tello, [facility] [id number] [facility] 2022-08-13 15:56:00 Outpatient Tello, [facility] [id number] [facility] 2022-08-06 08:19:03 Outpatient Tello, [facility] [id number] [facility] 2022-04-27 08:13:03 Outpatient Tello, [facility] [id number] [facility] 2024-05-22 00:00:00 2024-05-22 00:00:00 (TEL) [facility] [id number] [facility] 2024-05-15 00:00:00 2024-05-15 00:00:00 (TEL) [facility]LMLC [facility] [id number] [facility] 2024-04-25 00:00:00 2024-04-25 00:00:00 OFFICE VISIT ESTAB PT LEVEL 4 [facility]C [facility] [id number] [facility] 2024-04-19 09:30:00 2024-04-19 10:15:35 Office Visit Princess Oneal [id number] [id number] [facility]dymann [facility] 2024-04-19 09:18:22 2024-04-19 10:15:35 Outpatient PRINCESS [facility]AL [facility] [id number] [facility] 2024-02-20 09:21:25 2024-02-20 10:07:55 Outpatient PRINCESS ONEAL [facility] [id number] [facility] 2024-02-20 09:45:00 2024-02-20 10:00:00 Office Visit Princess Oneal [id number] [id number] [id number] Dara [facility] 2024-01-06 09:45:00 2024-01-06 10:19:03 Office Visit Princess Oneal [id number] [id number] [facility] 2024-01-06 09:44:21 2024-01-06 10:19:03 Outpatient PRINCESS ONEAL [facility] M[facility]OUT [id number] [facility] 2023-12-29 00:00:00 2023-12-29 00:00:00 [facility]EL[facility] [id number] [facility] 2023-12-26 10:00:00 2023-12-26 11:02:48 Office Visit Princess Oneal [id number] [id number] Dara [facility] 2023-12-26 09:45:37 2023-12-26 11:02:48 Outpatient MHEOUT M[facility] [id number] [facility] 2023-12-15 00:00:00 2023-12-15 00:00:00 OFFICE VISIT ESTAB [facility] [id number] [facility] 2023-12-15 00:00:00 2023-12-15 00:00:00 SUB ANNUAL [facility] [id number] [facility] 2023-12-01 09:45:00 2023-12-01 10:34:47 Office Visit Princess Oneal [id number] 350.1.13.70 8.2.7.2.686 [id number] Dara [facility] 2023-12-01 09:28:05 2023-12-01 10:34:47 Outpatient PRINCESS ONEAL [facility] [id number] [facility] 2023-11-28 00:00:00 2023-11-28 00:00:00 [facility] [id number] [facility] 2023-11-10 16:05:03 2023-11-10 17:04:42 Outpatient PRINCESS ONEAL [facility] [id number] [facility] 2023-11-10 15:30:00 2023-11-10 17:04:42 Consult Princess nOeal 1.2.840.114 [id number] [id number] Dara [facility] 2023-11-10 00:00:00 2023-11-10 00:00:00 OFFICE VISIT ESTAB PT LEVEL 5 [facility] [id number] [facility] 2023-11-04 00:00:00 2023-11-04 00:00:00 (TEL) [facility] [id number] [facility] 2023-11-03 00:00:00 2023-11-03 00:00:00 (TEL) [facility] [id number] [facility] 2023-10-28 00:00:00 2023-10-28 00:00:00 (TEL) [facility] [id number] [facility] 2023-08-12 00:00:00 2023-08-12 00:00:00 OFFICE VISIT ESTAB PT LEVEL 4 [facility] [id number] [facility] 2023-08-12 00:00:00 2023-08-12 00:00:00 (TEL) [facility]C [facility] [id number] [facility] 2023-07-12 00:00:00 2023-07-12 00:00:00 (TEL) [facility]C [facility] [id number] [facility] 2023-02-07 00:00:00 2023-02-07 00:00:00 (TEL) STLMLC [facility] [id number] [facility] 2022-11-18 00:00:00 2022-11-18 00:00:00 (IN/ASP) INJ ASP STLMLC STLMLC [id number] [facility] 2022-10-12 00:00:00 2022-10-12 00:00:00 OFFICE VISIT ESTAB PT LEVEL 4 [facility] STL[facility]C [id number] [facility] 2022-09-24 00:00:00 2022-09-24 00:00:00 OFFICE VISIT ESTAB PT LEVEL 4 [facility]C STLMLC [id number] [facility] 2022-08-12 00:00:00 2022-08-12 00:00:00 OFFICE VISIT NEW PT LEVEL 4 [facility] ST[facility] [id number] [facility] 2022-07-15 00:00:00 2022-07-15 00:00:00 (TEL) STLMLC STL[facility] [id number] [facility] 2022-07-13 00:00:00 2022-07-13 00:00:00 (TEL) STLMLC STL[facility]C [id number] [facility] 2022-06-28 00:00:00 2022-06-28 00:00:00 OFFICE VISIT ESTAB PT LEVEL 4 [facility] [id number] [facility] 2022-05-11 00:00:00 2022-05-11 00:00:00 Outpatient Patel_J_HOU _PA VFP VFP [id number] [facility] 2022-02-11 00:00:00 2022-02-11 00:00:00 Outpatient Patel_J VFP VFP [id number] [facility] 2021-08-25 02:54:00 2021-08-25 02:54:00 Outpatient Patel_J VFP VFP [id number] [facility] 2021-08-21 09:15:00 2021-08-21 09:15:00 Outpatient Patel_J VFP VFP [id number] [facility] 2021-08-04 05:18:00 2021-08-04 05:18:00 Outpatient Patel_J VFP VFP [id number] [facility] 2021-07-10 11:18:00 2021-07-10 11:18:00 Outpatient Patel_J VFP VFP [id number] [facility] 2021-06-30 02:59:00 2021-06-30 02:59:00 Outpatient Patel_J VFP VFP [id number] [facility] 2021-06-17 03:12:00 2021-06-17 03:12:00 Outpatient Patel_J VFP VFP [id number] [facility] 2021-06-13 04:13:00 2021-06-13 04:13:00 Outpatient Patel_J VFP VFP [id number] [facility] 2021-06-02 08:39:00 2021-06-02 08:39:00 Outpatient Patel_J VFP VFP [id number] [facility] 2021-06-01 06:35:00 2021-06-01 06:35:00 Outpatient Patel_J VFP VFP [id number] [facility] 2021-05-31 10:55:00 2021-05-31 10:55:00 Outpatient Patel_J VFP VFP [id number] [facility] 2021-05-26 12:10:00 2021-05-26 12:10:00 Outpatient Patel_J VFP VFP [id number] [facility] 2021-05-26 00:00:00 2021-05-26 00:00:00 [place]: [address] [facility], [address], [place] [address] , Ph. VFP [place] - [facility] - VM_HOU_Shageovany [facility] [id number] [facility] 2021-05-20 07:01:00 2021-05-20 07:01:00 Outpatient Patel_J VFP VFP [id number] [facility] 2021-05-20 07:01:00 2021-05-20 07:01:00 Outpatient Patel_J VFP VFP [id number] [facility] 2021-05-04 11:13:00 2021-05-04 11:13:00 Outpatient Patel_J VFP VFP [id number] [facility] 2021-04-30 04:37:00 2021-04-30 04:37:00 Outpatient Patel_J VFP VFP [id number] [facility] 2021-04-29 01:30:00 2021-04-29 01:30:00 Outpatient Patel_J VFP [facility] [id number] [facility] 2021-04-29 00:00:00 2021-04-29 00:00:00 [place]: [address] [address], [address], [place] [address] , Ph. P [place] - [facility] - VM_HOU_[facility] [id number] [facility] 2021-04-28 05:29:00 2021-04-28 05:29:00 Outpatient Patel_J VFP [facility] [id number] [facility] Results Test Description Test Time Test Comments Results Result Co mments Source HEMOGLOBIN [id number] 00:00:00* Test Item Value Reference Range Interpretation Comme nts HEMOGLOBIN A1c (test code = 4548-4) 6.1 % See_Comment H [Automated messa ge] The system which generated this result transmitted reference range: 4.2-5.6 %. The reference range was not used to interpret this result as normal/abnormal. Prostate specific Ag panel - Serum or [id number] 00:00:00* Test Item Value Reference Range Interpretation Comme nts PSA, total (test code = PSA, total) 1.3 NG/mL See_Comment [Automated [employer] ssage] The system which generated this result transmitted reference range: < or = 4.0. The reference range was not used to interpret this result as normal/abnormal. PSA, free (test code = PSA, free) 0.5 NG/mL PSA, % free (test code = PSA, % free) 38 % (calc) >[address] [facility] PracticeFolate+Cyanocobalamin [Interpretation] in Serum or Blood 2021-06-03 00:00:00* Test Item Value Reference Range Interpretation Comme nts vitamin B12 (test code = vit ornelas B12) 301 pg/mL 200-1100 folate, serum (test code = f olate, serum) 8.8 NG/mL [facility] Practiceiron + TIBC + ferritin, [id number] 00:00:00* Test Item Value Reference Range Interpretation Comme nts ferritin (test code = ferritin) 397.37 NG/mL 21.81-274.66 H iron, total (test code = iro n, total) 114 mcg/dL 50-180 transferrin (test code = transferrin) 220 mg/dL 163-344 total iron binding capacity (calculated) (test code = total iron binding capacity (calculated)) 315 mcg/dL 250-425 % saturation (test code = % saturation) 36.2 % 15.0-60.0 [facility] W Auto Differential panel - [id number] 00:00:00 * Test Item Value Reference Range [...] (test code = baso#) 0.05 x10*3/?L 0.01-0.08 [facility] - Serum or [id number] 00:00:00* Test Item Value Reference Range Interpretation [...] (test code = 2089-1) 98 mg/dL <130 [facility] Hospital[facility]emoglobin A1c/Hemoglobin.total in [id number] 00:00:00* Test Item Value Reference Range Interpretation Comme nts Hemoglobin A1c/Hemoglobin.to dann in Blood (test code = 4548-4) 6.4 % 1.0-5.7 H average blood glucose (calcu lation) (test code = average blood glucose (calculation)) 137 mg/dL [facility] HospitalLtaylibtedrgikmqzlmgoo5425-80-15 00:00:00[facility] HospitalNeuronal nuclear IgG Ab [Units/volume] in Serum by [id number] 00:00:00* Test Item Value Reference Range Interpretation Comme nts KAREN screen, ifa (test code = KAREN screen, ifa) positive negative A [facility] Ab [Titer] in Serum by Immunofluorescence 2021-05-04 00:00:00* Test Item Value Reference Range Interpretation Comme nts KAREN titer (test code = KAREN titer) 1:160 H KAREN pattern (test code = KAREN pattern) nuclear, speckled A [facility]* Test Item Value Reference Range Interpretation Comme nts DNA (ds) antibody (test code = DNA (ds) antibody) 2 IU/mL sm antibody (test code = sm antibody) <1.0 neg See_Comment [Automated messa ge] The system which generated this result transmitted reference range: <1.0 neg. The reference range was not used to interpret this result as normal/abnormal. sm/spanish linguist antibody (test code = sm/spanish linguist antibody) <1.0 neg See_Comment [Automated messa ge] The system which generated this result transmitted reference range: <1.0 neg. The reference range was not used to interpret this result as normal/abnormal. spanish linguist antibody (test code = spanish linguist antibody) <1.0 neg See_Comment [Automated message] The [...] used to interpret this result as normal/abnormal. [facility] [id number] 00:00:00* Test Item Value Reference Range Interpretation [...] used to interpret this result as normal/abnormal. [facility] [id number] 00:00:00* Test Item Value Reference Range Interpretation Comme nts centromere B antibody (test code = centromere B antibody) <1.0 neg See_Comment [Automate d message] The system which generated this result transmitted reference range: <1.0 neg. The reference range was not used to interpret this result as normal/abnormal. ribosomal P antibody (test code = ribosomal P antibody) <1.0 neg See_Comment [Automated [employer]] The system which generated this result transmitted reference range: <1.0 neg. The reference range was not used to interpret this result as normal/abnormal. [facility] HospitalTriiodothyronine resin uptake (T3RU) in Serum or Plasma 2021-04-30 00:00:00* Test Item Value Reference Range Interpretation Comme nts T3 uptake (test code = T3 uptake) 31 % 22-35 [facility]-reactive protein, [id number] 00:00:00* Test Item Value Reference Range Interpretation Comme nts C-reactive protein (test cod e = C-reactive protein) 6.1 mg/L <8.0 [facility] HospitalRheumatoid factor [Units/volume] in Serum or Plasma 2021-04-30 00:00:00* Test Item Value Reference Range Interpretation Comme nts rheumatoid factor (test code = rheumatoid factor) <14 <14 [facility] HospitalErythrocyte sedimentation rate by Westergren method 2021-04-30 00:00:00* Test Item Value Reference Range Interpretation Comme nts sed rate by modified westergren (test code = sed rate by modified westergren) 14 mm/h See_Comment [Automated [employer] ge] The system which generated this result transmitted reference range: < or = 20. The reference range was not used to interpret this result as normal/abnormal. [facility] HospitalCB W Auto Differential panel - [id number] 00:00:00 * Test Item Value Reference Range [...] (test code = baso#) 0.06 x10*3/?L 0.01-0.08 [facility] HospitalComprehensive metabolic 2000 panel - Serum or [...] (test code = anion gap) 10 calc [facility] HospitalThyroxine (T4) free [Mass/volume] in Serum or Plasma 2021-04-30 00:00:00* Test Item Value Reference Range Interpretation Comme [facility] T4 free (test code = T4 free) 0.98 NG/dL 0.70-1.48 [facility] HospitalThyrotropin [Units/volume] in Serum or [id number] 00:00:00* Test Item Value Reference Range Interpretation Comme [facility] TSH (test code = TSH) 1.501 uIU/mL 0.350-4.940 [facility] HospitalUrate [Mass/volume] in Serum or [id number] 00:00:00 * Test Item Value Reference Range Interpretation Comme nts uric acid (test code = uric acid) 8.4 mg/dL 3.5-7.2 H [facility] HospitalHemoglobin A1c measurement device [id number] 14:52:00* Test Item Value Reference Range Interpretation Comme nts Hemoglobin A1C Fingerstick: (test code = Hemoglobin A1C Fingerstick:) 6.5 [facility]
[2024-06-09 06:22] LABS: Absolute Basophils 0.1 K/uL (0-0.5); Absolute Eosinophils 0.6 K/uL (0-0.5); Absolute Lymphocytes (CBC) 2.1 K/uL (0.7-4.9); Absolute Monocytes 0.7 K/uL (0.1-1.3); Absolute Neutrophil 5.1 K/uL (1.8-8.0); Eosinophils % 6.8 % (0-4.4); Hematocrit 41.1 % (39.6-49.0); Lymphocytes % 24.2 % (15.3-44.8); MCH 32.2 pg (27.0-35.0); MCHC 34.1 g/dL (32.0-36.0); MCV 94.4 fL (80-100); MPV 8.7 fL (7.6-11.3); Monocytes % 8.3 % (3.3-12.3); Neutrophils % 59.7 % (41.7-73.7); Nucleated Red Blood Cells % 0.1 % (0-0); Platelets 190 thou/uL (152-406); RBC Red Blood Cell Count 4.36 M/uL (4.33-5.43); Red Cell Distribution Width 13.3 % (12.1-15.2)
[2024-06-09] MEDS ORDERED: IPRATROPIUM BROM 0.5MG/2.5ML ONE ×2 (06:26→12:54)
[2024-06-09] MEDS ORDERED: LEVALBUTEROL 1.25 MG/3 ML NEB ONE (06:26)
[2024-06-09] MEDS ORDERED: METHYLPREDNISOLONE 125 MG INJ ONE (06:26)
[2024-06-09 06:27] LABS: Protime INR 1.24
[2024-06-09] MEDS ORDERED: Magnesium Sulfate 2gm IVPB 2 G/50 ML BAG IV ONE (06:27)
[2024-06-09] MEDS ORDERED: NA CHLORIDE 0.9% 1,000 ML ONE (06:27)
[2024-06-09] MEDS ORDERED: predniSONE 20 MG TAB ONE (06:27)
[2024-06-09] MEDS ORDERED: ASPIRIN 81 MG CHEWABLE TABLET ONE (06:27)
[2024-06-09] MEDS ORDERED: FAMOTIDINE 20 MG/2 ML VIAL IV ONE (06:27)
[2024-06-09 06:29] LABS: SARS-CoV-2 Antigen CONTROL BLUE LINE VIS/BG OK; SARS-CoV-2 Antigen Rapid Res Negative (Negative)
--- NOTE | 2024-06-09 06:33 | ER ---
Nurse's Notes [facility] Name: Remington Huff Age: 78 yrs Sex: Male : 1945 Arrival Date: 06/09/2024 Time: 05:41 Bed 4 Private MD: Diagnosis: COPD/ Chronic obstructive pulmonary disease with (acute) exacerbation;Dyspnea;Hypoxemia;Chest pain, unspecified;MCC (current) use of anticoagulants Presentation: 06/09 05:51 Chief complaint: Patient states: sudden onset of chest pressure and shortness of breath.ha1 05:51 Coronavirus screen: Client denies travel out of the [place] in the last 14 days. Ebola ha1 Screen: No symptoms or risks identified at this time. Initial Sepsis Screen: Does the patient meet any 2 criteria? No. Patient's initial sepsis screen is negative. Does the patient have a suspected source of infection? No. Patient's initial sepsis screen is negative. Risk Assessment: Do you want to hurt yourself or someone else? Patient reports no desire to harm self or others. Onset of symptoms was June 09, 2024. 05:51 Method Of Arrival: Wheelchair ha1 05:51 Acuity: JOHNY 2 ha1 Triage Assessment: 06:05 General: Appears uncomfortable, Behavior is cooperative. Pain: Complains of pain in ha1 chest Pain currently is 5 out of 10 on a pain scale. Quality of pain is described as pressure. Neuro: Level of Consciousness is awake, alert, obeys commands, Oriented to person, place, time, situation. Cardiovascular: Reports shortness of breath, Patient's skin is warm and dry. Respiratory: Reports shortness of breath Airway is patent Respiratory effort is even, unlabored, Respiratory pattern is regular, symmetrical, Onset: The symptoms/episode began/occurred suddenly, the patient has moderate shortness of breath. Historical: - Allergies: 06:05 Flagyl; ha1 - PMHx: 06:05 Aphasia (Hypothyroidism); Chronic obstructive lung disease; diabetes mellitus; ha1 Hypothyroidism; stroke (2015); - PSHx: 06:05 Heart bypass surgery; Quadruple heart bypass (by); ha1 - Immunization history:: Adult Immunizations up to date. - Infectious Disease History:: Denies. - Social history:: Smoking status: Patient/guardian denies using tobacco, the patient reports quitting approximately 2017 years ago. Screenin:45 [facility] ED Fall Risk Assessment (Adult) History of falling in the last 3 months, br2 including since admission No falls in past 3 months (0 pts) Confusion or Disorientation No (0 pts) Intoxicated or Sedated No (0 pts) Impaired Gait No (0 pts) Mobility Assist Device Used No (0 pt) Altered Elimination No (0 pt) Score/Fall Risk Level 0 - 2 = Low Risk Oriented to surroundings, Maintained a safe environment. Abuse screen: Denies threats or abuse. Denies injuries from another. Nutritional screening: No deficits noted. Tuberculosis screening: No symptoms or risk factors identified. Assessment: 05:45 Reassessment: Patient and/or family updated on plan of care and expected duration. Pain br2 level reassessed. Patient is alert, oriented x 3, equal unlabored respirations, skin warm/dry/pink. General: Appears uncomfortable, Behavior is calm, cooperative. 05:45 Pain: Complains of pain in chest Pain does not radiate. Pain currently is 10 out of 10 br2 on a pain scale. Quality of pain is described as TIGHTNESS. Neuro: Level of Consciousness is awake, alert, Oriented to person, place, time, situation. Cardiovascular: Capillary refill < 3 seconds Rhythm is. Respiratory: Airway is patent Respiratory effort is even, unlabored, Respiratory pattern is regular, symmetrical, Breath sounds are diminished Breath sounds with wheezes bilaterally. GI: No signs and/or symptoms were reported involving the gastrointestinal system. Abdomen is round. : No signs and/or symptoms were reported regarding the genitourinary system. EENT: No signs and/or symptoms were reported regarding the EENT system. Derm: No signs and/or symptoms reported regarding the dermatologic system. Vital Signs: 05:51 BP 146 / 88; Pulse 61; Resp 17 S; Temp 97.4(T); Pulse Ox 92% on R/A; Weight 133.81 kg; ha1 Height 6 ft. 4 in. ; 06:50 BP 144 / 82; Pulse 54; Resp 16; Pulse Ox 99% on NEBULIZER; br2 06:50 Pain 3/10; br2 07:16 BP 129 / 68; Pulse 69; Resp 15; Pulse Ox 98% on Nebulizer Mask; ko1 07:16 BP 131 / 64; Pulse 59; Resp 17; Pulse Ox 95% on 2 lpm NC; ko1 08:00 BP 123 / 83; Pulse 61; Resp 15; Pulse Ox 96% 2 lpm ; me1 09:00 BP 118 / 58; Pulse 58; Resp 14; Pulse Ox 95% 2 lpm ; me1 10:00 BP 118 / 63; Pulse 60; Resp 16; Pulse Ox 95% 2 lpm ; me1 11:00 BP 120 / 66; Pulse 59; Resp 16; Pulse Ox 94% 2 lpm ; me1 12:00 BP 122 / 64; Pulse 67; Resp 19; Pulse Ox 97% 2 lpm ; me1 13:00 BP 133 / 81; Pulse 67; Resp 16; Pulse Ox 95% 2 lpm ; me1 14:00 BP 110 / 57; Pulse 72; Resp 16; Pulse Ox 96% 2 lpm ; me1 15:00 BP 111 / 67; Pulse 74; Resp 18; Temp 98.1; Pulse Ox 96% on 2 lpm NC; me1 05:51 Body Mass Index 35.91 (133.81 kg, 193.04 cm) ha1 06:50 Pain Scale: Adult br2 ED Course: 05:43 Patient arrived in ED. [email or web address] 05:45 Inserted saline lock: 20 gauge in right antecubital area, using aseptic technique. br2 Blood collected. Flushed with 10 mL NS. 05:45 Patient has correct armband on for positive identification. Bed in low position. Call br2 light in reach. Side rails up X 1. Provided Education on: PLAN OF CARE. 05:51 EKG done, by robotics technician. af3 06:01 Lele Andre MD is Attending Physician. rodger 06:05 Anabel Morocho RN is Primary Nurse. br2 06:05 Triage completed. ha1 06:31 Miguel Brooke MD is Hospitalizing Provider. rodger 06:36 XRAY Chest (1 view) In Process Unspecified. EDMS 06:43 Flu Sent. br2 12:00 Arm band placed on Patient placed in an exam room. me1 13:58 No provider procedures requiring assistance completed. Inserted saline lock: 20 gauge me1 in right hand, using aseptic technique. 14:00 Patient transferred, IV remains in place. me1 Administered Medications: 06:41 Drug: Ipratropium Inhalation Aerosol 0.5 mg Inhalation once Route: Inhalation; br2 06:58 Follow up: Response: No adverse reaction ko1 06:41 Drug: Magnesium Sulfate IVPB 2 grams IVPB once over 2 hrs Route: IVPB; Infused Over: 2 br2 hrs; Site: right antecubital; 14:04 Follow up: IV Status: Completed infusion me1 06:41 Drug: predniSONE PO 60 mg PO once Route: PO; br2 07:14 Follow up: Response: No adverse reaction ko1 06:42 Drug: NS 0.9% IV 500 ml 500 ml IV at 1 bolus once; to be given as a bolus over 30 br2 minutes Volume: 500 ml; Route: IV; Rate: 1 bolus; Site: right antecubital; 07:36 Follow up: Response: No adverse reaction; IV Status: Completed infusion; IV Intake: ko1 500ml 06:42 Drug: Famotidine IVP 20 mg IVP once; dilute with 10 mL 0.9% NaCl; give over 2 minutes br2 Route: IVP; Site: right antecubital; 06:58 Follow up: Response: No adverse reaction ko1 06:42 Drug: Aspirin PO Chewable Tablet 81 mg PO once Route: PO; br2 07:14 Follow up: Response: No adverse reaction ko1 06:42 Drug: MethylPrednisoLONE IVP 125 mg IVP once Route: IVP; Site: right antecubital; br2 06:58 Follow up: Response: No adverse reaction ko1 06:42 Drug: Levalbuterol Inhalation 3.75 mg Inhalation once Route: Inhalation; br2 07:38 Follow up: Response: No adverse reaction ko1 07:36 Drug: NS 0.9% IV 500 ml 500 ml IV at 125 ml/hr once Volume: 500 ml; Route: IV; Rate: ko1 125 ml/hr; Site: right antecubital; 14:04 Follow up: IV Status: Infusion continued upon admission me1 Medication: 05:45 VIS not applicable for this client. br2 Intake: 07:36 IV: 500ml; Total: 500ml. ko1 Outcome: 06:32 Decision to Hospitalize by Provider. rodger 15:43 Admitted to Med/surg accompanied by tech, via wheelchair, room 207, with oxygen, with me1 chart, Report called to faxed, receipt confirmed with Janine at 15:43 15:43 Condition: stable 15:43 Instructed on the need for admit, 16:22 Patient left the ED. eb Signatures: Dispatcher [employer] Lele Olvera MD MD cha Botello, Elizabeth eb Jeffries, Jennifer [email or web address] Rosa Maria Cotton, RN RN ha1 Amber Garcia RN RN ko1 Anaid Turner RN RN me1 Anabel Morocho RN RN br2 Yamel Rosa3 Corrections: (The following items were deleted from the chart) 07:42 07:16 BP 129 / 68; Pulse 69bpm; Resp 15bpm; Pulse Ox 98%; ko1 ko1 14:01 13:58 Transferred by helicopter to [facility], Transfer form me1 completed. Note: community support associate. Report called to CHARLOTTE Rucker [facility] 14:01 13:58 Condition: stable [place] [id number] 14:01 13:58 Instructed on the need for transfer, al1 [facility] 14: 13:57 Reassessment: Report called to CHARLOTTE Browning at [facility]. Critical me1 care time stopped, patient has stabilized. me1
--- NOTE | 2024-06-09 06:33 | EDPHYS ---
Physician Documentation [facility] Name: Remington Huff Age: 78 yrs Sex: Male : 1945 Arrival Date: 06/09/2024 Time: 05:41 Bed 4 Private MD: ED Physician Lele Andre HPI: 06/09 06:13 This 78 yrs old Male presents to ER via Wheelchair with complaints of rodger Breathing Difficulty. 06:13 The patient has shortness of breath at rest, with light activity. Onset: The rodger symptoms/episode began/occurred this morning, today. Duration: The symptoms are continuous, and are steadily getting worse. The patient's shortness of breath is aggravated by coughing, exertion, light activity. Associated signs and symptoms: Pertinent positives: non-productive cough. Severity of symptoms: At their worst the symptoms were moderate in the emergency department the symptoms. The patient has experienced similar episodes in the past, multiple times. Historical: - Allergies: 06:05 Flagyl; ha1 - PMHx: 06:05 Aphasia (Hypothyroidism); Chronic obstructive lung disease; diabetes mellitus; ha1 Hypothyroidism; stroke (2015); - PSHx: 06:05 Heart bypass surgery; Quadruple heart bypass (by); ha1 - Immunization history:: Adult Immunizations up to date. - Infectious Disease History:: Denies. - Social history:: Smoking status: Patient/guardian denies using tobacco, the patient reports quitting approximately 2017 years ago. ROS: 06:19 Constitutional: Negative for fever, chills, and weight loss, Eyes: Negative for injury, rodger pain, redness, and discharge, ENT: Negative for injury, pain, and discharge, Neck: Negative for injury, pain, and swelling, Cardiovascular: Negative for chest pain, palpitations, and edema, Abdomen/GI: Negative for abdominal pain, nausea, vomiting, diarrhea, and constipation, Back: Negative for injury and pain, : Negative for injury, bleeding, discharge, and swelling, MS/Extremity: Negative for injury and deformity, Skin: Negative for injury, rash, and discoloration, Neuro: Negative for headache, weakness, numbness, tingling, and seizure, Psych: Negative for depression, anxiety, suicide ideation, homicidal ideation, and hallucinations, Allergy/Immunology: Negative for hives, rash, and allergies, Endocrine: Negative for neck swelling, polydipsia, polyuria, polyphagia, and marked weight changes, Hematologic/Lymphatic: Negative for swollen nodes, abnormal bleeding, and unusual bruising, 06:19 Respiratory: Positive for cough, shortness of breath, wheezing, expiratory, 06:19 MS/extremity: Negative for acute changes, Exam: 06:19 Constitutional: This is a well developed, well nourished patient who is awake, alert, rodger and in no acute distress. Head/Face: Normocephalic, atraumatic. Eyes: Pupils equal round and reactive to light, extra-ocular motions intact. Lids and lashes normal. Conjunctiva and sclera are non-icteric and not injected. Cornea within normal limits. Periorbital areas with no swelling, redness, or edema. ENT: Nares patent. No nasal discharge, no septal abnormalities noted. Tympanic membranes are normal and external auditory canals are clear. Oropharynx with no redness, swelling, or masses, exudates, or evidence of obstruction, uvula midline. Mucous membranes moist. Neck: Trachea midline, no thyromegaly or masses palpated, and no cervical lymphadenopathy. Supple, full range of motion without nuchal rigidity, or vertebral point tenderness. No Meningismus. Cardiovascular: Regular rate and rhythm with a normal S1 and S2. No gallops, murmurs, or rubs. Normal PMI, no JVD. No pulse deficits. Abdomen/GI: Soft, non-tender, with normal bowel sounds. No distension or tympany. No guarding or rebound. No evidence of tenderness throughout. Back: No spinal tenderness. No costovertebral tenderness. Full range of motion. Male : Normal genitalia with no discharge or lesions. Skin: Warm, dry with normal turgor. Normal color with no rashes, no lesions, and no evidence of cellulitis. MS/ Extremity: Pulses equal, no cyanosis. Neurovascular intact. Full, normal range of motion., bilateral aka Neuro: Awake and alert, GCS 15, oriented to person, place, time, and situation. Cranial nerves II-XII grossly intact. Motor strength 5/5 in all extremities. Sensory grossly intact. Cerebellar exam normal. Normal gait. Psych: Awake, alert, with orientation to person, place and time. Behavior, mood, and affect are within normal limits. 06:19 ECG was reviewed by the Attending Physician. Vital Signs: 05:51 BP 146 / 88; Pulse 61; Resp 17 S; Temp 97.4(T); Pulse Ox 92% on R/A; Weight 133.81 kg; ha1 Height 6 ft. 4 in. ; 06:50 BP 144 / 82; Pulse 54; Resp 16; Pulse Ox 99% on NEBULIZER; br2 06:50 Pain 3/10; br2 07:16 BP 129 / 68; Pulse 69; Resp 15; Pulse Ox 98% on Nebulizer Mask; ko1 07:16 BP 131 / 64; Pulse 59; Resp 17; Pulse Ox 95% on 2 lpm NC; ko1 08:00 BP 123 / 83; Pulse 61; Resp 15; Pulse Ox 96% 2 lpm ; me1 09:00 BP 118 / 58; Pulse 58; Resp 14; Pulse Ox 95% 2 lpm ; me1 10:00 BP 118 / 63; Pulse 60; Resp 16; Pulse Ox 95% 2 lpm ; me1 11:00 BP 120 / 66; Pulse 59; Resp 16; Pulse Ox 94% 2 lpm ; me1 12:00 BP 122 / 64; Pulse 67; Resp 19; Pulse Ox 97% 2 lpm ; me1 13:00 BP 133 / 81; Pulse 67; Resp 16; Pulse Ox 95% 2 lpm ; me1 14:00 BP 110 / 57; Pulse 72; Resp 16; Pulse Ox 96% 2 lpm ; me1 15:00 BP 111 / 67; Pulse 74; Resp 18; Temp 98.1; Pulse Ox 96% on 2 lpm NC; me1 05:51 Body Mass Index 35.91 (133.81 kg, 193.04 cm) ha1 06:50 Pain Scale: Adult br2 MDM: 06:04 Medical Screening Exam initiated rodger 06:25 Differential diagnosis: Anemia Anxiety Reaction asthma, Bronchitis CHF exacerbation, rodger Chronic Obstructive Pulmonary Disease reactive airway, CHF, anaphylaxis, URI, foreign body, Myocardial Infarction pneumonia, Pneumothorax Psychogenic pulmonary edema, Pulmonary Embolism reactive airway disease, Unstable Angina. Antibiotic administration: Rocephin and Zithromax given. Differential Diagnosis: Obstructed Airway Bronchitis Influenza Upper Respiratory Infection Sinusitis Pharyngitis Asthma Exacerbation Viral Syndrome Pneumonia. Immunization status: Pneumococcal vaccine: within last 5 years. Influenza vaccine: within last 5 years. Data reviewed: vital signs, nurses notes, lab test result(s), EKG, radiologic studies, plain films. Consideration of Admission/Observation Escalation of care including admission/observation considered. I considered the following discharge prescriptions or medication management in the emergency department Medications were administered in the Emergency Department. See MAR. Independent interpretation of the following test(s) in the Emergency Department EKG: See my EKG interpretation above. Test considered but Not performed: CT: no ct chest. Care significantly affected by the following chronic conditions: Diabetes, Hypertension, Chronic Obstructive Pulmonary Disease, Obesity, cabg, eliquis. 06/09 06:04 Order name: Basic Metabolic Panel [facility] 06/09 06:04 Order name: CBC with Diff; Complete Time: 06:33 rodger 06/09 06:04 Order name: LFT's [facility] 06/09 06:04 Order name: Magnesium [facility] 06/09 06:04 Order name: NT PRO-BNP [facility] 06/09 06:04 Order name: PT-INR; Complete Time: 06:33 [facility] 06/09 06:04 Order name: Troponin HS [facility] 06/09 06:04 Order name: Lipase [facility] 06/09 06:04 Order name: Urinalysis w/ reflexes [facility] 06/09 06:04 Order name: Flu [facility] 06/09 06:04 Order name: SARS RAPID; Complete Time: 06:33 rodger 06/09 08:24 Order name: Basic Metabolic Panel EDMS 06/09 08:24 Order name: Basic Metabolic Panel EDMS 06/09 08:24 Order name: Basic Metabolic Panel EDMS 06/09 08:24 Order name: Basic Metabolic Panel EDMS 06/09 08:24 Order name: Basic Metabolic Panel EDMS 06/09 08:24 Order name: Basic Metabolic Panel EDMS 06/09 08:24 Order name: Basic Metabolic Panel EDMS 06/09 08:24 Order name: Basic Metabolic Panel EDMS 06/09 08:24 Order name: CBC with Automated Diff EDMS 06/09 08:24 Order name: CBC with Automated Diff EDMS 06/09 08:24 Order name: CBC with Automated Diff EDMS 06/09 08:24 Order name: CBC with Automated Diff EDMS 06/09 08:24 Order name: CBC with Automated Diff EDMS 06/09 08:24 Order name: CBC with Automated Diff EDMS 06/09 08:24 Order name: CBC with Automated Diff EDMS 06/09 08:24 Order name: CBC with Automated Diff EDMS 06/09 08:24 Order name: Magnesium EDMS 06/09 08:24 Order name: Magnesium EDMS 06/09 08:24 Order name: Magnesium EDMS 06/09 08:24 Order name: Magnesium EDMS 06/09 08:24 Order name: Magnesium EDMS 06/09 08:24 Order name: Magnesium EDMS 06/09 08:24 Order name: Magnesium EDMS 06/09 08:24 Order name: Magnesium EDMS 06/09 08:24 Order name: Phosphorus EDMS 06/09 08:24 Order name: Phosphorus EDMS 06/09 08:24 Order name: Phosphorus EDMS 06/09 08:24 Order name: Phosphorus EDMS 06/09 08:24 Order name: Phosphorus EDMS 06/09 08:24 Order name: Phosphorus EDMS 06/09 08:24 Order name: Phosphorus EDMS 06/09 08:24 Order name: Phosphorus EDMS 06/09 08:24 Order name: Troponin High Sensitivity EDRI 06/09 08:24 Order name: Troponin High Sensitivity EDRI 06/09 08:24 Order name: Troponin High Sensitivity EDMS 06/09 11:49 Order name: Glucose, Ancillary Testing EDRI 06/09 06:04 Order name: XRAY Chest (1 view) [facility] 06/09 08:24 Order name: CONS Physician Consult [facility] 06/09 06:04 Order name: Cardiac monitoring; Complete Time: 06:05 [facility] 06/09 06:04 Order name: EKG - Nurse/Tech; Complete Time: 06:05 [facility] 06/09 06:04 Order name: IV Saline Lock; Complete Time: 06:05 [facility] 06/09 06:04 Order name: Labs collected and sent; Complete Time: 06:42 [facility] 06/09 06:04 Order name: O2 Per Protocol; Complete Time: 06:06 [facility] 06/09 06:04 Order name: O2 Sat Monitoring; Complete Time: 06:06 [facility] EC:19 Rate is 62 beats/min. Rhythm is regular. QRS Adair is Normal. HI interval is prolonged rodger at 238 msec. QRS interval is normal. QT interval is normal. No Q waves. T waves are Normal. No ST changes noted. Clinical impression: Abnormal EKG without significant change, 1st degree heart block, and No evidence of ischemia. Interpreted by me. Reviewed by me. Administered Medications: 06:41 Drug: Ipratropium Inhalation Aerosol 0.5 mg Inhalation once Route: Inhalation; br2 06:58 Follow up: Response: No adverse reaction ko1 06:41 Drug: Magnesium Sulfate IVPB 2 grams IVPB once over 2 hrs Route: IVPB; Infused Over: 2 br2 hrs; Site: right antecubital; 14:04 Follow up: IV Status: Completed infusion me1 06:41 Drug: predniSONE PO 60 mg PO once Route: PO; br2 07:14 Follow up: Response: No adverse reaction ko1 06:42 Drug: NS 0.9% IV 500 ml 500 ml IV at 1 bolus once; to be given as a bolus over 30 br2 minutes Volume: 500 ml; Route: IV; Rate: 1 bolus; Site: right antecubital; 07:36 Follow up: Response: No adverse reaction; IV Status: Completed infusion; IV Intake: ko1 500ml 06:42 Drug: Famotidine IVP 20 mg IVP once; dilute with 10 mL 0.9% NaCl; give over 2 minutes br2 Route: IVP; Site: right antecubital; 06:58 Follow up: Response: No adverse reaction ko1 06:42 Drug: Aspirin PO Chewable Tablet 81 mg PO once Route: PO; br2 07:14 Follow up: Response: No adverse reaction ko1 06:42 Drug: MethylPrednisoLONE IVP 125 mg IVP once Route: IVP; Site: right antecubital; br2 06:58 Follow up: Response: No adverse reaction ko1 06:42 Drug: Levalbuterol Inhalation 3.75 mg Inhalation once Route: Inhalation; br2 07:38 Follow up: Response: No adverse reaction ko1 07:36 Drug: NS 0.9% IV 500 ml 500 ml IV at 125 ml/hr once Volume: 500 ml; Route: IV; Rate: ko1 125 ml/hr; Site: right antecubital; 14:04 Follow up: IV Status: Infusion continued upon admission me1 Disposition Summary: 06/09/24 06:32 Hospitalization Ordered Notes: Hospitalization Status: Inpatient Admission rodger Provider: Miguel Brooke cha Location: Telemetry/MedSurg (Inpatient) rodger Condition: Fair rodger Problem: new rodger Symptoms: have improved rodger Bed/Room Type: Standard rodger Room Assignment: 207(06/09/24 15:32) eb Diagnosis - COPD/ Chronic obstructive pulmonary disease with (acute) exacerbation rodger - Dyspnea rodger - Hypoxemia rodger - Chest pain, unspecified rodger - prison (current) use of anticoagulants rodger Forms: - Medication Reconciliation Form rodger - SBAR form rodger - Leadership Thank You Letter rodger Signatures: Dispatcher [employer] EDLele Valencia MD MD cha Botello, Elizabeth eb Ayala, Heidy, RN RN ha1 Amber Garcia RN RN ko1 Anabel Morocho RN RN br2 Anaid Turner RN me1 Corrections: (The following items were deleted from the chart) 06:04 06:04 Chest Single View+[email or web address] ordered. [facility] EDRI 15:32 06:32 rodger eb
[2024-06-09 06:42] LABS: Albumin 3.2 g/dL (3.4-5.0); Albumin/Globulin Ratio 0.9 (1.1-1.8); Anion Gap 10.2 mEq/L (5.0-15.0); Bilirubin Direct 0.2 mg/dL (0-0.2); Bilirubin Indirect, Calculated 0.4 mg/dL (0.2-0.8); Bilirubin Total 0.6 mg/dL (0.2-1.0); Globulin 3.7 g/dL (2.3-3.5); Magnesium 2.1 mg/dL (1.6-2.4); Potassium 4.2 mEq/L (3.5-5.1); Protein, Total 6.9 g/dL (6.4-8.2); Troponin High Sensitivity 14.5 pg/mL (<58.9)
--- NOTE | 2024-06-09 07:20 | RAD REPORT ---
Procedure: Chest Single View HISTORY: Shortness of breath COMPARISON: April 2024 FINDINGS: The lungs appear clear of acute infiltrate. Lungs are moderately to markedly hyperaerated No significant pleural effusion noted. The heart is mildly enlarged. Post surgical changes involve the chest. . IMPRESSION: COPD without visualization of an acute abnormality
[2024-06-09] MEDS ORDERED: D50W 25 GM/50 ML SYRINGE IV PRN (08:15)
[2024-06-09] MEDS ORDERED: ACETAMINOPHEN 325 MG TABLET PO PRN (08:15)
[2024-06-09] MEDS ORDERED: GLUCAGON 1 MG/VIAL IV PRN (08:15)
--- NOTE | 2024-06-09 08:39 | P.HP ---
Certification for Inpatient Patient admitted to: Inpatient With expected LOS: >2 Midnights Practitioner: I am a practitioner with admitting privileges, knowledge of patient current condition, hospital course, and medical plan of care. Services: Services provided to patient in accordance with Admission requirements found in Title 42 Section 412.3 of the Code of Federal Regulations Patient History Date of Service: 06/09/24 Reason for admission: Acute hypoxic respiratory failure 2/2 COPD exacerbation History of Present Illness: Remington Huff is a 78 year old male with pmhx CAD s/p CABG (2019), COPD (no home oxygen), diabetes mellitusNIDDM, hypothyroidism, stroke, who presented to the ED with chief complaints of shortness of breath at rest and light activity which began this morning. He reports feeling better after the steroids were given in the ED. Chest x-ray reports "COPD without visualization of an acute abnormality". On evaluation, lung sounds are clear, on 3 LNC, no acute distress. Laboratory evaluation grossly unremarkable. Initial vitals BP 146 / 88; Pulse 61; Resp 17 S; Temp 97.4(T); Pulse Ox 92% on R/A. Remington will be admitted to hospitalist service for further treatment of acute hypoxic respiratory failure secondary to COPD exacerbation, Dr. Riggins consulted. Allergies levofloxacin [From Levaquin] Allergy (Verified 06/09/24 10:28) Itching/Hives/Rash metronidazole [From Flagyl] Allergy (Verified 10/29/23 15:23) Itching Home Medications: Calcium Carbonate [Calcium] 600 mg PO BEDTIME 10/29/23 Cholecalciferol (Vitamin D3) [Vitamin D 1000 Iu Tab*] 1 tab PO BEDTIME 10/29/23 Clopidogrel Bisulfate [Plavix] 75 mg PO DAILY 10/29/23 Docusate [Colace Cap*] 100 mg PO BEDTIME 10/29/23 Escitalopram Oxalate 20 mg PO DAILY 10/29/23 Furosemide [Lasix] 40 mg PO DAILY 10/29/23 Levothyroxine [Synthroid*] 50 mcg PO DAILY 10/29/23 Vit C/E/Zn/Coppr/Lutein/Zeaxan [Preservision Areds 2 Chew Tab] 1 tab PO BID 10/29/23 Apixaban [Eliquis] 5 mg PO BID 12/28/23 Atorvastatin Calcium [Lipitor] 80 mg PO BEDTIME 12/28/23 Glimepiride 1 tab PO DAILY 12/28/23 Cetirizine HCl [All Day Allergy Relief] 1 tab PO PRN PRN 06/09/24 Donepezil HCl 1 tab PO BEDTIME 06/09/24 Ergocalciferol (Vitamin D2) [Vitamin D2] 12.5 mcg PO DAILY 06/09/24 Pantoprazole Sodium [Protonix] 1 tab PO DAILY 06/09/24 - Past Medical/Surgical History Diabetic: Yes -: Diabetes p.o. regimen -: CAD on Plavix -: Hypothyroidism -: GERD -: COPD -: Skin cancer -: CVA 10/29/2023 -: HTN -: Skin CA-2022 on active Red Light Therapy 12/27/2023 -: Psoriasis -: PTSD-[employer] -: Depression and Anxiety-through [facility] -: CABG -: Wrist surgery -: Ankle surgery -: Hip surgery -: Right forearm skin cancer resection -: Red light therapy to left arm for skin cancer -: ForeArm Inciscion/surgery r/t Skin Cancer-12/07/2023 Psychosocial/ Personal History: Retired, lives with spouse, independent prior - Family History Father -: Other (see notes) Mother -: Cancer Notes: Mother from Colon Cancer Brother -: Diabetes - Social History Alcohol use: Yes CD- Drugs: No Caffeine use: Yes Review of Systems Other: Per HPI Physical Examination - Physical Exam General: Alert, In no apparent distress, Oriented x3 HEENT: Atraumatic, Normocephalic Neck: Supple, 2+ carotid pulse no bruit Respiratory: Clear to auscultation bilaterally, Normal air movement Cardiovascular: Normal pulses, Regular rate/rhythm, Normal S1 S2 Gastrointestinal: Normal bowel sounds, Soft and benign Musculoskeletal: No clubbing Integumentary: No rashes Neurological: Normal speech, Normal tone - Studies Laboratory Data (last 24 hrs) 06/09/24 06/09/24 06/09/24 06:07 06:07 06:07 WBC 8.50 Hgb 14.0 Hct 41.1 Plt Count 190 PT 13.0 H INR 1.24 Sodium 139 Potassium 4.2 BUN 17 Creatinine 1.02 Glucose 101 Magnesium 2.1 Total Bilirubin 0.6 AST 12 L ALT 22 Alkaline Phosphatase 84 Lipase 218 H Microbiology Data (last 24 hrs): 06/09/24 06:07 Nasopharnyx Influenza Type A Antigen Screen - Final 06/09/24 06:07 Nasopharnyx Influenza Type B Antigen Screen - Final Assessment and Plan - Plan Assessment and plan Acute hypoxic respiratory failure secondary to COPD exacerbation -Chest x-ray reports "COPD without visualization of an acute abnormality" -Flu negative -Not on home oxygen -Oxygen protocol in place, on 3 L nasal cannula, will attempt to wean -Azithromycin -Mucinex -DuoNebs -Solu-Medrol -Dr. Kim consulted Diabetes mellitusNIDDM -Continue home medication -Accu-Chek ACHS -Serum glucose 101 CAD status post CABG (2019) Hypertension GERD Hypothyroidism PTSD -Continue home medication -Continuous telemetry DVT PPx Lovenox Full code LOS 1 to 2 days Discharge Plan: Home Plan to discharge in: 48 Hours - Advance Directives Does patient have a Living Will: No Does patient have a Durable POA for Healthcare: No
[2024-06-09] MEDS ORDERED: Levofloxacin500mg IV 500 MG/100 ML BAG IV ONE (09:45)
[2024-06-09] MEDS ORDERED: ENOXAPARIN 40 MG/0.4 ML SQ ONE (09:45)
[2024-06-09] MEDS: Levofloxacin500mg IV 500 MG/100 ML BAG IV SCH (09:50)
[2024-06-09] MEDS: ENOXAPARIN 40 MG/0.4 ML SQ SCH (09:50)
[2024-06-09] MEDS ORDERED: DIPHENHYDRAMINE 25 MG TAB/CAP ONE (10:22)
[2024-06-09] MEDS: DIPHENHYDRAMINE 25 MG TAB/CAP PO ONE (10:24)
[2024-06-09] MEDS ORDERED: IPRATROPIUM BROM 0.5MG/2.5ML NEB SCH (11:00)
[2024-06-09] MEDS: INSULIN REGULAR (HUMAN) 100 UNIT/ML SQ SCH (11:30)
[2024-06-09 12:15] VITALS: BMI 35.9
[2024-06-09] MEDS ORDERED: LEVALBUTEROL 0.63 MG/3 ML NEB ONE (12:54)
[2024-06-09] MEDS: IPRATROPIUM BROM 0.5MG/2.5ML NEB SCH (12:56)
[2024-06-09] MEDS: LEVALBUTEROL 0.63 MG/3 ML NEB NEB SCH (12:56)
[2024-06-09] MEDS ORDERED: AZITHROMYCIN 500 MG INJ IVPB ONE (14:30)
[2024-06-09] MEDS ORDERED: NA CHLORIDE 0.9% 250 ML ONE (14:30)
[2024-06-09] MEDS: AZITHROMYCIN IV 500 MG in NA CHLORIDE 0.9% 250 ML IVPB SCH (14:31)
[2024-06-09] MEDS: METHYLPREDNISOLONE 40 MG INJ IV SCH (17:28)
[2024-06-09] MEDS: ATORVASTATIN 80 MG TAB PO SCH (20:22)
[2024-06-09] MEDS: DONEPEZIL HCL 5 MG TAB PO SCH (20:23)
[2024-06-09] MEDS: CALCIUM CARBONATE 500 MG TAB PO SCH (20:23)
[2024-06-09] MEDS: DOCUSATE NA 100 MG CAP PO SCH (20:23)
[2024-06-09] MEDS: GUAIFENESIN 600 MG SA TAB PO SCH (20:23)
[2024-06-09] MEDS: APIXABAN 5 MG TABLET PO SCH (21:44)
[2024-06-10 05:07] LABS: Specific Gravity 1.028 (1.005-1.030); Sqamous Epithelial None Seen /HPF (None Seen); Urine Bacteria None Seen /HPF (<20); Urine Bilirubin NEGATIVE (Negative); Urine Blood Negative (Negative); Urine Clarity Clear (Clear); Urine Color Light-Yellow (Yellow); Urine Culture Reflex Order NOT NEEDED; Urine Glucose 3+ (Negative); Urine Ketones 1+ (Negative); Urine Microscopic Reflex YN ORDER UMIC; Urine Mucus Slight /HPF (None Seen); Urine Nitrite NEGATIVE (Negative); Urine Protein NEGATIVE (Negative); Urine RBC <5 /HPF (None Seen); Urine Urobilinogen Normal (Normal); Urine WBC <5 /HPF (<5); Urine pH 5.5 (5.0-7.0)
[2024-06-10 07:12] LABS: Absolute Basophils 0.1 K/uL (0-0.5); Absolute Lymphocytes (CBC) 1.3 K/uL (0.7-4.9); Absolute Monocytes 0.5 K/uL (0.1-1.3); Absolute Neutrophil 13.4 K/uL (1.8-8.0); Basophils % 0.7 % (0-1.3); Hematocrit 37.9 % (39.6-49.0); Hemoglobin 12.5 g/dL (13.6-17.9); Lymphocytes % 8.5 % (15.3-44.8); MCH 31.8 pg (27.0-35.0); MCV 96.3 fL (80-100); MPV 9.1 fL (7.6-11.3); Monocytes % 3.3 % (3.3-12.3); Neutrophils % 87.5 % (41.7-73.7); Nucleated Red Blood Cells % 0.1 % (0-0); Platelets 161 thou/uL (152-406); RBC Red Blood Cell Count 3.93 M/uL (4.33-5.43); Red Cell Distribution Width 13.3 % (12.1-15.2)
[2024-06-10 07:29] LABS: Anion Gap 8.7 mEq/L (5.0-15.0); Magnesium 2.4 mg/dL (1.6-2.4); Potassium 4.7 mEq/L (3.5-5.1)
[2024-06-10] MEDS ORDERED: D10W 125 ML IV PRN (07:51)
[2024-06-10] MEDS: POTASS/SODIUM PHOSPHATE 1 PKT POWD.PACK PO SCH (08:21)
[2024-06-10] MEDS: FUROSEMIDE 40 MG TABLET PO SCH (08:23)
[2024-06-10] MEDS: GLIMEPIRIDE 2 MG TABLET PO SCH (08:23)
[2024-06-10] MEDS: CLOPIDOGREL 75 MG TABLET PO SCH (08:24)
[2024-06-10] MEDS: PANTOPRAZOLE 40MG TABLET PO SCH (08:24)
[2024-06-10] MEDS: ESCITALOPRAM 20 MG TAB PO SCH (08:24)
[2024-06-10] MEDS ORDERED: GLIMEPIRIDE 2 MG TABLET PO SCH (09:00)
[2024-06-10] MEDS ORDERED: LEVOTHYROXINE SOD 0.05 MG TABLET PO SCH (09:00)
[2024-06-10 09:02] LABS: Blood Morphology Comment NOT SEEN (NOT SEEN); Platelet Estimate ADEQ; White Blood Cell Scan OK (OK)
--- NOTE | 2024-06-10 10:22 | P.CNS ---
Date of Consult: 06/10/24 Reason for Consult: Better address possible COPD Chief Complaint: Acute hypoxic respiratory failure 2/2 COPD exacerbation History of Present Illness: Patient is 78 years of age started about 3 weeks ago started having some dyspnea ended up in the emergency room recovered with the prednisone dilators she was doing fine until 4 AM last night woke up very dyspneic low sats again to the emergency room in the interim. Has had this coughing spells for the past 3 weeks history of coronary artery disease s/p CABG he quit smoking 2017 has problems ambulating due to stroke feeling better Allergies levofloxacin [From Levaquin] Allergy (Verified 06/09/24 10:28) Itching/Hives/Rash metronidazole [From Flagyl] Allergy (Verified 10/29/23 15:23) Itching Home Medications: Calcium Carbonate [Calcium] 600 mg PO BEDTIME 10/29/23 Cholecalciferol (Vitamin D3) [Vitamin D 1000 Iu Tab*] 1 tab PO BEDTIME 10/29/23 Clopidogrel Bisulfate [Plavix] 75 mg PO DAILY 10/29/23 Docusate [Colace Cap*] 100 mg PO BEDTIME 10/29/23 Escitalopram Oxalate 20 mg PO DAILY 10/29/23 Furosemide [Lasix] 40 mg PO DAILY 10/29/23 Levothyroxine [Synthroid*] 50 mcg PO DAILY 10/29/23 Vit C/E/Zn/Coppr/Lutein/Zeaxan [Preservision Areds 2 Chew Tab] 1 tab PO BID 10/29/23 Apixaban [Eliquis] 5 mg PO BID 12/28/23 Atorvastatin Calcium [Lipitor] 80 mg PO BEDTIME 12/28/23 Glimepiride 1 tab PO DAILY 12/28/23 Cetirizine HCl [All Day Allergy Relief] 1 tab PO PRN PRN 06/09/24 Donepezil HCl 1 tab PO BEDTIME 06/09/24 Ergocalciferol (Vitamin D2) [Vitamin D2] 12.5 mcg PO DAILY 06/09/24 Pantoprazole Sodium [Protonix] 1 tab PO DAILY 06/09/24 - Past Medical/Surgical History Diabetic: Yes -: Diabetes p.o. regimen -: CAD on Plavix -: Hypothyroidism -: GERD -: COPD -: Skin cancer -: CVA 10/29/2023 -: HTN -: Skin CA-2022 on active Red Light Therapy 12/27/2023 -: Psoriasis -: PTSD-[employer] -: Depression and Anxiety-through [facility] -: CABG -: Wrist surgery -: Ankle surgery -: Hip surgery -: Right forearm skin cancer resection -: Red light therapy to left arm for skin cancer -: ForeArm Inciscion/surgery r/t Skin Cancer-12/07/2023 Psychosocial/ Personal History: Retired, lives with spouse, independent prior - Family History Father Medical History: Other (see notes) Mother Medical History: Cancer Notes: Mother from Colon Cancer Brother Medical History: Diabetes - Social History Smoking Status: Former smoker Alcohol use: Yes CD- Drugs: No Caffeine use: Yes Place of Residence: Home Review of Systems 10-point ROS is otherwise unremarkable General: Weakness Respiratory: Cough, Shortness of Breath Physical Examination Temp Pulse Resp BP Pulse Ox 97.9 F 64 16 105/55 L 96 06/10/24 08:00 06/10/24 08:00 06/10/24 08:00 06/10/24 08:00 06/10/24 08:00 General: Alert, In no apparent distress, Oriented x3 Neck: Supple Respiratory: Clear to auscultation bilaterally Cardiovascular: Normal pulses, Regular rate/rhythm, Normal S1 S2, Edema (Edema of lower extremities since his CABG) Gastrointestinal: Normal bowel sounds, Soft and benign - Problems (1) COPD exacerbation Current Visit: Yes Status: Acute Plan: Patient is 78 years of age admitted with presumed COPD exacerbation with steroids bronchodilators are also added an inhaler patient does not take any long-acting bronchodilators at baseline x-ray shows COPD changes were also ordered and signs oxygenation satisfactory check room air pulse ox ambulate discharge home on prednisone and Augmentin in addition to a long-acting bronchodilator count is mildly elevated due to steroids possible discharge a.m. with me in 2 weeks
[2024-06-10] MEDS: AMOX/K CLAV 875 MG TAB PO SCH (11:42)
[2024-06-10] MEDS ORDERED: GUAIFENESIN/CODEINE 5ML UCUP PO PRN (11:44)
[2024-06-10] MEDS: DULERA 200/5 (MOMETASONE/FORMOTEROL) INHALER IH SCH (12:09)
[2024-06-10] MEDS: BENZONATATE 100 MG CAP PO PRN (12:13)
[2024-06-10 13:25] VITALS: TEMP 98.1; O2SAT 90
--- NOTE | 2024-06-10 15:29 | P.DS ---
Admission Date: 06/09/24 Discharge Date: 07/11/24 Disposition: ROUTINE DISCHARGE Discharge Condition: GOOD Reason for Admission: Acute hypoxic respiratory failure 2/2 COPD exacerbation Brief History of Present Illness: Diagnosis Acute hypoxic respiratory failure secondary to COPD exacerbation Diabetes mellitusNIDDM CAD status post CABG (2018) Hypertension GERD Hypothyroidism PTSD HPI 06/09/2024 Remington Huff is a 78 year old male with pmhx CAD s/p CABG (2018), COPD (no home oxygen), diabetes mellitusNIDDM, hypothyroidism, stroke, who presented to the ED with chief complaints of shortness of breath at rest and light activity which began this morning. He reports feeling better after the steroids were given in the ED. Chest x-ray reports "COPD without visualization of an acute abnormality". On evaluation, lung sounds are clear, on 3 LNC, no acute distress. Laboratory evaluation grossly unremarkable. Initial vitals BP 146 / 88; Pulse 61; Resp 17 S; Temp 97.4(T); Pulse Ox 92% on R/A. Remington will be admitted to hospitalist service for further treatment of acute hypoxic respiratory failure secondary to COPD exacerbation, Dr. Riggins consulted. Hospital Course: Remington was treated with steroids, Tessalon perle, Robitussin, and amoxicillin. He has tolerated treatment was able to decrease oxygen requirement. He will follow-up with Dr. Riggins outpatient for continued monitoring and treatment. On 06/10/2024, Remington was seen on morning rounds and deemed medically stable for discharge. Remington was discharged with instructions to schedule follow-up appointments with PCP and Dr. Riggins. Remington was provided prescriptions for Robitussin, Tessalon Perles, prednisone, amoxicillin. Physical Exam General: Alert and Oriented x3, NAD HEENT: Atraumatic, Normocephalic Neck: Supple, 2+ carotid pulse no bruit Respiratory: Clear to auscultation bilaterally, Normal air movement, on RA Cardiovascular: Normal pulses, RRR, Normal S1 S2 Gastrointestinal: Normal bowel sounds, Soft and benign on palpation Musculoskeletal: No clubbing Integumentary: No rashes Neurological: Normal speech, Normal tone Vital Signs/Physical Exam: Temp Pulse Resp BP Pulse Ox 98.1 F 67 20 109/53 L 93 06/10/24 12:00 06/10/24 12:00 06/10/24 12:00 06/10/24 12:00 06/10/24 12:00 Laboratory Data at Discharge: WBC 15.30 thou/uL (4.3-10.9) H 06/10/24 06:45 Hgb 12.5 g/dL (13.6-17.9) L D 06/10/24 06:45 Hct 37.9 % (39.6-49.0) L 06/10/24 06:45 Plt Count 161 thou/uL (152-406) 06/10/24 06:45 PT 13.0 SECONDS (9.4-12.5) H 06/09/24 06:07 INR 1.24 06/09/24 06:07 Sodium 137 mEq/L (136-145) 06/10/24 06:45 Potassium 4.7 mEq/L (3.5-5.1) 06/10/24 06:45 BUN 23 mg/dL (7-18) H 06/10/24 06:45 Creatinine 1.18 mg/dL (0.70-1.30) 06/10/24 06:45 Glucose 232 mg/dL (74-106) H 06/10/24 06:45 Phosphorus 2.0 mg/dL (2.5-4.9) L 06/10/24 06:45 Magnesium 2.4 mg/dL (1.6-2.4) 06/10/24 06:45 Total Bilirubin 0.6 mg/dL (0.2-1.0) 06/09/24 06:07 AST 12 U/L (15-37) L 06/09/24 06:07 ALT 22 U/L (16-61) 06/09/24 06:07 Alkaline Phosphatase 84 U/L (45-117) 06/09/24 06:07 Lipase 218 U/L (13-75) H 06/09/24 06:07 Home Medications: Calcium Carbonate [Calcium] 600 mg PO BEDTIME 10/29/23 Cholecalciferol (Vitamin D3) [Vitamin D 1000 Iu Tab*] 1 tab PO BEDTIME 10/29/23 Clopidogrel Bisulfate [Plavix] 75 mg PO DAILY 10/29/23 Docusate [Colace Cap*] 100 mg PO BEDTIME 10/29/23 Escitalopram Oxalate 20 mg PO DAILY 10/29/23 Furosemide [Lasix] 40 mg PO DAILY 10/29/23 Levothyroxine [Synthroid*] 50 mcg PO DAILY 10/29/23 Vit C/E/Zn/Coppr/Lutein/Zeaxan [Preservision Areds 2 Chew Tab] 1 tab PO BID 10/29/23 Apixaban [Eliquis] 5 mg PO BID 12/28/23 Atorvastatin Calcium [Lipitor] 80 mg PO BEDTIME 12/28/23 Glimepiride 1 tab PO DAILY 12/28/23 Cetirizine HCl [All Day Allergy Relief] 1 tab PO PRN PRN 06/09/24 Donepezil HCl 1 tab PO BEDTIME 06/09/24 Ergocalciferol (Vitamin D2) [Vitamin D2] 12.5 mcg PO DAILY 06/09/24 Pantoprazole Sodium [Protonix] 1 tab PO DAILY 06/09/24 Amox/Clavulanate [Augmentin 875-125 Tab*] 875 mg PO BID 10 Days #20 tab 06/10/24 Benzonatate [Tessalon Perle*] 200 mg PO TID PRN 5 Days #30 cap 06/10/24 Guaifen W/Codeine Syrup [ROBITUSSIN A-C Syrup*] 10 ml PO QID PRN 10 Days #1 bottle 06/10/24 Mometasone/Formoterol [Dulera 200 Mcg/5 Mcg Inhaler] 2 puff IH BID 30 Days #1 inhaler 06/10/24 predniSONE [Deltasone] 20 mg PO BID 6 Days #12 tab 06/10/24 New Medications: Amox/Clavulanate [Augmentin 875-125 Tab*] 875 mg PO BID 10 Days #20 tab Mometasone/Formoterol [Dulera 200 Mcg/5 Mcg Inhaler] 2 puff IH BID 30 Days #1 inhaler predniSONE [Deltasone] 20 mg PO BID 6 Days #12 tab Guaifen W/Codeine Syrup [ROBITUSSIN A-C Syrup*] 10 ml PO QID PRN 10 Days #1 bottle PRN Reason: COUGH-2ND LINE Benzonatate [Tessalon Perle*] 200 mg PO TID PRN 5 Days #30 cap PRN Reason: COUGH-1ST LINE Physician Discharge Instructions: 1. Please call and schedule a follow-up appointment with your PCP in 3-5 days - Please follow-up with your PCP for medication refills/adjustments 2. Please call and schedule a follow-up appointment with Dr. Riggins in 1 to 2 weeks 3. Continue regular diet 4. No activity restrictions 5. Return to the ED if symptoms worsen New medications Robitussin with codeine 10 mL 4 times daily x 10 days Amoxicillin 875 mg twice daily x 10 days Tessalon Perles 200 mg 3 times a daily x 5 days Dulera 2 puffs inhaled twice daily Prednisone 20 mg twice daily x 10 days, then 20 mg once daily x 2 days Diet: Regular Activity: Ad mirtha Followup: Arnav Tello DO [Primary Care Provider] - Artemio Riggins MD [ACTIVE - CAN ADMIT] -
[2024-06-10 17:53] VITALS: BP 128/59
[2024-06-11] MEDS ORDERED: LEVOTHYROXINE SOD 0.05 MG TABLET PO SCH (06:30)
--- NOTE | 2024-06-13 12:44 | EKG ---
Test Date: 2024-06-09 Test Time: 05:48:47 Cooperative Extension Agent: AF MEASUREMENT RESULTS: Intervals: Rate: 62 IN: 238 QRSD: 114 QT: 434 QTc: 440 [place]: P: IN: 238 QRS: -4 T: -58 INTERPRETIVE STATEMENTS: Sinus rhythm with 1st degree AV block with occasional premature ventricular complexes Low voltage QRS Marked ST abnormality, possible lateral subendocardial injury Abnormal ECG Compared to ECG 05/03/2024 14:27:49 Ventricular premature complex(es) now present Low QRS voltage now present ST (T wave) deviation now present Sinus bradycardia no longer present Right bundle-branch block no longer present Electronically Signed On 06-13-24 12:36:27 BATCH FREE[employer]ER by Simon Helm
== END 2024-06-10 17:45 | disposition home or self-care (01) | DRG 189 ==
LOC: ER 05:41 → ERHOLD 08:15 → 2ND 16:10
PROVIDERS: ADMIT Internal Medicine; ATTEND Internal Medicine
DX: J96.01 Acute respiratory failure with hypoxia (principal); J44.1 Chronic obstructive pulmonary disease with (acute) exacerbation; E03.9 Hypothyroidism, unspecified; E11.9 Type 2 diabetes mellitus without complications; E66.9 Obesity, unspecified; K21.9 Gastro-esophageal reflux disease without esophagitis; I25.10 Atherosclerotic heart disease of native coronary artery without angina pectoris; Z88.8 Allergy status to other drugs, medicaments and biological substances; Z86.73 Personal history of transient ischemic attack (TIA), and cerebral infarction without residual deficits; Z95.1 Presence of aortocoronary bypass graft; Z68.35 Body mass index [BMI] 35.0-35.9, adult; Z87.891 Personal history of nicotine dependence; Z79.01 Long term (current) use of anticoagulants; Z11.52 Encounter for screening for COVID-19; Z79.02 Long term (current) use of antithrombotics/antiplatelets; Z79.890 Hormone replacement therapy; Z79.899 Other long term (current) drug therapy; Z85.828 Personal history of other malignant neoplasm of skin
CPT/HCPCS: 36415; 71045; 80048; 80076; 81001; 82306; 82947; 83690; 83735; 83880; 84100; 84484; 85025; 85610; 87804; 87811; 93005; 94640; 96365; 96366; 96375; 99285; J1650; J2919; J3475; J3535; J7040; J7050; J7512; J7614; J7644